=== PATIENT | male | born 1940 | race Caucasian/White ===

== ENCOUNTER 2016-11-14 05:34 | Emergency (ER) | payer OTHER ==
[~2016-11-14] VITALS: Ht 177.8 cm; Wt 112.0 kg
[~2016-11-14 05:34] MED LIST: ACET1TAB84 PO; ALPR-411 PO; HYDROCORTISONE CR TOP; TAMS0.4C38 PO; TERA1CAP63 PO; VITAMIN D PO
[2016-11-14 05:40] VITALS: BP 159/88; TEMP 36.8; Ht 177.8 cm; Wt 112.0 kg
[2016-11-14] MEDS ORDERED: OXYMETAZOLINE HCL 0.05% NA SPR 15 ML BTL ONE (06:00)
[2016-11-14 06:03] VITALS: PULSE 85; O2SAT 92
--- NOTE | 2016-11-14 06:19 | EMERGENCY ROOM VISIT NOTE ---
History Report prepared by Callie: Adalberto Nichols Under the Supervision of: Dr. Luis Alfredo Ann D.O. First contact with patient: 05:48 Chief Complaint: RESPIRATORY PROBLEMS Stated Complaint: HAVING TROUBLE/PROBLEMS BREATHING History of Present Illness The patient is a 76 year old male who presents to the Emergency Room with complaints of recurrent trouble breathing for the past month. The patient has noticed that his nose becomes stuffy every night, which makes it difficult for him to breath. He is able to breath when his nose clears up and is able to breath through his mouth. The patient's breathing trouble is not exertional. The patient denies chest pain or shortness of breath. The patient denies experiencing cough or cold symptoms. The patient has not seen his PCP for these symptoms. He follows up at [facility]. He is a former smoker. Source of History: patient Onset: one month Position: other (respiratory) Quality: other (trouble breathing) Timing: other (recurrent) Associated Symptoms: No SOB, No chest pain, No cough Review of Systems See HPI for pertinent positives & negatives. A total of 10 systems reviewed and were otherwise negative. Past Medical & Surgical Medical Problems: (1) Hypertension (2) Tinnitus Family History Kidney disease or stones Social History Smoking Status: Former Smoker Marital Status: Occupation Status: retired Current/Historical Medications Scheduled Acetaminophen (Tylenol Arthritis Ext Rel), 1,300 MG PO PRN Tamsulosin Hcl (Flomax), 0.4 MG PO HS Terazosin Hcl (Hytrin), 10 MG PO QPM [Hydrocortisone Cr], 1 DOSE TOP PRN [Vitamin D], 1 TAB PO QAM Scheduled PRN Alprazolam (Xanax), 0.5 MG PO BID PRN for Anxiety Allergies Coded Allergies: Codeine (Verified Adverse Reaction, Mild, NAUSEA, 01/26/16) Physical Exam Vital Signs Date Time Temp Pulse Resp B/P Pulse Ox O2 Delivery O2 Flow Rate FiO2 11/14/16 06:03 85 20 92 11/14/16 05:50 92 Room Air 11/14/16 05:40 36.8 86 16 159/88 92 Room Air Physical Exam CONSTITUTIONAL/VITAL SIGNS: Reviewed / noted above. GENERAL: Non-toxic in appearance. INTEGUMENTARY: Warm, dry, and [place]. HEAD: Normocephalic. EYES: without scleral icterus or trauma. ENT/OROPHARYNX: clear and moist. LYMPHADENOPATHY/NECK: Is supple without lymphadenopathy or meningismus. RESPIRATORY: Lungs clear and equal. CARDIOVASCULAR: Regular rate and rhythm. GI/ABDOMEN: Soft and nontender. No organomegaly or pulsatile mass. No rebound or guarding. Normal bowel sounds. EXTREMITIES: Warm and well perfused. Mild lower extremity edema bilaterally. BACK: No CVA tenderness. NEUROLOGICAL: Intact without focal deficits. PSYCHIATRIC: normal affect. MUSCULOSKELETAL: Normally developed with good muscle tone. Medical Decision & Procedures Medications Administered Medications (Trade) Dose Ordered Sig/Gely Route Start Time Stop Time Status Last Admin Dose Admin Oxymetazoline HCl (Afrin 0.05% Nasal [place]) 1 sprays NOW ONCE NA 11/14/16 06:00 11/14/16 06:01 DC 11/14/16 06:01 75 SPRAYS ED Course 0549: Previous medical records were reviewed. The patient was evaluated in room A9b. A complete history and physical examination was performed. 0600: Afrin 0.05% 1 [place] NA. 0600: Discussed the treatment plan with the patient. He verbalized understanding and agreement. The patient is ready for discharge. Medical Decision The differential that was considered includes acute myocardial infarction, acute coronary syndrome, myocarditis, pericarditis, pericardial effusions / tamponad, esophageal perforation, pulmonary embolism, pneumonia, pneumothorax , cardiomyopathy, congestive heart, anemia , COPD/asthma exacerbation. This is a 76-year-old male who presents to the ED with a chief complaint of nasal congestion. The patient states that he has been having the symptoms for over a month. He states that at nighttime particularly in his bedroom, he developed nasal congestion where he cannot breathe through his nose. His symptoms improved during the day. He denies having any exertional symptoms. He does not have orthopnea. He primarily complains of the nasal congestion. He is not sure why it happens. He thinks it could be related to a dry house. The patient was offered cardiopulmonary evaluation here but declined this. Instead he desired Afrin for his congestion. The patient was evaluated. His exam was normal. He has some mild pedal edema. He does not have any clinical findings to suggest pulmonary edema or significant congestive heart failure. A denies exertional dyspnea. The patient was given Afrin to use when necessary at night for his nasal congestion. He does have follow-up with his PCP next week. He was told to return for any worsening or new concerns. Impression Primary Impression: Nasal congestion Scribe Attestation The scribe's documentation has been prepared under my direction and personally reviewed by me in its entirety. I confirm that the note above accurately reflects all work, treatment, procedures, and medical decision making performed by me. Departure Information Dispostion Home / Self-Care Referrals Billy Garcia M.D. (PCP) Forms HOME CARE DOCUMENTATION FORM, IMPORTANT VISIT INFORMATION Patient Instructions [facility] Additional Instructions Use Afrin spray once or twice a night as needed for nasal congestion. Follow-up with your doctor for recheck next week as scheduled. Return for any worsening or new concerns.
== END 2016-11-14 06:04 | disposition home or self-care (01) ==
LOC: C.EDB 05:36 → C.EDA 06:04
DX: R09.81 Nasal congestion (principal); I10 Essential (primary) hypertension; Z87.891 Personal history of nicotine dependence; Z79.899 Other long term (current) drug therapy; Z88.5 Allergy status to narcotic agent; Z84.1 Family history of disorders of kidney and ureter

== ENCOUNTER → 2016-11-15 | Outpatient (CLI) | payer OTHER ==
[~2016-11-15] MED LIST changes: +ASPI-232 PO; +FINA5TAB PO; +FLUT0.15 NAE
[2016-11-15 12:53] LABS: ALT/SGPT 20 U/L (12-78); BLOOD UREA NITROGEN 15 mg/dl (7-18); BUN/CREATININE RATIO 14.9 (10-20); CALCIUM 8.8 mg/dl (8.5-10.1); CARBON DIOXIDE 25 mmol/L (21-32); CHLORIDE 109 mmol/L (98-107); GLUCOSE 84 mg/dl (70-99); POTASSIUM 4.1 mmol/L (3.5-5.1); SODIUM 143 mmol/L (136-145)
[2016-11-15 13:04] LABS: ALB/GLOB RATIO 0.8 (0.9-2); ALKALINE PHOSPHATASE 58 U/L (45-117); AST/SGOT 18 U/L (15-37); PROSTATE SPECIFIC ANTIGEN 0.648 ng/ml (0.000-4.000); THYROID STIMULATING HORMONE 0.453 uIu/ml (0.300-4.500)
== END | disposition home or self-care (01) ==
LOC: C.LABPVFM 07:54
PROVIDERS: ATTEND Family Medicine
DX: N40.1 Benign prostatic hyperplasia with lower urinary tract symptoms (principal); E55.9 Vitamin D deficiency, unspecified; I10 Essential (primary) hypertension; F41.9 Anxiety disorder, unspecified

== ENCOUNTER → 2017-01-24 | Outpatient (CLI) | payer OTHER ==
[~2017-01-24] MED LIST changes: +XARELTO PO
[2017-01-24 12:48] LABS: BLOOD UREA NITROGEN 12 mg/dl (7-18); CREATININE 0.91 mg/dl (0.60-1.40)
== END | disposition home or self-care (01) ==
LOC: C.LABPVFM 07:58
PROVIDERS: ATTEND Physician Assistant
DX: H91.8X2 Other specified hearing loss, left ear (principal)

== ENCOUNTER → 2017-01-30 | Outpatient (CLI) | payer OTHER ==
[~2017-01-30] MED LIST changes: +GADAVIST IV PRN
--- NOTE | 2017-01-30 11:36 | DIAGNOSTIC IMAGING REPORT ---
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 COMPARISON STUDY: MRI of the brain January 11, [address] December 04, 2015. TECHNIQUE: Utilizing a 0.7 Sherrell magnet, multiplanar, multiecho imaging of the brain was performed pre and postcontrast administration with thin cut imaging through the internal auditory canals. Injection of 11 cc of Gadavist IV was uneventful. FINDINGS: This exam is moderately compromised by artifact. There are no areas restricted diffusion to suggest acute infarct. No acute intracranial hemorrhage, midline shift or mass effect is present. Ventricular system is normal for age. Basilar cisterns are patent. There are no extra-axial collections. Flow-voids for the major intracranial vessels are present. There are no intracranial masses or areas of pathologic enhancement. No abnormalities are identified within the internal auditory canals. Scattered white matter T2 hypertense foci suggest small vessel disease. A few old lacunar infarcts are noted. The appearance of the brain is unchanged since MRI of January 11, 2014. IMPRESSION: 1. No acute intracranial findings. 2. No abnormalities within the internal auditory canals. 3. Study moderately compromised by artifact. 4. 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 Electronically signed by: Francisco Peñaloza M.D. 01/30/2017 11:34 AM Dictated Date/Time: 01/30/2017 11:29 AM
== END | disposition home or self-care (01) ==
LOC: C.OPENMRI 09:39
PROVIDERS: ATTEND Physician Assistant
DX: H91.8X2 Other specified hearing loss, left ear (principal)

== ENCOUNTER → 2017-05-18 | Outpatient (CLI) | payer OTHER ==
[~2017-05-18] MED LIST changes: -GADAVIST IV PRN; -XARELTO PO
[2017-05-18 13:19] LABS: ALT/SGPT 25 U/L (12-78); BLOOD UREA NITROGEN 13 mg/dl (7-18); BUN/CREATININE RATIO 14.9 (10-20); CALCIUM 8.3 mg/dl (8.5-10.1); CARBON DIOXIDE 26 mmol/L (21-32); CHLORIDE 111 mmol/L (98-107); CHOLESTEROL 137 mg/dl (0-200); CREATININE 0.89 mg/dl (0.60-1.40); GLUCOSE 85 mg/dl (70-99); POTASSIUM 4.2 mmol/L (3.5-5.1); SODIUM 143 mmol/L (136-145); TRIGLYCERIDES 67 mg/dl (0-150); VERY LOW DENSITY LIPOPROT CALC 13 mg/dl
[2017-05-18 13:22] LABS: ALB/GLOB RATIO 0.7 (0.9-2); ALKALINE PHOSPHATASE 56 U/L (45-117); AST/SGOT 22 U/L (15-37); CHOLESTEROL/HDL RATIO 3.3; HDL CHOLESTEROL 41 mg/dl; LDL CHOLESTEROL CALCULATED 83 mg/dl
[2017-05-21 17:14] LABS: ALBUMIN 3.4 G/DL (3.8-4.8); GAMMA GLOBULIN 1.5 G/DL (0.8-1.7); IMMUNOFIXATION IGA SERUM 653 MG/DL (81-463); IMMUNOFIXATION IGG SERUM 1586 MG/DL (694-1618); IMMUNOFIXATION IGM SERUM 49 MG/DL (48-271); TOTAL PROTEIN 6.8 G/DL (6.2-8.3)
== END | disposition home or self-care (01) ==
LOC: C.LABPVFM 07:57
PROVIDERS: ATTEND Family Medicine
DX: R77.1 Abnormality of globulin (principal); I10 Essential (primary) hypertension

== ENCOUNTER 2017-06-24 08:34 | Emergency (ER) | payer OTHER ==
[~2017-06-24] VITALS: Ht 177.8 cm; Wt 109.8 kg
[~2017-06-24 08:34] MED LIST changes: -ASPI-232 PO; -FINA5TAB PO; -FLUT0.15 NAE
[2017-06-24 08:39] VITALS: TEMP 36.9; Ht 177.8 cm; Wt 109.8 kg
[2017-06-24] MEDS ORDERED: FINA5TAB PO (08:57)
[2017-06-24] MEDS ORDERED: ASPI-232 PO (08:57)
[2017-06-24] MEDS ORDERED: FLUT0.15 NAE (08:57)
[2017-06-24] MEDS ORDERED: SODIUM CHLORIDE 0.9% 1000ML 1,000 ML IV STA (09:38)
[2017-06-24 10:02] LABS: URINE APPEARANCE CLEAR (CLEAR); URINE COLOR DK YELLOW; URINE NITRITE NEG (NEG); URINE SPECIFIC GRAVITY 1.032 (1.000-1.030); UROBILINOGEN NEG (NEG); ZZUR CULT IF INDIC CLEAN CATCH NO
[2017-06-24 10:13] LABS: MANUAL MICROSCOPIC REQUIRED? NO; REVIEW REQ? NO; URINE BILIRUBIN NEG (NEG)
--- NOTE | 2017-06-24 10:27 | DIAGNOSTIC IMAGING REPORT ---
CHEST ONE VIEW PORTABLE HISTORY: 76 years-old Male CHEST PAIN acute atypical chest pain COMPARISON: Chest radiographs 01/12/2016 TECHNIQUE: Portable upright AP view of the chest FINDINGS: Cardiac silhouette is mildly enlarged, unchanged. There is atherosclerosis of the aorta. No pneumothorax or pleural effusion. Patchy subsegmental bibasilar opacities are redemonstrated. No new lobar airspace consolidation or overt pulmonary edema. Degenerative changes involve the shoulders and spine. IMPRESSION: 1. Mild cardiomegaly without overt pulmonary edema. 2. Patchy subsegmental bibasilar opacities are redemonstrated suggesting atelectasis and/or scarring. No lobar airspace consolidation to suggest pneumonia. The above report was generated using voice recognition software. It may contain grammatical, syntax or spelling errors. Electronically signed by: Jose J Booker M.D. 06/24/2017 10:26 AM Dictated Date/Time: 06/24/2017 10:24 AM
[2017-06-24 10:32] LABS: BASO % 0.2 %; BASO ABS # 0.01 K/uL (0-0.2); COMPLETE YES; EOS % 5.7 %; HEMATOCRIT 45.3 % (42-52); IG% 0.2 %; LYMPH % 26.8 %; LYMPH ABS # 1.32 K/uL (1.2-3.4); MEAN CORPUSCULAR HGB CONC 32.7 g/dl (32-36); MEAN PLATELET VOLUME 9.3 fL (7.4-10.4); MONO % 10.1 %; PLATELET COUNT 188 K/uL (130-400); RED BLOOD COUNT 4.77 M/uL (4.7-6.1); WHITE BLOOD COUNT 4.93 K/uL (4.8-10.8)
[2017-06-24 10:49] LABS: BUN/CREATININE RATIO 13.2 (10-20); CALCIUM 8.8 mg/dl (8.5-10.1); CREATININE 0.97 mg/dl (0.60-1.40); POTASSIUM 4.3 mmol/L (3.5-5.1)
--- NOTE | 2017-06-24 12:25 | DIAGNOSTIC IMAGING REPORT ---
RENAL ULTRASOUND HISTORY: Right-sided flank pain. r/o hydronephrosis COMPARISON: None. FINDINGS: Right kidney: 12.3 cm. No hydronephrosis. Normal corticomedullary differentiation and cortical thickness. Left kidney: 11.8 cm. No hydronephrosis. Normal corticomedullary differentiation and cortical thickness. Bladder: No bladder wall thickening. The bilateral ureteral jets were identified. IMPRESSION: No hydronephrosis. Electronically signed by: Eliel Solitario M.D. 06/24/2017 12:23 PM Dictated Date/Time: 06/24/2017 11:23 AM
--- NOTE | 2017-06-24 13:07 | EMERGENCY ROOM VISIT NOTE ---
History Report prepared by Callie: Erin Dumont Under the Supervision of: Dr. Jaciel Calderón M.D. First contact with patient: 09:36 Chief Complaint: BACK PAIN Stated Complaint: RIGHT SIDED BACK PAIN UNDER RIB CAGE History of Present Illness The patient is a 76 year old male who presents to the Emergency Room with complaints of persistent right flank pain starting 2 days ago. He has been having the pain as soon as he gets up in the morning. This morning the pain was a 7/10 in severity. He has been experiencing relief with Aleve. He took some today. He currently rates his discomfort as a 3/10 in severity. He presents to the ED today because he has a history of kidney stones and wanted to make sure that it was not a kidney stone. He denies any abdominal pain, hematuria, dysuria , fever, chills, cough, congestion, nausea, vomiting, chest pain, SOB, diarrhea , or constipation. He was able to pass his last kidney stone on his own. It has been a while since his last kidney stone. He is currently of Flomax for his prostate. He denies any history of ND or ulcers. He lives alone. Source of History: patient Onset: 2 days ago Position: other (right flank) Symptom Intensity: 3/10 Quality: other (pain) Timing: other (persistent) Modifying Factors (Relieving): other (aleve) Associated Symptoms: No fevers, No chills, No cough, No chest pain, No SOB, No nausea, No vomiting, No abdominal pain, No diarrhea, No urinary symptoms Note: Pt denies congestion, constipation. Review of Systems See HPI for pertinent positives and negatives. A total of ten systems were reviewed and were otherwise negative. Past Medical & Surgical Medical Problems: (1) Hypertension (2) Tinnitus Family History Kidney disease or stones Social History Smoking Status: Former Smoker Marital Status: Housing Status: lives alone Occupation Status: retired Current/Historical Medications Scheduled Aspirin (Aspir-81), 81 MG PO DAILY Finasteride (Proscar), 5 MG PO DAILY Tamsulosin Hcl (Flomax), 0.4 MG PO HS Terazosin Hcl (Hytrin), 10 MG PO QPM Scheduled PRN Alprazolam (Xanax), 0.5 MG PO BID PRN for Anxiety Fluticasone Propionate (Nasal) (Flonase Allergy Relief), 2 SPRAYS [place]UB[place] DAILY PRN for CONGESTION Allergies Coded Allergies: Codeine (Verified Adverse Reaction, Mild, NAUSEA, 06/24/17) Physical Exam Vital Signs Date Time Temp Pulse Resp B/P (MAP) Pulse Ox O2 Delivery O2 Flow Rate FiO2 06/24/17 13:11 72 152/83 93 06/24/17 11:35 75 20 144/78 94 Room Air 06/24/17 10:11 80 126/79 92 Room Air 06/24/17 08:39 36.9 86 20 163/81 95 Room Air Physical Exam GENERAL: Awake, alert, well-appearing, in no distress HENT: Normocephalic, atraumatic. Oropharynx unremarkable. EYES: Normal conjunctiva. Sclera non-icteric. NECK: Supple. No nuchal rigidity. FROM. No JVD. RESPIRATORY: Clear to auscultation. CARDIAC: Regular rate, normal rhythm. Extremities warm and well perfused. Pulses equal. ABDOMEN: Soft, non-distended. No tenderness to palpation. No rebound or guarding. No masses. RECTAL: Deferred. MUSCULOSKELETAL: Chest examination reveals no tenderness. The back is symmetrical on inspection without obvious abnormality. There is no CVA tenderness to palpation. No joint edema. LOWER EXTREMITIES: Calves are equal size bilaterally and non-tender. No edema. No discoloration. NEURO: Normal sensorium. No sensory or motor deficits noted. SKIN: No rash or jaundice noted. Medical Decision & Procedures ER Provider Diagnostic Interpretation: Radiology results as stated below per my review and radiologist interpretation: CHEST ONE VIEW PORTABLE HISTORY: 76 years-old Male CHEST PAIN acute atypical chest pain COMPARISON: Chest radiographs 01/12/2016 TECHNIQUE: Portable upright AP view of the chest FINDINGS: Cardiac silhouette is mildly enlarged, unchanged. There is atherosclerosis of the aorta. No pneumothorax or pleural effusion. Patchy subsegmental bibasilar opacities are redemonstrated. No new lobar airspace consolidation or overt pulmonary edema. Degenerative changes involve the shoulders and spine. IMPRESSION: 1. Mild cardiomegaly without overt pulmonary edema. 2. Patchy subsegmental bibasilar opacities are redemonstrated suggesting atelectasis and/or scarring. No lobar airspace consolidation to suggest pneumonia. The above report was generated using voice recognition software. It may contain grammatical, syntax or spelling errors. Electronically signed by: Jose J Booker M.D. 06/24/2017 10:26 AM Dictated Date/Time: 06/24/2017 10:24 AM RENAL ULTRASOUND HISTORY: Right-sided flank pain. r/o hydronephrosis COMPARISON: None. FINDINGS: Right kidney: 12.3 cm. No hydronephrosis. Normal corticomedullary differentiation and cortical thickness. Left kidney: 11.8 cm. No hydronephrosis. Normal corticomedullary differentiation and cortical thickness. Bladder: No bladder wall thickening. The bilateral ureteral jets were identified. IMPRESSION: No hydronephrosis. Electronically signed by: Eliel Solitario M.D. 06/24/2017 12:23 PM Dictated Date/Time: 06/24/2017 11:23 AM Laboratory Results 06/24/17 10:10 Red Blood Count 4.77, Mean Corpuscular Volume 95.0, Mean Corpuscular Hemoglobin 31.0, Mean Corpuscular Hemoglobin Concent 32.7, Mean Platelet Volume 9.3, Neutrophils (%) (Auto) 57.0, Lymphocytes (%) (Auto) 26.8, Monocytes (%) (Auto) 10.1, Eosinophils (%) (Auto) 5.7, Basophils (%) (Auto) 0.2, Neutrophils # (Auto ) 2.81, Lymphocytes # (Auto) 1.32, Monocytes # (Auto) 0.50, Eosinophils # (Auto ) 0.28, Basophils # (Auto) 0.01 06/24/17 10:10 Test 06/24/17 08:45 06/24/17 10:10 Urine Color DK YELLOW Urine Appearance CLEAR (CLEAR) Urine pH 5.0 (4.5-7.5) Urine Specific [place] 1.032 (1.000-1.030) Urine Protein NEG (NEG) Urine Glucose (UA) NEG (NEG) Urine Ketones TRACE (NEG) Urine Occult Blood NEG (NEG) Urine Nitrite NEG (NEG) Urine Bilirubin NEG (NEG) Urine Urobilinogen NEG (NEG) Urine Leukocyte Esterase NEG (NEG) White Blood Count 4.93 K/uL (4.8-10.8) Red Blood Count 4.77 M/uL (4.7-6.1) Hemoglobin 14.8 g/dL (14.0-18.0) Hematocrit 45.3 % (42-52) Mean Corpuscular Volume 95.0 fL (80-100) Mean Corpuscular Hemoglobin 31.0 pg (25-34) Mean Corpuscular Hemoglobin Concent 32.7 g/dl (32-36) Platelet Count 188 K/uL (130-400) Mean Platelet Volume 9.3 fL (7.4-10.4) Neutrophils (%) (Auto) 57.0 % Lymphocytes (%) (Auto) 26.8 % Monocytes (%) (Auto) 10.1 % Eosinophils (%) (Auto) 5.7 % Basophils (%) (Auto) 0.2 % Neutrophils # (Auto) 2.81 K/uL (1.4-6.5) Lymphocytes # (Auto) 1.32 K/uL (1.2-3.4) Monocytes # (Auto) 0.50 K/uL (0.11-0.59) Eosinophils # (Auto) 0.28 K/uL (0-0.5) Basophils # (Auto) 0.01 K/uL (0-0.2) RDW Standard Deviation 47.2 fL (36.4-46.3) RDW Coefficient of Variation 13.6 % (11.5-14.5) Immature Granulocyte % (Auto) 0.2 % Immature Granulocyte # (Auto) 0.01 K/uL (0.00-0.02) Anion Gap 7.0 mmol/L (3-11) Est Creatinine Clear Calc Drug Dose 82.9 ml/min Estimated GFR () 88.8 Estimated GFR (Non- 76.6 BUN/Creatinine Ratio 13.2 (10-20) Calcium Level 8.8 mg/dl (8.5-10.1) Laboratory results reviewed by me Medications Administered Medications (Trade) Dose Ordered Sig/Gely Route Start Time Stop Time Status Last Admin Dose Admin Sodium Chloride 1,000 ml @ 999 mls/hr Q1H1M STAT IV 06/24/17 09:38 06/24/17 10:38 DC 06/24/17 10:10 999 MLS/HR ED Course 0937: The patient was evaluated in room B12B. A complete history and physical exam was performed. 0938: NSS 1000 ml @ 999 mls/hr IV. 1254: I reevaluated the patient. He is feeling better. I discussed results and discharge instructions: he verbalized understanding and agreement. The patient is ready for discharge. Medical Decision I reviewed the patient's past medical history, medications, and the nursing notes as described above. Differential diagnosis: kidney stone, pyelonephritis, UTI, musculoskeletal strain, pneumonia. Patient is a 76-year-old gentleman with a past medical history of a renal stone is to emergency department with intermittent right flank pain per history of present illness. The patient is well-appearing, in no acute distress, afebrile with stable vital signs. Abdomen is nontender nondistended. Labs unremarkable including WBC within normal limits. UA negative for UTI or blood. Formal renal ultrasound negative for hydronephrosis. The patient is largely asymptomatic at this time no signs of obstructive renal stone and normal labs further imaging indicated at this time. Moreover, the patient is already appropriate medications as he is on Flomax as a part of his normal medications and has been taking naproxen with resolution of his pain. Findings and plan for follow-up d/w patient. Patient agreeable and d/c'd per discharge instructions. Medication Reconcilliation Current Medication List: was personally reviewed by me Blood Pressure Screening Patient's blood pressure: Elevated blood pressure Blood pressure disposition: Elevated BP felt to be situational Impression Primary Impression: Flank pain Scribe Attestation The scribe's documentation has been prepared under my direction and personally reviewed by me in its entirety. I confirm that the note above accurately reflects all work, treatment, procedures, and medical decision making performed by me. Departure Information Dispostion Home / Self-Care Referrals Billy Garcia M.D. (PCP) Patient Instructions ED Flank Pain Uncertain Cause, My [facility] Additional Instructions Please follow up with your primary care physician in the next 1-3 days for re- evaluation. The exact cause of your pain is unclear at this time however it could be due to a kidney stone (that is not causing obstruction) or also muscular strain. Otherwise, your exam, chest xray, ultrasound, and lab results did not show signs of an emergent condition at this time. Continue your current medications. Return to the emergency department for worsening symptoms as described in the accompanying instructions.
[2017-06-24 13:11] VITALS: BP 152/83; PULSE 72; O2SAT 93
== END 2017-06-24 13:12 | disposition home or self-care (01) ==
LOC: C.EDB 08:36
DX: R10.30 Lower abdominal pain, unspecified (principal); Z87.442 Personal history of urinary calculi; I10 Essential (primary) hypertension; H93.19 Tinnitus, unspecified ear; Z87.891 Personal history of nicotine dependence; Z79.899 Other long term (current) drug therapy; Z79.82 Long term (current) use of aspirin

== ENCOUNTER 2017-07-30 20:00 | Inpatient (IN) | payer OTHER ==
[~2017-07-30] VITALS: Ht 177.8 cm; Wt 109.8 kg
[~2017-07-30 20:00] MED LIST changes: -ACET1TAB84 PO; +ASPI-232 PO; +FINA5TAB PO; +FLUT0.15 NAE; -HYDROCORTISONE CR TOP; -VITAMIN D PO
[2017-07-30] MEDS ORDERED: DILTIAZEM BOLUS / DRIP IV STA ×2 (20:08→21:34)
[2017-07-30] MEDS ORDERED: SODIUM CHLORIDE 0.9% 1000ML 500 ML IV STA (20:08)
[2017-07-30] MEDS ORDERED: DILTIAZEM HCL 5 MG/ML 5 ML VIAL IV STA (20:18)
--- NOTE | 2017-07-30 20:25 | EMERGENCY ROOM VISIT NOTE ---
History Report prepared by Callie: Joao Kaur Under the Supervision of: Dr. Gavin Diaz M.D. First contact with patient: 20:05 Chief Complaint: TACHYCARDIA Stated Complaint: HIGH HR Nursing Triage Summary: pt reports started to feel heart racing at 1900 today , denies cp or increased sob , denies hx of fast HR History of Present Illness The patient is a 76 year old male who presents to the Emergency Room with complaints of constant tachycardia for the past hour. The patient states that he was sitting watching TV when his heart started to race, and he has never had anything like this before. The patient denies any chest pain, shortness of breath, light headedness, dizziness, and previous heart attacks. He notes that he has been feeling fine for the past couple of days, and he has chronic leg swelling. Source of History: patient Onset: an hour ago Position: other (global) Quality: other (tachycardia) Timing: constant Associated Symptoms: No chest pain, No SOB Review of Systems See HPI for pertinent positives & negatives. A total of 10 systems reviewed and were otherwise negative. Past Medical & Surgical Medical Problems: (1) Hypertension (2) Tinnitus Family History Kidney disease or stones Social History Smoking Status: Never Smoker Marital Status: Housing Status: lives alone Occupation Status: retired Current/Historical Medications Scheduled Aspirin (Aspir-81), 81 MG PO DAILY Finasteride (Proscar), 5 MG PO DAILY Terazosin Hcl (Hytrin), 10 MG PO QPM Scheduled PRN Alprazolam (Xanax), 0.5 MG PO BID PRN for Anxiety Fluticasone Propionate (Nasal) (Flonase Allergy Relief), 2 SPRAYS HUBERT DAILY PRN for CONGESTION Allergies Coded Allergies: Codeine (Verified Adverse Reaction, Mild, NAUSEA, 06/24/17) Physical Exam Vital Signs Date Time Temp Pulse Resp B/P (MAP) Pulse Ox O2 Delivery O2 Flow Rate FiO2 07/30/17 21:33 142 18 155/92 96 Room Air 07/30/17 21:11 123 18 144/83 95 Nasal Cannula 2.0 07/30/17 20:59 119 18 132/70 94 Nasal Cannula 2.0 07/30/17 20:46 124 132/70 07/30/17 20:32 143 18 158/95 94 Nasal Cannula 2.0 07/30/17 20:19 145 07/30/17 20:17 92 Room Air 07/30/17 20:04 94 2.0 07/30/17 20:02 36.8 149 20 161/101 95 Room Air Physical Exam GENERAL: Patient is in no acute distress. HEENT: No acute trauma, normocephalic atraumatic, mucous membranes moist, no nasal congestion, no scleral icterus. NECK: No stridor, no adenopathy, no meningismus, trachea is midline. LUNGS: Clear to auscultation bilaterally, no wheeze, no rhonchi, breath sounds equal. HEART: Tachycardic with a regular rhythm. No murmur. ABDOMEN: Soft, nontender, bowel sounds positive, no hernias, no peritonitis. EXTREMITIES: Mild bilateral pedal edema. No cyanosis, full range of motion of all the joints without pain or difficulty, no signs for acute trauma. NEUROLOGIC: Oriented x 3, no acute motor or sensory deficits, no focal weakness. SKIN: No rash, no jaundice, no diaphoresis. Medical Decision & Procedures ER Provider Diagnostic Interpretation: Radiology results as stated below per my review and radiologist interpretation: CHEST ONE VIEW PORTABLE HISTORY: 76 years-old Male CHEST PAIN acute atypical chest pain COMPARISON: Chest radiograph 06/24/2017 TECHNIQUE: Portable upright AP view of the chest FINDINGS: Cardiac silhouette is mildly enlarged, unchanged. Atherosclerosis of the aorta. No pneumothorax. Subsegmental bibasilar opacities are noted. The bones are grossly intact. Degenerative changes are seen about the spine and shoulders. IMPRESSION: 1. Subsegmental bibasilar opacities suggest atelectasis. 2. Cardiomegaly without overt pulmonary edema. The above report was generated using voice recognition software. It may contain grammatical, syntax or spelling errors. Electronically signed by: Jose J Booker M.D. 07/30/2017 8:58 PM Dictated Date/Time: 07/30/2017 8:56 PM Laboratory Results 07/30/17 20:15 07/30/17 20:15 Test 07/30/17 20:15 07/30/17 20:18 Red Blood Count 4.68 M/uL (4.7-6.1) Mean Corpuscular Volume 94.7 fL (80-100) Mean Corpuscular Hemoglobin 31.4 pg (25-34) Mean Corpuscular Hemoglobin Concent 33.2 g/dl (32-36) RDW Standard Deviation 46.9 fL (36.4-46.3) RDW Coefficient of Variation 13.7 % (11.5-14.5) Mean Platelet Volume 9.5 fL (7.4-10.4) Prothrombin Time 11.4 SECONDS (9.0-12.0) Prothromb Time International Ratio 1.1 (0.9-1.1) Activated Partial Thromboplast Time 26.1 SECONDS (21.0-31.0) Partial Thromboplastin Ratio 1.0 Anion Gap 7.0 mmol/L (3-11) Est Creatinine Clear Calc Drug Dose 71.7 ml/min Estimated GFR () 73.8 Estimated GFR (Non- 63.7 BUN/Creatinine Ratio 11.8 (10-20) Calcium Level 8.7 mg/dl (8.5-10.1) Magnesium Level 2.0 mg/dl (1.8-2.4) Total Bilirubin 0.4 mg/dl (0.2-1) Aspartate Amino Transf (AST/SGOT) 18 U/L (15-37) Alanine Aminotransferase (ALT/SGPT) 20 U/L (12-78) Alkaline Phosphatase 58 U/L (45-117) Total Protein 7.2 gm/dl (6.4-8.2) Albumin 3.2 gm/dl (3.4-5.0) Globulin 4.0 gm/dl (2.5-4.0) Albumin/Globulin Ratio 0.8 (0.9-2) Thyroid Stimulating Hormone (TSH) 0.614 uIu/ml (0.300-4.500) Bedside Troponin I 0.060 ng/ml (0-0.045) Laboratory results reviewed by me. Medications Administered Medications (Trade) Dose Ordered Sig/Gely Route Start Time Stop Time Status Last Admin Dose Admin Sodium Chloride 500 ml @ 999 mls/hr Q31M STAT IV 07/30/17 20:08 07/30/17 20:38 DC 07/30/17 20:34 999 MLS/HR Diltiazem HCl (Cardizem Inj) 10 mg NOW STAT IV 07/30/17 20:18 07/30/17 20:19 DC 10/31/17 20:30 10 MG Diltiazem HCl 125 mg/Dextrose 125 ml @ 0 mls/hr Q0M PRN IV 07/30/17 20:30 08/29/17 20:29 07/30/17 20:32 8 MLS/HR Diltiazem HCl (Cardizem Tab) 30 mg STK-MED ONCE .ROUTE 07/30/17 21:30 07/30/17 21:31 DC 07/30/17 21:33 30 MG ECG Indication: tachycardia Rate (beats per minute): 146 Rhythm: atrial flutter (with 2:1 conduction) Findings: nonspecific-ST abn (diffuse), RBBB Comparison ECG Date: 01/12/16 Change: A-flutter is now present and right bundle branch block is now complete. ED Course 2004: The patient was evaluated in room B3. A complete history and physical exam was performed. 2008: Sodium Chloride 500 ml @ 999 mls/hr IV 2018: Diltiazem HCl 10mg IV 2029: Diltiazem HCl 125mg/ Dextrose 8 mls/hr IV 2056: I reevaluated the patient, and he was still having symptoms. 2129: Discussed the patient's case with Dr. Rahman. The patient will be evaluated for further management. Medical Decision Differential Diagnoses include: A-fib or A-flutter, SVT, electrolyte abnormality , anemia, cardiac strain or ischemia, CHF There is no leukocytosis or concerning anemia. No significant electrolyte abnormality or kidney failure. There is no hepatitis or coagulopathy. EKG shows what appears to be in rapid atrial flutter with a right bundle branch block. Cardiac enzyme testing times one does show a mild troponin elevation, likely from the fast heart rate. Of note, the patient denies any chest pain at the present time. Chest film does not show pneumonia or CHF. The patient was aggressively managed. The patient received an IV saline bolus. He was given a bolus of IV diltiazem and then placed on a diltiazem drip. His heart rate is decreasing but he remains in atrial flutter/fib. Given the persistent tachycardia, given the troponin elevation, admission/ observation was felt warranted. I spoke to the patient and case investigator. The on-call hospitalist was consulted. Medication Reconcilliation Current Medication List: was personally reviewed by me Blood Pressure Screening Patient's blood pressure: Elevated blood pressure Monitored by the hospitalist Consults Time Called: 2103 Consulting Physician: Dr. Rahman Returned Call: 2129 Discussed the patient's case with Dr. Rahman. The patient will be evaluated for further management. Impression Primary Impression: Atrial flutter with rapid ventricular response Additional Impression: Elevated troponin Critical Care I have personally spent greater than 37 minutes of critical care time in the direct management of this patient. This includes bedside care, interpretation of diagnostic studies, and testing, discussion with consultants, patient, and family members, and other required patient management activities. This 37 minutes is in excess of all separately billable procedures. Scribe Attestation The scribe's documentation has been prepared under my direction and personally reviewed by me in its entirety. I confirm that the note above accurately reflects all work, treatment, procedures, and medical decision making performed by me. Departure Information Dispostion Being Evaluated By Hospitalist Referrals Billy Garcia M.D. (PCP) Patient Instructions [facility] Problem Qualifiers
[2017-07-30 20:29] LABS: HEMATOCRIT 44.3 % (42-52); MEAN CELL VOLUME 94.7 fL (80-100); MEAN CORPUSCULAR HEMOGLOBIN 31.4 pg (25-34); MEAN CORPUSCULAR HGB CONC 33.2 g/dl (32-36); MEAN PLATELET VOLUME 9.5 fL (7.4-10.4); PLATELET COUNT 179 K/uL (130-400); RED BLOOD COUNT 4.68 M/uL (4.7-6.1); WHITE BLOOD COUNT 6.66 K/uL (4.8-10.8)
[2017-07-30] MEDS: DILTIAZEM HCL INJ 125 MG in DEXTROSE 5% 100ML IV PRN ×2 (20:32→23:00)
[2017-07-30 20:35] LABS: INR 1.1 (0.9-1.1); PROTHROMBIN TIME (PATIENT) 11.4 SECONDS (9.0-12.0)
[2017-07-30 20:45] LABS: BUN/CREATININE RATIO 11.8 (10-20); CALCIUM 8.7 mg/dl (8.5-10.1); CREATININE 1.13 mg/dl (0.60-1.40); POTASSIUM 3.7 mmol/L (3.5-5.1)
[2017-07-30 20:56] LABS: ALB/GLOB RATIO 0.8 (0.9-2); THYROID STIMULATING HORMONE 0.614 uIu/ml (0.300-4.500)
--- NOTE | 2017-07-30 20:59 | DIAGNOSTIC IMAGING REPORT ---
CHEST ONE VIEW PORTABLE HISTORY: 76 years-old Male CHEST PAIN acute atypical chest pain COMPARISON: Chest radiograph 06/24/2017 TECHNIQUE: Portable upright AP view of the chest FINDINGS: Cardiac silhouette is mildly enlarged, unchanged. Atherosclerosis of the aorta. No pneumothorax. Subsegmental bibasilar opacities are noted. The bones are grossly intact. Degenerative changes are seen about the spine and shoulders. IMPRESSION: 1. Subsegmental bibasilar opacities suggest atelectasis. 2. Cardiomegaly without overt pulmonary edema. The above report was generated using voice recognition software. It may contain grammatical, syntax or spelling errors. Electronically signed by: Jose J Booker M.D. 07/30/2017 8:58 PM Dictated Date/Time: 07/30/2017 8:56 PM
[2017-07-30] MEDS ORDERED: NSS + 20MEQ KCL 1000ML 1,000 ML IV SCH (21:26)
[2017-07-30] MEDS ORDERED: FLUTICASONE PROPIONATE NA SPR 16 GM BTL NAE PRN (21:30)
[2017-07-30] MEDS ORDERED: DILTIAZEM HCL 30 MG TAB ONE (21:30)
[2017-07-30] MEDS ORDERED: ONDANSETRON INJ 2 MG/ML 2 ML VIAL IV PRN (21:30)
[2017-07-30] MEDS ORDERED: ZOLPIDEM TARTRATE 5 MG TAB PO PRN (21:30)
[2017-07-30] MEDS ORDERED: ALPRAZOLAM 0.5 MG TAB PO PRN (21:30)
[2017-07-30] MEDS ORDERED: ACETAMINOPHEN 325 MG TAB PO PRN (21:30)
[2017-07-30] MEDS ORDERED: DILTIAZEM HCL 30 MG TAB PO STA (21:44)
[2017-07-30 21:48] VITALS: Ht 177.8 cm; Wt 109.8 kg
--- NOTE | 2017-07-30 22:36 | History and Physical ---
History & Physical Date & Time of Service: Jul 30, 2017 at 22:36 Chief Complaint: High Hr Primary Care Physician: Billy Garcia M.D. History of Present Illness Source: patient, family The patient is a 76-year-old male reports a while watching TV he developed sudden onset of palpitations and rapid heart rate that have persisted over the past hour prior to arrival. He's had no previous occurrences of a rapid heart rate, and has not had any shortness of breath or chest discomfort associated. He has not had any change in his routine habits, and admits to walking 2 miles daily. He has not had any recent travels or sick exposures. He does have chronic lower extremity edema, and admits to excessive salt intake. He reports urinating every 2 hours overnight while attempting to sleep. Past Medical/Surgical History Medical Problems: (1) Hypertension Status: Chronic (2) Tinnitus Status: Chronic Family History Kidney disease or stones Social History Smoking Status: Former Smoker Smokeless Tobacco Use: No Alcohol Use: none Drug Use: none Marital Status: Occupational Status: retired Immunizations History of Influenza Vaccine: Unknown History of Tetanus Vaccine?: Unknown History of Pneumococcal: Unknown History of Hepatitis B Vaccine: Unknown Multi-Drug Resistant Organisms History of MDRO: No Allergies Coded Allergies: Codeine (Verified Adverse Reaction, Mild, NAUSEA, 06/24/17) Home Medications Scheduled Aspirin (Aspir-81), 81 MG PO DAILY Finasteride (Proscar), 5 MG PO DAILY Terazosin Hcl (Hytrin), 10 MG PO QPM Scheduled PRN Alprazolam (Xanax), 0.5 MG PO BID PRN for Anxiety Fluticasone Propionate (Nasal) (Flonase Allergy Relief), 2 SPRAYS HUBERT DAILY PRN for CONGESTION Review of Systems The patient denies chest pain, shortness of breath, cough, vision change, hearing change, sore throat, fevers, chills, sweats, weight change, fatigue, nausea, vomiting, diarrhea or constipation, abdominal pain, pelvic pain, blood in urine or stool, dysuria, urinary frequency or urgency, lightheadedness , dizziness, headache, memory loss, loss of consciousness, rash, abnormal bruising or bleeding, imbalance, focal or generalized weakness, numbness or tingling in arms or legs, generalized arthralgias or myalgias, back or neck pain, or night sweats. The review of systems is otherwise negative other than for that already noted above, and at least 10 systems have been reviewed. Physical Exam Vital Signs Date Time Temp Pulse Resp B/P (MAP) Pulse Ox O2 Delivery O2 Flow Rate FiO2 07/30/17 22:29 145 18 152/104 95 07/30/17 21:57 144 18 136/105 95 Nasal Cannula 2.0 07/30/17 21:48 Nasal Cannula 2.0 07/30/17 21:33 142 18 155/92 96 Room Air 07/30/17 21:11 123 18 144/83 95 Nasal Cannula 2.0 07/30/17 20:59 119 18 132/70 94 Nasal Cannula 2.0 07/30/17 20:46 124 132/70 07/30/17 20:32 143 18 158/95 94 Nasal Cannula 2.0 07/30/17 20:19 145 07/30/17 20:17 92 Room Air 07/30/17 20:04 94 2.0 07/30/17 20:02 36.8 149 20 161/101 95 Room Air The patient is awake, well-developed and adequately nourished, alert and oriented 3, normocephalic and atraumatic, lying in bed and in no acute distress. HEENT--PERRL, EOMI, mucous membranes and oropharynx normal. Neck--supple, no JVD or bruits, thyroid normal, trachea midline, no adenopathy. Heart--normal S1 and S2, no extra beats, no murmurs, rubs or gallops. Lungs--tachycardic and regular, no respiratory distress, no accessory muscle use. Abdomen--normal bowel sounds and soft, nontender and nondistended, no hernias or masses, no organomegaly. Extremities--no cyanosis, clubbing. There is bilaterally pretibial 2+ pitting Edema. There are good distal pulses b/l. Dermatologic--normal skin turgor, normal color, warm and dry, no abnormal lymph nodes, no rash. Neurologic--cranial nerves II through XII grossly intact. Rheumatologic--normal range of motion. Psychiatric--normal affect. Diagnostics Laboratory Results Results Past 24 Hours Test 07/30/17 20:15 07/30/17 20:18 Range/Units White Blood Count 6.66 4.8-10.8 K/uL Red Blood Count 4.68 4.7-6.1 M/uL Hemoglobin 14.7 14.0-18.0 g/dL Hematocrit 44.3 42-52 % Mean Corpuscular Volume 94.7 80-100 fL Mean Corpuscular Hemoglobin 31.4 25-34 pg Mean Corpuscular Hemoglobin Concent 33.2 32-36 g/dl RDW Standard Deviation 46.9 36.4-46.3 fL RDW Coefficient of Variation 13.7 11.5-14.5 % Platelet Count 179 130-400 K/uL Mean Platelet Volume 9.5 7.4-10.4 fL Prothrombin Time 11.4 9.0-12.0 SECONDS Prothromb Time International Ratio 1.1 0.9-1.1 Activated Partial Thromboplast Time 26.1 21.0-31.0 SECONDS Partial Thromboplastin Ratio 1.0 Sodium Level 144 136-145 mmol/L Potassium Level 3.7 3.5-5.1 mmol/L Chloride Level 108 98-107 mmol/L Carbon Dioxide Level 29 21-32 mmol/L Anion Gap 7.0 3-11 mmol/L Blood Urea Nitrogen 13 7-18 mg/dl Creatinine 1.13 0.60-1.40 mg/dl Est Creatinine Clear Calc Drug Dose 71.7 ml/min Estimated GFR () 73.8 Estimated GFR (Non- 63.7 BUN/Creatinine Ratio 11.8 10-20 Random Glucose 128 70-99 mg/dl Calcium Level 8.7 8.5-10.1 mg/dl Magnesium Level 2.0 1.8-2.4 mg/dl Total Bilirubin 0.4 0.2-1 mg/dl Aspartate Amino Transf (AST/SGOT) 18 15-37 U/L Alanine Aminotransferase (ALT/SGPT) 20 12-78 U/L Alkaline Phosphatase 58 45-117 U/L Total Protein 7.2 6.4-8.2 gm/dl Albumin 3.2 3.4-5.0 gm/dl Globulin 4.0 2.5-4.0 gm/dl Albumin/Globulin Ratio 0.8 0.9-2 Thyroid Stimulating Hormone (TSH) 0.614 0.300-4.500 uIu/ml Bedside Troponin I 0.060 0-0.045 ng/ml Diagnostic Radiology Patient Name: JENNIE FULLER Unit Number: [id number] Dictated: 07/30/172055 Transcribed: 07/30/172055 JRB Printed Date/Time: [~ rep prt dt]/[~ rep prt tm] [~ rep ct labl] - [~ rep ct ivnm] [facility] [place] [address] Dictated: 07/30/172055 Transcribed: 07/30/172055 JRB Printed Date/Time: [~ rep prt dt]/[~ rep prt tm] [~ rep ct labl] - [~ rep ct ivnm] CHEST ONE VIEW PORTABLE HISTORY: 76 years-old Male CHEST PAIN acute atypical chest pain COMPARISON: Chest radiograph 06/24/2017 TECHNIQUE: Portable upright AP view of the chest FINDINGS: Cardiac silhouette is mildly enlarged, unchanged. Atherosclerosis of the aorta. No pneumothorax. Subsegmental bibasilar opacities are noted. The bones are grossly intact. Degenerative changes are seen about the spine and shoulders. IMPRESSION: 1. Subsegmental bibasilar opacities suggest atelectasis. 2. Cardiomegaly without overt pulmonary edema. The above report was generated using voice recognition software. It may contain grammatical, syntax or spelling errors. Electronically signed by: Jose J Booker M.D. 07/30/2017 8:58 PM Dictated Date/Time: 07/30/2017 8:56 PM The status of this report is Signed. Draft = Not yet reviewed or approved by Radiologist. Signed = Reviewed and approved by Radiologist. <AttendingPhy></AttendingPhy> <FamilyPhy>Billy Garcia M.D.</FamilyPhy > <PrimaryPhy>Billy Garcia M.D.</PrimaryPhy> <UnitNumber>[id number]</ UnitNumber> <VisitNumber>[id number]</VisitNumber> <PatientName>JENNIE FULLER</ PatientName> <DateOfBirth>1940</DateOfBirth> <Location>[facility]</Location> < ServiceDate>07/30/17</ServiceDate> <MNE>ESINDI</MNE> <OrderingPhy>Gavin Diaz M.D.</OrderingPhy> <OrderingPhyMNE>f rep ord dr shi</OrderingPhyMNE> < DictatingPhyMNE>f rep dict dr shi</DictatingPhyMNE> <CCListMNE>f rep ct jamshide</ CCListMNE> <AdmittingPhyMNE>f pt admit dr shi</AdmittingPhyMNE> <AttendingPhyMNE >f pt attend dr shi</AttendingPhyMNE> <ConsultingPhyMNE>f pt consult dr shi</ConsultingPhyMNE> <FamilyPhyMNE>f pt fam dr shi</FamilyPhyMNE> <OtherPhyMNE>f pt other dr shi</OtherPhyMNE> < PrimaryPhyMNE>f pt prim care dr shi</PrimaryPhyMNE> <ReferringPhyMNE>f pt referring dr shi</ReferringPhyMNE> EKG EKG shows atrial flutter with 2 to one block, right bundle branch block, there are no acute ST-T changes. Impression Assessment and Plan Atrial flutter with RVR with 2:1 block/right bundle branch block/elevated troponin of 0.06-- The patient will be admitted to telemetry for serial cardiac enzymes, cardiac rhythm monitoring and a 2-D echocardiogram with Dopplers. Continue Cardizem drip begun in the emergency department and increase rate from 10-15 mg per hour with standard titration/withdrawal parameters. Give Cardizem 60 mg by mouth now, and 30 mg by mouth every 6 hours. If heart rate improves with the above oral Cardizem, will taper the Cardizem drip. Discussed with patient the possibility of needing to use an anti-arrhythmic medication such as amiodarone if heart rate continues elevated in spite of appropriate heart rate lowering medications. Give potassium chloride 40 mEq by mouth now for a potassium at 3.7. Start heparin drip standard weight-based protocol without bolus. Consult cardiology. Continue aspirin 81 mg by mouth daily. Stop Terazosin. The patient admittedly takes in too much sodium, and will work on decreasing that intake. BPH-- Continue finasteride 5 mg by mouth daily. Stop terazosin 10 mg by mouth every evening. Start tamsulosin 0.8 mg by mouth at bedtime. Anxiety-- Continue alprazolam 0.5 mg by mouth twice a day when necessary. Level of Care Telemetry Advanced Directives Existing Advance Directive: No Existing Living Will: No Existing Power of Plastic Sheeting Cutter: No Resuscitation Status FULL RESUSCITATION VTE Prophylaxis VTE Risk Assessment Done? Y/N: Yes Risk Level: High Given or contraindicated: Other Anticoagulation (heparin IV per standard weight -based protocol.) Social Service Consult None Apply
[2017-07-30 23:00] VITALS: BP 123/78; PULSE 145; TEMP 37.2; O2SAT 92
[2017-07-30] MEDS ORDERED: POTASSIUM CHLORIDE 20 MEQ TABCR PO ONE (23:15)
[2017-07-30 23:50] VITALS: BP 112/66; PULSE 141; TEMP 36.8; O2SAT 94
[2017-07-31] VITALS: O2SAT 95
[2017-07-31] MEDS: HEPARIN 25,000 UNIT/500ML D5W 500 ML IV PRN ×2 (00:21→07:57)
[2017-07-31] MEDS: DILTIAZEM HCL 30 MG TAB PO SCH ×2 (00:22→06:23)
[2017-07-31] MEDS: DILTIAZEM HCL INJ 125 MG in DEXTROSE 5% 100ML IV PRN (03:52)
[2017-07-31 04:13] VITALS: BP 114/73; PULSE 67; TEMP 36.5; O2SAT 95
[2017-07-31 06:43] LABS: BASO % 0.5 %; BASO ABS # 0.03 K/uL (0-0.2); COMPLETE YES; EOS % 4.8 %; HEMATOCRIT 40.8 % (42-52); IG% 0.2 %; LYMPH % 28.1 %; LYMPH ABS # 1.64 K/uL (1.2-3.4); MEAN CELL VOLUME 95.3 fL (80-100); MEAN CORPUSCULAR HEMOGLOBIN 30.4 pg (25-34); MEAN CORPUSCULAR HGB CONC 31.9 g/dl (32-36); MEAN PLATELET VOLUME 9.3 fL (7.4-10.4); MONO % 14.7 %; NEUT % 51.7 %; PLATELET COUNT 164 K/uL (130-400); RED BLOOD COUNT 4.28 M/uL (4.7-6.1); WHITE BLOOD COUNT 5.84 K/uL (4.8-10.8)
[2017-07-31 07:04] LABS: INR 1.1 (0.9-1.1); PARTIAL THROMBOPLASTIN RATIO 2.8; PROTHROMBIN TIME (PATIENT) 11.8 SECONDS (9.0-12.0)
[2017-07-31 07:13] LABS: BLOOD UREA NITROGEN 10 mg/dl (7-18); BUN/CREATININE RATIO 12.3 (10-20); CARBON DIOXIDE 28 mmol/L (21-32); CHLORIDE 109 mmol/L (98-107); CREATININE 0.84 mg/dl (0.60-1.40); GLUCOSE 85 mg/dl (70-99); POTASSIUM 4.2 mmol/L (3.5-5.1); SODIUM 141 mmol/L (136-145)
[2017-07-31 08:00] VITALS: BP 117/69; PULSE 71; TEMP 36.5; O2SAT 91
[2017-07-31] MEDS ORDERED: INFLUENZA ADMINISTRATION CHARGE ONE (08:00)
[2017-07-31] MEDS ORDERED: INFLUENZA VACCINE HIGH DOSE 65+ 0.5 ML SYR IM. ONE (08:00)
[2017-07-31] MEDS ORDERED: FINASTERIDE 5 MG TAB PO SCH (09:00)
[2017-07-31] MEDS ORDERED: ASPIRIN 81 MG ECTAB PO SCH (09:00)
--- NOTE | 2017-07-31 09:38 | Cardiology Consultation ---
Cardiology Consultation Date of Consultation: Jul 31, 2017. Requesting Physician: Osmar Reason for Consultation: AFL Pt evaluation today including: conversation w/ patient, physical exam, chart review, lab review, review of studies, review of inpatient medication list, conversation w/ attending History of Present Illness The patient is a 76-year-old gentleman without a known cardiac history who noticed the acute onset of palpitations last evening while watching TV. The patient felt unwell but appeared to have very few additional symptoms. He used his home blood pressure cuff and noted a pulse of 150. Based on that result and feeling poorly he decided to proceed to [facility] for an additional evaluation. He denies associated symptoms such as dizziness, lightheadedness, breathing difficulty or chest discomfort. His symptoms persisted at [facility] but this morning he is feeling well. He currently has no symptoms of palpitations. His energy level has returned to normal. He cannot recall a similar episode in the past. He denies frequent or irregular palpitations. He does report a very remote episode of presyncope that he attributes to dehydration and getting out of bed too quickly. In general he is an active individual who was accustomed routine activity. He does report walking 2 miles nearly every day. This walk includes hills. He denies any exertional symptoms during this activity such as chest discomfort or breathing difficulty. He his not aware of any snoring as he lives alone. He does not appear to have a notable sleep disturbance but he does awaken frequently due to anxiety and racing thoughts. Past Medical/Surgical History Allergic rhinitis Anxiety Tendinitis Hyperlipidemia Hypertension Solitary pulmonary nodule Benign prostatic hypertrophy Past surgical history Ankle surgery Hernia repair Knee surgery Family History Kidney disease or stones Anxiety Social History Smoking Status: Former Smoker History of Alcohol Use: Yes (occasionally) Currently lives alone Review of Systems No significant lower extremity edema. No increasing abdominal girth. All Other Systems: Reviewed and Negative Allergies Coded Allergies: Codeine (Verified Adverse Reaction, Mild, NAUSEA, 06/24/17) Medications Current Inpatient Medications Medications (Trade) Dose Ordered Sig/Gely Route Start Time Stop Time Status Last Admin Dose Admin Ondansetron HCl (Zofran Inj) 4 mg Q6H PRN IV 07/30/17 21:30 08/29/17 21:29 Acetaminophen (Tylenol Tab) 650 mg Q4H PRN PO 07/30/17 21:30 08/29/17 21:29 Zolpidem Tartrate (Ambien Tab) 5 mg HSZ PRN PO 07/30/17 21:30 08/29/17 21:29 07/30/17 23:19 5 MG Alprazolam (Xanax Tab) 0.5 mg BID PRN PO 07/30/17 21:30 08/29/17 21:29 07/31/17 01:55 0.5 MG Aspirin (Ecotrin Tab) 81 mg DAILY PO 07/31/17 09:00 08/30/17 08:59 07/31/17 07:55 81 MG Finasteride (Proscar Tab) 5 mg DAILY PO 07/31/17 09:00 08/30/17 08:59 07/31/17 07:55 5 MG Fluticasone Propionate (Flonase Nasal Kennard) 2 sprays DAILY PRN HUBERT 07/30/17 21:30 08/29/17 21:29 Tamsulosin HCl (Flomax Cap) 0.8 mg HS PO 07/31/17 21:00 08/30/17 20:59 Diltiazem HCl (Cardizem Tab) 30 mg Q6H PO 07/31/17 00:00 08/30/17 00:00 07/31/17 06:23 30 MG Heparin Sodium/ Dextrose 500 ml @ 30 mls/hr [id number] PRN IV 07/31/17 00:15 08/30/17 00:14 07/31/17 07:57 30 MLS/HR Physical Exam Vital Signs Past 12 Hours Date Time Temp Pulse Resp B/P (MAP) Pulse Ox O2 Delivery O2 Flow Rate FiO2 07/31/17 08:00 36.5 71 20 117/69 (85) 91 Room Air 07/31/17 08:00 Room Air 07/31/17 04:13 36.5 67 18 114/73 (87) 95 Nasal Cannula 3.0 07/31/17 04:03 Nasal Cannula 2.0 07/31/17 00:00 95 Nasal Cannula 2.0 07/30/17 23:50 36.8 141 20 112/66 (81) 94 Nasal Cannula 2.0 07/30/17 23:00 37.2 145 20 123/78 (93) 92 Room Air 07/30/17 22:29 145 18 152/104 95 07/30/17 21:57 144 18 136/105 95 Nasal Cannula 2.0 07/30/17 21:48 Nasal Cannula 2.0 07/30/17 21:33 142 18 155/92 96 Room Air The patient is alert and oriented. Mood and affect appeared normal. He answered all questions appropriately. HEENT: Pupils are equal and reactive to light and accommodation. Extraocular movements are intact. The sclerae are anicteric. Neuro: Cranial nerves intact Neck: Patient's neck is supple. He has palpable carotid pulses bilaterally without bruits on auscultation. There is no evidence of jugular venous distention. The thyroid is not enlarged. Lungs: Clear to auscultation bilaterally. He has good air movement without use of accessory muscles. No rales wheezes or rhonchi. Cardiac: Heart demonstrates a regular rate and rhythm. Normal S1 and S2. No murmurs on examination. Pulses: The patient has palpable radial pulses bilaterally that are equal in intensity Extremities: There was no evidence of hypoperfusion. There is no cyanosis or clubbing. There is no edema. Skin: I did not appreciate any rashes on examination today. Data Laboratory Results: Last 24 Hours Test 07/30/17 20:15 07/30/17 20:18 07/31/17 06:25 White Blood Count 6.66 K/uL 5.84 K/uL Red Blood Count 4.68 M/uL 4.28 M/uL Hemoglobin 14.7 g/dL 13.0 g/dL Hematocrit 44.3 % 40.8 % Mean Corpuscular Volume 94.7 fL 95.3 fL Mean Corpuscular Hemoglobin 31.4 pg 30.4 pg Mean Corpuscular Hemoglobin Concent 33.2 g/dl 31.9 g/dl RDW Standard Deviation 46.9 fL 48.0 fL RDW Coefficient of Variation 13.7 % 13.9 % Platelet Count 179 K/uL 164 K/uL Mean Platelet Volume 9.5 fL 9.3 fL Prothrombin Time 11.4 SECONDS 11.8 SECONDS Prothromb Time International Ratio 1.1 1.1 Activated Partial Thromboplast Time 26.1 SECONDS 72.8 SECONDS Partial Thromboplastin Ratio 1.0 2.8 Sodium Level 144 mmol/L 141 mmol/L Potassium Level 3.7 mmol/L 4.2 mmol/L Chloride Level 108 mmol/L 109 mmol/L Carbon Dioxide Level 29 mmol/L 28 mmol/L Anion Gap 7.0 mmol/L 4.0 mmol/L Blood Urea Nitrogen 13 mg/dl 10 mg/dl Creatinine 1.13 mg/dl 0.84 mg/dl Est Creatinine Clear Calc Drug Dose 71.7 ml/min 95.7 ml/min Estimated GFR () 73.8 100.0 Estimated GFR (Non- 63.7 86.3 BUN/Creatinine Ratio 11.8 12.3 Random Glucose 128 mg/dl 85 mg/dl Calcium Level 8.7 mg/dl 8.0 mg/dl Magnesium Level 2.0 mg/dl 2.0 mg/dl Total Bilirubin 0.4 mg/dl Aspartate Amino Transf (AST/SGOT) 18 U/L Alanine Aminotransferase (ALT/SGPT) 20 U/L Alkaline Phosphatase 58 U/L Total Protein 7.2 gm/dl Albumin 3.2 gm/dl Globulin 4.0 gm/dl Albumin/Globulin Ratio 0.8 Thyroid Stimulating Hormone (TSH) 0.614 uIu/ml Bedside Troponin I 0.060 ng/ml Neutrophils (%) (Auto) 51.7 % Lymphocytes (%) (Auto) 28.1 % Monocytes (%) (Auto) 14.7 % Eosinophils (%) (Auto) 4.8 % Basophils (%) (Auto) 0.5 % Neutrophils # (Auto) 3.02 K/uL Lymphocytes # (Auto) 1.64 K/uL Monocytes # (Auto) 0.86 K/uL Eosinophils # (Auto) 0.28 K/uL Basophils # (Auto) 0.03 K/uL Immature Granulocyte % (Auto) 0.2 % Immature Granulocyte # (Auto) 0.01 K/uL Total Creatine Kinase 114 U/L Creatine Kinase MB 2.3 ng/ml Creatine Kinase MB Ratio 2.0 Troponin I < 0.015 ng/ml Imaging: Single-view chest x-ray which did not reveal any acute cardiopulmonary problems EKG: Atrial flutter with right bundle branch block Telemetry reviewed: Conversion to normal sinus rhythm at around 2 a.m. Assessment & Plan 1. Atrial flutter: EKGs suggests atypical atrial flutter. He is currently back in sinus rhythm. He has few symptoms associated with the arrhythmia and rapid heartbeat. His cardiac biomarkers are unremarkable and the very minor elevation seen likely related to demand ischemia if anything. The etiology of his atrial flutter is unclear, echocardiogram is pending which will give us some information regarding the presence of any structural heart disease or valvular heart disease. No murmurs on exam. We discussed several options for treatment including no current treatment, medical therapy or catheter based treatment. I recommended ablation due to its high efficacy and the fact that a successful procedure would obviate the need for any ongoing anticoagulation. I think medical therapy is less attractive as this would likely produce some symptoms and the addition of rate control agents would possibly increase the chance of significant conversion pauses. I would not advocate antiarrhythmic therapy for single episode of atrial flutter. The patient's Timothy Vasc score is 2 based on his age and history of hypertension. Soon he will be a chads Vasc score 3. This presents a difficult question regarding anticoagulation. According to guidelines he should undergo systemic anticoagulation even with this 1 isolated event. I mentioned this to the patient and suggested an ablation in order to obviate the need for ongoing anticoagulation. He wishes to consider his options at this time and I agreed to schedule him a follow-up appointment to address this issue further.
--- NOTE | 2017-07-31 10:57 | Clinical Documentation Query ---
CLINICAL DOCUMENTATION QUERY 76 year old male who presents to the Emergency Room with complaints of constant tachycardia, found to be in 2:1 atrial flutter with RVR. 1st troponin was elevated. In your clinical opinion is this patient being managed for: ( ) Type 2 UT in setting of Atrial flutter with RVR ( ) Demand Ischemia in setting of Atrial flutter with RVR ( x ) Not Agree ( ) Other explanation of clinical findings (Please Explain) ( ) Unable to determine (Please Define) ( ) Need to Discuss The medical record reflects the following clinical findings, treatment, and risk factors. Clinical Indicators: HR 149, ECG showed Atrial flutter (2:1) with nonspecific ST abnormality and RBBB, Troponin 0.060. Treatment: IV Cardizem gtt, IVF bolus, Heparin gtt, ASA, O2, Cardiology consult Risk Factors: Age, tachycardia, and HTN. Please clarify and document your clinical opinion in the progress notes and discharge summary. Terms such as "probable", "suspected", "likely", "questionable", "possible", or "still to be ruled out" are acceptable. IF IN AGREEMENT, YOU MUST DOCUMENT ABOVE DIAGNOSTIC STATEMENT IN DAILY PROGRESS NOTES AND DISCHARGE SUMMARY. This document is not part of the patient's record. Thank You, Doug Richards, RN [phone]
[2017-07-31 12:00] VITALS: BP 112/72; PULSE 70; TEMP 36.5; O2SAT 94
--- NOTE | 2017-07-31 14:32 | Discharge Instructions ---
Discharge Instructions Date of Service Jul 31, 2017. Admission Reason for Admission: Atrial Flutter With Rvr Discharge Discharge Diagnosis / Problem: Atrial flutter Discharge Goals Goal(s): Improve disease control Activity Recommendations Activity Limitations: resume your previous activity . Instructions / Follow-Up Instructions / Follow-Up Please follow with cardiology at your scheduled appointment to decide how you would like to proceed in treatment of your atrial flutter. Current Hospital Diet Patient's current hospital diet: AHA Diet (Heart Healthy) Discharge Diet Recommended Diet: AHA Diet (Heart Healthy) Procedures Procedures Performed: chest x ray Pending Studies Studies pending at discharge: no Laboratory Results Lipid Panel Test 05/18/17 08:10 Range/Units Triglycerides Level 67 0-150 mg/dl Cholesterol Level 137 0-200 mg/dl HDL Cholesterol 41 mg/dl Cholesterol/HDL Ratio 3.3 LDL Cholesterol, Calculated 83 mg/dl Medical Emergencies . Who to Call and When: Medical Emergencies: If at any time you feel your situation is an emergency, please call 911 immediately. . Non-Emergent Contact Non-Emergency issues call your: Primary Care Provider, Production Line Technician Call Non-Emergent contact if: you have any medication questions . Past History Medical & Surgical History: (1) Atrial flutter with rapid ventricular response . "Provider Documentation" section prepared by Barbi Chang. . VTE Core Measure Inpt VTE Proph given/why not?: Other Anticoagulation (heparin IV per standard weight-based protocol.)
[2017-07-31 14:40] VITALS: BP 112/72; PULSE 70; TEMP 36.5; O2SAT 94
--- NOTE | 2017-07-31 16:03 | Discharge Summary ---
Discharge Summary Date of Service Jul 31, 2017. (Barbi Chang CRNP) Discharge Summary Admission Date: Jul 30, 2017 at 21:31 Discharge Date: Jul 31, 2017 Discharge Disposition: Home Principal Diagnosis: A.fib Problems/Secondary Diagnoses: HTN BPH Immunizations: Have You Had Influenza Vaccine: Unknown History of Tetanus Vaccine?: Unknown History of Pneumococcal: Unknown History of Hepatitis B Vaccine: Unknown Procedures: CXR IMPRESSION: 1. Subsegmental bibasilar opacities suggest atelectasis. 2. Cardiomegaly without overt pulmonary edema. (Barbi Chang CRNP) Problems/Secondary Diagnoses: Right bundle branch block a. flutter with RVR - resolved (Casimiro Sheridan MD) Medication Reconciliation Continued Medications: Alprazolam (Xanax) 0.5 Mg Tab 0.5 MG PO BID PRN for Anxiety, TAB Aspirin (Aspir-81) 81 Mg Tab 81 MG PO DAILY for 90 Days, #90 TAB 3 Refills Finasteride (Proscar) 5 Mg Tab 5 MG PO DAILY, TAB Fluticasone Propionate (Nasal) (Flonase Allergy Relief) 50 Mcg/Act Spr 2 SPRAYS HUBERT DAILY PRN for CONGESTION Terazosin Hcl (Hytrin) 10 Mg Cap 10 MG PO QPM Discharge Exam ROS Constitutional: no chills, aches, sweats or fever Respiratory: no sob,cough, sputum, or wheezing Cardiac: no chest pain, palpitations, edema, orthopnea or lightheadedness GI: no abdominal pain, nausea, vomiting, diarrhea or constipation : no dysuria or hesitancy Extremities: no joint pain or weakness Skin: no rash PE General: no distress Eyes: normal inspection, PERLL Respiratory: chest non tender, clear to auscultation, normal breath sounds, no respiratory distress, no accessory muscle use Cardiac: regular rate and rhythm, no rub or gallop, no murmur, no edema, no jvd GI/: active bowel sounds, no abd pain or tenderness, soft, non distended Extremities: normal range of motion, normal strength, non tender Neuro/Psych: alert and oriented x 3, normal mood and affect Skin: normal color, dry (Barbi Chang CRNP) Hospital Course 76-year-old male reports a while watching TV he developed sudden onset of palpitations and rapid heart rate that have persisted over the past hour prior to arrival. He's had no previous occurrences of a rapid heart rate, and has not had any shortness of breath or chest discomfort associated. He has not had any change in his routine habits, and admits to walking 2 miles daily. He has not had any recent travels or sick exposures. He does have chronic lower extremity edema, and admits to excessive salt intake. He reports urinating every 2 hours overnight while attempting to sleep. Atrial flutter with RVR with 2:1 block/right bundle branch block/elevated troponin of 0.06-- - Cardizem drip overnight and then po cardizem - A.flutter broke at 0242 07/31 into NSR and maintained - Heparin drip - Patient discussed ablation vs rate control and anticoagulation with Dr. Coombs from cardiology. He was unsure how he wanted to procede as he had reservations about anticoagulation as well as ablation. He decided with Dr. Coombs that they would discuss options again at his follow up cardiology appointment in one week - Echo - Potassium 3.7 - given 40 mEq - Troponin peaked at 0.06 - continue ASA BPH-- Continue finasteride 5 mg by mouth daily. Stopped terazosin while inpatient - resume for home Anxiety-- Continue alprazolam 0.5 mg by mouth twice a day when necessary. Total Time Spent: Less than 30 minutes This includes examination of the patient, discharge planning, medication reconciliation, and communication with other providers. (Barbi Chang ., HOPE) Attending Discharge Note & Attestation: Pt seen/examined, chart reviewed, discharge care plan d/w HOPE Chang. I agree w/ the alonzo components of her discharge summary. 76yo male with no cardiac history who presented with a. flutter with RVR. Fortunately he spontaneously converted shortly after admission and maintained NSR for the remainder of his brief stay. TSH and electrolytes were normal. He was seen by Dr. Butch Coombs, cardiology, who discussed treatment options including medications vs ablation. Anticoagulation was also discussed. Pt was undecided about both issues and thus will follow-up with cardiology in about 1 week after discharge to continue those discussions. Discharge exam: gen - nad, obese neck - no JVD heart - RRR, s1, s2, no murmur lungs - CTA b/l abd - soft, NT ext - trace edema b/l, pulses 2+ b/l Casimiro Sheridan MD (Casimiro Sheridan MD) Discharge Instructions Please refer to the electronic Patient Visit Report (Discharge Instructions) for additional information. (Barbi Chang, HOPE) Follow-Up [facility] with Dr. Austin on SaturdayAugust 06 at 10:00 am. [facility] Cardiology Office with Mica Malave PA-C on SaturdayAugust 07 at 11:00 am. (Barbi Chang, HOPE) Additional Copies To Butch Coombs MD
[2017-07-31] MEDS ORDERED: TAMSULOSIN HCL 0.4 MG CAP PO SCH (21:00)
== END 2017-07-31 14:59 | disposition home or self-care (01) | DRG 310 ==
LOC: C.EDB 20:01 → C.2T 21:31 → ENRESERV 21:35
PROVIDERS: ADMIT Hospitalist; ATTEND Internal Medicine
DX: I48.92 Unspecified atrial flutter (principal); I10 Essential (primary) hypertension; N40.0 Benign prostatic hyperplasia without lower urinary tract symptoms; F41.9 Anxiety disorder, unspecified; E78.5 Hyperlipidemia, unspecified; Z87.891 Personal history of nicotine dependence; Z79.82 Long term (current) use of aspirin; Z84.1 Family history of disorders of kidney and ureter

== ENCOUNTER 2017-08-20 14:04 | Emergency (ER) | payer OTHER ==
[~2017-08-20] VITALS: Ht 177.8 cm; Wt 99.3 kg
[~2017-08-20 14:04] MED LIST changes: -TAMS0.4C38 PO
[2017-08-20 14:08] VITALS: TEMP 37; Ht 177.8 cm; Wt 99.3 kg
[2017-08-20 15:21] VITALS: BP 159/87; PULSE 145; O2SAT 93
[2017-08-20] MEDS ORDERED: ETOMIDATE 2 MG/ML 20 ML VIAL IV ONE (15:22)
[2017-08-20 15:28] VITALS: BP 146/97; PULSE 91; O2SAT 90
[2017-08-20] MEDS ORDERED: NURSING VERBAL MED ORDER ONE (15:30)
[2017-08-20 15:42] VITALS: BP 152/95; PULSE 91; O2SAT 91
--- NOTE | 2017-08-20 15:46 | [facility] Operative Report ---
Operative Report Date of Service Aug 20, 2017. 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 He was noted to be in atrial flutter presented to [facility] Emergency Room. He has been on appropriate anticoagulation based on his symptoms was felt to be a good candidate for immediate cardioversion. Procedure detail: Patient was informed the risks benefits and alternatives to the intended procedure. He understood such which proceed. A general anesthetic was administered by the emergency room physician. Once appropriately anesthetized the patient underwent attempted cardioversion with 30 joules delivered in a biphasic fashion. This failed to return to sinus rhythm. A 2nd attempt at 100 joules delivered in a biphasic fashion return him to normal sinus rhythm. Subsequent to the procedure the patient was noted be neurologically intact. EKG confirm the rhythm. There were no immediate complications. Impression: Successful cardioversion from atrial flutter to normal sinus rhythm. I attest to the content of the Intraoperative Record and any orders documented therein. Any exceptions are noted below.
--- NOTE | 2017-08-20 15:52 | EMERGENCY ROOM VISIT NOTE ---
ED Visit Note First contact with patient: 14:12 Resident Physician Supervision Note: I interviewed and examined the patient. Discussed with Dr. Rousseau and agree with findings and plan as documented in the note. Any exceptions or clarifications are listed here: [None] The patient is here with atrial flutter with a 2-1 block with a rate of around 140. I discussed care with Dr. Coombs who felt that emergent cardioversion was appropriate. Please see below. Documented By: Darci Marc Procedural Sedation was required. Patient last ate approximate 6 hours ago but due to the instability relating to his cardiac condition it was felt necessary to cardiovert him without waiting the entire 8 hours. Indication Rapid Atrial Flutter. Total time: 11 minutes. Written consent was obtained after the risks and benefits were explained to the patient, including, but not limited to aspiration, allergic reaction, breathing difficulties, cardiac complications, vomiting, pain, event recall, bleeding, and /or infection. Pre-sedation examination and paperwork completed. The patient was on 15 liters of oxygen via nasal canula during the procedure. Continous end tidal CO2 monitoring, pulse oximetry, and cardiac monitoring were utilized. Suction, airway equipment, medications, respiratory equipment, and appropriate personnel were prepared prior to the initiation of the procedure. A time out was taken. Sedation was achieved utilizing 12 mg of Etomidate. After I observed the patient had reached the appropriate level of sedation the main procedure was performed without complication. Sedation was discontinued and the monitoring continued. The patient recovered quickly from the effects of the medication without complication or adverse event. Total sedation time 11 minutes with my attendance at bedside. The patient tolerated procedure well and had no complications. Patient converted to a sinus rhythm. Dr. Coombs was also in attendance during the entire procedure. I have personally spent greater than 35 minutes of critical care time in the direct management of this patient. This includes bedside care, interpretation of diagnostic studies, and testing, discussion with consultants, patient, and family members, and other required patient management activities. This 35 minutes is in excess of all separately billable procedures.
--- NOTE | 2017-08-20 16:21 | EMERGENCY ROOM VISIT NOTE ---
History First contact with patient: 14:12 Chief Complaint: IRREGULAR HEARTBEAT Stated Complaint: HEART FLUTTER Nursing Triage Summary: triage note: pt reports "my heart started fluttering at 1100 today." pt seen at [facility] and sent to ed for further eval. History of Present Illness The patient is a 77 year old male who presents to the Emergency Room with complaints of irregular heart beat. This started at 11 am while he was reading his mail. This has happened to him about 3 weeks ago, where he converted to NSR without intervention and placed on xarelto. He reports he has had sensations of irregular heart rate between now and 3 weeks ago but these episodes don't last very long as it has today. He currently does not feel the sensation as badly as it was earlier today. He reports he has been taking the xarelto daily. He describes the sensation as heartburn and nausea and discomfort, but declines dyspnea, diaphoresis, lightheadedness, or chest pain He reports no chest pain, no significant PMH of cardiac events or syncopal episodes. Review of Systems Constitutional: No fever, No chills, No sweats, No weight loss, No weakness , No fatigue, No problem reported ENT: + hearing loss, No unusual epistaxis, No nasal symptoms, No sore throat , No tinnitus, No dental problems, No trouble swallowing, No problem reported Respiratory: No cough, No sputum, No wheezing, No shortness of breath, No dyspnea on exertion, No dyspnea at rest, No hemoptysis, No problem reported Cardiovascular: + edema, + palpitations, No chest pain, No orthopnea, No PND , No claudication, No problem reported Abdomen: + nausea, No pain, No vomiting, No diarrhea, No constipation, No GI bleeding, No problem reported Musculoskeletal: No joint pain, No muscle pain, No swelling, No calf pain, No problem reported Genitourinary - Male: + urinary frequency, + urinary urgency, No hematuria, No dysuria, No urinary hesitancy, No urinary retention, No urinary incontinence , No penile discharge, No lesions, No impotence, No problem reported Past Medical/Surgical History Medical Problems: (1) Hypertension (2) Tinnitus Family History Kidney disease or stones Reports Father also had Aflutter Social History Smoking Status: Never Smoker Drug Use: none Marital Status: Housing Status: lives alone Occupation Status: retired Current/Historical Medications Scheduled Finasteride (Proscar), 5 MG PO DAILY Terazosin Hcl (Hytrin), 10 MG PO QPM [Xarelto], 1 TAB PO QPM Scheduled PRN Alprazolam (Xanax), 0.5 MG PO BID PRN for Anxiety Fluticasone Propionate (Nasal) (Flonase Allergy Relief), 2 SPRAYS HUBERT DAILY PRN for CONGESTION Physical Exam Vital Signs Date Time Temp Pulse Resp B/P (MAP) Pulse Ox O2 Delivery O2 Flow Rate FiO2 08/20/17 17:50 88 20 159/96 96 Room Air 08/20/17 17:00 87 20 152/95 94 Room Air 08/20/17 16:45 96 20 146/96 94 Room Air 08/20/17 16:30 86 20 148/87 94 Room Air 08/20/17 16:15 84 20 153/95 96 Room Air 08/20/17 16:01 145/89 08/20/17 15:59 81 14 94 08/20/17 15:54 81 9 94 08/20/17 15:49 83 17 95 08/20/17 15:46 152/95 08/20/17 15:44 86 15 93 08/20/17 15:42 91 20 152/95 91 Room Air 08/20/17 15:42 145/90 08/20/17 15:39 91 17 91 08/20/17 15:38 93 08/20/17 15:34 99 23 90 08/20/17 15:31 146/97 08/20/17 15:29 145 22 92 08/20/17 15:28 91 17 146/97 90 Room Air 08/20/17 15:24 142 28 92 08/20/17 15:21 145 22 159/87 93 Room Air 08/20/17 15:19 145 25 93 08/20/17 15:16 159/87 08/20/17 15:14 145 23 93 08/20/17 15:09 143 38 93 08/20/17 15:04 143 43 08/20/17 15:04 146 24 147/98 92 Room Air 08/20/17 15:03 147/98 08/20/17 14:59 144 26 08/20/17 14:54 144 20 93 08/20/17 14:49 145 22 94 08/20/17 14:44 146 28 95 08/20/17 14:34 147 28 93 08/20/17 14:31 150/100 08/20/17 14:29 148 17 92 08/20/17 14:24 146 22 93 08/20/17 14:19 145 08/20/17 14:16 147/96 08/20/17 14:14 94 Room Air 08/20/17 14:08 37.0 156 20 136/86 92 Room Air Physical Exam General Appearance: WD/WN, no apparent distress Head: normocephalic, atraumatic Eyes: normal inspection, EOMI ENT: + pertinent finding ([place] (uses aids), tremulous lip and tongues) Neck: no adenopathy, thyroid normal, no JVD, no carotid bruits, trachea midline Respiratory/Chest: chest non-tender, lungs clear, normal breath sounds, no respiratory distress, no accessory muscle use Cardiovascular: no murmur, normal peripheral pulses, + tachycardia, + irregularly irregular, + abnormal rate (>150), + abnormal rhythm (Atrial flutter ), + pertinent finding (1+ Pitting edema bilaterally) Abdomen / GI: normal bowel sounds, non tender, soft, no pulsatile mass Extremities: normal inspection, no calf tenderness, + pedal edema 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, no motor/sensory deficits, alert , normal mood/affect, normal reflexes, oriented x 3 Medical Decision & Procedures Medications Administered Medications (Trade) Dose Ordered Sig/Gely Route Start Time Stop Time Status Last Admin Dose Admin Etomidate (Amidate Inj) 40 mg STK-MED ONCE IV 08/20/17 15:22 08/20/17 15:23 DC 08/20/17 15:22 11 MG Miscellaneous Information (Nursing Verbal Med Order) 1 ea TODAY@1530 ONCE N/A 08/20/17 15:30 08/20/17 15:54 DC 08/20/17 15:59 1 EA Procedure Indication for cardioversion: rapid atrial flutter Written consent was obtained after the risks and benefits were explained, including but not limited to pain, thermal burn, allergic reaction, aspiration, airway obstruction, laryngospasm, infection, hypotension, and cardiorespiratory arrest. At this time, the risks of the procedure are less than the risks of NOT performing the procedure. A time out was taken and the correct patient and procedure identified. The patient was on 15 L O2 via NC and end tidal CO2 monitoring prior to the procedure; continuous cardiac monitoring and pulse oximetry were also utilized. Suction, airway equipment, medications, respiratory equipment, ACLS cart, and appropriate personnel, including Dr. Coombs and Dr. Marc, were prepared prior to the initiation of the procedure. Sedation was achieved utilizing etomidate, 12 mg. The biphasic defibrillator was set to 30 joules of energy and synched. After confirmation of sedation and "all clear" safety check the synchronized shock was delivered. The biphasic defibrillator was set to 100 joules of energy and synched. After confirmation of sedation and "all clear" safety check the synchronized shock was delivered.This resulted in successful conversion of the dysrhythmia back into sinus rhythm. See nursing notes for dosages and times. The patient recovered quickly from the effects of the medication without complication or adverse event. Total sedation time [address] Marc and Dr. Coombs at bedside. The patient tolerated procedure well and had no complications. ECG Indication: palpitations Rate (beats per minute): 90 Rhythm: normal sinus (taken at 15:36, post cardioversion) Findings: RBBB, no acute ischemic change Comparison ECG Date: Change: ECG performed at 1336 on admission with indication of palpitations. Atrial flutter with ventricular rate of 148 and right bundle branch block. ED Course 1415: full h&p obtained 1430: Dr. Marc assessed patient, placed call to Dr. Coombs of cardiology 1445: Decision made to cardiovert in ED under conscious sedation 1500: patient moved to B01 in prep for conscious sedation 1530: Conscious sedation begun, administered by Dr. Marc, with Dr Coombs subsequently performing cardioversion first with 30 J, then second cardioversion given at 100J resulting in successful return to sinus rhythm. 1630: Reassessed patient. He feels much better after his procedure. Eager to go home. Discussed need to continue xarelto and to bead picker amiodarone from pharmacy after discharge and start this evening. Follow up with Cardiology in 2 weeks. Medical Decision Prior records/ancillary studies reviewed. Triage Nursing notes reviewed. Additional history obtained from patient and daughter. The patient's history was concerning for palpitations. Differential diagnosis: Etiologies such as premature contractions, electrolyte abnormality, cardiac dysrhythmia, thyroid dysfunction, pulmonary embolism, infection, gastrointestinal, as well as others were entertained. Physical examination: Benign as above. ER treatment provided: cardioversion, see below On reassessment the patient felt better. Diagnostic interpretation by me: Cardiac monitoring revealed Sustained atrial flutter with HR 148 at rest, with improvement of HR with bearing down The electrocardiogram was negative for pathologic change. See above. Consultation: A consultation was placed with Dr. Coombs, mounted police. The case was discussed and diagnostics were reviewed. The patient was evaluated in the ER for further treatment. This appears to be consistent with atrial flutter. The patient and daughter were informed about the findings as listed above. All questions were answered and they were pleased with the treatment. Return instructions were outlined and the patient was discharged in stable condition. Outpatient prescription management: Amiodarone per Dr. Coombs's Rx Referral: The patient was referred back to their primary care physician for follow-up in 2 to 3 days for a recheck of the current condition Cardiology appointment to be set up via Dr. Coombs and his staff in 2 weeks. Impression Primary Impression: Atrial flutter Departure Information Dispostion Home / Self-Care Condition GOOD Referrals Billy Garcia M.D. (PCP) Patient Instructions Atrial Flutter, Cardioversion Electrical Tx, My [facility] Additional Instructions ATRIAL FLUTTER/CARDIOVERSION INSTRUCTIONS: DO NOT drive, drink alcohol, operate machinery, or perform dangerous activities today. You were given medications in the ER that can affect your ability to safely function or operate a vehicle. Avoid alcohol, operating machinery or dangerous equipment, working on ladders or roofs, DRIVING, or situations where being under the influence may be dangerous. Rest and drink plenty of fluids as tolerated. Continue current medications. And take new prescriptions as directed/ Avoid strenuous activities and anything that worsens your discomfort. Resume normal activities once your symptoms resolve. Return to the ER immediately for worsening or persistent chest pain, abdominal pain, vomiting, fevers, chest pains, difficulty breathing, worsening of your condition, or as needed. Follow up with your primary physician in 2-3 days for a recheck of your current condition. Follow up with cardiology in 2 weeks. Resident Tracking Resident Involvement: Resident Care Provided Care Provided: Adult ED Problem Qualifiers Primary Impression: Atrial flutter Atrial flutter type: typical Qualified Codes: I48.3 - Typical atrial flutter
[2017-08-20] MEDS ORDERED: XARELTO PO (17:01)
[2017-08-20 17:50] VITALS: BP 159/96; PULSE 88; O2SAT 96
--- NOTE | 2017-08-20 18:06 | EMERGENCY ROOM VISIT NOTE ---
Pre-Mod Sedation Assessment General Date of Moderate Sedation: Aug 20, 2017. Vital Signs: Vital Signs Past 12 Hours Date Time Temp Pulse Resp B/P (MAP) Pulse Ox O2 Delivery O2 Flow Rate FiO2 08/20/17 16:01 145/89 08/20/17 15:59 81 14 94 08/20/17 15:54 81 9 94 08/20/17 15:49 83 17 95 08/20/17 15:46 152/95 08/20/17 15:44 86 15 93 08/20/17 15:42 91 20 152/95 91 Room Air 08/20/17 15:42 145/90 08/20/17 15:39 91 17 91 08/20/17 15:38 93 08/20/17 15:34 99 23 90 08/20/17 15:31 146/97 08/20/17 15:29 145 22 92 08/20/17 15:28 91 17 146/97 90 Room Air 08/20/17 15:24 142 28 92 08/20/17 15:21 145 22 159/87 93 Room Air 08/20/17 15:19 145 25 93 08/20/17 15:16 159/87 08/20/17 15:14 145 23 93 08/20/17 15:09 143 38 93 08/20/17 15:04 143 43 08/20/17 15:04 146 24 147/98 92 Room Air 08/20/17 15:03 147/98 08/20/17 14:59 144 26 08/20/17 14:54 144 20 93 08/20/17 14:49 145 22 94 08/20/17 14:44 146 28 95 08/20/17 14:34 147 28 93 08/20/17 14:31 150/100 08/20/17 14:29 148 17 92 08/20/17 14:24 146 22 93 08/20/17 14:19 145 08/20/17 14:16 147/96 08/20/17 14:14 94 Room Air 08/20/17 14:08 37.0 156 20 136/86 92 Room Air Review Cardiovascular: regular rate, rhythm, no murmur, normal peripheral pulses, + tachycardia, + irregularly irregular, + pertinent finding (1+ Pitting edema bilaterally) Abdomen: normal bowel sounds, non tender, soft, no pulsatile mass Lungs: chest non-tender, lungs clear, normal breath sounds, no respiratory distress, no accessory muscle use Pre-Sedation Airway Assessment Oral Cavity: WNL Short Thick Neck: No Hx of Sleep Apnea: Yes Smoking Status: Never Smoker Mallampati Classification: Class I Procedure Planning Yes Notes The planned sedation has been discussed with the patient and consent obtained. I have identified the patient, determined the appropriateness of sedation and have assessed the patient immediately prior to the procedure. All medicine(s) and interventions are by my order.
== END 2017-08-20 17:50 | disposition home or self-care (01) ==
LOC: C.EDB 14:06
DX: I48.92 Unspecified atrial flutter (principal); I45.10 Unspecified right bundle-branch block; I10 Essential (primary) hypertension; Z79.82 Long term (current) use of aspirin; Z79.899 Other long term (current) drug therapy

== ENCOUNTER → 2017-09-18 | Outpatient (CLI) | payer OTHER ==
[~2017-09-18] MED LIST changes: -ASPI-232 PO; +XARELTO PO
[2017-09-18 17:41] LABS: HEMATOCRIT 43.1 % (42-52); MEAN CELL VOLUME 95.6 fL (80-100); MEAN CORPUSCULAR HEMOGLOBIN 31.3 pg (25-34); MEAN CORPUSCULAR HGB CONC 32.7 g/dl (32-36); MEAN PLATELET VOLUME 9.5 fL (7.4-10.4); PLATELET COUNT 198 K/uL (130-400); RED BLOOD COUNT 4.51 M/uL (4.7-6.1); WHITE BLOOD COUNT 6.06 K/uL (4.8-10.8)
[2017-09-18 17:50] LABS: INR 1.1 (0.9-1.1); PARTIAL THROMBOPLASTIN RATIO 1.1; PROTHROMBIN TIME (PATIENT) 11.4 SECONDS (9.0-12.0)
[2017-09-18 18:08] LABS: BLOOD UREA NITROGEN 13 mg/dl (7-18); BUN/CREATININE RATIO 12.3 (10-20); CARBON DIOXIDE 29 mmol/L (21-32); CHLORIDE 106 mmol/L (98-107); CREATININE 1.07 mg/dl (0.60-1.40); GLUCOSE 86 mg/dl (70-99); POTASSIUM 4.3 mmol/L (3.5-5.1); SODIUM 138 mmol/L (136-145)
== END | disposition home or self-care (01) ==
LOC: C.LAB1850 16:20
PROVIDERS: ATTEND Internal Medicine Clinical Cardiac Electrophysiology
DX: Z01.818 Encounter for other preprocedural examination (principal)

== ENCOUNTER 2017-09-26 10:29 | Observation (INO) | payer OTHER ==
[~2017-09-26] VITALS: Ht 172.7 cm; Wt 108.1 kg
[2017-09-26 12:30] VITALS: BP 160/85; PULSE 72; TEMP 36.8; O2SAT 94; BMI 34.0
[2017-09-26] MEDS ORDERED: RIVA1TAB4 PO (13:10)
[2017-09-26] MEDS ORDERED: MIDAZOLAM HCL 5 MG/ML 1 ML VIAL ONE ×2 (13:39→14:50)
[2017-09-26] MEDS ORDERED: FENTANYL CITRATE INJ 50 MCG/1 ML 2 ML VIAL ONE ×2 (13:39→14:50)
--- NOTE | 2017-09-26 13:51 | Pre Sedation Assessment ---
Pre Sedation Assessment General Date of Sedation: Sep 26, 2017. Vital Signs Past 12 Hours Date Time Temp Pulse Resp B/P (MAP) Pulse Ox O2 Delivery O2 Flow Rate FiO2 09/26/17 12:30 36.8 72 16 160/85 (110) 94 Room Air Review Cardiovascular: regular rate, rhythm Lungs: lungs clear Pre-Sedation Airway Assessment Smoking Status: Never Smoker Hx of Sleep Apnea: No Short Thick Neck: No Thyro-mental Distance: > 3 Finger Breadths Oral Cavity: Chipped Teeth Mallampati Classification: Class II ASA Classification: Class II NPO Status Date of Last Intake of Fluids: Sep 26, 2017 Time of Last Intake of Fluids: 1000 Date of Last Intake of Solids: Sep 25, 2017 Time of Last Intake of Solids: 1700 Procedure Planning Contraindications for Sedation: None Current Medications Reviewed: Yes Notes The planned sedation has been discussed with the patient. Informed Consent was obtained. I have identified the patient, determined the appropriateness of sedation and have assessed the patient immediately prior to the procedure. All medicine(s) and interventions are by my order.
--- NOTE | 2017-09-26 13:51 | History & Physical Bridge Note ---
H&P Re-Evaluation Bridge Note: I have examined the patient, reviewed the History & Physical and in the interval since the performance of the History & Physical I have noted the following changes of clinical significance: No changes noted. I reviewed the indications, procedure, risks and alternatives of electrophysiologic study and ablation for atrial flutter and he understands and agrees to proceed. His daughter was present during the discussion. Consent obtained. I also discussed conscious sedation with him including risks and he understands and agrees. Consent obtained.
--- NOTE | 2017-09-26 17:03 | Cardiology Procedure Brief Nt ---
Preliminary Cardiology Note Procedure Date Sep 26, 2017. Pre-Procedure Diagnosis typical atrial flutter Post-Procedure Diagnosis same Procedure(s) Performed Electrophysiologic study Ablation Edge Grinder Machine Dr. Navas Principal Developer(s) none Estimated Blood Loss 20 cc Preliminary Findings Normal AV alonso conduction, baseline right bundle branch block No easily inducible arrhythmia at baseline Ablation of the tricuspid caval isthmus, the isthmus was quite broad and the success of the ablation is not certain. Recommendations Continue current medications Specimens None Anesthesia local with sedation Complication(s) None Disposition PCU
--- NOTE | 2017-09-26 17:03 | Post Sedation Assessment ---
Post Sedation Assessment General Date of Sedation Sep 26, 2017. Vital Signs: Vital Signs Past 12 Hours Date Time Temp Pulse Resp B/P (MAP) Pulse Ox O2 Delivery O2 Flow Rate FiO2 09/26/17 16:45 79 18 120/85 (97) 92 Room Air 09/26/17 16:40 79 18 137/85 (102) 92 Room Air 09/26/17 16:30 79 18 140/85 (103) 92 Room Air 09/26/17 12:30 36.8 72 16 160/85 (110) 94 Room Air Post Procedure Recovery Score Activity: (2) Moves 4 extremities * Respiration: (2) Deep breath/cough Circulation: (2) +/-20% PreAnes Value Consciousness: (2) Fully Awake Oxygen Saturation: (2) > 92% On Room Air Post Anesthesia Score: 10 Discharge Sedation Level of Care: Fast Track Phase II Post Sedation Plan On clinical assessment, the patient appears to have tolerated the sedation without complications. Patient is recovering as anticipated. Patient will continue to be monitored by nursing and may be discharged when sedation discharge criteria are met per below protocol. Upon Completions of procedure and additional 15 minutes continue every 5 minute vital signs and the P.A.R. score; then discharge to a Phase I or Fast Track to Phase II per the following guidelines: * Discharge Patient to appropriate Phase II area if PAR is 8 or greater or return to pre- procedure baseline. The post - procedure orders will be as directed. * If PAR score is less than 8 or not return to pre-procedure baseline then patient will follow Phase I monitoring till PAR is reached for Phase II. The Phase I may be done in procedure room or may call to secure a Phase I area. * If naloxone or flumazenil are used for reversal, hold in Phase I for an additional 60 -120 minutes before discharge to Phase II. Please call the Sedation Physician to re-evaluate and complete post-note for discharge to Phase II area. Do NOT discharge from procedure sedation or Phase 1 until post- sedation evaluation note is complete by procedure /sedation MD Sedation Discharge Instructions to be given to the patient at discharge to home.
[2017-09-26] MEDS ORDERED: ALPRAZOLAM 0.5 MG TAB PO PRN (17:15)
[2017-09-26] MEDS ORDERED: ACETAMINOPHEN 325 MG TAB PO PRN (17:15)
[2017-09-26] MEDS ORDERED: KETOROLAC TROMETHAMINE 10 MG TAB PO PRN (17:15)
[2017-09-26] MEDS ORDERED: FLUTICASONE PROPIONATE NA SPR 16 GM BTL NAE PRN (17:15)
[2017-09-26 17:20] VITALS: BP 140/87; PULSE 71; TEMP 36.9; O2SAT 95; Ht 172.7 cm; Wt 108.1 kg
[2017-09-26] MEDS ORDERED: IV FLUIDS COMPLETED PRN (17:30)
[2017-09-26 19:42] VITALS: BP 157/92; PULSE 76; TEMP 36.8; O2SAT 95
[2017-09-26 20:00] VITALS: O2SAT 95
[2017-09-26 23:52] VITALS: BP 158/84; PULSE 76; TEMP 36.9; O2SAT 92
[2017-09-27 04:45] VITALS: BP 124/49; PULSE 78; TEMP 36.6; O2SAT 94
[2017-09-27 07:24] VITALS: BP 141/75; PULSE 81; TEMP 36.8; O2SAT 92
[2017-09-27] MEDS ORDERED: FINASTERIDE 5 MG TAB PO SCH (09:00)
--- NOTE | 2017-09-27 10:33 | Discharge Instructions ---
Discharge Instructions Date of Service Sep 27, 2017. Admission Reason for Admission: Atrial Flutter *Nydegger Doing* Discharge Discharge Diagnosis / Problem: Atrial flutter status post ablation Discharge Goals Goal(s): Improve function, Therapeutic intervention Activity Recommendations Activity Limitations: as noted below Lifting Limitations: no more than 10 pounds Exercise/Sports Limitations: gradually increase as tolerated May Resume Sexual Activity: after one week Shower/Bathe: no limitations Driving or Machine Use: resume 1 day after discharge No lifting greater than 10 pounds for 1 week. . Instructions / Follow-Up Instructions / Follow-Up Continue all medications including Xarelto. No lifting as noted above. Follow- up in the Cardiology Clinic in 1 months time. Current Hospital Diet Patient's current hospital diet: AHA Diet (Heart Healthy) Discharge Diet Recommended Diet: AHA Diet (Heart Healthy) Procedures Procedures Performed: Catheter based ablation of right atrial flutter Pending Studies Studies pending at discharge: no Medical Emergencies . Who to Call and When: Medical Emergencies: If at any time you feel your situation is an emergency, please call 911 immediately. . Non-Emergent Contact Non-Emergency issues call your: Water Manager Call Non-Emergent contact if: your pain is concerning you, wound has increased drainage, you have any medication questions . . "Provider Documentation" section prepared by Melo Coombs. . VTE Core Measure Inpt VTE Proph given/why not?: Treatment not indicated
[2017-09-27 11:37] VITALS: BP 114/87; PULSE 82; TEMP 36.9; O2SAT 92
--- NOTE | 2017-10-10 15:07 | Discharge Summary ---
Discharge Summary Admission Date: Sep 26, 2017 at 17:06 Discharge Date: Sep 27, 2017 Discharge Disposition: Home Primary Diagnosis: Atrial flutter Secondary Diagnoses/Problems: Medical Problems: (1) Atrial flutter Status: Acute (2) Atrial flutter with rapid ventricular response Status: Acute (3) Elevated troponin Status: Acute (4) Flank pain Status: Acute (5) Nasal congestion Status: Acute (6) Vertigo Status: Acute Procedures: Electrophysiologic study and ablation 09/26/2017 Discharge Instructions Last Recorded Wt (Kilograms): 108.100 Allergies: Coded Allergies: Codeine (Verified Adverse Reaction, Mild, NAUSEA, 08/20/17) Special Care: Call your doctor if: * Temperature above 101 degrees * Pain not relieved by pain medicine ordered * There is increased drainage or redness from any incision * You have any unanswered questions or concerns. Avoid all tobacco products. If you need help to stop smoking, call [place]'s FREE QUITLINE at . This is a free call. Admission HPI This is a 77-year-old male with 3 current typical atrial flutter. He had a trial of amiodarone, however he did not want to take that indefinitely and he is therefore admitted for flutter ablation. Admission Physical Exam Head: normocephalic Lungs: Auscultation: breath sounds normal Cardiovascular: Heart Auscultation: RRR, no murmurs Musculoskeletal: normal Extremities: no edema Hospital Course He was brought to the electrophysiology laboratory on 09/26/2017, he was in sinus rhythm. Mapping of the tricuspid/inferior vena caval isthmus was performed , it was quite broad and catheter stability was difficult. An ablation line was created but it may not be complete. There were no complications. He was doing well the following day and was stable for discharge. Total time spent on discharge = This includes examination of the patient, discharge planning, medication reconciliation, and communication with other providers.
== END 2017-09-27 13:14 | disposition home or self-care (01) ==
LOC: C.EP 10:29 → ENRESERV 15:05 → C.2E 17:06 → ENRESERV 17:11 → CANRESERV 17:11
PROVIDERS: ADMIT Internal Medicine Cardiovascular Disease; ATTEND Internal Medicine Cardiovascular Disease
DX: I48.92 Unspecified atrial flutter (principal); R79.89 Other specified abnormal findings of blood chemistry; R10.9 Unspecified abdominal pain; R09.81 Nasal congestion; E78.5 Hyperlipidemia, unspecified; I10 Essential (primary) hypertension; E66.9 Obesity, unspecified; F41.9 Anxiety disorder, unspecified; J90 Pleural effusion, not elsewhere classified; Z87.442 Personal history of urinary calculi; Z98.890 Other specified postprocedural states; Z88.5 Allergy status to narcotic agent; Z79.01 Long term (current) use of anticoagulants; Z79.899 Other long term (current) drug therapy; Z82.0 Family history of epilepsy and other diseases of the nervous system; Z82.3 Family history of stroke; Z82.2 Family history of deafness and hearing loss; Z84.1 Family history of disorders of kidney and ureter; Z87.891 Personal history of nicotine dependence

== ENCOUNTER 2017-11-03 14:53 | Emergency (ER) | payer OTHER ==
[~2017-11-03] VITALS: Ht 177.8 cm; Wt 109.3 kg
[~2017-11-03 14:53] MED LIST changes: +RIVA1TAB4 PO; -XARELTO PO
[2017-11-03 14:55] VITALS: TEMP 36.6; Ht 177.8 cm; Wt 109.3 kg
[2017-11-03] MEDS ORDERED: SODIUM CHLORIDE 0.9% 1000ML 1,000 ML IV STA (16:08)
--- NOTE | 2017-11-03 16:16 | EMERGENCY ROOM VISIT NOTE ---
History Report prepared by Callie: Antonieta Alfaro Under the Supervision of: Dr. William Harmon M.D. First contact with patient: 15:59 Chief Complaint: NAUSEA Stated Complaint: NAUSEA Nursing Triage Summary: "I feel like I was drug through a [place] backwards" Denies Cough. Pt reports a month ago he had some heart procedures. Pt of Dr Coombs. Started yesterday and symptoms are getting worse. Dizzines, sick to the stomach , heartburn. History of Present Illness The patient is a 77 year old male who presents to the Emergency Room with complaints of persistent nausea since this afternoon. He states that he was not feeling well for a few days, though felt fine this morning. This afternoon he developed nausea and feels like the room in spinning. He denies any vomiting. He notes a heartburn sensation in his throat. He denies any chest pain or abdominal pain. He denies any fevers, though notes body aches. He reports a headache with lightheadedness. He denies any cough. He also reports dehydration , though he keeps up with his fluids. He states that he is urinating more frequently than normal. He has had the flu shot this season. He denies any sick contacts. He notes normal bowel movements. Source of History: patient Onset: this afternoon Position: other (global) Quality: other (nausea) Timing: other (persistent) Associated Symptoms: + headache, + urinary symptoms (more frequent urination ), No fevers, No cough, No chest pain, No vomiting, No abdominal pain Note: He notes lightheadedness, dehydration, and body aches. He notes a heartburn sensation in his throat. He denies any sick contacts. Review of Systems See HPI for pertinent positives & negatives. A total of 10 systems reviewed and were otherwise negative. Past Medical & Surgical Medical Problems: (1) Atrial flutter (2) Hypertension (3) Tinnitus Old medical records were reviewed. Nurse's notes were reviewed and I agree with. Family History Kidney disease or stones Social History Smoking Status: Former Smoker Drug Use: none Marital Status: Housing Status: lives alone Occupation Status: retired Current/Historical Medications Scheduled Calcium Carbonate (Tums), 2 TABS PO PRN Finasteride (Proscar), 5 MG PO DAILY Ondasetron Odt (Zofran Odt), 4 MG SL Q6H Terazosin Hcl (Hytrin), 10 MG PO QPM Scheduled PRN Alprazolam (Xanax), 0.5 MG PO BID PRN for Anxiety Fluticasone Propionate (Nasal) (Flonase Allergy Relief), 2 SPRAYS HUBERT DAILY PRN for CONGESTION Ranitidine (Zantac), 150 MG PO BID PRN for ACID REFLUX Allergies Coded Allergies: Codeine (Verified Adverse Reaction, Mild, NAUSEA, 08/20/17) Physical Exam Vital Signs Date Time Temp Pulse Resp B/P (MAP) Pulse Ox O2 Delivery O2 Flow Rate FiO2 11/03/17 17:38 74 20 152/90 95 Room Air 11/03/17 16:29 76 20 154/95 95 Room Air 11/03/17 14:55 36.6 90 17 151/85 93 Room Air Physical Exam General: Non-ill appearing older male in no acute distress. HEENT: Normal cephalic atraumatic. Pupils are equal round and reactive to light. Extraocular movements are intact. Oropharynx is pink with moist mucous membranes. No swelling of the mouth lips or tongue. Neck: Supple with a midline trachea. No meningeal signs or stiffness, no JVD or bruits. No Stridor. Chest: Clear to auscultation bilaterally. No wheezes or rhonchi. No increased work of breathing. Heart: regular rate and rhythm. Abdomen: Soft nontender, nondistended without rebound guarding or rigidity. Extremities: No cyanosis clubbing or edema. No calf tenderness or assymetry Spine/Back. Non tender to palpation. No CVA tenderness Skin: Good turgor without rashes. Neurologic exam: Cranial nerves two through 12 are intact. Motor and sensation are intact and symmetrical throughout. FNF intact, no tremor. Medical Decision & Procedures ER Provider Diagnostic Interpretation: Radiology results as stated below per my review and radiologist interpretation: CHEST ONE VIEW PORTABLE CLINICAL HISTORY: 77 years-old Male presenting with CHEST PAIN. TECHNIQUE: Portable upright AP view of the chest was obtained. COMPARISON: 07/30/2017. FINDINGS: Atherosclerosis of aortic arch. Cardiac silhouette enlarged. Pulmonary vascular prominence. Vague opacity at the bilateral lung bases greater on the right. Trace pleural effusions cannot be excluded. No pneumothorax. Degenerative changes of the bilateral shoulders and spine. Upper abdomen normal. IMPRESSION: 1. Cardiomegaly with volume overload. 2. Vague bibasilar opacities represent atelectasis. Developing pulmonary edema is difficult to exclude. Other diagnostic considerations include aspiration. Electronically signed by: Bret Downs M.D. 11/03/2017 4:44 PM Dictated Date/Time: 11/03/2017 4:43 PM Laboratory Results 11/03/17 16:23 Red Blood Count 4.51, Mean Corpuscular Volume 94.5, Mean Corpuscular Hemoglobin 31.3, Mean Corpuscular Hemoglobin Concent 33.1, Mean Platelet Volume 9.1, Neutrophils (%) (Auto) 47.9, Lymphocytes (%) (Auto) 29.6, Monocytes (%) (Auto) 15.5, Eosinophils (%) (Auto) 6.6, Basophils (%) (Auto) 0.2, Neutrophils # (Auto ) 2.62, Lymphocytes # (Auto) 1.62, Monocytes # (Auto) 0.85, Eosinophils # (Auto ) 0.36, Basophils # (Auto) 0.01 11/03/17 16:23 Test 11/03/17 16:23 11/03/17 16:26 11/03/17 16:35 White Blood Count 5.47 K/uL (4.8-10.8) Red Blood Count 4.51 M/uL (4.7-6.1) Hemoglobin 14.1 g/dL (14.0-18.0) Hematocrit 42.6 % (42-52) Mean Corpuscular Volume 94.5 fL (80-100) Mean Corpuscular Hemoglobin 31.3 pg (25-34) Mean Corpuscular Hemoglobin Concent 33.1 g/dl (32-36) Platelet Count 189 K/uL (130-400) Mean Platelet Volume 9.1 fL (7.4-10.4) Neutrophils (%) (Auto) 47.9 % Lymphocytes (%) (Auto) 29.6 % Monocytes (%) (Auto) 15.5 % Eosinophils (%) (Auto) 6.6 % Basophils (%) (Auto) 0.2 % Neutrophils # (Auto) 2.62 K/uL (1.4-6.5) Lymphocytes # (Auto) 1.62 K/uL (1.2-3.4) Monocytes # (Auto) 0.85 K/uL (0.11-0.59) Eosinophils # (Auto) 0.36 K/uL (0-0.5) Basophils # (Auto) 0.01 K/uL (0-0.2) RDW Standard Deviation 46.7 fL (36.4-46.3) RDW Coefficient of Variation 13.6 % (11.5-14.5) Immature Granulocyte % (Auto) 0.2 % Immature Granulocyte # (Auto) 0.01 K/uL (0.00-0.02) Prothrombin Time 10.8 SECONDS (9.0-12.0) Prothromb Time International Ratio 1.0 (0.9-1.1) Activated Partial Thromboplast Time 24.7 SECONDS (21.0-31.0) Partial Thromboplastin Ratio 1.0 Anion Gap 7.0 mmol/L (3-11) Est Creatinine Clear Calc Drug Dose 69.9 ml/min Estimated GFR () 73.3 Estimated GFR (Non- 63.2 BUN/Creatinine Ratio 11.3 (10-20) Calcium Level 8.9 mg/dl (8.5-10.1) Total Bilirubin 0.4 mg/dl (0.2-1) Direct Bilirubin 0.1 mg/dl (0-0.2) Aspartate Amino Transf (AST/SGOT) 12 U/L (15-37) Alanine Aminotransferase (ALT/SGPT) 17 U/L (12-78) Alkaline Phosphatase 58 U/L (45-117) Total Protein 7.3 gm/dl (6.4-8.2) Albumin 3.0 gm/dl (3.4-5.0) Lipase 181 U/L (73-393) Bedside Troponin I 0.040 ng/ml (0-0.045) Urine Color YELLOW Urine Appearance CLEAR (CLEAR) Urine pH 7.0 (4.5-7.5) Urine Specific [place] 1.008 (1.000-1.030) Urine Protein NEG (NEG) Urine Glucose (UA) NEG (NEG) Urine Ketones NEG (NEG) Urine Occult Blood NEG (NEG) Urine Nitrite NEG (NEG) Urine Bilirubin NEG (NEG) Urine Urobilinogen NEG (NEG) Urine Leukocyte Esterase NEG (NEG) Laboratory studies as stated above per my review. Medications Administered Medications (Trade) Dose Ordered Sig/Gely Route Start Time Stop Time Status Last Admin Dose Admin Sodium Chloride 1,000 ml @ 999 mls/hr Q1H1M STAT IV 11/03/17 16:08 11/03/17 17:08 DC 11/03/17 16:30 999 MLS/HR Ondansetron HCl (ZOFRAN ODT 4MG Home Pack) 1 homepack UD ONCE PO 11/03/17 17:30 11/03/17 17:31 DC 11/03/17 17:37 1 HOMEPACK ECG Indication: nausea Rate (beats per minute): 74 Rhythm: normal sinus Findings: RBBB, no acute ischemic change, no ectopy Change: no significant change (When compared 09/26/2017) Change: Patient's electrocardiogram was interpreted by me. ED Course 1600: Past medical records reviewed. The patient was evaluated in room B9, and a complete history and physical examination were performed. 1608: Ordered Sodium Chloride 1,000 ml @ 999 mls/hr IV 1702: I reassessed the patient at this time. He is feeling better and resting comfortably. I discussed the results and treatment plan with the patient. I answered all pertaining questions that he had. He expressed understanding and verbalized agreement. The patient will be discharged home. 1730: Ordered Zofran 1 homepack PO Medical Decision Differentials include, but are not limited to arrhythmia, dehydration, infection , and electrolyte or metabolic abnormality. This patient comes in as described above. He was placed in room B9. He comes in after feeling lightheaded and nauseated. He looks well on exam. He has a normal neurologic exam. He has no chest pain or shortness of breath. IV access was established and he was gently hydrated with IV normal saline. EKG, chest x-ray, and multiple blood testing was obtained. He was reassessed frequently. He seems a feeling a lot better. His EKG shows no acute ischemic changes or ectopy compared to old. He has normal sinus rhythm. Chest x-ray shows some cardiomegaly and potentially some mild CHF changes how clinic however clinically has no shortness of breath or crackles anything to suggest CHF. He did tolerate fluids well here. He has no acute electrolyte or metabolic abnormalities. He is feeling better and would like to go home. He wants something for nausea. He was given home pack as well as prescription for Zofran. At this point, there is nothing to suggest a cardiac event or infection. I recommend he follow-up with his regular doctor and return if: Worsening of symptoms, fever or chills, any new problems or concerns. Medication Reconcilliation Current Medication List: was personally reviewed by me Blood Pressure Screening Patient's blood pressure: Elevated blood pressure Blood pressure disposition: Referred to PCP Impression Primary Impression: Nausea Scribe Attestation The scribe's documentation has been prepared under my direction and personally reviewed by me in its entirety. I confirm that the note above accurately reflects all work, treatment, procedures, and medical decision making performed by me. Departure Information Dispostion Home / Self-Care Prescriptions Ondasetron Odt (ZOFRAN ODT) 4 Mg Tab 4 MG SL Q6H for Nausea, #15 TAB Prov: William Harmon M.D. 11/03/17 Referrals Billy Garcia M.D. (PCP) Forms HOME CARE DOCUMENTATION FORM, IMPORTANT VISIT INFORMATION Patient Instructions My [facility] Additional Instructions Rest Drink plenty of fluids For nausea May use Zofran 4 mg every 6 hours as needed Return if: Worsening of symptoms, chest pain, fever or chills, shortness of breath, any new problems or concerns Follow-up with your doctor in the next 2-3 days if needed.
[2017-11-03 16:34] LABS: BASO % 0.2 %; BASO ABS # 0.01 K/uL (0-0.2); EOS % 6.6 %; EOS ABS # 0.36 K/uL (0-0.5); HEMATOCRIT 42.6 % (42-52); HEMOGLOBIN 14.1 g/dL (14.0-18.0); IG# 0.01 K/uL (0.00-0.02); LYMPH % 29.6 %; LYMPH ABS # 1.62 K/uL (1.2-3.4); MEAN CELL VOLUME 94.5 fL (80-100); MEAN CORPUSCULAR HEMOGLOBIN 31.3 pg (25-34); MEAN CORPUSCULAR HGB CONC 33.1 g/dl (32-36); MEAN PLATELET VOLUME 9.1 fL (7.4-10.4); MONO % 15.5 %; MONO ABS # 0.85 K/uL (0.11-0.59); NEUT % 47.9 %; NEUT ABS # 2.62 K/uL (1.4-6.5); PLATELET COUNT 189 K/uL (130-400); RED CELL DISTRIBUTION WIDTH CV 13.6 % (11.5-14.5); RED CELL DISTRIBUTION WIDTH SD 46.7 fL (36.4-46.3); WHITE BLOOD COUNT 5.47 K/uL (4.8-10.8)
[2017-11-03 16:44] LABS: PTT PATIENT 24.7 SECONDS (21.0-31.0)
[2017-11-03] MEDS ORDERED: ZNTT/150 PO (16:44)
[2017-11-03] MEDS ORDERED: CALC500C3 PO (16:44)
--- NOTE | 2017-11-03 16:45 | DIAGNOSTIC IMAGING REPORT ---
CHEST ONE VIEW PORTABLE CLINICAL HISTORY: 77 years-old Male presenting with CHEST PAIN. TECHNIQUE: Portable upright AP view of the chest was obtained. COMPARISON: 07/30/2017. FINDINGS: Atherosclerosis of aortic arch. Cardiac silhouette enlarged. Pulmonary vascular prominence. Vague opacity at the bilateral lung bases greater on the right. Trace pleural effusions cannot be excluded. No pneumothorax. Degenerative changes of the bilateral shoulders and spine. Upper abdomen normal. IMPRESSION: 1. Cardiomegaly with volume overload. 2. Vague bibasilar opacities represent atelectasis. Developing pulmonary edema is difficult to exclude. Other diagnostic considerations include aspiration. Electronically signed by: Bret Downs M.D. 11/03/2017 4:44 PM Dictated Date/Time: 11/03/2017 4:43 PM
[2017-11-03 16:51] LABS: CALCIUM 8.9 mg/dl (8.5-10.1); CREATININE 1.13 mg/dl (0.60-1.40); POTASSIUM 3.8 mmol/L (3.5-5.1)
[2017-11-03 16:54] LABS: TOTAL PROTEIN 7.3 gm/dl (6.4-8.2)
[2017-11-03] MEDS ORDERED: ONDA4TAB10 SL (17:18)
[2017-11-03] MEDS ORDERED: ONDANSETRON HOME PACK 4MG OD TAB PO ONE (17:30)
[2017-11-03 17:38] VITALS: BP 152/90; PULSE 74; O2SAT 95
== END 2017-11-03 17:41 | disposition home or self-care (01) ==
LOC: C.EDB 14:54
DX: R11.0 Nausea (principal); I48.92 Unspecified atrial flutter; I10 Essential (primary) hypertension; Z84.1 Family history of disorders of kidney and ureter; Z87.891 Personal history of nicotine dependence; Z79.899 Other long term (current) drug therapy

== ENCOUNTER → 2018-01-03 | Outpatient (CLI) | payer OTHER ==
[~2018-01-03] VITALS: Ht 177.8 cm; Wt 111.4 kg
[~2018-01-03] MED LIST changes: +CALC500C3 PO; +ONDA4TAB10 SL; +RANI150T85 PO; -RIVA1TAB4 PO
[2018-01-03 13:04] VITALS: BP 149/84; PULSE 96; Ht 177.8 cm; Wt 111.4 kg
== END | disposition home or self-care (01) ==
LOC: C.NEUR 12:40
PROVIDERS: ATTEND Internal Medicine Pulmonary Disease
DX: R06.83 Snoring (principal); G47.9 Sleep disorder, unspecified; R53.83 Other fatigue; I48.92 Unspecified atrial flutter; J30.9 Allergic rhinitis, unspecified

== ENCOUNTER 2018-01-19 02:41 | Emergency (ER) | payer OTHER ==
[~2018-01-19] VITALS: Ht 177.8 cm; Wt 103.7 kg
[2018-01-19 02:46] VITALS: Ht 177.8 cm; Wt 103.7 kg
[2018-01-19] MEDS ORDERED: ONDA4TAB10 SL (03:12)
[2018-01-19] MEDS ORDERED: KETOROLAC TROMETHAMINE 30 MG/ML VIAL IV STA (03:19)
--- NOTE | 2018-01-19 03:19 | EMERGENCY ROOM VISIT NOTE ---
History Report prepared by Callie: Antonieta Alfaro Under the Supervision of: Dr. Dona Rowland D.O. First contact with patient: 03:00 Chief Complaint: FLANK PAIN Stated Complaint: BACK PAIN History of Present Illness The patient is a 77 year old male who presents to the Emergency Room with complaints of intermittent left flank pain for three days. He thinks he has a kidney stone. He denies other abdominal pain. He reports nausea. He reports his pain a 10/10 in severity. He notes that while he was resting in bed the pain was worse. He notes frequent urination. He denies any blood present in urine. He denies any fevers, chest pain, cold-like symptoms, or change in his bowel movements. He has a history of kidney stones. He denies any blood thinner use. Source of History: patient Onset: three days Position: other (left flank) Symptom Intensity: 10/10 Timing: intermittent Modifying Factors (Worsening): rest Associated Symptoms: + nausea, + urinary symptoms (frequent urination), No fevers, No chest pain, No abdominal pain Note: Denies any cold-like symptoms or bloody urine. Review of Systems See HPI for pertinent positives & negatives. A total of 10 systems reviewed and were otherwise negative. Past Medical & Surgical Medical Problems: (1) Atrial flutter (2) Hypertension (3) Tinnitus Family History Kidney disease or stones Social History Smoking Status: Never Smoker Drug Use: none Marital Status: Housing Status: lives alone Occupation Status: retired Current/Historical Medications Scheduled Calcium Carbonate (Tums), 2 TABS PO PRN Finasteride (Proscar), 5 MG PO DAILY Terazosin Hcl (Hytrin), 10 MG PO QPM Scheduled PRN Alprazolam (Xanax), 0.5 MG PO BID PRN for Anxiety Fluticasone Propionate (Nasal) (Flonase Allergy Relief), 2 SPRAYS HUBERT DAILY PRN for CONGESTION Hydrocodon/Acetaminophen 5MG/300MG (Vicodin (5MG/300MG)), 1 TAB PO Q8 PRN for Pain Ondasetron Odt (Zofran Odt), 4 MG SL Q6H PRN for Nausea or Vomiting Ranitidine (Zantac), 150 MG PO BID PRN for ACID REFLUX Allergies Coded Allergies: Codeine (Verified Adverse Reaction, Mild, NAUSEA, 01/19/18) Physical Exam Vital Signs Date Time Temp Pulse Resp B/P (MAP) Pulse Ox O2 Delivery O2 Flow Rate FiO2 01/19/18 06:20 36.9 79 18 161/92 92 01/19/18 06:00 79 18 161/92 92 Room Air 01/19/18 04:05 82 18 150/76 96 Room Air 01/19/18 02:46 36.9 78 18 149/85 93 Room Air Physical Exam GENERAL: alert, well appearing, well nourished, no distress, non-toxic EYE EXAM: normal conjunctiva, PERRL and EOM's grossly intact OROPHARYNX: no exudate, no erythema, lips, buccal mucosa, and tongue normal and mucous membranes are moist NECK: supple, no nuchal rigidity, no adenopathy, non-tender LUNGS: Clear to auscultation. Normal chest wall mechanics HEART: no murmurs, S1 normal and S2 normal ABDOMEN: abdomen soft, non-tender, normo-active bowel sounds, no masses, no rebound or guarding. BACK: Back is symmetrical on inspection and there is no deformity, no midline tenderness, reproducible left flank pain and low back pain with palpation. SKIN: no rashes and no bruising UPPER EXTREMITIES: upper extremities are grossly normal. LOWER EXTREMITIES: No pitting edema. NEURO EXAM: Normal sensorium, cranial nerves II-XII grossly intact, normal speech, no gross weakness of arms, no gross weakness of legs. Medical Decision & Procedures ER Provider Diagnostic Interpretation: Radiology results have been interpreted by the radiologist and reviewed by me. CT ABDOMEN & PELVIS Without Contrast: There is mild to moderate left hydroureteronephrosis with a 5 mm calcification noted at the left UVJ. Minimal presumed atelectasis at the lung bases. The unenhanced liver, gallbladder, pancreas, spleen, adrenal glands, and right kidney are unremarkable. Diverticulosis of the distal colon. No free fluid or bowel obstruction. Radiologist: Roland Moctezuma MD Study ready at 04:04 and initial results transmitted at 04:25 Laboratory Results 01/19/18 03:30 Red Blood Count 4.56, Mean Corpuscular Volume 94.3, Mean Corpuscular Hemoglobin 30.7, Mean Corpuscular Hemoglobin Concent 32.6, Mean Platelet Volume 9.3, Neutrophils (%) (Auto) 52.5, Lymphocytes (%) (Auto) 26.4, Monocytes (%) (Auto) 15.3, Eosinophils (%) (Auto) 5.2, Basophils (%) (Auto) 0.3, Neutrophils # (Auto ) 3.50, Lymphocytes # (Auto) 1.76, Monocytes # (Auto) 1.02, Eosinophils # (Auto ) 0.35, Basophils # (Auto) 0.02 01/19/18 03:30 Test 01/19/18 02:54 01/19/18 03:30 01/19/18 05:05 Urine Yeast (Auto) (NONE PRSENT) White Blood Count 6.67 K/uL (4.8-10.8) Red Blood Count 4.56 M/uL (4.7-6.1) Hemoglobin 14.0 g/dL (14.0-18.0) Hematocrit 43.0 % (42-52) Mean Corpuscular Volume 94.3 fL (80-100) Mean Corpuscular Hemoglobin 30.7 pg (25-34) Mean Corpuscular Hemoglobin Concent 32.6 g/dl (32-36) Platelet Count 162 K/uL (130-400) Mean Platelet Volume 9.3 fL (7.4-10.4) Neutrophils (%) (Auto) 52.5 % Lymphocytes (%) (Auto) 26.4 % Monocytes (%) (Auto) 15.3 % Eosinophils (%) (Auto) 5.2 % Basophils (%) (Auto) 0.3 % Neutrophils # (Auto) 3.50 K/uL (1.4-6.5) Lymphocytes # (Auto) 1.76 K/uL (1.2-3.4) Monocytes # (Auto) 1.02 K/uL (0.11-0.59) Eosinophils # (Auto) 0.35 K/uL (0-0.5) Basophils # (Auto) 0.02 K/uL (0-0.2) RDW Standard Deviation 47.5 fL (36.4-46.3) RDW Coefficient of Variation 13.8 % (11.5-14.5) Immature Granulocyte % (Auto) 0.3 % Immature Granulocyte # (Auto) 0.02 K/uL (0.00-0.02) Prothrombin Time 10.9 SECONDS (9.0-12.0) Prothromb Time International Ratio 1.0 (0.9-1.1) Anion Gap 2.0 mmol/L (3-11) Est Creatinine Clear Calc Drug Dose 64.2 ml/min Estimated GFR () 68.1 Estimated GFR (Non- 58.8 BUN/Creatinine Ratio 14.0 (10-20) Calcium Level 8.6 mg/dl (8.5-10.1) Total Bilirubin 0.6 mg/dl (0.2-1) Aspartate Amino Transf (AST/SGOT) 15 U/L (15-37) Alanine Aminotransferase (ALT/SGPT) 17 U/L (12-78) Alkaline Phosphatase 65 U/L (45-117) Total Protein 7.4 gm/dl (6.4-8.2) Albumin 3.2 gm/dl (3.4-5.0) Globulin 4.2 gm/dl (2.5-4.0) Albumin/Globulin Ratio 0.8 (0.9-2) Urine Color YELLOW Urine Appearance CLEAR (CLEAR) Urine pH 5.5 (4.5-7.5) Urine Specific [place] 1.017 (1.000-1.030) Urine Protein NEG (NEG) Urine Glucose (UA) NEG (NEG) Urine Ketones NEG (NEG) Urine Occult Blood 1+ (NEG) Urine Nitrite NEG (NEG) Urine Bilirubin NEG (NEG) Urine Urobilinogen NEG (NEG) Urine Leukocyte Esterase TRACE (NEG) Urine WBC (Auto) 1-5 /hpf (0-5) Urine RBC (Auto) 5-10 /hpf (0-4) Urine Hyaline Casts (Auto) 1-5 /lpf (0-5) Urine Epithelial Cells (Auto) 5-10 /lpf (0-5) Urine Bacteria (Auto) NEG (NEG) Laboratory results per my review. Medications Administered Medications (Trade) Dose Ordered Sig/Gely Route Start Time Stop Time Status Last Admin Dose Admin Ketorolac Tromethamine (Toradol Inj) 15 mg NOW STAT IV 01/19/18 03:19 01/19/18 03:20 DC 01/19/18 03:37 15 MG Tamsulosin HCl (Flomax Cap) 0.4 mg NOW ONCE PO 01/19/18 05:00 01/19/18 05:01 DC 01/19/18 05:02 0.4 MG ECG Per My Interpretation Indication: back/shoulder pain Rate (beats per minute): 80 Rhythm: normal sinus Findings: RBBB, no acute ischemic change, other (Normal intervals.) ED Course 0313: The patient was evaluated in room A2. A complete history and physical exam was performed. 031: Ordered Toradol 15 mg IV 0457: I reassessed the patient at this time. I updated the patient. His pain has improved. I discussed the results and treatment plan with the patient. I answered all pertaining questions that he had. He expressed understanding and verbalized agreement. The patient will be discharged home. 0500: Ordered Flomax 0.4 mg PO 0600: Ordered Neely 1 homepack PO Medical Decision Prior records/ancillary studies reviewed. Triage Nursing notes reviewed. Differential diagnosis: Etiologies such as renal colic, appendicitis, diverticulitis, mesenteric ischemia, aortic pathology, infections, inflammatory bowel disease, PUD, biliary pathology, UTI, as well as others were entertained. Patient well-appearing here despite complaints which were suggestive of renal colic. Patient hemodynamically stable labs reassuring. No evidence of acute renal dysfunction or significant leukocytosis. I do not suspect pyelonephritis or ascending UTI. Patient's first UA suboptimal with numerous epithelial cells , repeat UA improved and I do not suspect urinary tract infection concurrently. Patient discharged in stable condition, appears improved, had no recurrent significant pain here. Patient counseled on use of stronger pain medication, encouraged to continue taking his terazosin, and to follow-up with his current urologist, Dr. Abarca. Discussed adequate hydration, close monitoring of symptoms, symptoms to watch and return for, continued use of routine medications , he verbalized understanding and was agreeable with plan. Medication Reconcilliation Current Medication List: was personally reviewed by me Blood Pressure Screening Patient's blood pressure: Elevated blood pressure Blood pressure disposition: Elevated BP felt to be situational Impression Primary Impression: Renal colic Additional Impressions: Ureterolithiasis Left flank pain Scribe Attestation The scribe's documentation has been prepared under my direction and personally reviewed by me in its entirety. I confirm that the note above accurately reflects all work, treatment, procedures, and medical decision making performed by me. Departure Information Dispostion Home / Self-Care Prescriptions Hydrocodon/Acetaminophen 5MG/300MG (VICODIN (5MG/300MG)) 1 Tab Tab 1 TAB PO Q8 Y for Pain, #10 TAB Prov: Dona Rowland, DO 01/19/18 Referrals Papo Cleary III, CRNP (PCP) Forms HOME CARE DOCUMENTATION FORM, IMPORTANT VISIT INFORMATION Patient Instructions ED Stone Renal W Colic, My [facility] Additional Instructions Please drink plenty of water. Please continue your regular medicines as prescribed. Please use the strainer whenever you urinate to monitor for passing the stone. You may use Tylenol or ibuprofen as needed for pain. Do not take ibuprofen on an empty stomach. Please take these as directed on the bottle. Please be cautious when taking the stronger pain medication as it can make you dizzy or drowsy. Do not take it and drive or drink alcohol. Please call follow-up with your urologist, Dr. Abarca. If you develop worsening pain, develop fevers or chills, nausea or vomiting, are unable to urinate, noticed blood or passed blood clots when you urinate, or you have any other new concerns , please return to the emergency room. Problem Qualifiers
[2018-01-19 03:47] LABS: BASO % 0.3 %; BASO ABS # 0.02 K/uL (0-0.2); EOS % 5.2 %; EOS ABS # 0.35 K/uL (0-0.5); IG# 0.02 K/uL (0.00-0.02); LYMPH % 26.4 %; LYMPH ABS # 1.76 K/uL (1.2-3.4); MEAN CELL VOLUME 94.3 fL (80-100); MEAN CORPUSCULAR HEMOGLOBIN 30.7 pg (25-34); MEAN CORPUSCULAR HGB CONC 32.6 g/dl (32-36); MEAN PLATELET VOLUME 9.3 fL (7.4-10.4); MONO % 15.3 %; MONO ABS # 1.02 K/uL (0.11-0.59); NEUT % 52.5 %; PLATELET COUNT 162 K/uL (130-400); RED CELL DISTRIBUTION WIDTH CV 13.8 % (11.5-14.5); RED CELL DISTRIBUTION WIDTH SD 47.5 fL (36.4-46.3); WHITE BLOOD COUNT 6.67 K/uL (4.8-10.8)
[2018-01-19 04:05] LABS: ALBUMIN 3.2 gm/dl (3.4-5.0); CALCIUM 8.6 mg/dl (8.5-10.1); CREATININE 1.2 mg/dl (0.60-1.40); POTASSIUM 4.1 mmol/L (3.5-5.1)
[2018-01-19 04:08] LABS: TOTAL PROTEIN 7.4 gm/dl (6.4-8.2)
[2018-01-19] MEDS ORDERED: TAMSULOSIN HCL 0.4 MG CAP PO ONE (05:00)
[2018-01-19] MEDS ORDERED: HYDR-3419 PO (05:22)
[2018-01-19] MEDS ORDERED: NORCO 5/325MG HOME PACK PO ONE (06:00)
[2018-01-19 06:20] VITALS: BP 161/92; PULSE 79; TEMP 36.9; O2SAT 92
--- NOTE | 2018-01-19 07:11 | DIAGNOSTIC IMAGING REPORT ---
ABD/PELVIS WITHOUT FOR STONE CT DOSE: 1672.55 mGy.cm HISTORY: Pain left flank pain, hematuria TECHNIQUE: Multiaxial CT images of the abdomen and pelvis were performed without the use of intravenous and oral contrast according to the standard department stone protocol. A dose lowering technique was utilized adhering to the principles of ALARA. COMPARISON STUDY: None. FINDINGS: Lung bases are clear. Liver spleen and pancreas are unremarkable. There is mild fullness left renal collecting system and left ureter. There are several nonobstructing left renal calcifications. There is a 5 mm calculus distal left ureter at and are medially proximal left ureteral vesicle junction. Findings of postoperative changes right inguinal region. Chronic colonic diverticulosis. No evidence for acute diverticulitis. IMPRESSION: 1. 5 mm partially obstructing calculus distal left ureter.. 2. Several additional nonobstructing renal calcifications. 3. Chronic colonic diverticulosis The above report was generated using voice recognition software. It may contain grammatical, syntax or spelling errors. Electronically signed by: Keith Mcgrath M.D. 01/19/2018 7:09 AM Dictated Date/Time: 01/19/2018 7:03 AM
== END 2018-01-19 06:21 | disposition home or self-care (01) ==
LOC: C.EDB 02:42 → C.EDA 06:21
DX: N23 Unspecified renal colic (principal); N20.1 Calculus of ureter; Z84.1 Family history of disorders of kidney and ureter; Z79.899 Other long term (current) drug therapy; Z88.5 Allergy status to narcotic agent

== ENCOUNTER → 2018-01-21 | Outpatient (CLI) | payer OTHER ==
[~2018-01-21] MED LIST changes: +HYDR-3419 PO
--- NOTE | 2018-01-22 05:48 | PAP/PSG TECHNICIAN REPORT ---
[facility] Small Package And Bundle Sorter Clerk Polysomnogram Report Study name: None Report date: 01/22/2018 Study date: 01/21/2018 Referring Physician: Theodore Rhodes M.D. Name: JENNIE FULLER Interpreting Physician: Theodore Rhodes M.D. Date of : 1940 Small Package And Bundle Sorter Clerk: Eva Hwang RPSGT. Sex: Male Age: 77 Study Type: PSG Weight: 245 lbs 17 in Height: 77 years, Height 5' 10" Neck Circum: BMI: 35.15 Medications: ALPRAZOLAM 0.5 MG, FINASTERIDE 5 MG, FLUTICASONE PROPIONATE 50 MCG/ACT, TERAOSIN 10 MG Patient History 77 yr-old male here for a baseline study. He has a history of atrial flutter, snoring, and fragmented sleep. His Dupont scale is 4. The test was started on room air. ETCO2 testing was not utilized during this study. Room 3 Parameters Monitored NPSG: E1-M2, E2-M1, Fp1-M2, Fp2-M1, F3-M2, F4-M2, F4-M1, C3-M2, C4-M2, C4-M1, O1-M2, O2-M2, O2-M1, T3-M2, T4-M1, P3-M2, P4-M1, CHIN1, CHIN2, HR, EKG, Legs, PFLOW, SNOR, FLOW, CFLOW, Tidal Volume, THOR, ABDO, SpO2, PLTH, CPRESS, ETCO2 Wave, ETCO2, pH Sleep Architecture Sleep Stages Time at Lights Off 10:22:46 PM STAGES Time (min.) TST (%) Time at Lights On 5:10:46 AM Wake 170.5 -- Total Recording Time (TRT) 408.00 min. N1 170.0 72 Total Sleep Period (TSP) 388.0 min. N2 46.5 20 Total Sleep Time (TST) 237.5min. N3 0.0 0 Awake Time 170.5 min. REM 21.0 9 Wake after Sleep Onset 158.5 min. Sleep Efficiency (SE) 58 % Sleep Onset Latency (ANA) 12.0 min. Number of Stage 1 Shifts None Awakenings 83 Stage Changes 190 Number of REM periods 1 REM 21.0 9 REM Latency 323.0 min. NREM 216.5 91 Body Position Analysis Supine Right Left Side Prone Vertical Total Sleep Time (min.) 6.2 0.0 237.5 237.50 0.0 0.5 Total Sleep Time (%) 0% 0% 100% 100 0% N/A% Total Sleep Time REM (min.) 0.0 0.0 21.0 None 0.0 0.0 Total Sleep Time NREM (min.) 0.0 0.0 216.5 None 0.0 0.0 Intermittent Wake (min.) 6.2 0.0 163.7 None 0.0 0.5 Total Sleep Period (%) 2% None None None None None Arousals Myoclonus (PLM) * Events Count Index Events Count Index Spontaneous 22 6 Events Awake (PLMW) 218 76.7 Respiratory 191 49.0 Events Asleep w/ Arousal (PLMA) 7 1.8 PLM 7 2 Events Asleep w/o Arousal (PLMS) 193 48.8 Snoring 31 8 Total Asleep 200 50.5 Total 247 62 Total 418 61 Respiratory Analysis * CA OA MA CH H RERA Total Count 1 27 2 0 237 0 267 Index 0.3 6.8 0.5 0 59.9 0 67.5 Mean Duration 20.0 19.6 22.6 0.00 23.6 0.0 23.2 Longest Duration 20.0 32.3 27.4 0.00 27.4 0.0 57.8 Respiratory Event Summary Total Supine ~Supine Right Left Prone REM NREM Apneas Count 30 N/A 30 N/A 30 N/A 0 30 Index 7.6 N/A 8 N/A 7.6 N/A 0 8 Hypopneas (4% Desat) Count 237 N/A 237 N/A 237 N/A 27 210 Index 59.9 N/A 60 N/A 59.9 N/A 77.1 58.2 Apneas & All Hypopneas Count 267 N/A 267 N/A 267 N/A 27 240 Index 67.5 N/A 67 N/A 67 N/A 77.1 66.5 Respiratory Events (Investment Sales Assistant+All Hyp+RERA) Count 267 N/A 267 N/A 267 N/A 27 240 Index 67.5 N/A 67 N/A 67.5 N/A 77.1 66.5 Respiratory Related Arousal Count 191 N/A 194 N/A 194 N/A 20 174 Index 49.0 N/A 49 N/A 49 N/A 57 48 Snoring Analysis Supine Right Left Prone REM NREM Total Snore duration 24.9 min Snores count N/A N/A 829 N/A 26 803 829 Snore mean duration 1.8 Sec Snores index N/A N/A 209 N/A 74.3 222.5 209.4 TST with snoring (%) 10.5% Desaturation Event Summary: Minimum %SpO2 Event Count Mean/Min/Max Duration(sec.) Desaturation Index % Time In Bed > 90 187 28.9 / 9.5 / 59.5 202.4 14.6 86 - 90 290 25.7 / 6.0 / 58.0 117.7 39.0 81 - 85 55 23.7 / 6.0 / 58.0 37.0 23.6 76 - 80 32 24.4 / 4.8 / 50.0 37.4 13.5 71 - 75 14 18.5 / 4.8 / 45.8 29.0 7.6 66 - 70 0 N/A 0.0 0.9 61 - 65 0 N/A 0.0 0.6 56 - 60 0 N/A 0.0 0.1 51 - 55 0 N/A 0.0 0.0 < 50 0 N/A 0.0 0.0 Total REM NREM Awake <50% 0.0 min. 0.0 min. 0.0 min. 0.0 min. 51 - 60% 0.2 min. 0.2 min. 0.0 min. 0.0 min. 61 - 70% 5.8 min. 5.5 min. 0.2 min. 0.1 min. 71 - 80% 80.3 min. 6.8 min. 64.8 min. 8.7 min. 81 - 90% 237.0 min. 8.4 min. 120.1 min. 108.5 min. 91 - 100% 55.4 min. 0.0 min. 31.3 min. 24.1 min. Average 85 77 84 87 Minimum SpO2 59 59 67 70 Desaturation Event Index 58.7 74.3 77.0 37.0 # Desat. Events below 89% 396 26 271 99 Time(%) with Saturation below 89% 68.8 5.4 40.6 22.7 Time(min.) with Saturation below 89% 260.4 20.4 153.9 86.0 Time (mins) REM (mins) NREM (mins) % of TST SpO2 Below 90% 297 26 N271 80.1 SpO2 Below 88% 120 0 0 67 Heart Rate Analysis Min (bpm) Max (bpm) Average (bpm) Awake 55 127 70 NREM 53 93 66 REM 59 89 69 Overall 53 93 66 Supplemental O2 Values Minimum O2 level: None Value Start Time End Time Small Package And Bundle Sorter Clerk Comments Mr. Fuller slept only in the left side position. Cardiac arrhythmias were noted (please refer to the printout). PLMs were noted. No bruxism noted. Snoring was noted and scored as a 3 on a scale of 1 through 5. (0=no snoring, 5=snoring loud enough to be heard through a closed door or down the [address]). He awoke to use the restroom seven times during the night. It was past 2:30 am before he had two full hours of sleep. A split study could not be conducted. Mr. Fuller stated that he did not sleep as well as usual. The final report will be interpreted and signed by a sleep physician. The completed physician report will then be placed in the patient medical record. Therapy (cm H2O) 0 TIB (min.) 408.0 TST (min.) 237.5 Sleep Onset (min.) 12.0 REM Onset From Sleep (min.) 323.0 Sleep Efficiency % 58 Wakefulness (%) 42 Wakefulness (min.) 170.5 NREM 1 (%) 72 NREM 1 (min.) 170.0 NREM 2 (%) 20 NREM 2 (min.) 46.5 NREM 3 (%) 0 NREM 3 (min.) 0.0 REM (%) 9 REM (min.) 21.0 # Arousals 247 Arousal Index 62 # Snore 829 Snore Index 209.4 AHI 67.5 AHI Supine N/A AHI Non-Supine 67 NREM AHI 66.5 REM AHI 77.1 RDI 67.5 # Obstructive Apnea 27 # Central Apnea 1 # Mixed Apnea 2 # Hypopneas 237 RERAs 0 Total Respiratory Events 300 Time Below SpO2 89% (min.) 174.4 Mean NREM SpO2 (%) 84 Mean REM SpO2 (%) 77 Mean Sleep SpO2 (%) 83 Min NREM SpO2 (%) 67 Min REM SpO2 (%) 59 Position Supine (min.) 6.2 Position Non-supine (min.) 237.5 LM Index Sleep 50.5 LM Index NREM 47.9 LM Index REM 77.1 Mean Heart Rate (bpm) 66 Min Heart Rate (bpm) 53
--- NOTE | 2018-01-24 08:03 | POLYSOMNOGRAPH REPORT ---
CLINICAL DATA: A 77-year-old male with BMI of 35.2 with a history of snoring, fatigue, atrial flutter, and probable sleep apnea. He does have nocturnal awakening at least 3-4 times per night. SLEEP ARCHITECTURE: Total sleep period was 388 minutes. Total sleep time was 237.5 minutes divided between 216.5 minutes of non-REM sleep and 21 minutes of REM sleep. Sleep latency was 12 minutes. REM latency was delayed at 323 minutes. Sleep efficiency was 58%. Wake after sleep onset was 158.5 minutes. Sleep consisted of stage N1 72%, stage N2 20%, and REM 9%. AROUSAL DATA: 247 arousals were recorded for an index of 62 per hour. 191 were due to respiratory events. PLM DATA: 200 limb movements during sleep were noted for an index of 50.5 per hour with arousal index of 1.5 per hour. RESPIRATORY DATA: Severe sleep apnea was documented. The AHI was 67.5. There was 1 central, 27 obstructive, and 2 mixed apneic episodes. The longest apneic episode was 32 seconds. There were 237 hypopneic episodes. The longest hypopneic episode was 27.4 seconds. OXIMETRY DATA: Nocturnal hypoxemia was seen. Oxygen brianda was 59%. Mean saturation was 85%. Oxygen brianda occurred during REM. Time below 88% was 120 minutes. EKG: Heart ranged from 53-93 beats per minute. Premature atrial contractions irregular rhythm were noted throughout. ADMISSIONS GATE ATTENDANT'S COMMENTS: The patient slept only on his left side. Snoring was moderate, rated 3 on a scale of 1-5. It was after 2:30 a.m. before he had 2 hours to sleep,so a split night study could not be performed. IMPRESSION: Severe sleep apnea/hypopnea with an AHI of 67.5 with severe nocturnal hypoxemia. RECOMMENDATIONS: The patient would benefit from a repeat sleep study with CPAP and/or ASV. CATHERINE
== END | disposition home or self-care (01) ==
LOC: C.NEUR 21:00
PROVIDERS: ATTEND Internal Medicine Pulmonary Disease
DX: J30.9 Allergic rhinitis, unspecified (principal); I48.92 Unspecified atrial flutter; R06.83 Snoring; R53.83 Other fatigue; G47.9 Sleep disorder, unspecified

== ENCOUNTER → 2018-02-04 | Outpatient (CLI) | payer OTHER ==
[~2018-02-04] VITALS: Ht 177.8 cm; Wt 109.8 kg
[2018-02-04 15:30] VITALS: BP 157/87; PULSE 92; Ht 177.8 cm; Wt 109.8 kg
== END | disposition home or self-care (01) ==
LOC: C.NEUR 14:22
PROVIDERS: ATTEND Internal Medicine Pulmonary Disease
DX: G47.34 Idiopathic sleep related nonobstructive alveolar hypoventilation (principal); E66.9 Obesity, unspecified; I48.92 Unspecified atrial flutter; Z88.6 Allergy status to analgesic agent

== ENCOUNTER → 2018-02-05 | Outpatient (CLI) | payer OTHER ==
[2018-02-04 16:23] VITALS: BP 157/87; PULSE 92; Ht 177.8 cm; Wt 109.6 kg
[~2018-02-05] VITALS: Ht 177.8 cm; Wt 109.6 kg
--- NOTE | 2018-02-06 06:33 | PAP/PSG TECHNICIAN REPORT ---
[facility] Tile Fitter Polysomnogram Report Study name: None Report date: 02/06/2018 Study date: 02/05/2018 Referring Physician: Theodore Rhodes M.D. Name: JENNIE BACH Interpreting Physician: Theodore Rhodes M.D. Date of : 1940 Tile Fitter: Eva Hwang RPSGT. Sex: Male Age: 77 Study Type: PSG PAP Weight: 245 lbs 17 in Height: 77 years, Height 5' 10" Neck Circum: BMI: 35.15 Medications: ALPRAZOLAM 0.5 MG, FINASTERIDE 5 MG, FLUTICASONE PROPIONATE 50 MCG/ACT, TERAOSIN 10 MG Patient History 77 yr-old male here for a new CPAP treatment study. He was found to be positive for AMARI with an AHI of 67.5. His diagnostic study was on 01/21/18. He chose an AifFit F10 full face mask size medium from [employer]. The test was started on room air and 4 CMH2O. ETCO2 testing was not utilized during this study. Room 1 Parameters Monitored NPSG: E1-M2, E2-M1, Fp1-M2, Fp2-M1, F3-M2, F4-M2, F4-M1, C3-M2, C4-M2, C4-M1, O1-M2, O2-M2, O2-M1, T3-M2, T4-M1, P3-M2, P4-M1, CHIN1, CHIN2, HR, EKG, Legs, PFLOW, SNOR, FLOW, CFLOW, Tidal Volume, THOR, ABDO, SpO2, PLTH, CPRESS, ETCO2 Wave, ETCO2, pH Sleep Architecture Sleep Stages Time at Lights Off 10:05:38 PM STAGES Time (min.) TST (%) Time at Lights On 5:33:08 AM Wake 110.0 -- Total Recording Time (TRT) 447.50 min. N1 63.0 19 Total Sleep Period (TSP) 429.5 min. N2 140.0 41 Total Sleep Time (TST) 337.5min. N3 0.0 0 Awake Time 110.0 min. REM 134.5 40 Wake after Sleep Onset 92.0 min. Sleep Efficiency (SE) 75 % Sleep Onset Latency (ANA) 18.0 min. Number of Stage 1 Shifts None Awakenings 30 Stage Changes 92 Number of REM periods 5 REM 134.5 40 REM Latency 70.5 min. NREM 203.0 60 Body Position Analysis Supine Right Left Side Prone Vertical Total Sleep Time (min.) 49.9 0.0 331.0 331.00 0.0 0.0 Total Sleep Time (%) 2% 0% 98% 98 0% N/A% Total Sleep Time REM (min.) 0.0 0.0 134.5 None 0.0 0.0 Total Sleep Time NREM (min.) 6.5 0.0 196.5 None 0.0 0.0 Intermittent Wake (min.) 43.4 0.0 66.6 None 0.0 0.0 Total Sleep Period (%) 7% None None None None None Arousals Myoclonus (PLM) * Events Count Index Events Count Index Spontaneous 40 7 Events Awake (PLMW) 119 64.9 Respiratory 34 6.9 Events Asleep w/ Arousal (PLMA) 7 1.2 PLM 7 1 Events Asleep w/o Arousal (PLMS) 81 14.4 Snoring 8 1 Total Asleep 88 15.6 Total 89 16 Total 207 28 Respiratory Analysis * CA OA MA CH H RERA Total Count 6 15 6 0 56 4 83 Index 1.1 2.7 1.1 0 10.0 1 15.5 Mean Duration 15.1 29.9 24.2 0.00 23.9 18.9 24.1 Longest Duration 20.0 72.4 30.8 0.00 30.8 23.4 72.4 Respiratory Event Summary Total Supine ~Supine Right Left Prone REM NREM Apneas Count 27 6 21 N/A 21 N/A 3 24 Index 4.8 55 4 N/A 3.8 N/A 1 7 Hypopneas (4% Desat) Count 56 1 55 N/A 55 N/A 36 20 Index 10.0 9.2 10 N/A 10.0 N/A 16.1 5.9 Apneas & All Hypopneas Count 83 7 76 N/A 76 N/A 39 44 Index 14.8 65 14 N/A 14 N/A 17.4 13.0 Respiratory Events (Reefer Truck Driver+All Hyp+RERA) Count 83 7 80 N/A 80 N/A 39 44 Index 15.5 65 15 N/A 14.5 N/A 17.4 14.2 Respiratory Related Arousal Count 34 7 33 N/A 33 N/A 5 34 Index 6.9 55 6 N/A 6 N/A 2 10 Snoring Analysis Supine Right Left Prone REM NREM Total Snore duration 12.4 min Snores count 8 N/A 600 N/A 197 411 608 Snore mean duration 1.2 Sec Snores index 74 N/A 109 N/A 87.9 121.5 108.1 TST with snoring (%) 3.7% Desaturation Event Summary: Minimum %SpO2 Event Count Mean/Min/Max Duration(sec.) Desaturation Index % Time In Bed > 90 90 31.4 / 9.3 / 60.0 27.7 44.6 86 - 90 28 28.7 / 9.3 / 56.0 9.6 40.1 81 - 85 8 30.2 / 16.3 / 42.3 13.7 8.0 76 - 80 5 29.2 / 18.5 / 54.3 15.0 4.6 71 - 75 7 25.2 / 15.3 / 54.3 56.2 1.7 66 - 70 3 15.6 / 15.3 / 16.3 46.1 0.9 61 - 65 0 N/A 0.0 0.1 56 - 60 0 N/A 0.0 0.0 51 - 55 0 N/A 0.0 0.0 < 50 0 N/A 0.0 0.0 Total REM NREM Awake <50% 0.0 min. 0.0 min. 0.0 min. 0.0 min. 51 - 60% 0.0 min. 0.0 min. 0.0 min. 0.0 min. 61 - 70% 4.2 min. 4.2 min. 0.0 min. 0.0 min. 71 - 80% 27.5 min. 14.8 min. 12.7 min. 0.0 min. 81 - 90% 210.3 min. 79.3 min. 106.7 min. 24.3 min. 91 - 100% 194.9 min. 36.2 min. 83.6 min. 75.1 min. Average 89 87 89 92 Minimum SpO2 64 64 79 83 Desaturation Event Index 15.7 14.7 14.2 21.3 # Desat. Events below 89% 76 28 29 19 Time(%) with Saturation below 89% 25.2 14.2 9.7 1.3 Time(min.) with Saturation below 89% 109.9 61.9 42.4 5.6 Time (mins) REM (mins) NREM (mins) % of TST SpO2 Below 90% 76 32 N44 45.3 SpO2 Below 88% 27 0 0 25 Heart Rate Analysis Min (bpm) Max (bpm) Average (bpm) Awake 58 127 73 NREM 56 90 70 REM 62 95 77 Overall 56 95 73 Supplemental O2 Values Minimum O2 level: None Value Start Time End Time Tile Fitter Comments Mr. Bach slept in the left and supine positions. No cardiac arrhythmias were noted. PLMs were noted. No bruxism noted. CPAP was initiated at +4 CMH2O and up-titrated to a level of +12 CMH2O, Cflex 2. An AirFit F10 full face mask size medium from [employer] was used during titration. After he was on a pressure of 10 CMH2O for 168.6 minutes, his AHI was 0.4, and he spent 19.6 minutes under an O2 saturation of 89%. One LPM of O2 was added at that time. The O2 was then turned off when he reached a pressure of 12 CMH2O since he was no longer on an optimal pressure. He awoke to use the restroom three times during the night. Mr. Bach stated that he slept the same as usual. The final report will be interpreted and signed by a sleep physician. The completed physician report will then be placed in the patient medical record. Therapy Event: Therapy (cm H20) 4 6 8 10 11 12 Total Time at Pressure (min.) 47.5 46.1 30.9 283.6 31.1 8.4 TST at Pressure (min.) 17.5 45.6 29.0 208.5 28.6 8.4 # Periods 1 1 1 1 1 1 Sleep Onset (min.) 18.0 0.0 0.0 0.1 0.5 0.0 REM Onset (min.) N/A 41.0 0.0 1.6 16.0 0.0 Sleep Efficiency % 36 98 93 73 92 100 Wakefulness (%) 63.2 1.1 6.2 26.5 8.0 0.0 Wakefulness (min.) 30.0 0.5 1.9 75.1 2.5 0.0 NREM 1 (%) 34.7 14.2 0.0 9.7 40.2 0.0 NREM 1 (min.) 16.5 6.5 0.0 27.5 12.5 0.0 NREM 2 (%) 2.1 73.8 0.0 36.7 3.2 0.0 NREM 2 (min.) 1.0 34.0 0.0 104.0 1.0 0.0 NREM 3 (%) 0.0 0.0 0.0 0.0 0.0 0.0 NREM 3 (min.) 0.0 0.0 0.0 0.0 0.0 0.0 REM (%) 0.0 10.9 93.8 27.2 48.6 100.0 REM (min.) 0.0 5.0 29.0 77.0 15.1 8.4 # Arousals 25 11 5 35 10 3 Arousal Index 86.0 14.5 10.4 10.1 21.0 21.5 # Snore 20 203 135 194 54 2 Snore Index 68.8 267.1 279.8 55.8 113.2 14.3 AHI 75.6 19.7 39.4 3.7 25.2 14.3 AHI Supine 66.7 N/A N/A 60.0 N/A N/A AHI Non-Supine 78.8 19.7 39.4 3.2 25.2 14.3 NREM AHI 75.6 16.3 N/A 3.7 13.3 N/A REM AHI N/A 47.6 39.4 3.9 35.7 14.3 RDI 75.6 21.1 39.4 4.3 27.3 14.3 # Obstructive 8 7 0 0 0 0 # Central Ap 5 0 0 1 0 0 # Mixed 4 0 0 2 0 0 # Hypopneas 5 8 19 10 12 2 RERAS 0 1 0 2 1 0 Total Respiratory Events 22 16 19 15 13 2 Time Below SpO2 89.00% (min.) 4.6 37.5 28.0 22.2 6.8 5.1 Mean NREM SpO2 (%) 90 84 N/A 91 92 N/A Mean REM SpO2 (%) N/A 80 79 90 88 88 Mean Sleep SpO2 (%) 90 83 79 90 89 88 Min NREM SpO2 (%) 80 79 N/A 88 89 N/A Min REM SpO2 (%) N/A 67 64 86 79 81 Position Supine (min.) 4.5 0.0 0.0 2.0 0.0 0.0 Position Non-supine (min.) 13.0 45.6 29.0 206.5 28.6 8.4 LM Index Sleep 65.3 22.4 0.0 12.4 18.9 0.0 LM Index NREM 65.3 23.7 N/A 16.0 35.6 N/A LM Index REM N/A 11.9 0.0 6.2 4.0 0.0 Mean Heart Rate (bpm) 65 77 84 72 67 73 Min Heart Rate (bpm) 56 60 73 57 56 65 CPAP REPORT Therapy Detail Time / Page # Comment CPAP 4 cm H2O Full Face Mask Flex Pressure Relief Humidifier on 10:05:25 PM / pg. 136 CPAP 6 cm H2O Full Face Mask Flex Pressure Relief Humidifier on 10:53:05 PM / pg. 231 INCREASED FOR HYPOPNEAS AND APNEAS CPAP 8 cm H2O Full Face Mask Flex Pressure Relief Humidifier on 11:39:11 PM / pg. 324 INCREASED FOR MORE APNEAS AND HYPOPNEAS CPAP 10 cm H2O Full Face Mask Flex Pressure Relief Humidifier on 12:10:03 AM / pg. 385 INCREASED FOR HYPOPNEAS CPAP 10 cm H2O Full Face Mask Flex Pressure Relief Humidifier on Oxygen 1.0 lpm 3:04:00 AM / pg. 733 HE HAS BEEN ON A PRESSURE OF 10 CMH2O FOR 168.6 MIN, HIS AHI IS 0.4, AND HE WAS UNDER 89% FOR 19.6 MIN. ADDING 1 LPM OF O2 CPAP 11 cm H2O Full Face Mask Flex Pressure Relief Humidifier on Oxygen 1.0 lpm 4:53:38 AM / pg. 953 INCREASED FOR MORE HYPOPNEAS CPAP 12 cm H2O Full Face Mask Flex Pressure Relief Humidifier on Oxygen 1.0 lpm 5:24:45 AM / pg. 1015 INCREASED FOR HYPOPNEAS IN REM CPAP 12 cm H2O Full Face Mask Flex Pressure Relief Humidifier on 5:24:49 AM / pg. 1015 TURNED THE O2 OFF SINCE HE IS NO LONGER AT AN OPTIMAL PRESSURE
--- NOTE | 2018-02-07 12:45 | POLYSOMNOGRAPH REPORT ---
CLINICAL DATA: A 77-year-old male with BMI of 35.2 referred by myself and Papo Cleary, for CPAP titration study. He has severe sleep apnea with an AHI of 67.5 and nocturnal hypoxemia. He chose an AirFit F10 full face mask, size medium from [employer]. SLEEP ARCHITECTURE: Total sleep period was 429.5 minutes. Total sleep time was 337.5 minutes divided between 203 minutes of non-REM sleep and 134.5 minutes of REM sleep. Sleep latency was 18 minutes. REM latency was 70.5 minutes. Sleep efficiency was 75%. Wake after sleep onset was 92 minutes. Sleep consisted of stage N1 19%, stage N2 41%, and REM 40%. AROUSAL DATA: Eighty nine arousals were recorded for an index of 16 per hour. Forty were spontaneous. PLM DATA: Eighty eight limb movements during sleep were noted for an index of 15.6 per hour with arousal index of 1.2 per hour. RESPIRATORY DATA: The AHI was 14.8. There were 6 central, 15 obstructive, and 6 mixed apneic episodes. The longest apneic episode was 72.4 seconds. There were 56 hypopneic episodes. The longest hypopneic episodes was 30.8 seconds. OXIMETRY DATA: Nocturnal hypoxemia was seen. Oxygen brianda was 64% during REM. Mean saturation was 89%. Time below 88% was 27 minutes. EKG: Heart rates ranged from 56-95 beats per minute. No arrhythmias were noted. ARCHITECTURE MANAGER'S COMMENTS AND TREATMENT SUMMARY: The patient slept in the left and supine positions. CPAP was started at 4 cm of water pressure and was titrated up to 12 cm water pressure, C-Flex setting #2. After he had been on a pressure of 10 cm water for over 2-1/2 hours with a normal AHI, he continued to have oxygen desaturation. Oxygen 1 liter per minute was added. However, when his pressure on CPAP had to be increased, his oxygen was turned off and he maintained an adequate saturation. At his final pressure setting, he slept for 8.4 minutes with an AHI of 14. IMPRESSION: Severe sleep apnea/hypopnea improved with CPAP 12 cm water pressure, C-Flex setting #2 with an AirFit F10 full face mask, size medium. The patient still had a residual AHI of 14, although he was only on his final pressure setting for 8 minutes. RECOMMENDATIONS: The patient should be started on CPAP at the above noted pressure settings. He should be seen back in followup in 90 days to document efficiency and compliance. After his compliance and effectiveness data has been reviewed, overnight pulse oximetry may be of some benefit. CATHERINE
== END | disposition home or self-care (01) ==
LOC: C.NEUR 21:00
PROVIDERS: ATTEND Physician Assistant Medical
DX: G47.34 Idiopathic sleep related nonobstructive alveolar hypoventilation (principal); E66.9 Obesity, unspecified; I48.92 Unspecified atrial flutter

== ENCOUNTER 2019-09-23 23:56 | Inpatient (IN) ==
[2019-09-24] MEDS: METOPROLOL TARTRATE 1 MG/ML VIAL IV PRN ×2 (00:36→00:47)
[2019-09-24] MEDS ORDERED: dilTIAZem HCl 5 MG/ML 5 ML VIAL IV STA (01:09)
[2019-09-24 01:52] LABS: Basophils # (auto) 0.05 K/uL (0-0.2); Basophils % (auto) 0.7 %; Eosinophils # (auto) 0.25 K/uL (0-0.5); Eosinophils % (auto) 3.7 %; Hemoglobin 13.7 g/dL (14.0-18.0); Immature Granulocytes # (auto) 0.01 K/uL (0.00-0.02); Immature Granulocytes % (auto) 0.1 %; Lymphocytes # (auto) 2.44 K/uL (1.2-3.4); Lymphocytes % (auto) 35.7 %; Mean Corpuscular Hemoglobin 30.4 pg (25-34); Mean Corpuscular Hgb Conc 31.1 g/dL (32-36); Mean Corpuscular Volume 97.6 fL (80-100); Mean Platelet Volume 9.4 fL (7.4-10.4); Monocytes # (auto) 1.05 K/uL (0.11-0.59); Monocytes % (auto) 15.4 %; Neutrophils # (auto) 3.03 K/uL (1.4-6.5); Neutrophils % (auto) 44.4 %; Platelet Count 221 K/uL (130-400); RDW Coefficient of Variation 14.1 % (11.5-14.5); RDW Standard Deviation 49.9 fL (36.4-46.3); Red Blood Count 4.51 M/uL (4.7-6.1); White Blood Count 6.83 K/uL (4.8-10.8)
[2019-09-24 02:00] LABS: Alanine Aminotransferase 22 U/L (12-78); Albumin Level 2.9 gm/dl (3.4-5.0); Aspartate Aminotransferase 17 U/L (15-37); BUN Creatinine Ratio 15.2 (10-20); Blood Urea Nitrogen 22 mg/dl (7-18); Carbon Dioxide 31 mmol/L (21-32); Chloride 111 mmol/L (98-107); Est GFR (African American) 53.9; Est GFR (Non-African American) 46.5; Glucose 104 mg/dl (70-99); Potassium 4.3 mmol/L (3.5-5.1); Sodium 144 mmol/L (136-145)
[2019-09-24 02:11] LABS: Albumin Globulin Ratio 0.7 (0.9-2); Alkaline Phosphatase 62 U/L (45-117); Bilirubin,Total 0.3 mg/dl (0.2-1); Globulin 4.4 gm/dl (2.5-4.0); Thyroid Stimulating Hormone 0.562 uIu/ml (0.300-4.500); Total Protein 7.3 gm/dl (6.4-8.2); Troponin I < 0.015 ng/ml (0-0.045)
[2019-09-24] MEDS ORDERED: METOPROLOL SUCC 50MG EXT REL TAB PO STA (04:12)
--- NOTE | 2019-09-24 04:27 | History & Physical Report ---
Date of Service September 24, 2019 Assessment & Plan (1) Atrial flutter with rapid ventricular response: Atrial flutter with rapid ventricular response- Patient has had previous ablation procedure as noted, and per patient, this is his first recurrence. He did receive Lopressor 5 mg IV x2 and Cardizem 10 mg IV x2 in ED, without significant improvement. This process was likely begun by missing his dosing metoprolol succinate 50 mg yesterday morning, which will be given now. Most recent echocardiogram on 07/31/2019 as an outpatient, will not be repeated. Continue Xarelto 20 mg p.o. daily. We will hold terazosin 10 mg p.o. daily at this time. Consult his mercury purifier Dr. Coombs Present on Admission?: Yes (2) Severe sleep apnea: CPAP at bedtime as needed. Present on Admission?: Yes (3) Benign prostatic hyperplasia with urinary obstruction: Continue finasteride 5 mg p.o. daily. We will hold terazosin 10 mg p.o. every afternoon for now, as may be contributing to current RVR. Would consider change to Avodart and tamsulosin. Presently follows with urology Dr. Abarca. Present on Admission?: Yes (4) Depression with anxiety: Continue alprazolam 0.5 mg p.o. twice daily as needed Present on Admission?: Yes History of Present Illness Chief Complaint: The patient is brought to the emergency department, at the in sistence of his son, when found to be at home with a rapid heart rate in the 130s to 140s this evening after developing a generalized sense of unwellness. Primary Care Provider: Papo Cleary III, [facility] The patient is a 79-year-old male with a past medical history including A. fib/flutter with RVR, myofascial pain, sleep apnea, hyperlipidemia, GERD, depression with anxiety, BPH with LUTS and hypertension. He follows with Dr. Coombs from cardiology, and has undergone an ablation procedure in 2017. He had not had any recurrences of RVR until about a week or so ago, and then was noted again beginning 24 hours prior to admission, and when his son found out earlier this evening, he brought him to the ED for assessment. He has not had any recent travels or exposure to sick exposures. He has not had any change in physical activity pattern. His son does report that the patient missed his metoprolol succinate 50 mg dose earlier in the day. The son and patient also reported that the patient has a white bottle with a pill he is supposed to take if his heart rate goes fast, but he used one the other day, and it was empty today. Allergies Allergy/AdvReac Type Severity Reaction Status Date / Time codeine AdvReac Mild NAUSEA Verified 09/24/19 00:35 Home Medications Home Medications Medication Instructions Recorded Confirmed Type finasteride 5 mg PO DAILY 11/01/18 09/24/19 History terazosin 10 mg capsule 10 mg PO QPM 04/17/19 09/24/19 History metoprolol succinate 50 mg 50 mg PO DAILY #90 tab 05/01/19 09/24/19 Rx tablet,extended release 24 hr tramadol 50 mg tablet 50 mg PO BID PRN #14 tab 07/15/19 09/24/19 Rx gabapentin 300 mg capsule 300 mg PO .QHS #30 cap 09/02/19 09/24/19 Rx alprazolam 0.5 mg tablet 0.5 mg PO BID PRN #50 tab 09/07/19 09/24/19 Rx cholecalciferol (vitamin D3) 5,000 5,000 units PO DAILY #30 cap 09/07/19 09/24/19 Rx unit capsule rivaroxaban [Xarelto] 20 mg PO DAILY 09/24/19 09/24/19 History Past Med/Surg History Medical History Atrial fibrillation (Chronic) Atrial flutter (Chronic) Status post ablation of typical isthmus dependent atrial flutter July 2017 Depression with anxiety (Chronic) Hyperlipidemia (Chronic) Hypertension (Chronic) Hypocalcemia (Chronic) Multiple pulmonary nodules (Chronic) Nausea (Resolved) Nocturnal hypoxia (Chronic) Obesity (Chronic) Sleep apnea (Chronic) Tinnitus (Chronic) Vitamin D deficiency (Chronic) Surgical History History of ankle surgery (Resolved) History of hernia repair (Resolved) History of knee surgery (Resolved) Family History Mother Parkinson's disease Father Kidney stones FH: deafness or hearing loss Stroke Social History Preferred Language: Yoruba Communication Ability: Effective Visual Impairment: No Limitations Hearing Ability: Normal Current Living Situation: Alone current occupational status: retired Feels Safe at Home: Yes Smoking Status: Former smoker Tobacco Type: cigarettes ; Age Started Using Tobacco: 19 ; Age Quit Using Tobacco: 37 ; Cigarettes Per Day: 10/ day ; Hx Alcohol Use: No Hx Substance Use: No Physical Activity Frequency: Does not Exercise Seatbelt Use: always Do you think of yourself as: straight/heterosexual Review of Systems Review of Systems: The patient denies chest pain, shortness of breath, dyspnea on exertion, cough, sore throat, fevers, chills, sweats, weight change, fatigue, nausea, vomiting, diarrhea , constipation, abdominal pain, pelvic pain, blood in urine or stool, dysuria, urinary frequency or urgency, lightheadedness, dizziness, headache, memory loss, loss of consciousness, rash, abnormal bruising or bleeding, imbalance, focal or generalized weakness, numbness or tingling in arms or legs, generalized arthralgias or myalgias, back or neck pain, or night sweats. The review of systems is otherwise negative other than for that already noted above, and at least 10 systems have been reviewed. Physical Exam Physical Exam: The patient is awake, alert and oriented 3, well developed and well nourished, normocephalic and atraumatic, lying in bed and in no acute distress. HEENT--PERRL, EOMI, mucous membranes and oropharynx dry. Neck--supple. No JVD. No bruits. Thyroid normal, trachea midline, no adenopathy. Heart--tachycardic and irregular. No murmurs, rubs or gallops. Lungs--clear bilaterally, no respiratory distress, no accessory muscle use. Abdomen--normal bowel sounds and soft. Nontender. Nondistended. Extremities--no cyanosis or clubbing. There is bilaterally pretibial 2+ pitting edema. Dermatologic--normal skin turgor, normal color, no abnormal lymph nodes, no rash. Neurologic--cranial nerves II through XII grossly intact. Rheumatologic--normal range of motion. Psychiatric--normal affect. Results & Data Vital Signs (Past 12 Hours) Vital Signs Temp Pulse Pulse Resp BP BP Pulse Ox 09/24/19 04:04 123 H 24 154/82 H 94 09/24/19 02:45 135 H 24 128/93 94 09/24/19 02:05 120 H 18 93 09/24/19 01:39 122 H 26 H 97/82 L 94 09/24/19 01:19 118 H 24 127/97 94 09/24/19 00:54 128 H 26 H 123/95 09/24/19 00:41 130 H 24 122/93 93 09/24/19 00:37 130 H 26 H 146/68 H 94 09/24/19 00:17 135 H 24 145/92 H 94 09/24/19 00:11 94 09/23/19 23:59 97.5 F L 140 H 22 144/86 H 94 Laboratory Results Laboratory Results WBC 6.83 K/uL (4.8-10.8) 09/24/19 00:15 RBC 4.51 M/uL (4.7-6.1) L 09/24/19 00:15 Hgb 13.7 g/dL (14.0-18.0) L 09/24/19 00:15 Hct 44.0 % (42-52) 09/24/19 00:15 MCV 97.6 fL (80-100) 09/24/19 00:15 MCH 30.4 pg (25-34) 09/24/19 00:15 MCHC 31.1 g/dL (32-36) L 09/24/19 00:15 RDW Std Deviation 49.9 fL (36.4-46.3) H 09/24/19 00:15 RDW Coeff of Real 14.1 % (11.5-14.5) 09/24/19 00:15 Plt Count 221 K/uL (130-400) 09/24/19 00:15 MPV 9.4 fL (7.4-10.4) 09/24/19 00:15 Immature Gran % (Auto) 0.1 % 09/24/19 00:15 Neut % (Auto) 44.4 % 09/24/19 00:15 Lymph % (Auto) 35.7 % 09/24/19 00:15 Baker % (Auto) 15.4 % 09/24/19 00:15 Eos % (Auto) 3.7 % 09/24/19 00:15 Baso % (Auto) 0.7 % 09/24/19 00:15 Immature Gran # (Auto) 0.01 K/uL (0.00-0.02) 09/24/19 00:15 Neut # (Auto) 3.03 K/uL (1.4-6.5) 09/24/19 00:15 Lymph # (Auto) 2.44 K/uL (1.2-3.4) 09/24/19 00:15 Baker # (Auto) 1.05 K/uL (0.11-0.59) H 09/24/19 00:15 Eos # (Auto) 0.25 K/uL (0-0.5) 09/24/19 00:15 Baso # (Auto) 0.05 K/uL (0-0.2) 09/24/19 00:15 Sodium 144 mmol/L (136-145) 09/24/19 00:15 Potassium 4.3 mmol/L (3.5-5.1) 09/24/19 00:15 Chloride 111 mmol/L (98-107) H 09/24/19 00:15 Carbon Dioxide 31 mmol/L (21-32) 09/24/19 00:15 Anion Gap 2.0 (3-11) L 09/24/19 00:15 BUN 22 mg/dl (7-18) H 09/24/19 00:15 Creatinine 1.44 mg/dl (0.6-1.4) H 09/24/19 00:15 Est Cr Clr Drug Dosing 50.0 ml/min 09/24/19 00:15 Est GFR ( Amer) 53.9 09/24/19 00:15 Est GFR (Non-Af Amer) 46.5 09/24/19 00:15 BUN/Creatinine Ratio 15.2 (10-20) 09/24/19 00:15 Glucose 104 mg/dl (70-99) H 09/24/19 00:15 Calcium 9.0 mg/dl (8.5-10.1) 09/24/19 00:15 Magnesium 2.0 mg/dl (1.8-2.4) 09/24/19 00:15 Total Bilirubin 0.3 mg/dl (0.2-1) 09/24/19 00:15 AST 17 U/L (15-37) 09/24/19 00:15 ALT 22 U/L (12-78) 09/24/19 00:15 Alkaline Phosphatase 62 U/L (45-117) 09/24/19 00:15 Troponin I < 0.015 ng/ml (0-0.045) 09/24/19 00:15 Total Protein 7.3 gm/dl (6.4-8.2) 09/24/19 00:15 Albumin 2.9 gm/dl (3.4-5.0) L 09/24/19 00:15 Globulin 4.4 gm/dl (2.5-4.0) H 09/24/19 00:15 Albumin/Globulin Ratio 0.7 (0.9-2) L 09/24/19 00:15 TSH 0.562 uIu/ml (0.300-4.500) 09/24/19 00:15 Code Status & VTE Plan Code Status Full code VTE Prophylaxis Plan VTE Prophylaxis will be ordered: Yes PG Care Time/CCT Total # of Minutes Spent Total Time Spent with Patient: Total time spent is greater than 50% in coordination of care (as documented) at patient's floor/unit and/or counseling patient:
[2019-09-24] MEDS ORDERED: ALUMINUM/MAGNESIUM SUSP 30 ML UDC PO PRN (04:38)
[2019-09-24] MEDS ORDERED: ONDANSETRON INJ 2 MG/ML 2 ML VIAL IV PRN (04:38)
[2019-09-24] MEDS ORDERED: ACETAMINOPHEN 325 MG TAB PO PRN (04:38)
[2019-09-24] MEDS ORDERED: MAGNESIUM HYDROXIDE SUSP 30 ML UDC PO PRN (04:38)
[2019-09-24] MEDS ORDERED: TRAMADOL HCL 50 MG TABLET PO PRN (04:38)
[2019-09-24] MEDS: ALPRAZolam 0.5 MG TABLET PO PRN ×2 (05:01→20:17)
[2019-09-24 05:10] LABS: Basophils # (auto) 0.01 K/uL (0-0.2); Basophils % (auto) 0.2 %; Eosinophils # (auto) 0.14 K/uL (0-0.5); Eosinophils % (auto) 2.3 %; Hematocrit (blood only) 41.4 % (42-52); Hemoglobin 13.3 g/dL (14.0-18.0); Immature Granulocytes # (auto) 0.02 K/uL (0.00-0.02); Immature Granulocytes % (auto) 0.3 %; Lymphocytes # (auto) 1.31 K/uL (1.2-3.4); Lymphocytes % (auto) 21.5 %; Mean Corpuscular Hemoglobin 30.6 pg (25-34); Mean Corpuscular Hgb Conc 32.1 g/dL (32-36); Mean Corpuscular Volume 95.2 fL (80-100); Mean Platelet Volume 8.9 fL (7.4-10.4); Monocytes # (auto) 0.81 K/uL (0.11-0.59); Monocytes % (auto) 13.3 %; Neutrophils # (auto) 3.79 K/uL (1.4-6.5); Neutrophils % (auto) 62.4 %; Platelet Count 184 K/uL (130-400); RDW Standard Deviation 48.9 fL (36.4-46.3); Red Blood Count 4.35 M/uL (4.7-6.1); White Blood Count 6.08 K/uL (4.8-10.8)
--- NOTE | 2019-09-24 05:52 | Emergency Department Note ---
Entered by Ez Shea acting as a scribe for History of Present Illness General Chief complaint: Arrhythmia/Palpitations Stated complaint: ELIVATED HEART RATE Time Seen by Provider: 09/24/19 00:14 Source: patient and family History of Present Illness Provider complaint: elevated heart rate Onset (ago): hour(s) 2 Location: chest Radiation: non-radiation Pain Consistency: + intermittent Quality: + other (evelvated heart rate) Associated symptoms: + denies other symptoms and + nausea/vomiting (had nausea no vomting); no shortness of breath The patient is a 79 y/o male who presents to the emergency department for evaluation of intermittent tachycardia that began 2 hours ago. The patient states that when he was getting ready for bed his heart rate was high but his blood pressure was not elevated. He reports that a similar episode happened yesterday as well. The patient states that he has pills that he takes for these episodes as needed but he ran out last night. The family state that the patient did eat normally today though the patient states that he was nauseous. They note that he is taking metoprolol and a blood thinner which the patient states he missed a dose of last night. The patient denies shortness of breath, and any other symptoms. Home Medications Home Medications Medication Instructions Recorded Confirmed Type finasteride 5 mg PO DAILY 11/01/18 09/24/19 History terazosin 10 mg capsule 10 mg PO QPM 04/17/19 09/24/19 History metoprolol succinate 50 mg 50 mg PO DAILY #90 tab 05/01/19 09/24/19 Rx tablet,extended release 24 hr tramadol 50 mg tablet 50 mg PO BID PRN #14 tab 07/15/19 09/24/19 Rx gabapentin 300 mg capsule 300 mg PO .QHS #30 cap 09/02/19 09/24/19 Rx alprazolam 0.5 mg tablet 0.5 mg PO BID PRN #50 tab 09/07/19 09/24/19 Rx cholecalciferol (vitamin D3) 5,000 5,000 units PO DAILY #30 cap 09/07/19 09/24/19 Rx unit capsule rivaroxaban [Xarelto] 20 mg PO DAILY 09/24/19 09/24/19 History Allergies Allergy/AdvReac Type Severity Reaction Status Date / Time codeine AdvReac Mild NAUSEA Verified 09/24/19 00:35 Past Med/Surg History Medical History (Updated 09/24/19 @ 04:22 by Jluis Rahman MD) Atrial fibrillation (Chronic) Atrial fibrillation with RVR (Inactive) Atrial flutter (Chronic) Status post ablation of typical isthmus dependent atrial flutter July 2017 Atrial flutter with rapid ventricular response Depression with anxiety (Chronic) Hyperlipidemia (Chronic) Hypertension (Chronic) Hypocalcemia (Chronic) Multiple pulmonary nodules (Chronic) Nausea (Resolved) Nocturnal hypoxia (Chronic) Obesity (Chronic) Sleep apnea (Chronic) Tinnitus (Chronic) Vitamin D deficiency (Chronic) Surgical History History of ankle surgery (Resolved) History of hernia repair (Resolved) History of knee surgery (Resolved) Family History Mother Parkinson's disease Father Kidney stones FH: deafness or hearing loss Stroke Social History Preferred Language: Bhutanese Communication Ability: Effective Visual Impairment: No Limitations Hearing Ability: Normal Beliefs That Will Affect Care: None Current Living Situation: Alone current occupational status: retired Feels Safe at Home: Yes Smoking Status: Never smoker Tobacco Type: cigarettes ; Age Started Using Tobacco: 19 ; Age Quit Using Tobacco: 37 ; Cigarettes Per Day: 10/ day ; Hx Alcohol Use: No Hx Substance Use: No Physical Activity Frequency: Does not Exercise Seatbelt Use: always Do you think of yourself as: straight/heterosexual Review of Systems See HPI for pertinent positives & negatives. and A total of 10 systems reviewed and were otherwise negative Physical Exam Vital Signs Vital Signs - 24 hr 09/23/19 23:59 09/24/19 00:11 09/24/19 00:17 Temperature 36.4 C L Temperature Source Oral Pulse Rate 140 H 135 H Pulse Rate [Right Finger] Pulse Rate from SpO2 Sensor 134 H Pulse Rhythm [Right Finger] Pulse Strength [Right Finger] Respiratory Rate 22 24 Respiratory Effort / Characteristics Non-Labored Spontaneous Respiratory Depth Normal Respiratory Pattern Regular Blood Pressure 144/86 H 145/92 H Blood Pressure [Right Arm] Blood Pressure Mean 105 99 Blood Pressure Mean [Right Arm] Blood Pressure Position [Right Arm] Pulse Oximetry 94 94 94 Oxygen Delivery Method Room Air Room Air Sepsis Recent Fever Within 48 Hours No Sepsis New/Unexplained Change in Mental Status No Sepsis Action Taken by Nursing No Action Required 09/24/19 00:37 09/24/19 00:41 09/24/19 00:54 Temperature Temperature Source Pulse Rate Pulse Rate [Right Finger] 130 H 130 H 128 H Pulse Rate from SpO2 Sensor Pulse Rhythm [Right Finger] Irregular Pulse Strength [Right Finger] Respiratory Rate 26 H 24 26 H Respiratory Effort / Characteristics Respiratory Depth Normal Respiratory Pattern Blood Pressure Blood Pressure [Right Arm] 146/68 H 122/93 123/95 Blood Pressure Mean Blood Pressure Mean [Right Arm] 94 102 104 Blood Pressure Position [Right Arm] Sitting Sitting Sitting Pulse Oximetry 94 93 Oxygen Delivery Method Room Air Sepsis Recent Fever Within 48 Hours Sepsis New/Unexplained Change in Mental Status Sepsis Action Taken by Nursing 09/24/19 01:19 09/24/19 01:39 09/24/19 02:05 Temperature Temperature Source Pulse Rate Pulse Rate [Right Finger] 118 H 122 H 120 H Pulse Rate from SpO2 Sensor Pulse Rhythm [Right Finger] Irregular Irregular Regular Pulse Strength [Right Finger] Normal Respiratory Rate 24 26 H 18 Respiratory Effort / Characteristics Non-Labored Respiratory Depth Normal Normal Respiratory Pattern Regular Blood Pressure Blood Pressure [Right Arm] 127/97 97/82 L Blood Pressure Mean Blood Pressure Mean [Right Arm] 107 87 Blood Pressure Position [Right Arm] Sitting Sitting Pulse Oximetry 94 94 93 Oxygen Delivery Method Room Air Room Air Room Air Sepsis Recent Fever Within 48 Hours Sepsis New/Unexplained Change in Mental Status Sepsis Action Taken by Nursing 09/24/19 02:45 Temperature Temperature Source Pulse Rate Pulse Rate [Right Finger] 135 H Pulse Rate from SpO2 Sensor Pulse Rhythm [Right Finger] Irregular Pulse Strength [Right Finger] Respiratory Rate 24 Respiratory Effort / Characteristics Respiratory Depth Normal Respiratory Pattern Blood Pressure Blood Pressure [Right Arm] 128/93 Blood Pressure Mean Blood Pressure Mean [Right Arm] 104 Blood Pressure Position [Right Arm] Lying Pulse Oximetry 94 Oxygen Delivery Method Room Air Sepsis Recent Fever Within 48 Hours Sepsis New/Unexplained Change in Mental Status Sepsis Action Taken by Nursing HEENT: Head - normocephalic and atraumatic Pupils are equal, round, and reactive to light. Extraocular eye muscles are intact, and sclera are anicteric. Nose - moist nasal mucosa without discharge. Mouth - moist buccal mucosa. Oropharynx is nonerythematous and there is no tonsillar exudate or edema noted. Neck: Supple; no JVD, nuchal rigidity, cervical lymphadenopathy. Heart: tachycardic rate and rhythm. There is a normal S1 and S2 with no murmurs, clicks, or gallops appreciated. Lungs: Clear to auscultation bilaterally with no wheezes, rales, or rhonchi. Abdomen: Soft, completely nontender, nondistended, with good bowel sounds. There are no palpable pulsatile masses or hepatosplenomegaly. There is no guarding, rigidity, or rebound noted. Extremities: No evidence of cyanosis, or clubbing. There are easily palpable peripheral pulses. 1+ pitting edema. Skin: warm and dry with good turgor and no rashes. Course Course 0019: Past medical records reviewed. The patient was evaluated in room A12. A complete history and physical exam was performed. I ordered continuous cardiac monitoring. The patient appeared to be in a sinus tachycardia at a rate of 120. 0056: The patient received two doses of lopresser 5 mg IV and had a repeat rate of 120 with A fib. A portable chest x-ray was performed. A repeat twelve-lead EKG was performed. 0109: I ordered Cardizem 10 mg IV. 0222: I checked on the patient and updated him on his results. The patient is still tachycardic but blood pressure has improved. 0315: I spoke with Dr. Rahman- [facility] hospitalist. He is evaluating the patient for further management. Administered Medications Alprazolam (Xanax) 0.5 mg PO BID PRN PRN Reason: Anxiety Stop: 10/24/19 04:37 Last Admin: 09/24/19 05:01 Dose: 0.5 mg Documented by: [id number] Discontinued Medications Diltiazem HCl (Cardizem) 10 mg IV NOW STA Stop: 09/24/19 01:10 Last Admin: 09/24/19 01:13 Dose: 10 mg Documented by: [id number] Cosigned by: [id number] Metoprolol Succinate (Toprol Xl) 50 mg PO NOW STA Stop: 09/24/19 04:13 Last Admin: 09/24/19 05:01 Dose: 50 mg Documented by: [id number] Metoprolol Tartrate (Lopressor) 5 mg IV Q5M PRN PRN Reason: Tachycardia Stop: 10/24/19 00:26 Last Admin: 09/24/19 00:47 Dose: 5 mg Documented by: [id number] Admin: 09/24/19 00:36 Dose: 5 mg Documented by: [id number] Critical Care Time Critical Care Time: Yes Total Critical Care Time: 30 I have personally spent greater than 30 minutes of critical care time in the direct management of this patient. This includes bedside care, interpretation of diagnostic studies, and testing, discussion with consultants, patient, and family members, and other required patient management activities. This 30 minutes is in excess of all separately billable procedures. Medical Decision Making Differential Diagnosis Differential diagnosis: medication non-compliance, A-fib with RVR, sinus tachycardia, arrhythmia. Medical Records Attestation: I reviewed the patient's medical records. Home Medications Current Medication List: was personally reviewed by me Laboratory Data Attestation: I reviewed the patient's lab results. Result diagrams: 09/24/19 04:56 09/24/19 00:15 Lab Results 09/24/19 09/24/19 Range/Units 00:15 00:15 WBC 6.83 (4.8-10.8) K/uL RBC 4.51 L (4.7-6.1) M/uL Hgb 13.7 L (14.0-18.0) g/dL Hct 44.0 (42-52) % MCV 97.6 (80-100) fL MCH 30.4 (25-34) pg MCHC 31.1 L (32-36) g/dL RDW Std Deviation 49.9 H (36.4-46.3) fL RDW Coeff of Real 14.1 (11.5-14.5) % Plt Count 221 (130-400) K/uL MPV 9.4 (7.4-10.4) fL Immature Gran % (Auto) 0.1 % Neut % (Auto) 44.4 % Lymph % (Auto) 35.7 % Storey % (Auto) 15.4 % Eos % (Auto) 3.7 % Baso % (Auto) 0.7 % Immature Gran # (Auto) 0.01 (0.00-0.02) K/uL Neut # (Auto) 3.03 (1.4-6.5) K/uL Lymph # (Auto) 2.44 (1.2-3.4) K/uL Storey # (Auto) 1.05 H (0.11-0.59) K/uL Eos # (Auto) 0.25 (0-0.5) K/uL Baso # (Auto) 0.05 (0-0.2) K/uL Sodium 144 (136-145) mmol/L Potassium 4.3 (3.5-5.1) mmol/L Chloride 111 H (98-107) mmol/L Carbon Dioxide 31 (21-32) mmol/L Anion Gap 2.0 L (3-11) BUN 22 H (7-18) mg/dl Creatinine 1.44 H (0.6-1.4) mg/dl Est Cr Clr Drug Dosing 50.0 ml/min Est GFR ( Amer) 53.9 Est GFR (Non-Af Amer) 46.5 BUN/Creatinine Ratio 15.2 (10-20) Glucose 104 H (70-99) mg/dl Calcium 9.0 (8.5-10.1) mg/dl Magnesium 2.0 (1.8-2.4) mg/dl Total Bilirubin 0.3 (0.2-1) mg/dl AST 17 (15-37) U/L ALT 22 (12-78) U/L Alkaline Phosphatase 62 (45-117) U/L Troponin I < 0.015 (0-0.045) ng/ml Total Protein 7.3 (6.4-8.2) gm/dl Albumin 2.9 L (3.4-5.0) gm/dl Globulin 4.4 H (2.5-4.0) gm/dl Albumin/Globulin Ratio 0.7 L (0.9-2) TSH 0.562 (0.300-4.500) uIu/ml Imaging Data Attestation: I personally reviewed and interpreted this imaging study as follows: My Impression: Chest x-ray showed cardiomegaly, mild pulmonary congestion. ECG Data Attestation: I personally reviewed and interpreted this ECG as follows: Indication: + tachycardia Rate (beats per minute): 137 Rhythm: + sinus tachycardia ECG Intervals/blocks: + First degree AV block (inferior) and + Right Bundle branch block Comparison ECG Date: from (11/01/18) Change: no significant change Additional Comments: repeat EK A-fib rate 114 bpm RBBB No PVC, PAC Blood Pressure Blood Pressure Findings: Elevated blood pressure Blood Pressure Disposition: further management by hospitalist MDM Narrative The patient is a 79 y/o male who presents to the emergency department for evaluation of intermittent tachycardia that began 2 hours ago. The patient has a history of paroxysmal atrial fibrillation with rapid ventricular response. He routinely takes anticoagulation along with oral metoprolol. The patient missed a dose of his metoprolol last night. He describes having some sample medications provided by Dr. Coombs to use when he has episodes of tachycardia. He describes running out of those yesterday as well. The patient remained hemodynamically stable while here in the emergency department. However he required IV beta-brigitte and calcium channel brigitte to control his rate. He is already anticoagulated. Cardiac enzymes are negative. I discussed the case with the [facility] Hospitalist and they will evaluate for further management. Impression & Plan Atrial fibrillation with RVR Discharge Plan Visit Data *Final* Discharge Date/Time: 09/24/19 04:04 Chief Complaint: Arrhythmia/Palpitations Stated Complaint: ELIVATED HEART RATE ED Provider: Josephine Butler Discharge Problem: Atrial fibrillation with RVR Patient Disposition: Being Evaluated by Hospitalist Discharge Instructions Interventions: ED Discharge Assessment Last Done: 09/24/19 04:04 The scribe's documentation has been prepared under my direction and personally reviewed by me in its entirety. I confirm that the note above accurately reflects all work, treatment, procedures, and medical decision making performed by me.
--- NOTE | 2019-09-24 06:35 | XRay Report ---
XR chest 1V portable CLINICAL HISTORY: Shortness of breath, tachycardia. COMPARISON STUDY: November 01, 2018 FINDINGS: The cardiac and mediastinal contours remain stable. There is stable left basilar atelectasi s/scarring. There is no overt failure. There is no lobar consolidation. No significant pleural effusi ons are visualized.[ IMPRESSION: Stable left basilar atelectasis/scarring. No acute findings. ACT 112: Negative or not required by law. Electronically signed by: Reji Jensen M.D. 09/24/2019 6:34 AM
[2019-09-24] MEDS: RIVAROXABAN 20 MG TAB PO SCH (08:10)
[2019-09-24] MEDS: METOPROLOL SUCC 50MG EXT REL TAB PO SCH (08:10)
[2019-09-24] MEDS: FINASTERIDE 5 MG TAB PO SCH (08:10)
[2019-09-24] MEDS: CHOLECALCIFEROL 1,000 UNITS TAB PO SCH (08:11)
[2019-09-24] MEDS ORDERED: FLECAINIDE ACETATE 100 MG TABLET PO ONE (10:15)
--- NOTE | 2019-09-24 11:25 | Cardiology Consultation ---
Date of Consultation September 24, 2019 Assessment & Plan (1) Atrial flutter with rapid ventricular response: His presenting rhythm does appear to be atrial flutter. It is curious that he has not had any recurrent atrial flutter since his ablation in 2017. He is known to have atrial fibrillation at times. He has few symptoms but high heart rates. I think the most prudent course would be cardioversion. Unfortunately, he ate breakfast and we will not be able to perform an electrical cardioversion today. Will try flecainide (he does have some at home for PRN use but appears to have run out). Continue Xarelto. I am not sure he benefits from another isthmus ablation, but possibly a combined PVI and isthmus ablation. He can be discharged with outpatient f/u when he is back in sinus rhythm. History of Present Illness Reason for Consultation: Atrial flutter Requesting Physician: Osmar Attending Physician: Liza Ambriz, History of Present Illness The patient is a 79 year old gentleman with a history of atrial flutter and atrial fibrillation. He noticed a high heart rate while checking his pulse and BP lat evening. He did not seem to have any associated symptoms other than some anxiety. He was speaking with his son around that time and was urged to go to the ER. He does report occasional high heart rate readings. He is generally not aware of palpitations. No associated dyspnea or chest pain. No dizziness. He does report some exertional intolerance primarily manifest by dyspnea when walking some distances or hurrying. He has some chronic mild edema by report. Currently feeling well without any sense of palpitations. Allergies Allergy/AdvReac Type Severity Reaction Status Date / Time codeine AdvReac Mild NAUSEA Verified 09/24/19 00:35 Home Medications Home Medications Medication Instructions Recorded Confirmed Type finasteride 5 mg PO DAILY 11/01/18 09/24/19 History terazosin 10 mg capsule 10 mg PO QPM 04/17/19 09/24/19 History metoprolol succinate 50 mg 50 mg PO DAILY #90 tab 05/01/19 09/24/19 Rx tablet,extended release 24 hr tramadol 50 mg tablet 50 mg PO BID PRN #14 tab 07/15/19 09/24/19 Rx gabapentin 300 mg capsule 300 mg PO .QHS #30 cap 09/02/19 09/24/19 Rx alprazolam 0.5 mg tablet 0.5 mg PO BID PRN #50 tab 09/07/19 09/24/19 Rx cholecalciferol (vitamin D3) 5,000 5,000 units PO DAILY #30 cap 09/07/19 09/24/19 Rx unit capsule rivaroxaban [Xarelto] 20 mg PO DAILY 09/24/19 09/24/19 History Patient History Medical History Atrial fibrillation (Chronic) Atrial fibrillation with RVR (Inactive) Atrial flutter (Chronic) Status post ablation of typical isthmus dependent atrial flutter July 2017 Atrial flutter with rapid ventricular response Depression with anxiety (Chronic) Hyperlipidemia (Chronic) Hypertension (Chronic) Hypocalcemia (Chronic) Multiple pulmonary nodules (Chronic) Nausea (Resolved) Nocturnal hypoxia (Chronic) Obesity (Chronic) Sleep apnea (Chronic) Tinnitus (Chronic) Vitamin D deficiency (Chronic) Surgical History History of ankle surgery (Resolved) History of hernia repair (Resolved) History of knee surgery (Resolved) Family History Mother Parkinson's disease Father Kidney stones FH: deafness or hearing loss Stroke Social History Preferred Language: Turkish Communication Ability: Effective Visual Impairment: No Limitations Hearing Ability: Normal Beliefs That Will Affect Care: None marital status: Single Current Living Situation: Alone current occupational status: retired Feels Safe at Home: Yes Smoking Status: Never smoker Tobacco Type: cigarettes ; Age Started Using Tobacco: 19 ; Age Quit Using Tobacco: 37 ; Cigarettes Per Day: 10/ day ; Hx Alcohol Use: No Hx Substance Use: No Physical Activity Frequency: Does not Exercise Seatbelt Use: always Do you think of yourself as: straight/heterosexual Review of Systems Review of Systems: All systems reviewed & are unremarkable except as noted in HPI & below No recent constitutional sx. No fevers or chills. Physical Exam Physical Exam: The patient is alert and oriented. Mood and affect appeared normal. He answered all questions appropriately. HEENT: Pupils are equal and reactive to light and accommodation. Extraocular movements are intact. The sclerae are anicteric. Neuro: Cranial nerves intact Neck: Patient's neck is supple. He has palpable carotid pulses bilaterally without bruits on auscultation. There is no evidence of jugular venous distention. The thyroid is not enlarged. Lungs: Clear to auscultation bilaterally. He has good air movement without use of accessory muscles. No rales wheezes or rhonchi. Cardiac: Heart demonstrates an irregular rate and rhythm. Normal S1 and S2. No murmurs on examination. Pulses: The patient has palpable radial pulses bilaterally that are equal in intensity Extremities: There was no evidence of hypoperfusion. There is no cyanosis or clubbing. There is mild edema. Skin: I did not appreciate any rashes on examination today. Atrial fibrillation Results & Data Vital Signs (Past 12 Hours) Vital Signs Temp Pulse Pulse Resp BP BP Pulse Ox 09/24/19 07:31 36.6 C 104 H 18 112/74 95 09/24/19 04:43 36.5 C 124 H 24 131/92 95 09/24/19 04:04 123 H 24 154/82 H 94 09/24/19 02:45 135 H 24 128/93 94 09/24/19 02:05 120 H 18 93 09/24/19 01:39 122 H 26 H 97/82 L 94 09/24/19 01:19 118 H 24 127/97 94 09/24/19 00:54 128 H 26 H 123/95 09/24/19 00:41 130 H 24 122/93 93 09/24/19 00:37 130 H 26 H 146/68 H 94 09/24/19 00:17 135 H 24 145/92 H 94 09/24/19 00:11 94 09/23/19 23:59 36.4 C L 140 H 22 144/86 H 94 Laboratory Results Abnormal Lab Results 09/24/19 09/24/19 09/24/19 00:15 00:15 04:56 WBC 6.83 RBC 4.51 L Hgb 13.7 L Hct 44.0 MCV 97.6 MCH 30.4 MCHC 31.1 L RDW Std Deviation 49.9 H RDW Coeff of Real 14.1 Plt Count 221 MPV 9.4 Immature Gran % (Auto) 0.1 Neut % (Auto) 44.4 Lymph % (Auto) 35.7 [place] % (Auto) 15.4 Eos % (Auto) 3.7 Baso % (Auto) 0.7 Immature Gran # (Auto) 0.01 Neut # (Auto) 3.03 Lymph # (Auto) 2.44 [place] # (Auto) 1.05 H Eos # (Auto) 0.25 Baso # (Auto) 0.05 Sodium 144 Potassium 4.3 Chloride 111 H Carbon Dioxide 31 Anion Gap 2.0 L BUN 22 H Creatinine 1.44 H Est Cr Clr Drug Dosing 50.0 Est GFR ( Amer) 53.9 Est GFR (Non-Af Amer) 46.5 BUN/Creatinine Ratio 15.2 Glucose 104 H Calcium 9.0 Magnesium 2.0 Total Bilirubin 0.3 AST 17 ALT 22 Alkaline Phosphatase 62 Troponin I < 0.015 < 0.015 Total Protein 7.3 Albumin 2.9 L Globulin 4.4 H Albumin/Globulin Ratio 0.7 L TSH 0.562 09/24/19 04:56 WBC 6.08 RBC 4.35 L Hgb 13.3 L Hct 41.4 L MCV 95.2 MCH 30.6 MCHC 32.1 RDW Std Deviation 48.9 H RDW Coeff of Real 14.0 Plt Count 184 MPV 8.9 Immature Gran % (Auto) 0.3 Neut % (Auto) 62.4 Lymph % (Auto) 21.5 [place] % (Auto) 13.3 Eos % (Auto) 2.3 Baso % (Auto) 0.2 Immature Gran # (Auto) 0.02 Neut # (Auto) 3.79 Lymph # (Auto) 1.31 [place] # (Auto) 0.81 H Eos # (Auto) 0.14 Baso # (Auto) 0.01 Sodium Potassium Chloride Carbon Dioxide Anion Gap BUN Creatinine Est Cr Clr Drug Dosing Est GFR ( Amer) Est GFR (Non-Af Amer) BUN/Creatinine Ratio Glucose Calcium Magnesium Total Bilirubin AST ALT Alkaline Phosphatase Troponin I Total Protein Albumin Globulin Albumin/Globulin Ratio TSH PG Care Time/CCT Total # of Minutes Spent Total Time Spent with Patient: Total time spent is greater than 50% in coordination of care (as documented) at patient's floor/unit and/or counseling patient:
--- NOTE | 2019-09-24 14:38 | Hospitalist Progress Note ---
Date of Service September 24, 2019 Assessment & Plan (1) Atrial flutter with rapid ventricular response: Atrial flutter with rapid ventricular response- Patient has had previous ablation procedure as noted, and per patient, this is his first recurrence. He did receive Lopressor 5 mg IV x2 and Cardizem 10 mg IV x2 in ED, without significant improvement. This process was likely begun by missing his dosing metoprolol succinate 50 mg yesterday morning, which will be given now. Most recent echocardiogram on 07/31/2019 as an outpatient, will not be repeated. Continue Xarelto 20 mg p.o. daily. We will hold terazosin 10 mg p.o. daily at this time. Dr. Coombs planning for trial of flecainide today and likely cardioversion tomorrow Flecainide -> drop in BP to the low 100s and lightheaded feeling If BP drops further, t/c IVF bolus (2) Severe sleep apnea: CPAP at bedtime as needed. (3) Benign prostatic hyperplasia with urinary obstruction: Continue finasteride 5 mg p.o. daily. We will hold terazosin 10 mg p.o. every afternoon for now, as may be contributing to current RVR. Would consider change to Avodart and tamsulosin. Presently follows with urology Dr. Abarca. (4) Depression with anxiety: Continue alprazolam 0.5 mg p.o. twice daily as needed Subjective Pt states he feels fine at present. No chest pain, SOB. He ate breakfast without issue. Pt denies fever, abd pain, n/v/c/d, LE pain. Baseline LE swelling. Given flecainide this afternoon with subsequent drop in BP and lightheaded feeling. Did improve somewhat Review of Systems Review of Systems: Pertinent positives and negatives reviewed in HPI--all others negative Physical Exam Constitutional: WD/WN, vitals as above Eyes: normal visual reid by confrontation and + anicteric sclerae Neck: normal visual inspection and trachea midline Respiratory: normal respiratory effort, lungs clear to auscultation Cardiovascular: Rate/Rhythm: + tachycardic and + irregularly irregular Gastrointestinal (Abdomen): Inspection/Auscultation: abdomen not distended Percussion/Palpation: abdomen soft; abdomen nontender Musculoskeletal: Head/Neck/Chest: normocephalic and head atraumatic chronic LE edema, peripheral pulses intact Skin: no rashes, warm and dry Neurologic: awake; not confused Speech / Cognition: normal speech Psychiatric: A+Ox3, euthymic affect Results & Data Vital Signs (Past 12 Hours) Vital Signs Temp Pulse Pulse Resp BP BP BP 09/24/19 13:40 100/63 09/24/19 11:51 36.6 C 125 H 18 124/86 09/24/19 07:31 36.6 C 104 H 18 112/74 09/24/19 04:43 36.5 C 124 H 24 131/92 09/24/19 04:04 123 H 24 154/82 H 09/24/19 02:45 135 H 24 128/93 Pulse Ox 09/24/19 13:40 09/24/19 11:51 95 09/24/19 07:31 95 09/24/19 04:43 95 09/24/19 04:04 94 09/24/19 02:45 94 PG Care Time/CCT Total # of Minutes Spent Total Time Spent with Patient: Total time spent is greater than 50% in coordination of care (as documented) at patient's floor/unit and/or counseling patient:
[2019-09-24] MEDS ORDERED: GABAPENTIN 300 MG CAP PO SCH (21:00)
--- NOTE | 2019-09-25 07:27 | Anesthesiology Consultation ---
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 - Melo Coombs MD Height/Weight Height: 5 ft 10 in Weight: 111.4 kg Allergies Allergy/AdvReac Type Severity Reaction Status Date / Time codeine AdvReac Mild NAUSEA Verified 09/24/19 00:35 Medications Home Medications Medication Instructions Recorded Confirmed Last Taken finasteride 5 mg PO DAILY 11/01/18 09/24/19 10/31/18 terazosin 10 mg capsule 10 mg PO QPM 04/17/19 09/24/19 Unknown metoprolol succinate 50 mg 50 mg PO DAILY #90 tab 05/01/19 09/24/19 Unknown tablet,extended release 24 hr tramadol 50 mg tablet 50 mg PO BID PRN #14 tab 07/15/19 09/24/19 Unknown gabapentin 300 mg capsule 300 mg PO .QHS #30 cap 09/02/19 09/24/19 Unknown alprazolam 0.5 mg tablet 0.5 mg PO BID PRN #50 tab 09/07/19 09/24/19 Unknown cholecalciferol (vitamin D3) 5,000 5,000 units PO DAILY #30 cap 09/07/19 09/24/19 Unknown unit capsule rivaroxaban [Xarelto] 20 mg PO DAILY 09/24/19 09/24/19 Unknown Active Medications Generic Name Dose Route Start Last Admin Trade Name Freq PRN Reason Stop Dose Admin Alprazolam 0.5 mg 09/24/19 04:38 09/24/19 20:17 Xanax PO 10/24/19 04:37 0.5 mg BID PRN Administration Anxiety Finasteride 5 mg 09/24/19 09:00 09/24/19 08:10 Proscar PO 10/24/19 08:59 5 mg DAILY KATE Administration Gabapentin 300 mg 09/24/19 21:00 09/24/19 20:14 Neurontin PO 10/24/19 20:59 300 mg HS KATE Administration Metoprolol Succinate 50 mg 09/24/19 09:00 09/24/19 08:10 Toprol Xl PO 10/24/19 08:59 50 mg DAILY KATE Administration Rivaroxaban 20 mg 09/24/19 09:00 09/24/19 08:10 Xarelto PO 10/24/19 08:59 20 mg DAILY KATE Administration Vitamin D 5,000 units 09/24/19 09:00 09/24/19 08:11 Vitamin D3 PO 10/24/19 08:59 5,000 units DAILY KATE Administration Past Medical History Medical History Atrial fibrillation (Chronic) Atrial fibrillation with RVR (Inactive) Atrial flutter (Chronic) Status post ablation of typical isthmus dependent atrial flutter July 2017 Atrial flutter with rapid ventricular response Depression with anxiety (Chronic) Hyperlipidemia (Chronic) Hypertension (Chronic) Hypocalcemia (Chronic) Multiple pulmonary nodules (Chronic) Nausea (Resolved) Nocturnal hypoxia (Chronic) Obesity (Chronic) Sleep apnea (Chronic) Tinnitus (Chronic) Vitamin D deficiency (Chronic) Past Family History Family History Mother Parkinson's disease Father Kidney stones FH: deafness or hearing loss Stroke Past Surgical History Surgical History History of ankle surgery (Resolved) History of hernia repair (Resolved) History of knee surgery (Resolved) Social History Smoking Status: Never smoker tobacco type: cigarettes Smoking cigarettes per day: 10/ day Hx Alcohol Use: No Hx Substance Use: No Physical Exam Vital Signs Last Vital Signs Temp 36.4 C L 09/25/19 03:36 Pulse 109 H 09/25/19 03:36 Resp 18 09/25/19 03:36 BP 120/81 09/25/19 03:36 Pulse Ox 92 09/25/19 03:36 Testing Laboratory Results 09/24/19 04:56 09/24/19 00:15
--- NOTE | 2019-09-25 07:32 | Cardioversion ---
Date of Service September 25, 2019 PG Electrical Cardioversion Rp Electrical Cardioversion Report Procedure performed: Cardioversion Indication: The patient is a 79-year-old gentleman with a history of atrial flutter and atrial fibrillation who presented to the hospital with atrial flut ter and a rapid ventricular response. Staff carding doubler: Butch Coombs MD Procedure in detail: The patient was informed of the risks benefits and alternatives to the intended procedure. He understood such which proceed. He was taken to the cardiac catheterization suite holding area. A general anesthetic was administered by the Anesthesiology Service. Once appropriately anesthetized, the patient was cardioverted using 30 joules delivered in a biphasic fashion. This returned the patient to sinus rhythm. The patient tolerated procedure well, there were no immediate complications. Patient was neurologically intact subsequent to the procedure. Impression: Successful cardioversion from atrial flutter to normal sinus rhythm Coding Level of Care Code Cardioversion, elective Additional Codes Electrical Cardioversion Report ([id number])
[2019-09-25] MEDS ORDERED: LIDOCAINE HCL 2% 2 ML VIAL/AMP(20MG/ML) INFIL ONE (07:44)
[2019-09-25] MEDS ORDERED: PROPOFOL IV EMULSION 10 MG/ML 20 ML VIAL IV ONE (07:44)
[2019-09-25] MEDS: FINASTERIDE 5 MG TAB PO SCH (08:00)
[2019-09-25] MEDS: CHOLECALCIFEROL 1,000 UNITS TAB PO SCH (08:00)
[2019-09-25] MEDS: RIVAROXABAN 20 MG TAB PO SCH (08:00)
[2019-09-25] MEDS: METOPROLOL SUCC 50MG EXT REL TAB PO SCH (08:01)
[2019-09-25 08:35] LABS: Basophils # (auto) 0.01 K/uL (0-0.2); Basophils % (auto) 0.2 %; Eosinophils # (auto) 0.18 K/uL (0-0.5); Eosinophils % (auto) 3.6 %; Hematocrit (blood only) 39.1 % (42-52); Hemoglobin 12.6 g/dL (14.0-18.0); Immature Granulocytes # (auto) 0.01 K/uL (0.00-0.02); Immature Granulocytes % (auto) 0.2 %; Lymphocytes # (auto) 1.02 K/uL (1.2-3.4); Lymphocytes % (auto) 20.6 %; Mean Corpuscular Hemoglobin 30.7 pg (25-34); Mean Corpuscular Hgb Conc 32.2 g/dL (32-36); Mean Corpuscular Volume 95.1 fL (80-100); Monocytes # (auto) 0.54 K/uL (0.11-0.59); Monocytes % (auto) 10.9 %; Neutrophils # (auto) 3.19 K/uL (1.4-6.5); Neutrophils % (auto) 64.5 %; Platelet Count 177 K/uL (130-400); RDW Standard Deviation 48.4 fL (36.4-46.3); Red Blood Count 4.11 M/uL (4.7-6.1); White Blood Count 4.95 K/uL (4.8-10.8)
--- NOTE | 2019-09-25 10:09 | Discharge Summary ---
Date of Service September 25, 2019 Admission HPI Per Admitting Provider The patient is a 79-year-old male with a past medical history including A. fib/flutter with RVR, myofascial pain, sleep apnea, hyperlipidemia, GERD, depression with anxiety, BPH with LUTS and hypertension. He follows with Dr. Coombs from cardiology, and has undergone an ablation procedure in 2017. He had not had any recurrences of RVR until about a week or so ago, and then was noted again beginning 24 hours prior to admission, and when his son found out earlier this evening, he brought him to the ED for assessment. He has not had any recent travels or exposure to sick exposures. He has not had any change in physical activity pattern. His son does report that the patient missed his metoprolol succinate 50 mg dose earlier in the day. The son and patient also reported that the patient has a white bottle with a pill he is supposed to take if his heart rate goes fast, but he used one the other day, and it was empty today. Principal Diagnosis Pt is doing well s/p cardioversion this AM. He states his chest felt "a little heavy" after the procedure, but he is fine now. Ate without issue. No chest pain or SOB. Pt denies fever, abd pain, n/v/c/d, LE pain or swelling. Discharge Exam Constitutional WD/WN, vitals as above Eyes normal visual reid by confrontation and + anicteric sclerae Neck normal visual inspection and trachea midline Respiratory normal respiratory effort, lungs clear to auscultation Cardiovascular Rate/Rhythm: + tachycardic and + irregularly irregular Gastrointestinal (Abdomen) Inspection/Auscultation: abdomen not distended Percussion/Palpation: abdomen soft; abdomen nontender Musculoskeletal Head/Neck/Chest: normocephalic and head atraumatic chronic LE edema Skin no rashes, warm and dry Neurologic awake; not confused Speech / Cognition: normal speech Psychiatric A+Ox3, euthymic affect Discharge Data Allergies Allergy/AdvReac Type Severity Reaction Status Date / Time codeine AdvReac Mild NAUSEA Verified 09/24/19 00:35 Consultations 09/24/19 02:43 ED Decision to Admit Stat 09/24/19 04:38 Consult Cardiology Routine Consult Case Management - Discharge Planning Routine Procedures Performed Operation Date: 09/25/19 07:30 Actual Procedures p Cardioversion - Melo Coombs MD Operation Date: 09/25/19 07:30 <No data on this case meets the specified criteria> Operation Date: 09/25/19 07:30 <No data on this case meets the specified criteria> Hospital Course (1) Atrial flutter with rapid ventricular response: Atrial flutter with rapid ventricular response- Patient has had previous ablation procedure as noted, and per patient, this is his first recurrence. He did receive Lopressor 5 mg IV x2 and Cardizem 10 mg IV x2 in ED, without significant improvement. This process was likely begun by missing his dosing metoprolol succinate 50 mg yesterday morning, which was given on admission, however no significant improvement in rhythm/rate Most recent echocardiogram on 07/31/2019 as an outpatient, will not be repeated. Continue Xarelto 20 mg p.o. daily. We will hold terazosin 10 mg p.o. daily at this time. Trial of flecainide on 09/24 did not return pt to NSR, pt did have hypoTN and lightheadedness with this s/p cardioversion on 09/25 and now in NSR Dr. Coombs is planning for PRN flecainide if sx recur, however pt is quite hesitant to use this medication again (2) Severe sleep apnea: CPAP at bedtime as needed. (3) Benign prostatic hyperplasia with urinary obstruction: Resume home meds Presently follows with urology Dr. Abarca. (4) Depression with anxiety: Continue alprazolam 0.5 mg p.o. twice daily as needed Total Time Total Time Spent Total Time Spent (In Minutes): >30 Discharge Plan Discharge Items Patient Disposition: Home - Self-Care Reason For Visit: ATRIAL FLUTTER WITH RVR Discharge Diagnosis: Atrial flutter Condition on Discharge: Good Activity: Resume your previous activity Lifting: None Bathing: No limitations Sexual Activity: When tolerated Driving/Machine Use: Resume 1 day after discharge Non-emergency contact: [facility] [employer] Call non-emergency contact if: you have any medication questions and your symptoms worsen Follow-up/Referrals: Papo Cleary III, CRNP [Primary Care Provider] - Diet: Heart Healthy Addtl Attending Provider Instructions: none Pending Studies at Discharge: No Stand-Alone Forms: [employer], Smoking Cessation Medications and DC Order Prescriptions: New flecainide 100 mg tablet 300 mg PO ONCE PRN (Reason: tachyarrhythmias) Qty: 12 RF: 3 Continued metoprolol succinate 50 mg tablet extended release 24 hr 50 mg PO DAILY Qty: 90 RF: 3 tramadol 50 mg tablet 50 mg PO BID PRN (Reason: pain, severe) Qty: 14 RF: 1 gabapentin [Neurontin] 300 mg capsule 300 mg PO .QHS Qty: 30 RF: 0 alprazolam 0.5 mg tablet 0.5 mg PO BID PRN (Reason: Anxiety) Qty: 50 RF: 2 cholecalciferol (vitamin D3) 5,000 unit capsule 5,000 units PO DAILY Qty: 30 RF: 12 finasteride 5 mg Tablet 5 mg PO DAILY RF: 0 terazosin 10 mg capsule 10 mg PO QPM RF: 0 Xarelto 20 mg tablet 20 mg PO DAILY RF: 0 Discharge Orders: Discharge Order (Routine); Ordered 09/25/19 Ordered By: Melo Coombs Admission Data Admit Date/Time: 09/24/19 03:38 Attending Provider: Liza Ambriz Admit Provider: Jluis Rahman Primary Care Provider: Papo Cleary III Other Providers: Jluis Rahman ; Melo Coombs Other Interventions: Discharge Summary Assessment (RN) Last Done: 09/25/19 09:57 DC Date/Time DO NOT enter until pt leaves facility: 09/25/19 10:50
--- NOTE | 2019-09-25 10:21 | Cardiology Progress Note ---
Date of Service September 25, 2019 Assessment & Plan (1) Atrial flutter with rapid ventricular response: He underwent successful cardioversion this morning. Often he will have recurrent arrhythmia is unclear. X-ray done quite well over the past 2 years. He will continue on anticoagulation. Will continue to employ a p.r.n. pill in the pocket approach with flecainide. If he continues to have frequent arrhythmias he may need to be referred for additional ablation or take antiarrhythmic therapy on a daily basis. Subjective This when the patient did not report any specific complaints. He was anxious for discharge. No chest pain. No sense of palpitation. No dizziness. No breathing difficulty. Review of Systems Review of Systems: Per HPI Physical Exam Physical Exam: The patient is alert and oriented. Mood and affect appeared normal. He answered all questions appropriately. HEENT: Pupils are equal and reactive to light and accommodation. Extraocular movements are intact. The sclerae are anicteric. Neuro: Cranial nerves intact Lungs: Clear to auscultation bilaterally. He has good air movement without use of accessory muscles. No rales wheezes or rhonchi. Cardiac: Heart demonstrates an irregular rate and rhythm. Normal S1 and S2. No murmurs on examination. Pulses: The patient has palpable radial pulses bilaterally that are equal in intensity Extremities: There was no evidence of hypoperfusion. There is no cyanosis or clubbing. There is no edema. Skin: I did not appreciate any rashes on examination today. Results & Data Vital Signs (Past 12 Hours) Vital Signs Temp Pulse Pulse Resp BP BP Pulse Ox 09/25/19 09:57 36.6 C 65 18 116/60 112/74 95 09/25/19 08:09 36.6 C 65 18 116/60 09/25/19 07:45 69 16 106/74 95 09/25/19 07:40 69 16 99/71 L 95 09/25/19 03:36 36.4 C L 109 H 18 120/81 92 09/25/19 00:06 36.4 C L 107 H 18 111/65 93 09/24/19 23:00 105 H 09/24/19 22:22 79 16 96 PG Care Time/CCT Total # of Minutes Spent Total Time Spent with Patient: Total time spent is greater than 50% in coordination of care (as documented) at patient's floor/unit and/or counseling patient:
--- NOTE | 2019-09-25 10:23 | Discharge Summary ---
Date of Service September 25, 2019 Admission HPI Per Admitting Provider The patient is a 79-year-old male with a past medical history including A. fib/flutter with RVR, myofascial pain, sleep apnea, hyperlipidemia, GERD, depression with anxiety, BPH with LUTS and hypertension. He follows with Dr. Coombs from cardiology, and has undergone an ablation procedure in 2017. He had not had any recurrences of RVR until about a week or so ago, and then was noted again beginning 24 hours prior to admission, and when his son found out earlier this evening, he brought him to the ED for assessment. He has not had any recent travels or exposure to sick exposures. He has not had any change in physical activity pattern. His son does report that the patient missed his metoprolol succinate 50 mg dose earlier in the day. The son and patient also reported that the patient has a white bottle with a pill he is supposed to take if his heart rate goes fast, but he used one the other day, and it was empty today. Principal Diagnosis q Discharge Exam Constitutional WD/WN, vitals as above Eyes normal visual reid by confrontation and + anicteric sclerae Neck normal visual inspection and trachea midline Respiratory normal respiratory effort, lungs clear to auscultation Cardiovascular Rate/Rhythm: + tachycardic and + irregularly irregular Gastrointestinal (Abdomen) Inspection/Auscultation: abdomen not distended Percussion/Palpation: abdomen soft; abdomen nontender Musculoskeletal Head/Neck/Chest: normocephalic and head atraumatic chronic LE edema Skin no rashes, warm and dry Neurologic awake; not confused Speech / Cognition: normal speech Psychiatric A+Ox3, euthymic affect Discharge Data Allergies Allergy/AdvReac Type Severity Reaction Status Date / Time codeine AdvReac Mild NAUSEA Verified 09/24/19 00:35 Consultations 09/24/19 02:43 ED Decision to Admit Stat 09/24/19 04:38 Consult Cardiology Routine Consult Case Management - Discharge Planning Routine Procedures Performed Operation Date: 09/25/19 07:30 Actual Procedures p Cardioversion - Melo Coombs MD Operation Date: 09/25/19 07:30 <No data on this case meets the specified criteria> Operation Date: 09/25/19 07:30 <No data on this case meets the specified criteria> Hospital Course (1) Atrial flutter with rapid ventricular response: Patient was admitted with atrial flutter and rapid ventricular response. Unfortunately he he ate breakfast on the morning of admission which forced us to postpone his cardioversion to the following morning. We did attempt chemical cardioversion with oral flecainide. This was unsuccessful. Patient had no symptoms during his hospitalization. At the time of discharge she was feeling well without breathing difficulty, chest pain or sense of palpitation. Total Time Total Time Spent Total Time Spent (In Minutes): 10 Total Time Includes: Examination of the Patient and Medication Reconciliation Discharge Plan Discharge Items Patient Disposition: Home - Self-Care Reason For Visit: ATRIAL FLUTTER WITH RVR Discharge Diagnosis: Atrial flutter Condition on Discharge: Good Activity: Resume your previous activity Lifting: None Bathing: No limitations Sexual Activity: When tolerated Driving/Machine Use: Resume 1 day after discharge Non-emergency contact: Supervising Deputy Call non-emergency contact if: you have any medication questions and your symptoms worsen Follow-up/Referrals: Papo Cleary III, CRNP [Primary Care Provider] - Diet: Heart Healthy Addtl Attending Provider Instructions: none Pending Studies at Discharge: No Stand-Alone Forms: Cliq, Smoking Cessation Medications and DC Order Prescriptions: New flecainide 100 mg tablet 300 mg PO ONCE PRN (Reason: tachyarrhythmias) Qty: 12 RF: 3 Continued metoprolol succinate 50 mg tablet extended release 24 hr 50 mg PO DAILY Qty: 90 RF: 3 tramadol 50 mg tablet 50 mg PO BID PRN (Reason: pain, severe) Qty: 14 RF: 1 gabapentin [Neurontin] 300 mg capsule 300 mg PO .QHS Qty: 30 RF: 0 alprazolam 0.5 mg tablet 0.5 mg PO BID PRN (Reason: Anxiety) Qty: 50 RF: 2 cholecalciferol (vitamin D3) 5,000 unit capsule 5,000 units PO DAILY Qty: 30 RF: 12 finasteride 5 mg Tablet 5 mg PO DAILY RF: 0 terazosin 10 mg capsule 10 mg PO QPM RF: 0 Xarelto 20 mg tablet 20 mg PO DAILY RF: 0 Discharge Orders: Discharge Order (Routine); Ordered 09/25/19 Ordered By: Melo Coombs Admission Data Admit Date/Time: 09/24/19 03:38 Attending Provider: Liza Ambriz Admit Provider: Jluis Rahman Primary Care Provider: Papo Cleary III Other Providers: Jluis Rahman ; Melo Coombs Other Interventions: Discharge Summary Assessment (RN) Last Done: 09/25/19 09:57
--- NOTE | 2019-09-25 10:57 | Anesthesiology Progress Note ---
Date of Service September 25, 2019 Anesthesia Post Procedure Vital Signs Vital Signs: Temp Pulse Pulse Resp BP BP Pulse Ox 09/25/19 09:57 36.6 C 65 18 116/60 112/74 95 09/25/19 08:09 36.6 C 65 18 116/60 09/25/19 07:45 69 16 106/74 95 09/25/19 07:40 69 16 99/71 L 95 09/25/19 03:36 36.4 C L 109 H 18 120/81 92 09/25/19 00:06 36.4 C L 107 H 18 111/65 93 09/24/19 23:00 105 H 09/24/19 22:22 79 16 96 09/24/19 19:58 36.3 C L 106 H 18 143/94 H 94 09/24/19 15:39 37.0 C 81 18 117/78 94 09/24/19 13:40 100/63 09/24/19 11:51 36.6 C 125 H 18 124/86 95 Transfer of Care Handoff Completed per policy Notes Mental Status: alert / awake / arousable and participated in evaluation Patient Amnestic to Procedure: Yes Nausea / Vomiting: adequately controlled Pain: adequately controlled Airway Patency, RR, SpO2: stable & adequate BP & HR: stable & adequate Hydration State: stable & adequate Anesthetic Complications: no major complications apparent
== END 2019-09-25 10:50 | disposition home or self-care (01) | DRG 310 ==
LOC: ED 23:56 → SUATTDRO 09-24 03:38 → 2S 09-24 03:38

== ENCOUNTER 2022-05-12 22:54 | Inpatient (IN) ==
[2022-05-12] MEDS ORDERED: SODIUM CHLORIDE 0.9% 1000ML 1,000 ML IV SCH (23:15)
--- NOTE | 2022-05-12 23:25 | Emergency Department Note ---
History of Present Illness General Chief complaint: Fall Stated complaint: Fall, Weakness Time Seen by Provider: 05/12/22 22:57 Source: patient Mode of arrival: EMS Limitations: no limitations History of Present Illness Provider complaint: weakness, recurrent falls Onset (ago): day(s) 1 Maximum Pain Intensity: 4 This is a 81-year-old male brought in by EMS due to recurrent falls and concern for weakness. Patient states he is only had 2 falls today, however her son who found him this evening states he also fell at yesterday additionally. Patient does live alone. When son found him today, he estimates he had been on the ground for at least several hours. He was found in the garage this afternoon by his son. He states he has been weaker over the last several weeks and has been using his cane more often. He denies change in urine or stools. He states he is taking his medications as prescribed. Patient does take a blood thinner due to a history of atrial fibrillation. Patient states earlier today he fell landing next to his bed. He denies head injury or loss of consciousness. Pt seen during a time of high acuity and national emergency pandemic while wearing PPE. Home Medications Medication Instructions Recorded Confirmed Type rivaroxaban 20 mg tablet (Xarelto) 20 mg PO QDD 09/24/19 05/12/22 History diclofenac sodium 1 % topical gel 4 g topical QID PRN Joint Pain 09/11/21 05/12/22 Rx #100 grams finasteride 5 mg tablet 5 mg PO DAILY #90 tabs 10/05/21 05/12/22 Rx metoprolol succinate 50 mg 50 mg PO DAILY #90 tabs 11/22/21 05/12/22 Rx tablet,extended release 24 hr betamethasone dipropionate 0.05 % 1 applic topical DAILY PRN skin 01/16/22 05/12/22 Rx topical ointment irritation #15 grams metronidazole 0.75 % topical cream 1 applic topical BID PRN Rash #45 01/16/22 05/12/22 Rx grams clotrimazole 1 % topical cream 1 applic topical BID 4 weeks #28 01/22/22 05/12/22 Rx grams flecainide 100 mg tablet 300 mg PO PRN #30 tabs 01/26/22 05/12/22 Rx alprazolam 0.5 mg tablet 0.5 mg PO BID PRN Anxiety #60 tabs 05/03/22 05/12/22 Rx buspirone 5 mg tablet 5 mg PO DAILY #90 tabs 05/07/22 05/12/22 Rx sertraline 25 mg tablet 25 mg PO DAILY #30 tabs 05/11/22 05/12/22 Rx trazodone 100 mg tablet 100 mg PO HS 05/12/22 05/12/22 History Allergies Allergy/AdvReac Type Severity Reaction Status Date / Time codeine AdvReac Mild NAUSEA Verified 05/12/22 23:38 amoxicillin [From Augmentin] AdvReac "Made me Verified 05/12/22 23:38 feel terrible" clavulanic acid AdvReac "Made me Verified 05/12/22 23:38 [From Augmentin] feel terrible" Past Med/Surg History Medical History (Updated 05/13/22 @ 06:36 by Dona Rowland DO) Adenomatous polyp of colon Atrial fibrillation Atrial fibrillation with RVR Atrial flutter Status post ablation of typical isthmus dependent atrial flutter July 2017 Atrial flutter with rapid ventricular response Cervical spondylosis Depression with anxiety Edema History of cardioversion 09/25/19 Dr. Butch Coombs Hyperlipidemia Hypertension Hypocalcemia Multiple pulmonary nodules Nausea Nocturnal hypoxia Obesity Phimosis Sleep apnea Spondylosis without myelopathy or radiculopathy, cervical region Tinnitus Vitamin D deficiency Surgical History History of ankle surgery History of hernia repair (~1990) History of knee surgery (~2005) replacement Family History Mother , age 83 Parkinson's disease Father Kidney stones FH: deafness or hearing loss Stroke, Onset Age: 89 Denies family history of Ovarian cancer Prostate cancer Myocardial infarction Breast cancer Bleeding disorder Colorectal cancer Social History Smoking Status: Never smoker Age Started Using Tobacco: 19; Age Quit Using Tobacco: 37; Cigarettes Per Day: 10/ day; Second Hand Exposure: No; Hx Alcohol Use: No Hx Substance Use: No Preferred Language: Mongolian Communication Ability: Effective Visual Impairment: No Limitations Hearing Ability: Hard of Hearing Plant Security Guard Required: No Beliefs That Will Affect Care: None marital status: / Current Living Situation: Alone current occupational status: retired Feels Safe at Home: Yes Childhood Exposure to Second-Hand Smoke: Yes Dental Care, Regularly: Yes Physical Activity Frequency: Does not Exercise Seatbelt Use: always Sunscreen Use: No Do you think of yourself as: straight/heterosexual Assistive Devices: Glasses and Hearing Aid - Bilateral Review of Systems A total of 10 systems reviewed and were otherwise negative All systems reviewed & are unremarkable except as noted in HPI & below Physical Exam Vital Signs Vital Signs - 24 hr 05/12/22 23:02 05/12/22 23:14 05/13/22 00:45 Temperature 36.6 C Temperature Source Oral Pulse Rate 81 Pulse Rate [Left Apical] 75 84 Pulse Rhythm [Left Apical] Regular Regular Pulse Strength [Left Apical] Normal Normal Respiratory Rate 20 20 20 Respiratory Effort / Characteristics Non-Labored Spontaneous Non-Labored Spontaneous Non-Labored Spontaneous Respiratory Depth Normal Normal Normal Respiratory Pattern Regular Blood Pressure 145/80 H Blood Pressure [Left Arm] 145/80 H 132/64 Blood Pressure Mean 101 Blood Pressure Mean [Left Arm] 101 86 Blood Pressure Position Sitting Pulse Oximetry 94 98 95 Oxygen Delivery Method Room Air Room Air Room Air Oxygen Flow Rate Sepsis Recent Fever Within 48 Hours No Sepsis New/Unexplained Change in Mental Status N/A Sepsis Action Taken by Nursing No Action Required 05/13/22 02:00 05/13/22 02:09 Temperature Temperature Source Pulse Rate Pulse Rate [Left Apical] 75 Pulse Rhythm [Left Apical] Regular Pulse Strength [Left Apical] Normal Respiratory Rate 20 Respiratory Effort / Characteristics Non-Labored Spontaneous Respiratory Depth Normal Respiratory Pattern Blood Pressure Blood Pressure [Left Arm] 137/72 Blood Pressure Mean Blood Pressure Mean [Left Arm] 93 Blood Pressure Position Pulse Oximetry 88 L 99 Oxygen Delivery Method Room Air Nasal Cannula Oxygen Flow Rate 2 Sepsis Recent Fever Within 48 Hours Sepsis New/Unexplained Change in Mental Status Sepsis Action Taken by Nursing GENERAL: alert, well appearing, well nourished, no distress, non-toxic HEAD: nc, 2 contusions noted along the right cheek, no domingo signs, no raccoon eyes EYE EXAM: normal conjunctiva, PERRL and EOM's grossly intact, no hyphema, no periorbital edema or ecchymosis OROPHARYNX: no exudate, no erythema, lips, buccal mucosa, and tongue normal and mucous membranes are moist NECK: supple, no nuchal rigidity, no adenopathy, non-tender LUNGS: Clear to auscultation. Normal chest wall mechanics, no w/r/r HEART: no murmurs, S1 normal and S2 normal CHEST WALL: contusion noted left inferior/lateral chest wall, no crepitus, mild tenderness with palpation over the contusion ABDOMEN: abdomen soft, non-tender, normo-active bowel sounds, no masses, no rebound or guarding. BACK: Back is symmetrical on inspection and there is no deformity, no midline tenderness, no CVA tenderness. No contusions or evidence of trauma SKIN: no rashes and no bruising UPPER EXTREMITIES: upper extremities are grossly normal. FROM, nml pulses b/l. Abrasions noted bilateral elbows, mild edema noted around the left elbow. LOWER EXTREMITIES: No pitting edema. FROM, nml pulses b/l. Superficial abrasion noted over right knee, healed vertical scar over right knee NEURO EXAM: Normal sensorium, cranial nerves II-XII grossly intact, normal speech, no gross weakness of arms, no gross weakness of legs. Gross sensation intact. Course Course 0135: Patient and family at bedside updated on results. Patient's herniorrhaphy was many years ago. Patient denies any abdominal pain. No evidence of evolving trauma on abdominal exam. Family states patient was recently started on a new antidepressant medication, sertraline 25 mg. Administered Medications Lactated Ringer's (Lr) 1,000 mls @ 125 mls/hr IV .Q8H KATE Stop: 05/13/22 20:41 Last Admin: 05/13/22 05:17 Dose: 125 mls/hr Documented By: JENNIE Discontinued Medications Sodium Chloride (Nss 1000ml) 1,000 mls @ 125 mls/hr IV .Q8H KATE Stop: 06/11/22 23:14 Last Infusion: 05/13/22 05:16 Dose: 0 mls/hr Documented By: Admin: 05/12/22 23:24 Dose: 125 mls/hr Documented By: NANDINI Ioversol (Optiray 300 100ml) 95 ml IV ONCE ONE Stop: 05/13/22 00:36 Last Admin: 05/13/22 00:29 Dose: 95 ml Documented By: KOFI Medical Decision Making Differential Diagnosis Differential diagnoses include major intracranial, cervical, spinal, thoracic, abdominal, pelvic and neurologic injury. Fracture, contusion, sprain, strain, laceration, abrasions included as well. Medical Records Attestation: I reviewed the patient's medical records. Home Medications Current Medication List: was personally reviewed by me Laboratory Data Attestation: I reviewed the patient's lab results. Result diagrams: 05/12/22 23:11 05/12/22 23:11 Lab Results 05/12/22 05/12/22 05/12/22 Range/Units 23:11 23:11 23:11 WBC 12.54 H (4.8-10.8) K/ul RBC 4.54 L (4.63-6.08) M/uL Hgb 13.4 L (14.0-18.0) g/dl Hct 41.8 (40.1-51.0) % MCV 92.1 (80.0-100.0) fL MCH 29.5 (25.0-34.0) pg MCHC 32.1 (32.0-36.0) g/dL RDW Std Deviation 46.1 (36.4-46.3) fL RDW Coeff of Real 13.6 (11.5-14.5) % Plt Count 232 (130-400) K/uL MPV 9.0 L (9.4-12.4) fL Immature Gran % (Auto) 0.5 % Neut % (Auto) 73.1 % Lymph % (Auto) 13.6 % [place] % (Auto) 12.4 % Eos % (Auto) 0.2 % Baso % (Auto) 0.2 % Neut # (Auto) 9.17 H (1.4-6.5) K/uL Lymph # (Auto) 1.71 (1.2-3.4) K/uL [place] # (Auto) 1.55 H (0.24-0.82) K/uL Eos # (Auto) 0.02 (0-0.50) K/uL Baso # (Auto) 0.03 (0-0.2) K/uL Immature Gran # (Auto) 0.06 H (0.00-0.02) K/uL PT 12.4 H (9.0-12.0) Seconds INR 1.2 H (0.9-1.1) Sodium 137 (136-145) mmol/L Potassium 4.2 (3.5-5.1) mmol/L Chloride 104 (98-107) mmol/L Carbon Dioxide 26 (21-32) mmol/L Anion Gap 7 (3-11) BUN 26 H (6-23) mg/dl Creatinine 1.40 (0.6-1.4) mg/dl Est Cr Clr Drug Dosing 52.1 ml/min Est GFR ( Amer) 55.0 ml/min Est GFR (Non-Af Amer) 47.5 ml/min BUN/Creatinine Ratio 18.6 (10-20) Glucose 97 (70-99(Fasting)) mg/dl Calcium 9.0 (8.5-10.1) mg/dl Magnesium 2.1 (1.7-2.4) mg/dl Total Bilirubin 1.3 H (0.2-1.0) mg/dl AST 83 H (13-39) U/L ALT 30 (7-52) U/L Alkaline Phosphatase 56 (34-104) U/L Total Creatine Kinase 3468 H (30-223) U/L Troponin I High Sens 47.4 H (0-20) pg/ml Total Protein 7.4 (6.0-8.3) gm/dl Albumin 3.3 L (3.4-5.0) gm/dl Globulin 4.1 H (2.5-4.0) gm/dl Albumin/Globulin Ratio 0.8 L (0.9-2) Lipase 24 (11-82) U/L TSH (0.300-4.500) uIu/ml SARS-CoV-2, RNA, NAAT (NEGATIVE) 05/12/22 05/13/22 Range/Units 23:11 01:11 WBC (4.8-10.8) K/ul RBC (4.63-6.08) M/uL Hgb (14.0-18.0) g/dl Hct (40.1-51.0) % MCV (80.0-100.0) fL MCH (25.0-34.0) pg MCHC (32.0-36.0) g/dL RDW Std Deviation (36.4-46.3) fL RDW Coeff of Real (11.5-14.5) % Plt Count (130-400) K/uL MPV (9.4-12.4) fL Immature Gran % (Auto) % Neut % (Auto) % Lymph % (Auto) % [place] % (Auto) % Eos % (Auto) % Baso % (Auto) % Neut # (Auto) (1.4-6.5) K/uL Lymph # (Auto) (1.2-3.4) K/uL [place] # (Auto) (0.24-0.82) K/uL Eos # (Auto) (0-0.50) K/uL Baso # (Auto) (0-0.2) K/uL Immature Gran # (Auto) (0.00-0.02) K/uL PT (9.0-12.0) Seconds INR (0.9-1.1) Sodium (136-145) mmol/L Potassium (3.5-5.1) mmol/L Chloride (98-107) mmol/L Carbon Dioxide (21-32) mmol/L Anion Gap (3-11) BUN (6-23) mg/dl Creatinine (0.6-1.4) mg/dl Est Cr Clr Drug Dosing ml/min Est GFR ( Amer) ml/min Est GFR (Non-Af Amer) ml/min BUN/Creatinine Ratio (10-20) Glucose (70-99(Fasting)) mg/dl Calcium (8.5-10.1) mg/dl Magnesium (1.7-2.4) mg/dl Total Bilirubin (0.2-1.0) mg/dl AST (13-39) U/L ALT (7-52) U/L Alkaline Phosphatase (34-104) U/L Total Creatine Kinase (30-223) U/L Troponin I High Sens (0-20) pg/ml Total Protein (6.0-8.3) gm/dl Albumin (3.4-5.0) gm/dl Globulin (2.5-4.0) gm/dl Albumin/Globulin Ratio (0.9-2) Lipase (11-82) U/L TSH 0.691 (0.300-4.500) uIu/ml SARS-CoV-2, RNA, NAAT NEGATIVE (NEGATIVE) Imaging Data Radiologist's Impression: Pelvis X-Ray 05/12/22 23:07 XR pelvis 1-2V routine CLINICAL HISTORY: Status post fall with bilateral hip pain. COMPARISON STUDY: No previous studies for comparison. TECHNIQUE: [2 AP views of the pelvis. FINDINGS: The bones are osteopenic. There is no evidence for an acute fracture. There is mild to moderate narrowing of the hip joint spaces bilaterally. The bones are in anatomic alignment. The SI joints are intact bilaterally. The remaining visualized bones of the pelvis are intact. No focal soft tissue abnormalities identified. IMPRESSION: 1. No acute abnormality. 2. Osteopenia and osteoarthritis. ACT 112: Negative or not required by law. Electronically signed by: Randall Tran M.D. 05/12/2022 11:[address] head: No intracranial hemorrhage, abnormal intra or extra-axial collections or parenc hymal lesions are seen. There are involutional changes with prominence of the sulci, basal cisterns and ventricles. Scattered white matter hypoattenuation's are present, likely from small vessel disease. The arevalo-white differentiation is preserved. No evidence of mass-effect, midline shift, or edema. The osseous structures are unremarkable. The visualized portions of the paranasal sinuses are clear. Impression: 1. No acute intracranial process. 2. Involutional changes with small vessel disease. CT facial: No facial fractures. The paranasal sinuses and mastoid air cells are clear. The facial soft tissues are unremarkable. CT C-spine: Findings: No fracture or subluxations are noted. The vertebral body heights and alignment are preserved. No prevertebral soft tissue swelling. Note is made of multilevel cervical spondylosis with varying degrees of central canal and foraminal stenosis. Bony spurring results in moderate stenoses at C4-5 through C7-T1. If clinical suspicion exists for cervical myelopathy, further evaluation with MRI is recommended. Impression: 1. No cervical fractures. 2. Cervical spondylosis with varying degrees of central canal and foraminal stenosis. CT chest with contrast: No pneumothorax. Lungs are clear with the exception of dependent atelectasis. No pleural effusions. Small pericardial effusion incidentally noted. CV structures are unremarkable. Osseous structures are intact. CT abdomen and pelvis with contrast: Surgical clips noted in the right inguinal region status post herniorrhaphy. Small amount of fatty stranding noted in the lower abdomen/upper pelvis with a peripherally enhancing fluid collection which may reflect an intra-abdominal abscess. A small droplet of gas is present. This fluid and gas does not appear to be present within a loop of bowel and measures up to 2.8 x 1.7 cm. This may reflect postoperative fluid if the right-sided inguinal herniorrhaphy is recent. Correlation with history recommended. There does not appear to be evidence for penetrating trauma. Adjacent bowel loops appear grossly normal without obvious wall thickening to suggest bowel intramural hematoma. Radiologist: Silverio Saldana MD CT left elbow: What may reflect an old fracture noted at the lateral condyle of the distal humerus. Also noted is calcific tendinitis of the extensor tendon mechanism. Mild osteoarthritis noted at the elbow joint including at the radiocapitellar joint. No acute fracture or dislocation evident. Radiologist: Silverio Saldana MD MDM Narrative An order was placed for continuous cardiac monitoring. The monitor shows a rate of _86_ with _normal sinus__ rhythm. This is a 81-year-old male brought in by EMS due to concern for increased weakness and recurrent falls. Patient with multiple contusions in various sites consistent with recent falls. Due to patient's concurrent use of anticoagulation, patient sent for CT scans as well as additional extremity imaging. Labs are drawn and sent. Patient's labs revealed rhabdomyolysis and mildly elevated troponin. Patient did appear clinically dehydrated and was started on IV fluids during initial evaluation. Patient was hemodynamically stable and afebrile throughout. Patient denied any concerns for pain. Unclear etiology of small fluid collection noted on abdominal CT imaging. Patient's prior right-sided herniorrhaphy was many years ago, no recent change in stools or abdominal pain. Radiology stated this was not secondary to trauma. No other evidence of acute traumatic injury on imaging as reviewed by outside radiology and x-rays reviewed by myself. Mild leukocytosis noted, although I feel this is more likely stress to margination from trauma and not due to evolving infect ion. Mild elevation of troponin likely secondary to rhabdomyolysis. I do not suspect cardiac contusion, pulmonary contusion, pericardial effusion or tamponade. Due to concerns for weakness and recurrent falls, as well as rhabdomyolysis, case discussed with hospitalist for additional evaluation and management. Impression & Plan Generalized weakness, Fall, CHI (closed head injury), Rhabdomyolysis, Dehydration, Contusion of multiple sites, Elevated troponin Discharge Plan Visit Data Chief Complaint: Fall Stated Complaint: Fall, Weakness ED Provider: Dona Rowland Discharge Problem: Generalized weakness, Fall, CHI (closed head injury), Rhabdomyolysis, Dehydration, Contusion of multiple sites, Elevated troponin Patient Disposition: Admitted As Inpatient Discharge Instructions Interventions: ED Discharge Assessment Last Done: 05/13/22 04:02
[2022-05-12 23:30] LABS: Basophils # (auto) 0.03 K/uL (0-0.2); Basophils % (auto) 0.2 %; Eosinophils # (auto) 0.02 K/uL (0-0.50); Eosinophils % (auto) 0.2 %; Hematocrit (blood only) 41.8 % (40.1-51.0); Hemoglobin 13.4 g/dl (14.0-18.0); Immature Granulocytes # (auto) 0.06 K/uL (0.00-0.02); Immature Granulocytes % (auto) 0.5 %; Lymphocytes # (auto) 1.71 K/uL (1.2-3.4); Lymphocytes % (auto) 13.6 %; Mean Corpuscular Hemoglobin 29.5 pg (25.0-34.0); Mean Corpuscular Hgb Conc 32.1 g/dL (32.0-36.0); Mean Corpuscular Volume 92.1 fL (80.0-100.0); Monocytes # (auto) 1.55 K/uL (0.24-0.82); Monocytes % (auto) 12.4 %; Neutrophils # (auto) 9.17 K/uL (1.4-6.5); Neutrophils % (auto) 73.1 %; Platelet Count 232 K/uL (130-400); RDW Coefficient of Variation 13.6 % (11.5-14.5); RDW Standard Deviation 46.1 fL (36.4-46.3); Red Blood Count 4.54 M/uL (4.63-6.08); White Blood Count 12.54 K/ul (4.8-10.8)
[2022-05-12 23:44] LABS: INR 1.2 (0.9-1.1); Prothrombin Time 12.4 Seconds (9.0-12.0)
--- NOTE | 2022-05-12 23:50 | XRay Report ---
XR pelvis 1-2V routine CLINICAL HISTORY: Status post fall with bilateral hip pain. COMPARISON STUDY: No previous studies for comparison. TECHNIQUE: [2 AP views of the pelvis. FINDINGS: The bones are osteopenic. There is no evidence for an acute fracture. There is mild to moderate narro wing of the hip joint spaces bilaterally. The bones are in anatomic alignment. The SI joints are inta ct bilaterally. The remaining visualized bones of the pelvis are intact. No focal soft tissue abnorma lities identified. IMPRESSION: 1. No acute abnormality. 2. Osteopenia and osteoarthritis. ACT 112: Negative or not required by law. Electronically signed by: Randall Tran M.D. 05/12/2022 11:48 PM
[2022-05-12 23:54] LABS: BUN Creatinine Ratio 18.6 (10-20); Creatinine Clr Calc Pharmacy 52.1 ml/min; Est GFR (Non-African American) 47.5 ml/min; Potassium 4.2 mmol/L (3.5-5.1)
[2022-05-12 23:55] LABS: Albumin Globulin Ratio 0.8 (0.9-2); Albumin Level 3.3 gm/dl (3.4-5.0); Bilirubin,Total 1.3 mg/dl (0.2-1.0); Globulin 4.1 gm/dl (2.5-4.0); Magnesium 2.1 mg/dl (1.7-2.4); Total Protein 7.4 gm/dl (6.0-8.3)
[2022-05-12 23:56] LABS: Troponin I High Sensitivity 47.4 pg/ml (0-20)
[2022-05-13] MEDS ORDERED: OPTIRAY 300 100mL IV ONE (00:35)
--- NOTE | 2022-05-13 02:38 | History & Physical Report ---
Date of Service May 13, 2022 Assessment & Plan (1) Fall: Plan: Patient with frequent falls over the last several days. Patient thinks that he is tripping over things in the home. He denies chest pain, palpitation, SOB, numbness/tingling/weakness preceding or following the falls. Trauma scans performed in the ER are negative for acute fracture or internal damage. Ddx - awaiting UA to assess for possible infection contributing to ambulatory dysfunction ?Alprazolam could be contributing to risk of falls -PT/OT evaluation -Fall precautions -Check orthostatic VS x 1 -Elevated CK with preserved renal function -IVF - LR at 125mL/hr x 2 liters -Repeat CK in AM -Hold Trazodone -Continue Alprazolam with caution. Consider taper to off (2) Atrial fibrillation: Plan: Rate controlled -Continue Metoprolol -Continue Xarelto (3) Severe sleep apnea: Plan: Chronic -CPAP qHS (4) Depression with anxiety: Plan: Chronic. Patient recently discontinued Welbutrin -Continue Buspirone 5mg po daily -Continue Sertraline 25mg po daily (5) Hypertension: Plan: Blood pressure controlled -Continue Metoprolol 50mg po daily -Monitor F/E/N - LR at 125mL/hr x 2L, electrolytes WNL, AHA diet as tolerated with aspiration precautions Ppx - Continue Xarelto Code - Full Dispo - Admit to medical History of Present Illness Chief Complaint: frequent falls Primary Care Provider: Papo Cleary, III, [facility] Zackery Bach is a pleasant 81yo male presenting with his son and daughter with frequent falls - 3 falls in the last two days. Two nights ago patient got up to use the bathroom during the night and fell to the floor. He does not recall if he tripped. He was found on the floor by family in the AM. Yesterday patient fell in the garage and was unable to get up. His grandson found him down on the garage floor. Patient reports that he trips over things. He denies chest pain, palpitations, dizziness, syncope, LOC or head trauma. No additional complaints of fever, chills, abdominal pain, nausea or vomiting. Family states that patient has not been eating well for the last several days and does not drink much water. He lives alone in a two story home. Has family check on him frequently. Up until recently he was fairly independent, able to ambulate with occasional use of a cane. Son reports that patient has some difficulty rising from a chair on occasion. Allergies Allergy/AdvReac Type Severity Reaction Status Date / Time codeine AdvReac Mild NAUSEA Verified 05/12/22 23:38 amoxicillin [From Augmentin] AdvReac "Made me Verified 05/12/22 23:38 feel terrible" clavulanic acid AdvReac "Made me Verified 05/12/22 23:38 [From Augmentin] feel terrible" Home Medications Medication Instructions Recorded Confirmed Type rivaroxaban 20 mg tablet (Xarelto) 20 mg PO QDD 09/24/19 05/12/22 History diclofenac sodium 1 % topical gel 4 g topical QID PRN Joint Pain 09/11/21 05/12/22 Rx #100 grams finasteride 5 mg tablet 5 mg PO DAILY #90 tabs 10/05/21 05/12/22 Rx metoprolol succinate 50 mg 50 mg PO DAILY #90 tabs 11/22/21 05/12/22 Rx tablet,extended release 24 hr betamethasone dipropionate 0.05 % 1 applic topical DAILY PRN skin 01/16/22 05/12/22 Rx topical ointment irritation #15 grams metronidazole 0.75 % topical cream 1 applic topical BID PRN Rash #45 01/16/22 05/12/22 Rx grams clotrimazole 1 % topical cream 1 applic topical BID 4 weeks #28 01/22/22 05/12/22 Rx grams flecainide 100 mg tablet 300 mg PO PRN #30 tabs 01/26/22 05/12/22 Rx alprazolam 0.5 mg tablet 0.5 mg PO BID PRN Anxiety #60 tabs 05/03/22 05/12/22 Rx buspirone 5 mg tablet 5 mg PO DAILY #90 tabs 05/07/22 05/12/22 Rx sertraline 25 mg tablet 25 mg PO DAILY #30 tabs 05/11/22 05/12/22 Rx trazodone 100 mg tablet 100 mg PO HS 05/12/22 05/12/22 History Past Med/Surg History Medical History (Updated 05/13/22 @ 02:27 by Jessica Farias DO) Adenomatous polyp of colon Atrial fibrillation Atrial fibrillation with RVR Atrial flutter Status post ablation of typical isthmus dependent atrial flutter July 2017 Atrial flutter with rapid ventricular response Cervical spondylosis Depression with anxiety Edema History of cardioversion 09/25/19 Dr. Butch Coombs Hyperlipidemia Hypertension Hypocalcemia Multiple pulmonary nodules Nausea Nocturnal hypoxia Obesity Phimosis Sleep apnea Spondylosis without myelopathy or radiculopathy, cervical region Tinnitus Vitamin D deficiency Surgical History History of ankle surgery History of hernia repair (~1990) History of knee surgery (~2005) replacement Family History Mother , age 83 Parkinson's disease Father Kidney stones FH: deafness or hearing loss Stroke, Onset Age: 89 Denies family history of Ovarian cancer Prostate cancer Myocardial infarction Breast cancer Bleeding disorder Colorectal cancer Social History Smoking Status: Never smoker Age Started Using Tobacco: 19; Age Quit Using Tobacco: 37; Cigarettes Per Day: 10/ day; Second Hand Exposure: No; Hx Alcohol Use: No Hx Substance Use: No Preferred Language: Mohawk Communication Ability: Effective Visual Impairment: No Limitations Hearing Ability: Hard of Hearing Beliefs That Will Affect Care: None marital status: / Current Living Situation: Alone current occupational status: retired Feels Safe at Home: Yes Childhood Exposure to Second-Hand Smoke: Yes Dental Care, Regularly: Yes Physical Activity Frequency: Does not Exercise Seatbelt Use: always Sunscreen Use: No Do you think of yourself as: straight/heterosexual Assistive Devices: None Review of Systems Review of Systems: All systems reviewed & are unremarkable except as noted in HPI & below Physical Exam Physical Exam: General: patient resting comfortably, NAD, non-toxic in appearance, hard of hearing Skin: warm, dry, scattered bruising and contusions on forearms, ,hand and bilateral knees, redness of right foot with bruising HEENT: NC/AT, PERRL, EOMI, anicteric sclera, conjunctiva without injection, external ear normal to inspection and nontender, nares patent, moist mucus membranes, dentition intact, no oropharyngeal lesions, neck supple, trachea midline, no LAD, no thyromegaly, no JVD Heart: +S1/S2, regular, no m/r/g Lungs: equal air entry bilaterally, no rales/rhonchi/wheezes Abd: +BS, soft, NT/ND, no masses/organomegaly/ascites Ext: warm, 2+ pulses in UE/LE bilaterally, no clubbing/cyanosis or edema Neuro: nonfocal, patient AA&O x 4, speech intact, no facial droop, moving all extremities on command with equal strength 5/5, hard of hearing Results & Data Results & Data ([facility]) Vital Signs (Past 12 Hours) Vital Signs Temp Pulse Pulse Resp BP BP Pulse Ox 05/13/22 02:09 99 05/13/22 02:00 75 20 137/72 88 L 05/13/22 00:45 84 20 132/64 95 05/12/22 23:14 75 20 145/80 H 98 05/12/22 23:02 36.6 C 81 20 145/80 H 94 O2 Del Method O2 Flow Rate 05/13/22 02:09 Nasal Cannula 2 05/13/22 02:00 Room Air 05/13/22 00:45 Room Air 05/12/22 23:14 Room Air 05/12/22 23:02 Room Air Laboratory Results Laboratory Results WBC 12.54 K/ul (4.8-10.8) H 05/12/22 23:11 RBC 4.54 M/uL (4.63-6.08) L 05/12/22 23:11 Hgb 13.4 g/dl (14.0-18.0) L 05/12/22 23:11 Hct 41.8 % (40.1-51.0) 05/12/22 23:11 MCV 92.1 fL (80.0-100.0) 05/12/22 23:11 MCH 29.5 pg (25.0-34.0) 05/12/22 23:11 MCHC 32.1 g/dL (32.0-36.0) 05/12/22 23:11 RDW Std Deviation 46.1 fL (36.4-46.3) 05/12/22 23:11 RDW Coeff of Real 13.6 % (11.5-14.5) 05/12/22 23:11 Plt Count 232 K/uL (130-400) 05/12/22 23:11 MPV 9.0 fL (9.4-12.4) L 05/12/22 23:11 Immature Gran % (Auto) 0.5 % 05/12/22 23:11 Neut % (Auto) 73.1 % 05/12/22 23:11 Lymph % (Auto) 13.6 % 05/12/22 23:11 [place] % (Auto) 12.4 % 05/12/22 23:11 Eos % (Auto) 0.2 % 05/12/22 23:11 Baso % (Auto) 0.2 % 05/12/22 23:11 Neut # (Auto) 9.17 K/uL (1.4-6.5) H 05/12/22 23:11 Lymph # (Auto) 1.71 K/uL (1.2-3.4) 05/12/22 23:11 [place] # (Auto) 1.55 K/uL (0.24-0.82) H 05/12/22 23:11 Eos # (Auto) 0.02 K/uL (0-0.50) 05/12/22 23:11 Baso # (Auto) 0.03 K/uL (0-0.2) 05/12/22 23:11 Immature Gran # (Auto) 0.06 K/uL (0.00-0.02) H 05/12/22 23:11 PT 12.4 Seconds (9.0-12.0) H 05/12/22 23:11 INR 1.2 (0.9-1.1) H 05/12/22 23:11 Sodium 137 mmol/L (136-145) 05/12/22 23:11 Potassium 4.2 mmol/L (3.5-5.1) 05/12/22 23:11 Chloride 104 mmol/L (98-107) 05/12/22 23:11 Carbon Dioxide 26 mmol/L (21-32) 05/12/22 23:11 Anion Gap 7 (3-11) 05/12/22 23:11 BUN 26 mg/dl (6-23) H 05/12/22 23:11 Creatinine 1.40 mg/dl (0.6-1.4) 05/12/22 23:11 Est Cr Clr Drug Dosing 52.1 ml/min 05/12/22 23:11 Est GFR ( Amer) 55.0 ml/min 05/12/22 23:11 Est GFR (Non-Af Amer) 47.5 ml/min 05/12/22 23:11 BUN/Creatinine Ratio 18.6 (10-20) 05/12/22 23:11 Glucose 97 mg/dl (70-99(Fasting)) 05/12/22 23:11 Calcium 9.0 mg/dl (8.5-10.1) 05/12/22 23:11 Magnesium 2.1 mg/dl (1.7-2.4) 05/12/22 23:11 Total Bilirubin 1.3 mg/dl (0.2-1.0) H 05/12/22 23:11 AST 83 U/L (13-39) H 05/12/22 23:11 ALT 30 U/L (7-52) 05/12/22 23:11 Alkaline Phosphatase 56 U/L (34-104) 05/12/22 23:11 Total Creatine Kinase 3468 U/L (30-223) H 05/12/22 23:11 Troponin I High Sens 47.4 pg/ml (0-20) H 05/12/22 23:11 Total Protein 7.4 gm/dl (6.0-8.3) 05/12/22 23:11 Albumin 3.3 gm/dl (3.4-5.0) L 05/12/22 23:11 Globulin 4.1 gm/dl (2.5-4.0) H 05/12/22 23:11 Albumin/Globulin Ratio 0.8 (0.9-2) L 05/12/22 23:11 Lipase 24 U/L (11-82) 05/12/22 23:11 TSH 0.691 uIu/ml (0.300-4.500) 05/12/22 23:11 SARS-CoV-2, RNA, NAAT NEGATIVE (NEGATIVE) 05/13/22 01:11 Impressions Pelvis X-Ray 05/12/22 23:07 XR pelvis 1-2V routine CLINICAL HISTORY: Status post fall with bilateral hip pain. COMPARISON STUDY: No previous studies for comparison. TECHNIQUE: [2 AP views of the pelvis. FINDINGS: The bones are osteopenic. There is no evidence for an acute fracture. There is mild to moderate narrowing of the hip joint spaces bilaterally. The bones are in anatomic alignment. The SI joints are intact bilaterally. The remaining visualized bones of the pelvis are intact. No focal soft tissue abnormalities identified. IMPRESSION: 1. No acute abnormality. 2. Osteopenia and osteoarthritis. ACT 112: Negative or not required by law. Electronically signed by: Randall Tran M.D. 05/12/2022 11:48 PM Code Status & VTE Plan VTE Prophylaxis Plan VTE Prophylaxis will be ordered: Yes PG Care Time/CCT Total # of Minutes Spent Total Time Spent with Patient: Total time spent is greater than 50% in coordination of care (as documented) at patient's floor/unit and/or counseling patient: Coding Level of Care Code 87240 Initial Inpt Care Lvl 2 Diagnoses Fall W19.XXXA Atrial fibrillation I48.91 Atrial fibrillation type: unspecified Severe sleep apnea G47.30 Depression with anxiety F41.8 Hypertension I10 Hypertension type: essential hypertension (1) Atrial fibrillation Atrial fibrillation type: unspecified Qualified Code(s): I48.91 - Unspecified atrial fibrillation (2) Hypertension Hypertension type: essential hypertension Qualified Code(s): I10 - Essential (primary) hypertension
[2022-05-13] MEDS ORDERED: DICLOFENAC SOD 1% GEL 100 GM TUBE EXT PRN (04:42)
[2022-05-13] MEDS ORDERED: ONDANSETRON INJ 2 MG/ML 2 ML VIAL IV PRN (04:42)
[2022-05-13] MEDS: LACTATED RINGER'S 1,000 ML IV SCH ×2 (05:17→12:06)
[2022-05-13 06:56] LABS: Basophils # (auto) 0.02 K/uL (0-0.2); Basophils % (auto) 0.2 %; Eosinophils # (auto) 0.13 K/uL (0-0.50); Eosinophils % (auto) 1.4 %; Hematocrit (blood only) 36.5 % (40.1-51.0); Hemoglobin 11.7 g/dl (14.0-18.0); Immature Granulocytes # (auto) 0.04 K/uL (0.00-0.02); Immature Granulocytes % (auto) 0.4 %; Lymphocytes # (auto) 1.48 K/uL (1.2-3.4); Lymphocytes % (auto) 15.4 %; Mean Corpuscular Hemoglobin 29.5 pg (25.0-34.0); Mean Corpuscular Hgb Conc 32.1 g/dL (32.0-36.0); Mean Corpuscular Volume 91.9 fL (80.0-100.0); Mean Platelet Volume 8.7 fL (9.4-12.4); Monocytes # (auto) 1.03 K/uL (0.24-0.82); Monocytes % (auto) 10.7 %; Neutrophils # (auto) 6.92 K/uL (1.4-6.5); Neutrophils % (auto) 71.9 %; Platelet Count 197 K/uL (130-400); RDW Coefficient of Variation 13.4 % (11.5-14.5); RDW Standard Deviation 45.3 fL (36.4-46.3); Red Blood Count 3.97 M/uL (4.63-6.08); White Blood Count 9.62 K/ul (4.8-10.8)
--- NOTE | 2022-05-13 07:08 | XRay Report ---
RIGHT ELBOW 3 VIEWS CLINICAL HISTORY: Fall. Right elbow injury. FINDINGS: 3 views of the right elbow are obtained. No prior studies are available for comparison at t he time of dictation. The skeletal structures are osteopenic. No fracture is seen. Moderate to advanc ed arthritic change is noted at the elbow joint. Enthesophytes arise from the radial head and the hum eral epicondyles. No joint effusion is seen. Mild dorsal soft tissue swelling is noted. IMPRESSION: No acute bony abnormality is identified. Electronically signed by: Gavin Guillen M.D. 05/13/2022 7:06 AM
--- NOTE | 2022-05-13 07:09 | XRay Report ---
LEFT ELBOW 3 VIEWS CLINICAL HISTORY: Falls. Left elbow injury. FINDINGS: 3 views of the left elbow are obtained. No prior studies are available for comparison at th e time of dictation. The skeletal structures are osteopenic. No fracture is seen. Osteoarthritic quinonez ge is noted at the elbow joint. Enthesophytes arise from the radial head in the lateral humeral epico ndyle. There is spurring along the medial and lateral aspect of the joint space. There is no joint ef fusion. Mild dorsal soft tissue edema is noted. An IV catheter is present in the antecubital fossa. IMPRESSION: No fracture is identified. Electronically signed by: Gavin Guillen M.D. 05/13/2022 7:08 AM
--- NOTE | 2022-05-13 07:28 | CT Scan Report ---
CT SCAN OF THE LEFT ELBOW WITHOUT IV CONTRAST CLINICAL HISTORY: Fall. Left elbow injury. COMPARISON STUDY: Radiographs of the left elbow dated 05/12/2022. TECHNIQUE: CT scan of the left elbow is performed from the distal humeral shaft to the proximal radi us and ulna. Images are reviewed in the axial, sagittal, and coronal planes. IV contrast was not admi nistered for this examination. 3-D reformats are created and assessed. A dose lowering technique was utilized adhering to the principles of ALARA. CT DOSE: 976.72 mGy.cm FINDINGS: The skeletal structures are osteopenic. No acute fracture is seen. Degenerative change is s een at the elbow joint there large enthesophytes arise from the lateral humeral epicondyle and radial head. Cystic degenerative change is noted in the capitellum. There is no joint effusion. No lytic or blastic lesion is seen. Dorsal soft tissue edema is noted. The regional musculature is normal as vis ualized. An IV catheter is noted in the antecubital fossa. IMPRESSION: No fracture is identified. ACT 112: Negative or not required by law. Electronically signed by: Gavin Guillen M.D. 05/13/2022 7:26 AM
--- NOTE | 2022-05-13 07:30 | CT Scan Report ---
CT SCAN OF THE BRAIN WITHOUT IV CONTRAST CLINICAL HISTORY: Fall. Trauma. COMPARISON STUDY: CT of the brain dated 11/01/2018. TECHNIQUE: Unenhanced axial CT scan of the brain is performed from the vertex to the skull base. A do se lowering technique was utilized adhering to the principles of ALARA. FINDINGS: Brain parenchyma: There is age-related involutional change noting mild subcortical and periventricula r microangiopathic disease. There is no hemorrhage, mass effect, or evidence of acute territorial isc hemia by CT criteria. Garcia-white matter differentiation is preserved. No extra-axial fluid collection is seen. Ventricles, sulci, cisterns: Prominent secondary to involutional change. Intracranial vasculature: There is atherosclerotic calcification of the cavernous carotid and vertebr al arteries. Calvarium: The skeletal structures are osteopenic. No depressed calvarial fracture is identified. Sinuses and mastoids: The visualized paranasal sinuses are clear. The mastoid air cells are well pneu matized. Orbits: The bony orbits are grossly intact. IMPRESSION: There is no hemorrhage, mass effect, or evidence of acute territorial ischemia by CT kelsea dunn. ACT 112: Negative or not required by law. Electronically signed by: Gavin Guillen M.D. 05/13/2022 7:29 AM
[2022-05-13 07:33] LABS: Albumin Level 2.8 gm/dl (3.4-5.0); BUN Creatinine Ratio 21.4 (10-20); Bilirubin Direct 0.1 mg/dl (0-0.2); Bilirubin,Total 0.8 mg/dl (0.2-1.0); Calcium 8.2 mg/dl (8.5-10.1); Est GFR (African American) 84.6 ml/min; Potassium 3.8 mmol/L (3.5-5.1)
--- NOTE | 2022-05-13 07:45 | CT Scan Report ---
CT SCAN OF THE CERVICAL SPINE CLINICAL HISTORY: Fall. Trauma COMPARISON STUDY: Cervical spine radiographs dated 07/22/2019. TECHNIQUE: CT scan of the cervical spine is performed from the skull base to the upper thoracic spine . Images are reviewed in the axial, sagittal, and coronal planes. IV contrast was not administered fo r this examination. A dose lowering technique was utilized adhering to the principles of ALARA. CT DOSE: 4030.49 mGy.cm FINDINGS: Skeletal structures: The skeletal structures are osteopenic. There is no evidence of fracture or subl uxation involving the cervical spine. Vertebral body height is maintained. There is minimal anterolis thesis at C3-C4. Alignment is otherwise preserved. There is straightening of the cervical lordosis. A nterior osteophytes are seen throughout. The odontoid process and lateral masses are intact. The atla ntoaxial articulation is preserved noting advanced productive degenerative change. The spinous proces ses appear intact. There is moderate multilevel cervical spondylosis. Uncovertebral and facet arthrop athy contribute sterile foraminal narrowing at several levels. Intervertebral discs: There is advanced disc space narrowing seen at all levels between C4-C5 and C7- T1. There is associated endplate sclerosis. Central canal: Posterior disc osteophyte complexes are seen at all levels between C3-C4 and C7-T1. Th is likely contributes to multilevel acquired compromise of the central canal. Soft tissues: The prevertebral and paraspinous soft tissues are within normal limits. Atherosclerotic calcification is noted in the carotid bulbs. The thyroid gland is enlarged and heterogeneous, extend ing into the superior mediastinum on the right. Calvarium: The visualized calvarium at the skull base appears intact. Brain parenchyma: Partially visualized brain parenchyma at the skull base is within normal limits. Sinuses and mastoids: The visualized paranasal sinuses are clear. The mastoid air cells are well pneu matized. Lung apices: Clear as visualized. IMPRESSION: 1. There is no evidence of fracture or subluxation involving the cervical spine. 2. Osteopenia and spondylotic change as above. ACT 112: Negative or not required by law. Electronically signed by: Gavin Guillen M.D. 05/13/2022 7:43 AM
--- NOTE | 2022-05-13 08:24 | CT Scan Report ---
CT abd pelvis IV con only CLINICAL HISTORY: Status post fall with pain. Patient on blood thinners. COMPARISON STUDY: 01/19/2018 CT DOSE: TECHNIQUE: Standard CT of the Abdomen and Pelvis was performed with IV contrast. A dose lowering del hnique was utilized adhering to the principles of ALARA. Contrast Volume: Optiray 320, 95 ml. The patient did not receive oral contrast. FINDINGS: Lung base: There is bibasilar atelectasis, left greater than right. Abdominal cavity: There is no evidence for abdominal mass, adenopathy or ascites. Postsurgical change s are seen in the right inguinal fossa related to previous hernia repair. Liver: There is homogeneous attenuation of the liver parenchyma. There is no evidence for enhancing m ass lesion. Spleen: There is homogeneous attenuation of the splenic parenchyma. There is no enhancing mass lesion . Pancreas: There is homogeneous attenuation of the pancreatic parenchyma. There is no evidence for mas s lesion or peripancreatic fluid collection. Gall Bladder: The gallbladder is contracted with no gross evidence for cholelithiasis. Adrenal glands: The adrenal glands are normal in size and attenuation. There is no evidence for enhan cing mass lesion. Kidneys: There is homogeneous attenuation of the renal parenchyma bilaterally. There is no evidence f or renal calculus or hydronephrosis. There is no evidence for enhancing mass. Bowel: There is acute sigmoid diverticulitis with perisigmoidal inflammatory changes present. There i s sigmoidal fluid collections also seen measuring approximately 2.9 x 1.8 cm characteristic of a smal l diverticular abscess. There is no evidence for free air. The remaining bowel loops are normally placed within the abdomen and pelvis without evidence for dil atation or obstruction. There is no evidence for mass lesion. Bladder: The bladder is within normal limits with no evidence for focal mass, calculus or diverticulu m. : There is no evidence for pelvic mass or adenopathy. There is no evidence for pelvic ascites. Vasculature: There is no evidence for aneurysmal dilatation of the abdominal aorta. Osseous structures: There is no acute osseous pathology. IMPRESSION: 1. Acute sigmoid diverticulitis with localized perforation and a small walled off abscess. No free ai r is seen. ACT 112: Negative or not required by law. Electronically signed by: Randall Tran M.D. 05/13/2022 8:22 AM
[2022-05-13] MEDS: FINASTERIDE 5 MG TAB PO SCH (08:25)
[2022-05-13] MEDS: METOPROLOL SUCC 50MG EXT REL TAB PO SCH (08:25)
[2022-05-13] MEDS: SERTRALINE HCL 50 MG TABLET PO SCH (08:25)
[2022-05-13] MEDS: busPIRone 5 MG TAB PO SCH (08:25)
[2022-05-13] MEDS: CLOTRIMAZOLE 1% CR 15 GM TUBE TOP SCH ×2 (08:25→19:50)
--- NOTE | 2022-05-13 08:34 | CT Scan Report ---
CT facial bones wo con CLINICAL HISTORY: Status post fall with injury and pain. Patient on blood thinners. COMPARISON STUDY: No previous studies for comparison. CT DOSE: TECHNIQUE: Standard CT of the Facial Bones and Orbits was performed without IV contrast. A dose lowe ring technique was utilized adhering to the principles of ALARA. FINDINGS: Bones: There are no displaced fractures identified. The orbital rims are intact bilaterally. The zygo matic arches are intact bilaterally. Nasal bones are intact. The nasal septum is in the midline. The mandible and maxilla are intact. Paranasal sinuses: The adjacent paranasal sinuses are clear. Soft tissues: There is no focal soft tissue swelling. IMPRESSION: 1. No acute abnormality. ACT 112: Negative or not required by law. Electronically signed by: Randall Tran M.D. 05/13/2022 8:33 AM
--- NOTE | 2022-05-13 08:34 | CT Scan Report ---
CT chest diagnostic w con CLINICAL HISTORY: Status post fall with pain. Patient on blood thinners. COMPARISON STUDY: 06/12/2020 CT DOSE: TECHNIQUE: Standard CT of the Chest was performed with IV contrast. A dose lowering technique was u tilized adhering to the principles of ALARA. Contrast Volume: Optiray 320, 95 ml FINDINGS: Airway: The airway is clear. No endobronchial lesion is identified. Lungs: There is bibasilar atelectasis, left greater than right. The lungs are clear of acute alveolar opacities, air bronchograms or pulmonary nodules. Pleura: There is no evidence for pleural effusion. There is no evidence for pneumothorax. Mediastinum: There is no evidence for pathologic adenopathy. The heart size is within normal limits. The thoracic aorta is within normal limits. Mild pericardial effusion/thickening is again seen and un changed. Osseous structures: There is no acute osseous pathology. IMPRESSION: 1. No acute chest disease. There is no significant interval change. ACT 112: Negative or not required by law. Electronically signed by: Randall Tran M.D. 05/13/2022 8:32 AM
--- NOTE | 2022-05-13 11:55 | Hospitalist Progress Note ---
Date of Service May 13, 2022 Assessment & Plan (1) Fall: Plan: Patient with frequent falls over the last several days. No fracture seen on chest x-ray. Trazodone has been discontinued indefinitely as this may be the culprit. OT and PT assessments pending. IV fluids have been tapered down (2) Atrial fibrillation: Plan: Rate controlled -Continue Metoprolol -Continue Xarelto (3) Severe sleep apnea: Plan: Chronic -CPAP qHS (4) Depression with anxiety: Plan: Chronic. Patient recently discontinued Welbutrin. Trazodone has now been discontinued permanently -Continue Buspirone 5mg po daily -Continue Sertraline 25mg po daily (5) Hypertension: Plan: Blood pressure controlled -Continue Metoprolol 50mg po daily -Monitor Ppx - Continue Xarelto Code - Full (6) Elevated creatine kinase: Plan: From falling at home. Mild elevation. Now trending down. Serial labs. IV fluids have been tapered down Plan Eventual discharge to home if OT and PT assessments agree Admission and Anticipated Discharge Date Admission Date: May 13, 2022 Subjective Alert and oriented. No complaints. CK is trending down. IV fluids have been tapered down. OT and PT assessments requested. Trazodone has been discontinued indefinitely. Continue Xarelto therapy. Review of Systems Review of Systems: Constitutional-no fever or chills ENT-no blurred vision, no double vision, no epistaxis, no sore throat Respiratory-no cough, no wheezing, no shortness of breath Cardiac-no palpitations, no chest pain, no syncope GI-no nausea, vomiting, diarrhea, melena, hematochezia -no urinary retention, no urinary incontinence, no dysuria, no hematuria Musculoskeletal-no joint pain, no muscle tenderness Skin-no bruising, no rashes, no pruritus Neuro-no isolated weakness, no paresthesia, no weakness Psych-no depression, no anxiety Physical Exam Physical Exam: General-alert and oriented x3, no fevers, no chills HEENT-head atraumatic and normocephalic, TMs intact bilaterally, pupils equal and reactive to light, extraocular muscles intact Neck-no lymphadenopathy or thyromegaly, trachea midline Chest-clear to auscultation percussion. No rales wheezing or rhonchi Cardiac-regular rate and rhythm, normal S1 and S2 Abdomen-normal bowel sounds, nontender, no hepatosplenomegaly Extremities-no cyanosis, clubbing, or edema Neuro-cranial nerves II through XII intact, motor and sensory function within normal limits, strength symmetrical , no focal deficits Psych-normal affect, normal mood Results & Data Results & Data ([facility]) Vital Signs (Past 12 Hours) Vital Signs Temp Pulse Pulse Resp BP Pulse Ox O2 Del Method 05/13/22 08:04 36.6 C 76 16 109/64 97 Room Air 05/13/22 04:15 Nasal Cannula, CPAP 05/13/22 04:15 36.4 C L 83 16 133/72 100 Nasal Cannula 05/13/22 04:02 Nasal Cannula 05/13/22 04:01 74 19 131/75 96 Nasal Cannula 05/13/22 02:09 99 Nasal Cannula 05/13/22 02:00 75 20 137/72 88 L Room Air 05/13/22 00:45 84 20 132/64 95 Room Air O2 Flow Rate 05/13/22 08:04 05/13/22 04:15 2 05/13/22 04:15 2 05/13/22 04:02 2 05/13/22 04:01 2 05/13/22 02:09 2 05/13/22 02:00 05/13/22 00:45 Laboratory Results 05/13/22 06:43 05/13/22 06:43 PG Care Time/CCT Total # of Minutes Spent Total Time Spent with Patient: Total time spent is greater than 50% in coordination of care (as documented) at patient's floor/unit and/or counseling patient: Coding Level of Care Code 99857 Subseq Hosp Care Lvl 3 Diagnoses Fall W19.XXXA Atrial fibrillation I48.91 Atrial fibrillation type: unspecified Severe sleep apnea G47.30 Depression with anxiety F41.8 Hypertension I10 Hypertension type: essential hypertension Elevated creatine kinase R74.8 (1) Atrial fibrillation Atrial fibrillation type: unspecified Qualified Code(s): I48.91 - Unspecified atrial fibrillation (2) Hypertension Hypertension type: essential hypertension Qualified Code(s): I10 - Essential (primary) hypertension
[2022-05-13] MEDS: ALPRAZolam 0.5 MG TABLET PO PRN ×2 (12:10→21:06)
--- NOTE | 2022-05-13 13:39 | Electrocardiogram Report ---
Test Reason : Blood Pressure : / mmHG Vent. Rate : 079 BPM Atrial Rate : 079 BPM P-R Int : 154 ms QRS Dur : 136 ms QT Int : 422 ms P-R-T Axes : 032 -18 -30 degrees QTc Int : 483 ms Normal sinus rhythm Right bundle branch block Abnormal ECG When compared with ECG of 09-AUG-2020 13:41, Inverted T waves have replaced nonspecific T wave abnormality in Inferior leads Confirmed by Camilo Mejia ([id number]) on 05/13/2022 1:38:53 PM Referred By: REFERRED SELF Confirmed By:Camilo Mejia
[2022-05-13] MEDS: ACETAMINOPHEN 325 MG TAB PO PRN ×2 (14:17→19:54)
[2022-05-13] MEDS: RIVAROXABAN 20 MG TAB PO SCH (16:38)
[2022-05-14 06:12] LABS: Basophils # (auto) 0.03 K/uL (0-0.2); Basophils % (auto) 0.4 %; Eosinophils # (auto) 0.26 K/uL (0-0.50); Eosinophils % (auto) 3.5 %; Hematocrit (blood only) 37.5 % (40.1-51.0); Immature Granulocytes # (auto) 0.03 K/uL (0.00-0.02); Immature Granulocytes % (auto) 0.4 %; Lymphocytes # (auto) 1.25 K/uL (1.2-3.4); Mean Corpuscular Hemoglobin 29.7 pg (25.0-34.0); Mean Corpuscular Volume 92.8 fL (80.0-100.0); Mean Platelet Volume 8.7 fL (9.4-12.4); Monocytes # (auto) 0.85 K/uL (0.24-0.82); Monocytes % (auto) 11.5 %; Neutrophils # (auto) 4.94 K/uL (1.4-6.5); Neutrophils % (auto) 67.2 %; Platelet Count 188 K/uL (130-400); RDW Coefficient of Variation 13.6 % (11.5-14.5); RDW Standard Deviation 46.1 fL (36.4-46.3); Red Blood Count 4.04 M/uL (4.63-6.08); White Blood Count 7.36 K/ul (4.8-10.8)
[2022-05-14 07:00] LABS: Albumin Level 2.7 gm/dl (3.4-5.0); BUN Creatinine Ratio 19.8 (10-20); Bilirubin Direct 0.1 mg/dl (0-0.2); Bilirubin,Total 0.8 mg/dl (0.2-1.0); Calcium 8.2 mg/dl (8.5-10.1); Creatinine Clr Calc Pharmacy 79.7 ml/min; Est GFR (African American) 92.6 ml/min; Est GFR (Non-African American) 79.9 ml/min; Potassium 4.2 mmol/L (3.5-5.1); Total Protein 5.9 gm/dl (6.0-8.3)
--- NOTE | 2022-05-14 08:08 | Hospitalist Progress Note ---
Date of Service May 14, 2022 Assessment & Plan (1) Rhabdomyolysis: Plan: Admitted with repeated falls at home over past several days CK 3468 on admit, got 2L LR thus far --> CK 1086. Also with ANTHONY with Cr 1.4, improved Will order additional LR @ 100cc/hr for 1500cc Reported improvement in thigh cramping over past several days Encourage PO intake -- patient reports issues with dehydration at baseline Check orthostatics VS (2) Acute kidney injury: Plan: Cr elevated to 1.4 on admit with baseline ~1 IVF provided, Cr improved to 0.91 (3) Acute diverticulitis: Plan: Noted acute sigmoid diverticulitis with related walled off small abscess Start IV Zosyn Okay to continue diet for now as he is tolerating has no abdominal pains Leukocytosis improved on its own before antibiotics are even started Appreciate general surgery consultation Plan to switch to oral antibiotics on discharge and repeat CT scan in 2 to 3 weeks Would need a colonoscopy in 6 weeks as an outpatient (4) Fall: Plan: Patient with frequent falls over the last several days. No fracture seen on chest x-ray. Trazodone has been discontinued indefinitely as this may be the culprit but note also on alprazolam 0.5mg BID prn at home as well UA/cx pending TSH wnl Also will check B12 --> LOW normal, IM replacement ordered while inpatient, continue PO at discharge Check Lyme given pericardial effusion on CT chest on admit, check ECHO Check orthostatic VSs, not obtained 05/13 PT/OT consulted (5) Atrial fibrillation: Plan: Rate controlled, paroxysmal. Follows with Dr Coombs. Flecainide prn per last notes for "episodes lasting 15 minutes". Denied palpitations prior to "fall" which he indicated was him missing the edge of the bed sitting down -Continue Metoprolol, -Continue Xarelto (6) Severe sleep apnea: Plan: Chronic -CPAP qHS (7) Depression with anxiety: Plan: Chronic. Patient recently discontinued Welbutrin. Trazodone has now been discontinued permanently -Continue Buspirone 5mg po daily -Continue Sertraline 25mg po daily -On alprazolam as needed-recommend weaning off of this due to history of falls (8) Hypertension: Plan: Blood pressure controlled -Continue Metoprolol 50mg po daily -Monitor Ppx - Continue Xarelto Code - Full (9) Generalized weakness: Plan: reported improving (10) Dehydration: Plan Eventual discharge to home if OT and PT assessments agree Admission and Anticipated Discharge Date Admission Date: May 13, 2022 Supervising Physician Co-Signing Physician Notes PA Supervision Note: I did not personally see or examine the patient today, but I verified all alonzo points of KATIE Gibson's assessment and plan with the following exceptions/additions: None Subjective Eval this morning, sitting up in chair, no acute distress. VERY hard of hearing. Reported he fell at home ONCE and missed sitting down on the edge of his bed when he went down to the ground and couldn't get up. Discussed dehydration, he states he has issues with this chronically at baseline as if he drinks more he has to pee more. Denied increased frequency/burning. Stating some tightness/cramping to his thighs but improved from days prior. Discussed rehab - he was agreeable. Wondering when he would be going but then got angry thinking he would be going there for years. Assured only for short term rehab to improve strength and hopefully home after. Will alert CM to see about bed/facilities available. No fever/chills, chest pain, shortness of breath. Review of Systems Review of Systems: All systems reviewed & are unremarkable except as noted in HPI & below Physical Exam Physical Exam: General- WN/WD male sitting up in chair, NAD alert to person/place/time HEENT: head normocephalic, atraumatic, mm slightly dry, trachea midline Resp: CTAB, diminished in the bases, no w/c, on room air CV: RRR (quiet heart sounds), no m/g, no edema or calf tenderness GI: +BS, soft, nontender : no martin MSK/Neuro: moves all extremities, thighs slightly tender to palpation bilaterally anteriorly (reported improved from days prior), NVI, no focal d eficit, weakness 4/5 bilateral LE Psych: AOx3 Skin: warm, dry Results & Data Results & Data ([facility]) Vital Signs (Past 12 Hours) Vital Signs Temp Pulse Pulse Resp BP Pulse Ox O2 Del Method 05/14/22 06:59 36.5 C 65 16 157/73 H 96 05/14/22 02:17 85 24 96 05/13/22 22:19 29 H 05/13/22 23:55 36.4 C L 85 18 146/74 H 96 CPAP 05/13/22 21:00 70 22 95 O2 Flow Rate 05/14/22 06:59 05/14/22 02:17 2 05/13/22 22:19 05/13/22 23:55 05/13/22 21:00 2 Laboratory Results 05/14/22 05/14/22 05/14/22 Range/Units 08:09 06:00 06:00 WBC 7.36 (4.8-10.8) K/ul RBC 4.04 L (4.63-6.08) M/uL Hgb 12.0 L (14.0-18.0) g/dl Hct 37.5 L (40.1-51.0) % MCV 92.8 (80.0-100.0) fL MCH 29.7 (25.0-34.0) pg MCHC 32.0 (32.0-36.0) g/dL RDW Std Deviation 46.1 (36.4-46.3) fL RDW Coeff of Real 13.6 (11.5-14.5) % Plt Count 188 (130-400) K/uL MPV 8.7 L (9.4-12.4) fL Immature Gran % (Auto) 0.4 % Neut % (Auto) 67.2 % Lymph % (Auto) 17.0 % [place] % (Auto) 11.5 % Eos % (Auto) 3.5 % Baso % (Auto) 0.4 % Neut # (Auto) 4.94 (1.4-6.5) K/uL Lymph # (Auto) 1.25 (1.2-3.4) K/uL [place] # (Auto) 0.85 H (0.24-0.82) K/uL Eos # (Auto) 0.26 (0-0.50) K/uL Baso # (Auto) 0.03 (0-0.2) K/uL Immature Gran # (Auto) 0.03 H (0.00-0.02) K/uL Sodium 138 (136-145) mmol/L Potassium 4.2 (3.5-5.1) mmol/L Chloride 107 (98-107) mmol/L Carbon Dioxide 26 (21-32) mmol/L Anion Gap 5 (3-11) BUN 18 (6-23) mg/dl Creatinine 0.91 (0.6-1.4) mg/dl Est Cr Clr Drug Dosing 79.7 ml/min Est GFR ( Amer) 92.6 ml/min Est GFR (Non-Af Amer) 79.9 ml/min BUN/Creatinine Ratio 19.8 (10-20) Glucose 77 (70-99(Fasting)) mg/dl Calcium 8.2 L (8.5-10.1) mg/dl Total Bilirubin 0.8 (0.2-1.0) mg/dl Direct Bilirubin 0.1 (0-0.2) mg/dl AST 48 H (13-39) U/L ALT 24 (7-52) U/L Alkaline Phosphatase 43 (34-104) U/L Total Creatine Kinase 1086 H (30-223) U/L Total Protein 5.9 L (6.0-8.3) gm/dl Albumin 2.7 L (3.4-5.0) gm/dl Vitamin B12 293 (180-914) pg/ml PG Care Time/CCT Total # of Minutes Spent Total Time Spent with Patient: Total time spent is greater than 50% in coordination of care (as documented) at patient's floor/unit and/or counseling patient: Coding Level of Care Code 19286 Subseq Hosp Care Lvl 3 Diagnoses Rhabdomyolysis M62.82 Acute kidney injury N17.9 Acute diverticulitis K57.92 Fall W19.XXXA Atrial fibrillation I48.91 Atrial fibrillation type: unspecified Severe sleep apnea G47.30 Depression with anxiety F41.8 Hypertension I10 Hypertension type: essential hypertension Generalized weakness R53.1 Dehydration E86.0 (1) Atrial fibrillation Atrial fibrillation type: unspecified Qualified Code(s): I48.91 - Unspecified atrial fibrillation (2) Hypertension Hypertension type: essential hypertension Qualified Code(s): I10 - Essential (primary) hypertension
[2022-05-14] MEDS: CLOTRIMAZOLE 1% CR 15 GM TUBE TOP SCH ×2 (08:18→20:20)
[2022-05-14] MEDS: busPIRone 5 MG TAB PO SCH (08:18)
[2022-05-14] MEDS: FINASTERIDE 5 MG TAB PO SCH (08:18)
[2022-05-14] MEDS: METOPROLOL SUCC 50MG EXT REL TAB PO SCH (08:18)
[2022-05-14] MEDS: SERTRALINE HCL 50 MG TABLET PO SCH (08:18)
[2022-05-14] MEDS: LACTATED RINGER'S 1,000 ML IV SCH ×2 (08:22→17:11)
[2022-05-14] MEDS: CYANOCOBALAMIN 1000 MCG/ML VIAL IM SCH (11:50)
[2022-05-14 12:07] LABS: Appearance Urine Clear (Clear); Bilirubin Urine Negative (Negative); Blood Urine Negative (Negative); Color Urine Orange; Glucose Urine UA Negative (Negative); Ketones Urine Negative (Negative); Leukocyte Esterase Urine Negative (Negative); Nitrite Urine Negative (Negative); Protein Urine Negative (Negative); Specific Gravity Urine 1.008 (1.000-1.030); Urobilinogen Urine Negative (Negative)
[2022-05-14] MEDS: ALPRAZolam 0.5 MG TABLET PO PRN ×2 (12:48→20:29)
[2022-05-14] MEDS ORDERED: PERFLUTREN LIPID MICROSPHERE (DEFINITY) IV ONE (13:14)
--- NOTE | 2022-05-14 14:31 | XCELERA ---
[id number]
[2022-05-14] MEDS ORDERED: PIPERACILLIN/TAZOBACTAM 3.375 GM in DEXTROSE 5% 100 ML IV STA (14:35)
--- NOTE | 2022-05-14 15:15 | Surgery Consultation ---
Date of Consultation May 14, 2022 Assessment & Plan (1) Acute diverticulitis: This is a 81y M with a PMH of afib on xarelto, hard of hearing, depression, BPH, HTN, AMARI who presented to the [facility] on 05/12 because of falls at home, found down by his family. Surgery was consulted today as the CT scan of his abdomen revealed acute sigmoid diverticulitis with localized perforation and a small walled off abscess. Abscess measuring 2.9 cmx1.8 cm. On admission WBC 12, now 7.3. He has been started on IV zosyn today. He is afebrile. Denies any abdominal complaints since admission, no n/v. Tolerating a diet. Passing flatus. On exam abdomen is soft and non tender. As patient has been on a diet without issues I believe it is okay to continue for now (agree with low fiber). Continue on course of IV abx while in house, will need to transition to PO at dispo to complete course. Should he deteriorate would back down to NPO and could consider repeat CT scan to evaluate for worsening diverticulitis or enlarging abscess. He appears stable, therefore no indication for surgical intervention at this time. We will continue to follow. Supervising Physician Co-Signing Physician Notes Dr. Yu with above note-patient does not have any abdominal complaints- findings of diverticulitis with possible abscess Almost an incidental finding. His abdomen is soft with normal active bowel sounds and no tenderness His white blood cell count is normal. I think it would be prudent to continue him on antibiotics Which can be switched to p.o. for 2 weeks-likely Augmentin. I would not hold up his discharge for IV antibiotics Can follow-up with a CT scan in 2 to 3 weeks to assess for changes unless clinical picture changes sooner History of Present Illness Attending Physician: Rubia Dodge MD History of Present Illness This is a 81y M with a PMH of afib on xarelto, hard of hearing, depression, BPH, HTN, AMARI who presented to the [facility] on 05/12 because of falls at home, found down by his family. The patient was worked up in the ER and there were no traumatic injuries found. CT scan of his abdomen revealed acute sigmoid diverticulitis with localized perforation and a small walled off abscess. No free air is seen. Surgery was consulted today due to these findings. Patient reports no prior history of diverticulitis. Denies fevers/chills, nausea/vomiting, or abdominal pain. Says he has been eating well without issues. Says he is passing flatus. Last BM was on Saturday and says it is normal for him to go a couple days without having a BM. Allergies Allergy/AdvReac Type Severity Reaction Status Date / Time codeine AdvReac Mild NAUSEA Verified 05/12/22 23:38 amoxicillin [From Augmentin] AdvReac "Made me Verified 05/12/22 23:38 feel terrible" clavulanic acid AdvReac "Made me Verified 05/12/22 23:38 [From Augmentin] feel terrible" Home Medications Medication Instructions Recorded Confirmed Type rivaroxaban 20 mg tablet (Xarelto) 20 mg PO QDD 09/24/19 05/12/22 History diclofenac sodium 1 % topical gel 4 g topical QID PRN Joint Pain 09/11/21 05/12/22 Rx #100 grams finasteride 5 mg tablet 5 mg PO DAILY #90 tabs 10/05/21 05/12/22 Rx metoprolol succinate 50 mg 50 mg PO DAILY #90 tabs 11/22/21 05/12/22 Rx tablet,extended release 24 hr betamethasone dipropionate 0.05 % 1 applic topical DAILY PRN skin 01/16/22 Rx topical ointment irritation #15 grams metronidazole 0.75 % topical cream 1 applic topical BID PRN Rash #45 01/16/22 05/12/22 Rx grams clotrimazole 1 % topical cream 1 applic topical BID 4 weeks #28 01/22/22 05/12/22 Rx grams flecainide 100 mg tablet 300 mg PO PRN #30 tabs 01/26/22 05/12/22 Rx alprazolam 0.5 mg tablet 0.5 mg PO BID PRN Anxiety #60 tabs 05/03/22 05/12/22 Rx buspirone 5 mg tablet 5 mg PO DAILY #90 tabs 05/07/22 05/12/22 Rx sertraline 25 mg tablet 25 mg PO DAILY #30 tabs 05/11/22 05/12/22 Rx trazodone 100 mg tablet 100 mg PO HS 05/12/22 05/12/22 History cyanocobalamin (vitamin B-12) 1,000 mcg PO DAILY #30 caps 05/14/22 Rx 1,000 mcg capsule Patient History Medical History (Updated 05/14/22 @ 15:37 by Balbina Dong PA-C) Adenomatous polyp of colon Atrial fibrillation Atrial fibrillation with RVR Atrial flutter Status post ablation of typical isthmus dependent atrial flutter July 2017 Atrial flutter with rapid ventricular response Cervical spondylosis Depression with anxiety Edema History of cardioversion 09/25/19 Dr. Butch Coombs Hyperlipidemia Hypertension Hypocalcemia Multiple pulmonary nodules Nausea Nocturnal hypoxia Obesity Phimosis Sleep apnea Spondylosis without myelopathy or radiculopathy, cervical region Tinnitus Vitamin D deficiency Surgical History History of ankle surgery History of hernia repair (~1990) History of knee surgery (~2005) replacement Family History Mother , age 83 Parkinson's disease Father Kidney stones FH: deafness or hearing loss Stroke, Onset Age: 89 Denies family history of Ovarian cancer Prostate cancer Myocardial infarction Breast cancer Bleeding disorder Colorectal cancer Social History Smoking Status: Never smoker Age Started Using Tobacco: 19; Age Quit Using Tobacco: 37; Cigarettes Per Day: 10/ day; Second Hand Exposure: No; Hx Alcohol Use: No Hx Substance Use: No Preferred Language: Citizen Of [place] Communication Ability: Effective Visual Impairment: No Limitations Hearing Ability: Hard of Hearing [employer]visor [employer] Required: No Beliefs That Will Affect Care: None marital status: / Current Living Situation: Alone current occupational status: retired Feels Safe at Home: Yes Childhood Exposure to Second-Hand Smoke: Yes Dental Care, Regularly: Yes Physical Activity Frequency: Does not Exercise Seatbelt Use: always Sunscreen Use: No Do you think of yourself as: straight/heterosexual Assistive Devices: Cane Review of Systems Constitutional: + weakness; no fever and no chills Gastrointestinal: no abdominal pain, no nausea, no vomiting and no change in bowel habits Physical Exam Physical Exam: awake/alert, no acute distress Respiratory: normal respiratory effort Gastrointestinal (Abdomen): Inspection/Auscultation: abdomen not distended Percussion/Palpation: abdomen soft; abdomen nontender Results & Data ([facility]) Vital Signs (Past 12 Hours) Vital Signs Temp Pulse Resp BP Pulse Ox O2 Del Method 05/14/22 08:05 Room Air 05/14/22 06:59 36.5 C 65 16 157/[address] abd pelvis IV con only CLINICAL HISTORY: Status post fall with pain. Patient on blood thinners. COMPARISON STUDY: 01/19/2018 CT DOSE: TECHNIQUE: Standard CT of the Abdomen and Pelvis was performed with IV contrast. A dose lowering technique was utilized adhering to the principles of ALARA. Contrast Volume: Optiray 320, 95 ml. The patient did not receive oral contrast. FINDINGS: Lung base: There is bibasilar atelectasis, left greater than right. Abdominal cavity: There is no evidence for abdominal mass, adenopathy or ascites. Postsurgical changes are seen in the right inguinal fossa related to previous hernia repair. Liver: There is homogeneous attenuation of the liver parenchyma. There is no evidence for enhancing mass lesion. Spleen: There is homogeneous attenuation of the splenic parenchyma. There is no enhancing mass lesion. Pancreas: There is homogeneous attenuation of the pancreatic parenchyma. There is no evidence for mass lesion or peripancreatic fluid collection. Gall Bladder: The gallbladder is contracted with no gross evidence for cholelithiasis. Adrenal glands: The adrenal glands are normal in size and attenuation. There is no evidence for enhancing mass lesion. Kidneys: There is homogeneous attenuation of the renal parenchyma bilaterally. There is no evidence for renal calculus or hydronephrosis. There is no evidence for enhancing mass. Bowel: There is acute sigmoid diverticulitis with perisigmoidal inflammatory changes present. There is sigmoidal fluid collections also seen measuring approximately 2.9 x 1.8 cm characteristic of a small diverticular abscess. There is no evidence for free air. The remaining bowel loops are normally placed within the abdomen and pelvis without evidence for dilatation or obstruction. There is no evidence for mass lesion. Bladder: The bladder is within normal limits with no evidence for focal mass, calculus or diverticulum. : There is no evidence for pelvic mass or adenopathy. There is no evidence for pelvic ascites. Vasculature: There is no evidence for aneurysmal dilatation of the abdominal aorta. Osseous structures: There is no acute osseous pathology. IMPRESSION: 1. Acute sigmoid diverticulitis with localized perforation and a small walled off abscess. No free air is seen. ACT 112: Negative or not required by law. Electronically signed by: Randall Tran M.D. 05/13/2022 8:22 AM Dictated:05/13/22813 Transcribed: 05/13/22813 PG Care Time/CCT Total # of Minutes Spent Total Time Spent with Patient: Total time spent is greater than 50% in coordination of care (as documented) at patient's floor/unit and/or counseling patient: Coding Level of Care Code 79780 Initial Inpt Care Lvl 1 Diagnoses Acute diverticulitis K57.92
[2022-05-14] MEDS: RIVAROXABAN 20 MG TAB PO SCH (15:52)
[2022-05-14 17:30] LABS: Lyme Ab IgG w/WB Rflx Negative (Negative); Lyme Ab IgM w/WB Rflx Negative (Negative)
[2022-05-14] MEDS: PIPERACILLIN/TAZOBACTAM 3.375 GM in DEXTROSE 5% 100 ML IV SCH (20:14)
[2022-05-15] MEDS: LACTATED RINGER'S 1,000 ML IV SCH (03:55)
[2022-05-15] MEDS: PIPERACILLIN/TAZOBACTAM 3.375 GM in DEXTROSE 5% 100 ML IV SCH (04:23)
--- NOTE | 2022-05-15 07:00 | Surgery Progress Note ---
Date of Service May 15, 2022 Assessment & Plan (1) Acute diverticulitis: Plan: Continue IV antibiotics as long as he is in the hospital Transition to p.o. Would not hold discharge and would continue his antibiotics for 2 weeks Likely repeat his CAT scan in 2 to 3 weeks Can follow-up in office as needed Admission and Anticipated Discharge Date Admission Date: May 13, 2022 Subjective Patient is stable No abdominal complaints Review of Systems Review of Systems: All systems reviewed & are unremarkable except as noted in HPI & below Physical Exam Physical Exam: awake/alert, no acute distress Respiratory: normal respiratory effort Gastrointestinal (Abdomen): Inspection/Auscultation: abdomen not distended Percussion/Palpation: abdomen soft; abdomen nontender Results & Data ([facility]) Vital Signs (Past 12 Hours) Vital Signs Temp Pulse Resp BP Pulse Ox O2 Del Method O2 Flow Rate 05/14/22 19:50 Room Air, CPAP 05/14/22 23:00 23 93 2 05/14/22 21:42 36.6 C 66 20 179/87 H 94 Room Air PG Care Time/CCT Total # of Minutes Spent Total Time Spent with Patient: Total time spent is greater than 50% in coordination of care (as documented) at patient's floor/unit and/or counseling patient: Coding Level of Care Code 16028 Inpt Consult Level 3 Diagnoses Acute diverticulitis K57.92
[2022-05-15] MEDS: METOPROLOL SUCC 50MG EXT REL TAB PO SCH (07:30)
[2022-05-15] MEDS: SERTRALINE HCL 50 MG TABLET PO SCH (07:30)
[2022-05-15] MEDS: busPIRone 5 MG TAB PO SCH (07:30)
[2022-05-15] MEDS: FINASTERIDE 5 MG TAB PO SCH (07:31)
[2022-05-15] MEDS: CLOTRIMAZOLE 1% CR 15 GM TUBE TOP SCH (07:31)
[2022-05-15] MEDS: CYANOCOBALAMIN 1000 MCG/ML VIAL IM SCH (07:32)
[2022-05-15 07:41] LABS: Basophils # (auto) 0.04 K/uL (0-0.2); Basophils % (auto) 0.6 %; Eosinophils # (auto) 0.24 K/uL (0-0.50); Eosinophils % (auto) 3.4 %; Hematocrit (blood only) 37.1 % (40.1-51.0); Hemoglobin 12.1 g/dl (14.0-18.0); Immature Granulocytes # (auto) 0.02 K/uL (0.00-0.02); Immature Granulocytes % (auto) 0.3 %; Lymphocytes # (auto) 1.25 K/uL (1.2-3.4); Lymphocytes % (auto) 17.5 %; Mean Corpuscular Hemoglobin 29.4 pg (25.0-34.0); Mean Corpuscular Hgb Conc 32.6 g/dL (32.0-36.0); Monocytes # (auto) 0.98 K/uL (0.24-0.82); Monocytes % (auto) 13.7 %; Neutrophils # (auto) 4.61 K/uL (1.4-6.5); Neutrophils % (auto) 64.5 %; Platelet Count 230 K/uL (130-400); RDW Coefficient of Variation 13.5 % (11.5-14.5); RDW Standard Deviation 44.7 fL (36.4-46.3); Red Blood Count 4.12 M/uL (4.63-6.08); White Blood Count 7.14 K/ul (4.8-10.8)
--- NOTE | 2022-05-15 07:48 | Discharge Summary ---
Date of Service May 15, 2022 Admission HPI Per Admitting Provider Zackery Bach is a pleasant 81yo male presenting with his son and daughter with frequent falls - 3 falls in the last two days. Two nights ago patient got up to use the bathroom during the night and fell to the floor. He does not recall if he tripped. He was found on the floor by family in the AM. Yesterday patient fell in the garage and was unable to get up. His grandson found him down on the garage floor. Patient reports that he trips over things. He denies chest pain, palpitations, dizziness, syncope, LOC or head trauma. No additional complaints of fever, chills, abdominal pain, nausea or vomiting. Family states that patient has not been eating well for the last several days and does not drink much water. He lives alone in a two story home. Has family check on him frequently. Up until recently he was fairly independent, able to ambulate with occasional use of a cane. Son reports that patient has some difficulty rising from a chair on occasion. Admission Exam Per Admitting Provider General: patient resting comfortably, NAD, non-toxic in appearance, hard of hearing Skin: warm, dry, scattered bruising and contusions on forearms, ,hand and bilateral knees, redness of right foot with bruising HEENT: NC/AT, PERRL, EOMI, anicteric sclera, conjunctiva without injection, external ear normal to inspection and nontender, nares patent, moist mucus membranes, dentition intact, no oropharyngeal lesions, neck supple, trachea midline, no LAD, no thyromegaly, no JVD Heart: +S1/S2, regular, no m/r/g Lungs: equal air entry bilaterally, no rales/rhonchi/wheezes Abd: +BS, soft, NT/ND, no masses/organomegaly/ascites Ext: warm, 2+ pulses in UE/LE bilaterally, no clubbing/cyanosis or edema Neuro: nonfocal, patient AA&O x 4, speech intact, no facial droop, moving all extremities on command with equal strength 5/5, hard of hearing Principal Diagnosis Weakness, Diverticulitis, Rhabdomyolysis, Fall Discharge Exam General- WN/WD male sitting up in chair, NAD alert to person/place/time HEENT: head normocephalic, atraumatic, mmm, trachea midline VERY HARD OF HEARING, hearing aide in place Resp: CTAB, diminished in the bases, no w/c, on room air CV: RRR , no m/g, no edema or calf tenderness GI: +BS, soft, nontender : no martin MSK/Neuro: moves all extremities, thighs slightly tender to palpation bilaterally anteriorly (reported improved from days prior), NVI, no focal deficit, weakness 4/5 bilateral LE Psych: AOx3 Skin: warm, dry Discharge Data Allergies Allergy/AdvReac Type Severity Reaction Status Date / Time codeine AdvReac Mild NAUSEA Verified 05/12/22 23:38 amoxicillin [From Augmentin] AdvReac "Made me Verified 05/12/22 23:38 feel terrible" clavulanic acid AdvReac "Made me Verified 05/12/22 23:38 [From Augmentin] feel terrible" Consultations 05/13/22 01:51 ED Decision to Admit Stat 05/14/22 14:34 Consult General Surgery Routine Ordered Studies Abdomen/Pelvis CT 05/12/22 23:07 CT abd pelvis IV con only CLINICAL HISTORY: Status post fall with pain. Patient on blood thinners. COMPARISON STUDY: 01/19/2018 CT DOSE: TECHNIQUE: Standard CT of the Abdomen and Pelvis was performed with IV contrast. A dose lowering technique was utilized adhering to the principles of ALARA. Contrast Volume: Optiray 320, 95 ml. The patient did not receive oral contrast. FINDINGS: Lung base: There is bibasilar atelectasis, left greater than right. Abdominal cavity: There is no evidence for abdominal mass, adenopathy or ascites. Postsurgical changes are seen in the right inguinal fossa related to previous hernia repair. Liver: There is homogeneous attenuation of the liver parenchyma. There is no evidence for enhancing mass lesion. Spleen: There is homogeneous attenuation of the splenic parenchyma. There is no enhancing mass lesion. Pancreas: There is homogeneous attenuation of the pancreatic parenchyma. There is no evidence for mass lesion or peripancreatic fluid collection. Gall Bladder: The gallbladder is contracted with no gross evidence for cholelithiasis. Adrenal glands: The adrenal glands are normal in size and attenuation. There is no evidence for enhancing mass lesion. Kidneys: There is homogeneous attenuation of the renal parenchyma bilaterally. There is no evidence for renal calculus or hydronephrosis. There is no evidence for enhancing mass. Bowel: There is acute sigmoid diverticulitis with perisigmoidal inflammatory changes present. There is sigmoidal fluid collections also seen measuring approximately 2.9 x 1.8 cm characteristic of a small diverticular abscess. There is no evidence for free air. The remaining bowel loops are normally placed within the abdomen and pelvis without evidence for dilatation or obstruction. There is no evidence for mass lesion. Bladder: The bladder is within normal limits with no evidence for focal mass, calculus or diverticulum. : There is no evidence for pelvic mass or adenopathy. There is no evidence for pelvic ascites. Vasculature: There is no evidence for aneurysmal dilatation of the abdominal aorta. Osseous structures: There is no acute osseous pathology. IMPRESSION: 1. Acute sigmoid diverticulitis with localized perforation and a small walled off abscess. No free air is seen. ACT 112: Negative or not required by law. Electronically signed by: Randall Tran M.D. 05/13/2022 8:[address] 05/12/22 23:07 CT SCAN OF THE CERVICAL SPINE CLINICAL HISTORY: Fall. Trauma COMPARISON STUDY: Cervical spine radiographs dated 07/22/2019. TECHNIQUE: CT scan of the cervical spine is performed from the skull base to the upper thoracic spine. Images are reviewed in the axial, sagittal, and coronal planes. IV contrast was not administered for this examination. A dose lowering technique was utilized adhering to the principles of ALARA. CT DOSE: 4030.49 mGy.cm FINDINGS: Skeletal structures: The skeletal structures are osteopenic. There is no evidence of fracture or subluxation involving the cervical spine. Vertebral body height is maintained. There is minimal anterolisthesis at C3-C4. Alignment is otherwise preserved. There is straightening of the cervical lordosis. Anterior osteophytes are seen throughout. The odontoid process and lateral masses are intact. The atlantoaxial articulation is preserved noting advanced productive degenerative change. The spinous processes appear intact. There is moderate multilevel cervical spondylosis. Uncovertebral and facet arthropathy contribute sterile foraminal narrowing at several levels. Intervertebral discs: There is advanced disc space narrowing seen at all levels between C4-C5 and C7-T1. There is associated endplate sclerosis. Central canal: Posterior disc osteophyte complexes are seen at all levels between C3-C4 and C7-T1. This likely contributes to multilevel acquired compromise of the central canal. Soft tissues: The prevertebral and paraspinous soft tissues are within normal limits. Atherosclerotic calcification is noted in the carotid bulbs. The thyroid gland is enlarged and heterogeneous, extending into the superior mediastinum on the right. Calvarium: The visualized calvarium at the skull base appears intact. Brain parenchyma: Partially visualized brain parenchyma at the skull base is within normal limits. Sinuses and mastoids: The visualized paranasal sinuses are clear. The mastoid air cells are well pneumatized. Lung apices: Clear as visualized. IMPRESSION: 1. There is no evidence of fracture or subluxation involving the cervical spine. 2. Osteopenia and spondylotic change as above. ACT 112: Negative or not required by law. Electronically signed by: Gavin Guillen M.D. 05/13/2022 7:[address] 05/12/22 23:07 CT chest diagnostic w con CLINICAL HISTORY: Status post fall with pain. Patient on blood thinners. COMPARISON STUDY: 06/12/2020 CT DOSE: TECHNIQUE: Standard CT of the Chest was performed with IV contrast. A dose lowering technique was utilized adhering to the principles of ALARA. Contrast Volume: Optiray 320, 95 ml FINDINGS: Airway: The airway is clear. No endobronchial lesion is identified. Lungs: There is bibasilar atelectasis, left greater than right. The lungs are clear of acute alveolar opacities, air bronchograms or pulmonary nodules. Pleura: There is no evidence for pleural effusion. There is no evidence for pneumothorax. Mediastinum: There is no evidence for pathologic adenopathy. The heart size is within normal limits. The thoracic aorta is within normal limits. Mild pericardial effusion/thickening is again seen and unchanged. Osseous structures: There is no acute osseous pathology. IMPRESSION: 1. No acute chest disease. There is no significant interval change. ACT 112: Negative or not required by law. Electronically signed by: Randall Tran M.D. 05/13/2022 8:[address] 05/12/22 23:07 CT facial bones wo con CLINICAL HISTORY: Status post fall with injury and pain. Patient on blood thinners. COMPARISON STUDY: No previous studies for comparison. CT DOSE: TECHNIQUE: Standard CT of the Facial Bones and Orbits was performed without IV contrast. A dose lowering technique was utilized adhering to the principles of ALARA. FINDINGS: Bones: There are no displaced fractures identified. The orbital rims are intact bilaterally. The zygomatic arches are intact bilaterally. Nasal bones are intact. The nasal septum is in the midline. The mandible and maxilla are intact. Paranasal sinuses: The adjacent paranasal sinuses are clear. Soft tissues: There is no focal soft tissue swelling. IMPRESSION: 1. No acute abnormality. ACT 112: Negative or not required by law. Electronically signed by: Randall Tran M.D. 05/13/2022 8:[address] 05/12/22 23:07 CT SCAN OF THE BRAIN WITHOUT IV CONTRAST CLINICAL HISTORY: Fall. Trauma. COMPARISON STUDY: CT of the brain dated 11/01/2018. TECHNIQUE: Unenhanced axial CT scan of the brain is performed from the vertex to the skull base. A dose lowering technique was utilized adhering to the principles of ALARA. FINDINGS: Brain parenchyma: There is age-related involutional change noting mild subcortical and periventricular microangiopathic disease. There is no hemor rhage, mass effect, or evidence of acute territorial ischemia by CT criteria. Garcia-white matter differentiation is preserved. No extra-axial fluid collection is seen. Ventricles, sulci, cisterns: Prominent secondary to involutional change. Intracranial vasculature: There is atherosclerotic calcification of the cavernous carotid and vertebral arteries. Calvarium: The skeletal structures are osteopenic. No depressed calvarial fracture is identified. Sinuses and mastoids: The visualized paranasal sinuses are clear. The mastoid air cells are well pneumatized. Orbits: The bony orbits are grossly intact. IMPRESSION: There is no hemorrhage, mass effect, or evidence of acute territorial ischemia by CT criteria. ACT 112: Negative or not required by law. Electronically signed by: Gavin Guillen M.D. 05/13/2022 7:29 AM Pelvis X-Ray 05/12/22 23:07 XR pelvis 1-2V routine CLINICAL HISTORY: Status post fall with bilateral hip pain. COMPARISON STUDY: No previous studies for comparison. TECHNIQUE: [2 AP views of the pelvis. FINDINGS: The bones are osteopenic. There is no evidence for an acute fracture. There is mild to moderate narrowing of the hip joint spaces bilaterally. The bones are in anatomic alignment. The SI joints are intact bilaterally. The remaining visualized bones of the pelvis are intact. No focal soft tissue abnormalities identified. IMPRESSION: 1. No acute abnormality. 2. Osteopenia and osteoarthritis. ACT 112: Negative or not required by law. Electronically signed by: Randall Tran M.D. 05/12/2022 11:48 PM Elbow X-Ray 05/12/22 23:50 LEFT ELBOW 3 VIEWS CLINICAL HISTORY: Falls. Left elbow injury. FINDINGS: 3 views of the left elbow are obtained. No prior studies are available for comparison at the time of dictation. The skeletal structures are osteopenic. No fracture is seen. Osteoarthritic change is noted at the elbow joint. Enthesophytes arise from the radial head in the lateral humeral epicondyle. There is spurring along the medial and lateral aspect of the joint space. There is no joint effusion. Mild dorsal soft tissue edema is noted. An IV catheter is present in the antecubital fossa. IMPRESSION: No fracture is identified. Electronically signed by: Gavin Guillen M.D. 05/13/2022 7:08 AM Elbow X-Ray 05/12/22 23:50 RIGHT ELBOW 3 VIEWS CLINICAL HISTORY: Fall. Right elbow injury. FINDINGS: 3 views of the right elbow are obtained. No prior studies are available for comparison at the time of dictation. The skeletal structures are osteopenic. No fracture is seen. Moderate to advanced arthritic change is noted at the elbow joint. Enthesophytes arise from the radial head and the humeral epicondyles. No joint effusion is seen. Mild dorsal soft tissue swelling is noted. IMPRESSION: No acute bony abnormality is identified. Electronically signed by: Gavin Guillen M.D. 05/13/2022 7:[address] 05/13/22 00:41 CT SCAN OF THE LEFT ELBOW WITHOUT IV CONTRAST CLINICAL HISTORY: Fall. Left elbow injury. COMPARISON STUDY: Radiographs of the left elbow dated 05/12/2022. TECHNIQUE: CT scan of the left elbow is performed from the distal humeral shaft to the proximal radius and ulna. Images are reviewed in the axial, sagittal, and coronal planes. IV contrast was not administered for this examination. 3-D reformats are created and assessed. A dose lowering technique was utilized adhering to the principles of ALARA. CT DOSE: 976.72 mGy.cm FINDINGS: The skeletal structures are osteopenic. No acute fracture is seen. Degenerative change is seen at the elbow joint there large enthesophytes arise from the lateral humeral epicondyle and radial head. Cystic degenerative change is noted in the capitellum. There is no joint effusion. No lytic or blastic lesion is seen. Dorsal soft tissue edema is noted. The regional musculature is normal as visualized. An IV catheter is noted in the antecubital fossa. IMPRESSION: No fracture is identified. ACT 112: Negative or not required by law. Electronically signed by: Gavin Guillen M.D. 05/13/2022 7:26 AM ECHOCARDIOGRAM LV systolic function is normal. No regional wma. Mild concentric LVH. EF 60- 65%. No significant valvular pathology. Compared to 2019, no change. Hospital Course (1) Acute diverticulitis: On admit for weakness/falls at home. Tx for rhabdomylosis as below Initially not noted on H&P, however patient without abdominal pain but did have elevated WBC on admission with elevated LFTs CTAP report: There is acute sigmoid diverticulitis with perisigmoid inflammatory changes present. There is sigmoidal fluid collections also seen measuring approximately 2.9 x 1.8 cm characteristic of a small diverticular abscess. There is no evidence for free air. Zosyn IV started Tolerated diet, but backed to low fiber General surgery consulted Agreed given improvement clinically and tolerating diet to continue low fiber diet and antibiotics for 2 weeks and repeat imaging in 2-3 weeks (also recommended to patient and family c-scope after healed w/ GI in follow up) Sent rx for Augmentin to complete course. Would need a colonoscopy in 6 weeks as an outpatient -- can be arranged by PCP in f/u Educated if worsening abdominal pain/fever would need to repeat CT scan sooner PT/OT consulted --> recommended rehab. [facility] planned and daughter to transport this afternoon (2) Rhabdomyolysis: Admitted with repeated falls at home over past several days. ALSO WITH reported dehydration, CTAP on admission with acute diverticulitis w/ possible abscess. NO ABDOMINAL PAIN REPORTED, WBC normalized (see tx below) CK 3468 on admit, got 2L LR thus far --> CK 1086 --> 1091 and given 1L prior to discharge with reports improvement in anterior thigh cramping from days prior Also with ANTHONY on admit with Cr 1.4, improved with IVF. Bar Back urine reported UA without evidence for infection Orthostatics negative (checked due to falls) Not on statin (3) Acute kidney injury: Cr elevated to 1.4 on admit with baseline ~1 IVF provided, Cr improved to 0.91 (4) Fall: Patient with frequent falls over the last several days. No fracture seen on chest x-ray. Trazodone has been discontinued indefinitely as this may be the culprit but note also on alprazolam 0.5mg BID prn at home as well UA/cx pending TSH wnl Checked B12 --> LOW normal, IM replacement ordered while inpatient, continue PO at discharge Check Lyme given pericardial effusion on CT chest on admit, check ECHO Lyme negative, ECHO without effusion and does not note any significant valvular pathology Check orthostatic VSs, not obtained 05/13 --NEGATIVE PT/OT consulted-- [facility] (5) Atrial fibrillation: Rate controlled, paroxysmal. Follows with Dr Coombs. Flecainide prn per last notes for "episodes lasting 15 minutes". Denied palpitations prior to "fall" w hich he indicated was him missing the edge of the bed sitting down -Continued Metoprolol, Xarelto (6) Severe sleep apnea: Chronic -CPAP qHS (7) Depression with anxiety: Chronic. Patient recently discontinued Welbutrin--? withdrawal effects initially possible? Trazodone has now been discontinued permanently -Continued Buspirone 5mg po daily, Sertraline 25mg po daily On alprazolam as needed-recommend weaning off of this due to history of falls as outpatient but continued given chronic and discontineud trazodone (8) Hypertension: Continued metoprolol (9) Generalized weakness: (10) Dehydration: Plan discharged to [facility] rehab, updated daughter of plan by phone this morning and she will transport this afternoon Total Time Total Time Spent Total Time Spent (In Minutes): 60 Discharge Plan Discharge Items Patient Disposition: Transfer Inpatient Rehab Fac Reason For Visit: FALLS Discharge Diagnosis: Rhabdomyolysis, Diverticulitis Goals: You have been hospitalized for an acute medical problem. During your stay at [facility], we have made an effort to correct the problem that brought you to the hospital while keeping you as comfortable as possible. Medications were used to bring your condition under control and your discharge instructions will include directions for any medications you should take after leaving the hospital. Please make sure you see your Primary Care Provider as part of your follow up plan. Activity: As commented below Non-emergency contact: Primary Care Provider and Surgeon Call non-emergency contact if: you have any medication questions, your symptoms worsen, your pain is not controlled and you have a fever Follow-up/Referrals: Zackery Queen MD, FACS [Physician] - (For history of diverticulitis) Papo Cleary III, CRNP [Primary Care Provider] - Diet: Heart Healthy and Low Fiber Addtl Attending Provider Instructions: You have been hopspitalized for weakness. You had your B12 level checked which was low normal and replacement has been ordered and you should continue this daily. We also checked an ultrasound of your heart which did not show any valvular heart disease as a cause. You had elevations in a lab called creatinine kinase which was likely elevated from a fall and has improved with IV fluids and hydration. After reviewing imaging on admission, it showed an area of acute diverticulitis with possible abscess that may have occurred as a perforation a couple weeks ago but is contained and evaluation by general surgery recommended you continue antibiotics with Augmentin twice daily for 2 weeks (13 more days) and have repeat imaging at 2-3 weeks with follow up with Dr Queen to ensure resolution. You should continue a low fiber diet in the meantime for two weeks and then advance as tolerated. You may benefit from a colonoscopy once healed up and your PCP can make that referral. Therapy has evaluated you and recommended rehab for strengthening. Please follow up with general surgery in 2 weeks. Follow up with your PCP in the next 7-10 days after discharge. Please return to the ER with any fever/chills, chest pain, shortness of breath, abdominal pain, nausea or vomiting. Take care! Pending Studies at Discharge: No Stand-Alone Forms: My [facility] Skilled Items Patient informed of condition?: Yes DNR: No Discharge Level of Care: Acute rehab Communicable Disease: No Discharge Prognosis: Stable Lines: None Urinary Catheter: No Medications and DC Order Prescriptions: New cyanocobalamin (vitamin B-12) 1,000 mcg capsule 1,000 mcg PO DAILY Qty: 30 0RF amoxicillin-pot clavulanate 875-125 mg tablet 1 tab PO BID 13 Days Qty: 26 0RF Continued metoprolol succinate 50 mg tablet extended release 24 hr 50 mg PO DAILY Qty: 90 3RF clotrimazole 1 % cream 1 applic topical BID 28 Days Qty: 28 0RF flecainide 100 mg tablet 300 mg PO PRN Qty: 30 1RF Rx Instructions: 3 tablets once at the onset of atrial fibrillation buspirone 5 mg tablet 5 mg PO DAILY Qty: 90 3RF sertraline 25 mg tablet 25 mg PO DAILY Qty: 30 2RF diclofenac sodium 1 % gel 4 g topical QID PRN (Reason: Joint Pain) Qty: 100 1RF Rx Instructions: apply to single knee, ankle, foot; for foot includes sole/toes/top of foot metronidazole 0.75 % cream 1 applic topical BID PRN (Reason: Rash) Qty: 45 2RF betamethasone dipropionate 0.05 % ointment 1 applic topical DAILY PRN (Reason: skin irritation) Qty: 15 0RF Rx Instructions: Apply to lesion behind the right ear alprazolam 0.5 mg tablet 0.5 mg PO BID PRN (Reason: Anxiety) Qty: 60 2RF finasteride 5 mg tablet 5 mg PO DAILY Qty: 90 3RF Discontinued trazodone 100 mg tablet 100 mg PO HS No Action Xarelto 20 mg tablet 20 mg PO QDD Qty: 90 3RF Discharge Orders: Discharge Order (Routine); Ordered 05/15/22 Ordered By: Tatianna Gibson Admission Data Admit Date/Time: 05/13/22 02:19 Attending Provider: Casimiro Sheridan Admit Provider: Jessica Farias Primary Care Provider: Papo Cleary III Other Providers: Jessica Farias ; [facility] ; Roland Yoo Other Interventions: Discharge Summary Assessment (RN) Last Done: 05/15/22 12:30 Supervising Physician Co-Signing Physician Notes Attending Attestation & Discharge Note: Pt seen/examined, chart reviewed, care plan d/w KATIE Gibson. I agree w/ the alonzo components of her d/c documentation. 81yo male admitted after suffering a fall which led to mild rhabdomyolysis. In the midst of his w/u to ensure no internal injury from the fall a CT a/p was obtained showing sigmoid diverticulitis with abscess. He was treated conservatively with IV antibiotics, bowel rest, IVF, etc and gradually improved. Diet was resumed and advanced w/o difficulty. Gen surg provided management recommendations while he was here. Seen by PT/OT - rehab advised, transferring to [facility] for such. He will complete a course of augmentin post-discharge and will need f/u with GI for colonoscopy in 6-8 weeks. Discharge exam: gen - NAD mouth - MMM heart - RRR, s1 s2 lungs - CTA b/l abd - soft NT ND BS+ ext - no edema Casimiro Sheridan MD Coding Level of Care Code D/C DAY MANAGEMENT >30 MINS Diagnoses Acute diverticulitis K57.92 Rhabdomyolysis M62.82 Acute kidney injury N17.9 Fall W19.XXXA Atrial fibrillation I48.91 Atrial fibrillation type: unspecified Severe sleep apnea G47.30 Depression with anxiety F41.8 Hypertension I10 Hypertension type: essential hypertension Generalized weakness R53.1 Dehydration E86.0
[2022-05-15 08:26] LABS: Albumin Globulin Ratio 0.8 (0.9-2); Albumin Level 2.8 gm/dl (3.4-5.0); BUN Creatinine Ratio 15.6 (10-20); Bilirubin,Total 0.9 mg/dl (0.2-1.0); Calcium 8.4 mg/dl (8.5-10.1); Creatinine Clr Calc Pharmacy 80.6 ml/min; Est GFR (African American) 93.8 ml/min; Est GFR (Non-African American) 80.9 ml/min; Globulin 3.3 gm/dl (2.5-4.0); Magnesium 1.7 mg/dl (1.7-2.4); Potassium 4.1 mmol/L (3.5-5.1); Total Protein 6.1 gm/dl (6.0-8.3)
== END 2022-05-15 13:46 | DRG 558 ==
LOC: ED 22:54 → 3E 05-13 02:19 → SUATTDRO 05-13 02:19 → 3E 05-13 04:02

== ENCOUNTER 2022-05-31 07:56 | Inpatient (IN) ==
[2022-05-31 09:13] LABS: Basophils # (auto) 0.01 K/uL (0-0.2); Basophils % (auto) 0.1 %; Eosinophils # (auto) 0.03 K/uL (0-0.50); Eosinophils % (auto) 0.3 %; Hematocrit (blood only) 40.9 % (40.1-51.0); Hemoglobin 12.9 g/dl (14.0-18.0); Immature Granulocytes # (auto) 0.05 K/uL (0.00-0.02); Immature Granulocytes % (auto) 0.6 %; Lymphocytes # (auto) 1.78 K/uL (1.2-3.4); Lymphocytes % (auto) 20.7 %; Mean Corpuscular Hemoglobin 29.4 pg (25.0-34.0); Mean Corpuscular Hgb Conc 31.5 g/dL (32.0-36.0); Mean Corpuscular Volume 93.2 fL (80.0-100.0); Mean Platelet Volume 9.2 fL (9.4-12.4); Monocytes # (auto) 0.93 K/uL (0.24-0.82); Monocytes % (auto) 10.8 %; Neutrophils # (auto) 5.78 K/uL (1.4-6.5); Neutrophils % (auto) 67.5 %; Platelet Count 184 K/uL (130-400); RDW Coefficient of Variation 14.5 % (11.5-14.5); RDW Standard Deviation 49.7 fL (36.4-46.3); Red Blood Count 4.39 M/uL (4.63-6.08); White Blood Count 8.58 K/ul (4.8-10.8)
[2022-05-31 09:27] LABS: Albumin Globulin Ratio 0.8 (0.9-2); Albumin Level 3.1 gm/dl (3.4-5.0); BUN Creatinine Ratio 14.8 (10-20); Bilirubin,Total 0.7 mg/dl (0.2-1.0); Calcium 8.6 mg/dl (8.5-10.1); Creatinine Clr Calc Pharmacy 77.8 ml/min; Est GFR (African American) 94.7 ml/min; Est GFR (Non-African American) 81.7 ml/min; Globulin 3.9 gm/dl (2.5-4.0); Potassium 4.1 mmol/L (3.5-5.1)
--- NOTE | 2022-05-31 09:59 | Emergency Department Note ---
History of Present Illness General Chief complaint: Abdominal Pain Stated complaint: SEVERE PAIN ON RIGHT SIDE, COVID POS Time Seen by Provider: 05/31/22 08:12 Source: patient Mode of arrival: ambulatory Limitations: no limitations History of Present Illness Maximum Pain Intensity: 7 This patient is a 81-year-old male who presents to the emergency department accompanied by family for evaluation of right lower quadrant abdominal pain. Patient has had right lower quadrant pain since last night. He has had slightly decreased bowel movements. No nausea or vomiting. Nothing makes the pain better or worse. Rates his discomfort a 7/10. No fevers. Patient is COVID-19 positive, was tested 2 days ago by PCP as he had a slight sore throat and cough. Patient denies any significant symptoms of COVID-19. Denies shortness of breath. Home Medications Medication Instructions Recorded Confirmed Type diclofenac sodium 1 % topical gel 4 g topical QID PRN Joint Pain 09/11/21 05/31/22 Rx #100 grams finasteride 5 mg tablet 5 mg PO DAILY #90 tabs 10/05/21 05/31/22 Rx metoprolol succinate 50 mg 50 mg PO DAILY #90 tabs 11/22/21 05/31/22 Rx tablet,extended release 24 hr betamethasone dipropionate 0.05 % 1 applic topical DAILY PRN skin 01/16/22 05/31/22 Rx topical ointment irritation #15 grams metronidazole 0.75 % topical cream 1 applic topical BID PRN Rash #45 01/16/22 05/31/22 Rx grams clotrimazole 1 % topical cream 1 applic topical BID 4 weeks #28 01/22/22 05/31/22 Rx grams flecainide 100 mg tablet 300 mg PO PRN #30 tabs 01/26/22 05/31/22 Rx alprazolam 0.5 mg tablet 0.5 mg PO BID PRN Anxiety #60 tabs 05/03/22 05/31/22 Rx buspirone 5 mg tablet 5 mg PO DAILY #90 tabs 05/07/22 05/31/22 Rx sertraline 25 mg tablet 25 mg PO DAILY #30 tabs 05/11/22 05/31/22 Rx cyanocobalamin (vitamin B-12) 1,000 mcg PO DAILY #30 caps 05/14/22 05/31/22 Rx 1,000 mcg capsule hydroxyzine HCl 25 mg tablet 25 mg PO QID PRN Anxiety 05/23/22 05/31/22 History ondansetron HCl 4 mg tablet 4 mg PO Q6H PRN Nausea 05/23/22 05/31/22 History trazodone 100 mg tablet 100 mg PO HS PRN Sleep 05/23/22 05/31/22 History rivaroxaban 20 mg tablet (Xarelto) 20 mg PO QPM 05/31/22 05/31/22 History Allergies Allergy/AdvReac Type Severity Reaction Status Date / Time codeine AdvReac Mild NAUSEA Verified 05/31/22 11:21 amoxicillin [From Augmentin] AdvReac "Made me Verified 05/31/22 11:21 feel terrible" clavulanic acid AdvReac "Made me Verified 05/31/22 11:21 [From Augmentin] feel terrible" Past Med/Surg History Medical History Adenomatous polyp of colon Atrial fibrillation Atrial fibrillation with RVR Atrial flutter Status post ablation of typical isthmus dependent atrial 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 Butch Coombs Hyperlipidemia Hypertension Hypocalcemia Multiple pulmonary nodules Nausea Nocturnal hypoxia Obesity Phimosis Sleep apnea Sore throat Spondylosis without myelopathy or radiculopathy, cervical region Tinnitus Vitamin D deficiency Surgical History History of ankle surgery History of hernia repair (~1990) History of knee surgery (~2005) replacement Family History Mother , age 83 Parkinson's disease Father Kidney stones FH: deafness or hearing loss Stroke, Onset Age: 89 Denies family history of Ovarian cancer Prostate cancer Myocardial infarction Breast cancer Bleeding disorder Colorectal cancer Social History Smoking Status: Never smoker Age Started Using Tobacco: 19; Age Quit Using Tobacco: 37; Cigarettes Per Day: 10/ day; Second Hand Exposure: No; Hx Alcohol Use: No Hx Substance Use: No Preferred Language: Lebanese Communication Ability: Effective Visual Impairment: No Limitations Hearing Ability: Hard of Hearing Chief Quality Officer Required: No Beliefs That Will Affect Care: None marital status: / Current Living Situation: Alone current occupational status: retired Other Information That Helps Us Care for You: No Feels Safe at Home: Yes Safety Concerns: Feels Safe At This Time Childhood Exposure to Second-Hand Smoke: Yes Dental Care, Regularly: Yes Physical Activity Frequency: Does not Exercise Seatbelt Use: always Sunscreen Use: No Do you think of yourself as: straight/heterosexual Assistive Devices: Cane and Walker Review of Systems A total of 10 systems reviewed and were otherwise negative Physical Exam Vital Signs Vital Signs - 24 hr 05/31/22 08:08 05/31/22 08:48 05/31/22 09:03 Temperature 36.8 C Temperature Source Temporal Artery Scan Pulse Rate 74 Pulse Rate [Apical] 76 Pulse Rhythm [Apical] Respiratory Rate 20 20 Respiratory Effort / Characteristics Non-Labored Respiratory Depth Normal Respiratory Pattern Blood Pressure 134/73 Blood Pressure [Right Arm] 127/80 Blood Pressure Mean 93 Blood Pressure Mean [Right Arm] 95 Pulse Oximetry 96 98 92 Oxygen Delivery Method Room Air Room Air Sepsis Recent Fever Within 48 Hours No Sepsis New/Unexplained Change in Mental Status N/A Sepsis Action Taken by Nursing No Action Required 05/31/22 10:29 05/31/22 12:00 Temperature Temperature Source Pulse Rate Pulse Rate [Apical] 77 77 Pulse Rhythm [Apical] Regular Regular Respiratory Rate 18 18 Respiratory Effort / Characteristics Non-Labored Non-Labored Respiratory Depth Normal Normal Respiratory Pattern Regular Blood Pressure Blood Pressure [Right Arm] 140/67 122/78 Blood Pressure Mean Blood Pressure Mean [Right Arm] 91 92 Pulse Oximetry 95 93 Oxygen Delivery Method Room Air Room Air Sepsis Recent Fever Within 48 Hours Sepsis New/Unexplained Change in Mental Status Sepsis Action Taken by Nursing VITALS: Vitals are noted on the nurse's note and reviewed by myself. GENERAL: This is a 81-year-old male, in no acute distress, extremely hard of hearing SKIN: The skin was without rashes. EARS: External auditory canals clear, tympanic membranes pearly arevalo without erythema or effusion bilaterally. EYES: Pupils equal round and reactive to light and accommodation. NOSE: Patent, turbinates without inflammation or discharge. MOUTH: Mucous membranes moist. Tonsils are not enlarged. Pharynx without erythema or exudate. NECK: Supple without nuchal rigidity. No lymphadenopathy. HEART: Regular rate and rhythm without murmurs gallops or rubs. LUNGS: Clear to auscultation bilaterally without wheezes, rales or rhonchi. ABDOMEN: Positive bowel sounds x 4. Soft, moderate tenderness in the right lower quadrant. No guarding or rebound tenderness. NEURO: Patient was alert and oriented to person place and time. Course Administered Medications Discontinued Medications Dextromethorphan Polymer Complex (Dextromethorphan Polymr Complx 30 Mg/5 Ml Udp) 30 mg PO ONE STA Stop: 05/31/22 13:38 Last Admin: 05/31/22 14:27 Dose: 30 mg Documented By: SILVANA Piperacillin Sod/Tazobactam (Sod 3.375 gm/ Dextrose) 100 ml in 115 mls @ 230 mls/hr IV NOW STA Stop: 05/31/22 12:34 Last Infusion: 05/31/22 13:17 Dose: 0 mls/hr Documented By: Admin: 05/31/22 12:42 Dose: 230 mls/hr Documented By: SABI Ioversol (Optiray 300 100ml) 93 ml IV ONCE ONE Stop: 05/31/22 10:02 Last Admin: 05/31/22 10:01 Dose: 93 ml Documented By: MATT Medical Decision Making Differential Diagnosis Appendicitis, testicular torsion, infections, diverticulitis, UTI, obstruction, mesenteric ischemia, aortic pathology, inflammatory bowel disease, renal colic, PUD, pancreatitis, biliary pathology, hernia, volvulus, constipation, as well as other pathologies. Home Medications Current Medication List: was personally reviewed by me Laboratory Data Attestation: I reviewed the patient's lab results. Result diagrams: 05/31/22 08:32 05/31/22 08:32 Lab Results 05/31/22 05/31/22 05/31/22 Range/Units 08:32 08:32 10:00 WBC 8.58 (4.8-10.8) K/ul RBC 4.39 L (4.63-6.08) M/uL Hgb 12.9 L (14.0-18.0) g/dl Hct 40.9 (40.1-51.0) % MCV 93.2 (80.0-100.0) fL MCH 29.4 (25.0-34.0) pg MCHC 31.5 L (32.0-36.0) g/dL RDW Std Deviation 49.7 H (36.4-46.3) fL RDW Coeff of Real 14.5 (11.5-14.5) % Plt Count 184 (130-400) K/uL MPV 9.2 L (9.4-12.4) fL Immature Gran % (Auto) 0.6 % Neut % (Auto) 67.5 % Lymph % (Auto) 20.7 % [place] % (Auto) 10.8 % Eos % (Auto) 0.3 % Baso % (Auto) 0.1 % Neut # (Auto) 5.78 (1.4-6.5) K/uL Lymph # (Auto) 1.78 (1.2-3.4) K/uL [place] # (Auto) 0.93 H (0.24-0.82) K/uL Eos # (Auto) 0.03 (0-0.50) K/uL Baso # (Auto) 0.01 (0-0.2) K/uL Immature Gran # (Auto) 0.05 H (0.00-0.02) K/uL Sodium 135 L (136-145) mmol/L Potassium 4.1 (3.5-5.1) mmol/L Chloride 102 (98-107) mmol/L Carbon Dioxide 28 (21-32) mmol/L Anion Gap 5 (3-11) BUN 13 (6-23) mg/dl Creatinine 0.88 (0.6-1.4) mg/dl Est Cr Clr Drug Dosing 77.8 ml/min Est GFR ( Amer) 94.7 ml/min Est GFR (Non-Af Amer) 81.7 ml/min BUN/Creatinine Ratio 14.8 (10-20) Glucose 86 (70-99(Fasting)) mg/dl Lactate (0.4-2.0) mmol/L Calcium 8.6 (8.5-10.1) mg/dl Total Bilirubin 0.7 (0.2-1.0) mg/dl AST 20 (13-39) U/L ALT 15 (7-52) U/L Alkaline Phosphatase 61 (34-104) U/L Total Protein 7.0 (6.0-8.3) gm/dl Albumin 3.1 L (3.4-5.0) gm/dl Globulin 3.9 (2.5-4.0) gm/dl Albumin/Globulin Ratio 0.8 L (0.9-2) Lipase 40 (11-82) U/L Urine Color Dark Yellow Urine Appearance Clear (Clear) Urine pH 5.5 (4.5-7.5) Ur Specific [place] 1.024 (1.000-1.030) Urine Protein 1+ H (Negative) Urine Glucose (UA) Negative (Negative) Urine Ketones Trace H (Negative) Urine Blood Negative (Negative) Urine Nitrite Negative (Negative) Urine Bilirubin Negative (Negative) Urine Urobilinogen Negative (Negative) Ur Leukocyte Esterase Trace H (Negative) Urine WBC (Auto) 1-5 (0-5) /hpf Urine RBC (Auto) 0-4 (0-4) /hpf U Hyaline Cast (Auto) 1-5 (0-5) /lpf U Epithel Cells (Auto) >30 H (0-5) /lpf Urine Bacteria (Auto) Negative (Negative) 05/31/22 Range/Units 12:12 WBC (4.8-10.8) K/ul RBC (4.63-6.08) M/uL Hgb (14.0-18.0) g/dl Hct (40.1-51.0) % MCV (80.0-100.0) fL MCH (25.0-34.0) pg MCHC (32.0-36.0) g/dL RDW Std Deviation (36.4-46.3) fL RDW Coeff of Real (11.5-14.5) % Plt Count (130-400) K/uL MPV (9.4-12.4) fL Immature Gran % (Auto) % Neut % (Auto) % Lymph % (Auto) % [place] % (Auto) % Eos % (Auto) % Baso % (Auto) % Neut # (Auto) (1.4-6.5) K/uL Lymph # (Auto) (1.2-3.4) K/uL [place] # (Auto) (0.24-0.82) K/uL Eos # (Auto) (0-0.50) K/uL Baso # (Auto) (0-0.2) K/uL Immature Gran # (Auto) (0.00-0.02) K/uL Sodium (136-145) mmol/L Potassium (3.5-5.1) mmol/L Chloride (98-107) mmol/L Carbon Dioxide (21-32) mmol/L Anion Gap (3-11) BUN (6-23) mg/dl Creatinine (0.6-1.4) mg/dl Est Cr Clr Drug Dosing ml/min Est GFR ( Amer) ml/min Est GFR (Non-Af Amer) ml/min BUN/Creatinine Ratio (10-20) Glucose (70-99(Fasting)) mg/dl Lactate 0.9 (0.4-2.0) mmol/L Calcium (8.5-10.1) mg/dl Total Bilirubin (0.2-1.0) mg/dl AST (13-39) U/L ALT (7-52) U/L Alkaline Phosphatase (34-104) U/L Total Protein (6.0-8.3) gm/dl Albumin (3.4-5.0) gm/dl Globulin (2.5-4.0) gm/dl Albumin/Globulin Ratio (0.9-2) Lipase (11-82) U/L Urine Color Urine Appearance (Clear) Urine pH (4.5-7.5) Ur Specific [place] (1.000-1.030) Urine Protein (Negative) Urine Glucose (UA) (Negative) Urine Ketones (Negative) Urine Blood (Negative) Urine Nitrite (Negative) Urine Bilirubin (Negative) Urine Urobilinogen (Negative) Ur Leukocyte Esterase (Negative) Urine WBC (Auto) (0-5) /hpf Urine RBC (Auto) (0-4) /hpf U Hyaline Cast (Auto) (0-5) /lpf U Epithel Cells (Auto) (0-5) /lpf Urine Bacteria (Auto) (Negative) Imaging Data Attestation: I personally reviewed and interpreted this imaging study as follows: Radiologist's Impression: Abdomen/Pelvis CT 05/31/22 08:37 CT abd pelvis IV con only CLINICAL HISTORY: rlq pain TECHNIQUE: Helical axial images of the abdomen and pelvis were obtained and displayed. Automated dose lowering techniques and/or adjustment according to patient size were utilized for this exam. This exam was performed with intravenous contrast. CT DOSE: 1020.17 mGycm COMPARISON: Comparison is made to CT abdomen pelvis 05/13/2022 FINDINGS: Exam is limited by patient motion. Lower chest: Bronchial wall thickening and atelectasis is noted in the left lower lung. Liver: Unremarkable. No focal lesions are seen. Gallbladder and biliary tree: No calcified gallstones. Normal caliber wall. No intra- or extrahepatic biliary ductal dilation. Pancreas: Unremarkable, no focal lesions. Spleen: Unremarkable. Adrenals: Unremarkable. Kidneys and ureters: Unremarkable. Bladder: Limited evaluation due to underdistention. Reproductive organs: Unremarkable. Bowel: Wall thickening and fat stranding is seen around the sigmoid colon. There is suggestion of a coloenteric fistula in the anterior pelvis as well as an enteroenteric fistula. The appendix is normal. Lymph nodes Retroperitoneal: Unremarkable. Pelvic: Unremarkable. Mesenteric: Unremarkable. Peritoneum: Fat stranding is in the lower pelvis. Numerous foci of pneumoperitoneum are seen. Vessels: Atherosclerotic calcifications are seen. Abdominal wall: A fat-containing umbilical hernia is seen. Postsurgical changes are seen in the right inguinal region. Bones: Degenerative changes in the visualized spine. Compression deformity of L1 and additional lumbar vertebrae are chronic. 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 No definite abscess is seen. ACT 112: Negative or not required by law. Electronically signed by: Silverio Myers M.D. 05/31/2022 10:32 AM MDM Narrative Continuous media monitor: Order was placed for continuous media monitor. Patient was placed on the media monitor. Patient was noted to be in normal sinus rhythm at an initial rate of 75 bpm. The patient is a 81-year-old male who presents today complaining of right lower quadrant abdominal pain. Labs revealed no leukocytosis, anemia or concerning electrolyte abnormalities. CT was performed and showed evidence of acute diverticulitis with perforation and fistula formation. Surgery was consulted and will evaluate the patient. Patient admitted to the [facility]. He was given Zosyn after discussion with the ED pharmacist. Impression & Plan Diverticulitis of large intestine with complication, Colonic fistula Discharge Plan Visit Data Chief Complaint: Abdominal Pain Stated Complaint: SEVERE PAIN ON RIGHT SIDE, COVID POS ED Provider: Wayne Gonzalez ED Midlevel Provider: Genesis Santoro Discharge Problem: Diverticulitis of large intestine with complication, Colonic fistula Discharge Instructions Interventions: ED Discharge Assessment Last Done: 05/31/22 16:33
[2022-05-31] MEDS ORDERED: OPTIRAY 300 100mL IV ONE (10:01)
[2022-05-31 10:20] LABS: Appearance Urine Clear (Clear); Bacteria Urine Automated Negative (Negative); Bilirubin Urine Negative (Negative); Blood Urine Negative (Negative); Color Urine Dark Yellow; Epithelial Cell Urine Auto >30 /lpf (0-5); Glucose Urine UA Negative (Negative); Ketones Urine Trace (Negative); Leukocyte Esterase Urine Trace (Negative); Nitrite Urine Negative (Negative); Protein Urine 1+ (Negative); RBC Urine Automated 0-4 /hpf (0-4); Specific Gravity Urine 1.024 (1.000-1.030); Urobilinogen Urine Negative (Negative); pH Urine 5.5 (4.5-7.5)
--- NOTE | 2022-05-31 10:34 | CT Scan Report ---
CT abd pelvis IV con only CLINICAL HISTORY: rlq pain TECHNIQUE: Helical axial images of the abdomen and pelvis were obtained and displayed. Automated dose lowering techniques and/or adjustment according to patient size were utilized for this exam. This e xam was performed with intravenous contrast. CT DOSE: 1020.17 mGycm COMPARISON: Comparison is made to CT abdomen pelvis 05/13/2022 FINDINGS: Exam is limited by patient motion. Lower chest: Bronchial wall thickening and atelectasis is noted in the left lower lung. Liver: Unremarkable. No focal lesions are seen. Gallbladder and biliary tree: No calcified gallstones. Normal caliber wall. No intra- or extrahepatic biliary ductal dilation. Pancreas: Unremarkable, no focal lesions. Spleen: Unremarkable. Adrenals: Unremarkable. Kidneys and ureters: Unremarkable. Bladder: Limited evaluation due to underdistention. Reproductive organs: Unremarkable. Bowel: Wall thickening and fat stranding is seen around the sigmoid colon. There is suggestion of a c oloenteric fistula in the anterior pelvis as well as an enteroenteric fistula. The appendix is normal . Lymph nodes Retroperitoneal: Unremarkable. Pelvic: Unremarkable. Mesenteric: Unremarkable. Peritoneum: Fat stranding is in the lower pelvis. Numerous foci of pneumoperitoneum are seen. Vessels: Atherosclerotic calcifications are seen. Abdominal wall: A fat-containing umbilical hernia is seen. Postsurgical changes are seen in the right inguinal region. Bones: Degenerative changes in the visualized spine. Compression deformity of L1 and additional lumba r vertebrae are chronic. 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 No d efinite abscess is seen. ACT 112: Negative or not required by law. Electronically signed by: Silverio Myres M.D. 05/31/2022 10:32 AM
--- NOTE | 2022-05-31 11:34 | History & Physical Report ---
Date of Service May 31, 2022 Assessment & Plan (1) Acute diverticulitis: Plan: - Admitted 05/13-05/15 for a fall, CT A/P done as part of trauma scans in ED showed diverticulitis w/ possible abscess. Treated medically with abx, IV Zosyn while inpatient and Augmentin on /dc to [facility]. - New onset RLQ pain last evening w/o fever, chills, n/v/d, or BRBPR. 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 No definite abscess is seen. - Without leukocytosis, lactate wnl, hemodynamically stable in ED. - Blood cultures pending. - NPO for now with IVF LRs 125cc/hr. - IV Zosyn. - As pain picture improves, can advance diet as tolerated to clear liquids or low fiber. - General surgery consult, appreciate recommendations. - Replete electrolytes as needed. (2) COVID-19: Plan: - Day #2 of symptoms--cough, sore throat but VS wnl, without fever, hypoxia, or evidence of pneumonia on CXR. On Xarelto chronically for a fibb--will postpone this or starting VTE ppx with Lovenox for now pending surgical consult. - For now, supportive care with Mucinex 1200 mg BID and IV Tylenol for pain/fevers. - Isolation precautions. - Patient is UTD on COVID vaccinations. (3) Atrial fibrillation: Plan: - BOOT TURNER was on metoprolol 50 mg daily, Xarelto 20 mg HS, flecainide 300 mg PRN for palpitations--all will be held while NPO. - Can resume when cleared for PO intake by surgery. - Can order IV Lopressor to be given while NPO for rate control. (4) Severe sleep apnea: Plan: - CPAP at night. (5) BPH w urinary obs/LUTS: Plan: - Finasteride on hold while NPO. - Bladder scans for uo < 120cc/4 hours - No evidence of distention on CT, UA does not appear infected. (6) Hypertension: Plan: - Continue metoprolol when no longer NPO. (7) Hyperlipidemia: Plan: - Continue Tricor when no longer NPO. (8) Depression with anxiety: Plan: - Trazodone d/c'd last admission due to falls. - Attempting to wean down alprazolam--takes 0.5 mg BID as needed--daughter does not believe he is taking it daily. - Continue Zoloft and BuSpar when no longer NPO. - Hydroxyzine prescribed, daughter has not yet picked up the prescription. Plan - Admit to med/tele w/ COVID isolation precautions - SCDs for VTE ppx, Xarelto on hold while pending surgery for diverticulitis w/ perforation, fistula - Full Code. History of Present Illness Chief Complaint: RLQ pain since last evening Primary Care Provider: Papo Cleary, III, [facility] Zackery Bach is 81-year-old male with a past medical history of A. fib, hypertension, hyperlipidemia, AMARI, depression and anxiety, recent diverticulitis with perforation hospitalized 2 weeks ago here who presents today with worsening right lower quadrant abdominal pain since last evening. He was actually admitted from for falls at home and was found to have diverticulitis with abscess on trauma scans of the abdomen. He was treated with IV Zosyn, general surgery did see patient and recommended medical management with IV antibiotics, fluids, and gradual transition to low fiber diet. He was discharged to [facility] and completed oral course of Augmentin for diverticulitis. He had been feeling well since discharge from [facility] on the , however last evening developed right-sided abdominal pain. He has been without any fever/chills, nausea, vomiting, diarrhea, melena, or hematochezia. Thinks he may have had less bowel movements than usual, but no overall concerns for constipation. 2 days ago, he did develop a productive cough and a sore throat and was tested for COVID-19, found to be positive. He is up-to-date on his vaccinations. His abdominal pain is exacerbated by his frequent coughs, however has been doing okay at home with supportive care. Upon presentation, his vital signs are all within normal limits, he is hemodynamically stable, afebrile and SPO2 >95% on room air. Labs significant for stable anemia, Hgb 12.9, normocytic. Electrolytes within normal limits, renal function at baseline, without transaminitis, lipase 40. UA without evidence of infection. 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 Allergies Allergy/AdvReac Type Severity Reaction Status Date / Time codeine AdvReac Mild NAUSEA Verified 05/31/22 11:21 amoxicillin [From Augmentin] AdvReac "Made me Verified 05/31/22 11:21 feel terrible" clavulanic acid AdvReac "Made me Verified 05/31/22 11:21 [From Augmentin] feel terrible" Home Medications Medication Instructions Recorded Confirmed Type diclofenac sodium 1 % topical gel 4 g topical QID PRN Joint Pain 09/11/21 05/31/22 Rx #100 grams finasteride 5 mg tablet 5 mg PO DAILY #90 tabs 10/05/21 05/31/22 Rx metoprolol succinate 50 mg 50 mg PO DAILY #90 tabs 11/22/21 05/31/22 Rx tablet,extended release 24 hr betamethasone dipropionate 0.05 % 1 applic topical DAILY PRN skin 01/16/22 05/31/22 Rx topical ointment irritation #15 grams metronidazole 0.75 % topical cream 1 applic topical BID PRN Rash #45 01/16/22 05/31/22 Rx grams clotrimazole 1 % topical cream 1 applic topical BID 4 weeks #28 01/22/22 05/31/22 Rx grams flecainide 100 mg tablet 300 mg PO PRN #30 tabs 01/26/22 05/31/22 Rx alprazolam 0.5 mg tablet 0.5 mg PO BID PRN Anxiety #60 tabs 05/03/22 05/31/22 Rx buspirone 5 mg tablet 5 mg PO DAILY #90 tabs 05/07/22 05/31/22 Rx sertraline 25 mg tablet 25 mg PO DAILY #30 tabs 05/11/22 05/31/22 Rx cyanocobalamin (vitamin B-12) 1,000 mcg PO DAILY #30 caps 05/14/22 05/31/22 Rx 1,000 mcg capsule hydroxyzine HCl 25 mg tablet 25 mg PO QID PRN Anxiety 05/23/22 05/31/22 History ondansetron HCl 4 mg tablet 4 mg PO Q6H PRN Nausea 05/23/22 05/31/22 History trazodone 100 mg tablet 100 mg PO HS PRN Sleep 05/23/22 05/31/22 History rivaroxaban 20 mg tablet (Xarelto) 20 mg PO QPM 05/31/22 05/31/22 History Past Med/Surg History Medical History Adenomatous polyp of colon Atrial fibrillation Atrial fibrillation with RVR Atrial flutter Status post ablation of typical isthmus dependent atrial 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 Butch Coombs Hyperlipidemia Hypertension Hypocalcemia Multiple pulmonary nodules Nausea Nocturnal hypoxia Obesity Phimosis Sleep apnea Sore throat Spondylosis without myelopathy or radiculopathy, cervical region Tinnitus Vitamin D deficiency Surgical History History of ankle surgery History of hernia repair (~1990) History of knee surgery (~2005) replacement Family History Mother , age 83 Parkinson's disease Father Kidney stones FH: deafness or hearing loss Stroke, Onset Age: 89 Denies family history of Ovarian cancer Prostate cancer Myocardial infarction Breast cancer Bleeding disorder Colorectal cancer Social History Smoking Status: Never smoker Age Started Using Tobacco: 19; Age Quit Using Tobacco: 37; Cigarettes Per Day: 10/ day; Second Hand Exposure: No; Hx Alcohol Use: No Hx Substance Use: No Preferred Language: Yi Communication Ability: Effective Visual Impairment: No Limitations Hearing Ability: Hard of Hearing Record Press Supervisor Required: No Beliefs That Will Affect Care: None marital status: / Current Living Situation: Alone current occupational status: retired How many Children do You have: 2 Feels Safe at Home: Yes Childhood Exposure to Second-Hand Smoke: Yes Dental Care, Regularly: Yes Physical Activity Frequency: Does not Exercise Seatbelt Use: always Sunscreen Use: No Do you think of yourself as: straight/heterosexual Assistive Devices: Cane, CPAP, Oxygen - at Night and Walker Review of Systems Review of Systems: Constitutional: No fever/chills, weakness, fatigue, myalgias, anorexia, night sweats Eyes: No diplopia, no worsening or blurred vision ENT: normal hearing, no trouble swallowing Respiratory: productive cough and sore throat x 2 days Cardiovascular: No chest pain, tightness or palpitations Abdomen: right sided abdominal pain, no n/v/d, hematochezia : Denies dysuria, hematuria, increased urgency/frequency, urinary retention Musculoskeletal: No joint pain, calf pain, swelling Neurologic: No weakness, numbness/tingling, or balance problems Psychiatric: No anxiety or depression Skin: No rash or itch Physical Exam Physical Exam: General: awake, alert, no apparent distress Head: Normocephalic, atraumatic ENT: PERRL, EOMI, no pharyngeal exudate, mucous membranes moist Chest: Clear to auscultation, on room air, no adventitious breath sounds Cardiac: Regular rate and rhythm, no murmur, no JVD, normal peripheral pulses, good capillary refill Abdominal: right/central abdominal pain without rebound or guarding; NABS x 4 quadrant, abdomen round and soft Extremities: Normal inspection, no peripheral edema or erythema, calfs nontender to palpation Psych: Normal mood and affect Neuro: AAO x 3, strength intact bilaterally and rated 5/5, no motor deficits, speech is clear, no peripheral sensory deficits Skin: no rash or erythema Results & Data Results & Data ([facility]) Vital Signs (Past 12 Hours) Vital Signs Temp Pulse Pulse Resp BP BP Pulse Ox 05/31/22 10:29 77 18 140/67 95 05/31/22 09:03 76 20 127/80 92 05/31/22 08:48 98 05/31/22 08:08 36.8 C 74 20 134/73 96 O2 Del Method 05/31/22 10:29 Room Air 05/31/22 09:03 05/31/22 08:48 Room Air 05/31/22 08:08 Room Air Laboratory Results Abnormal lab results 05/31/22 05/31/22 05/31/22 Range/Units 08:32 08:32 10:00 RBC 4.39 L (4.63-6.08) M/uL Hgb 12.9 L (14.0-18.0) g/dl MCHC 31.5 L (32.0-36.0) g/dL RDW Std Deviation 49.7 H (36.4-46.3) fL MPV 9.2 L (9.4-12.4) fL [place] # (Auto) 0.93 H (0.24-0.82) K/uL Immature Gran # (Auto) 0.05 H (0.00-0.02) K/uL Sodium 135 L (136-145) mmol/L Albumin 3.1 L (3.4-5.0) gm/dl Albumin/Globulin Ratio 0.8 L (0.9-2) Urine Protein 1+ H (Negative) Urine Ketones Trace H (Negative) Ur Leukocyte Esterase Trace H (Negative) U Epithel Cells (Auto) >30 H (0-5) /lpf Diagnostic Findings Abdomen/Pelvis CT 05/31/22 08:37 CT abd pelvis IV con only CLINICAL HISTORY: rlq pain TECHNIQUE: Helical axial images of the abdomen and pelvis were obtained and displayed. Automated dose lowering techniques and/or adjustment according to patient size were utilized for this exam. This exam was performed with intravenous contrast. CT DOSE: 1020.17 mGycm COMPARISON: Comparison is made to CT abdomen pelvis 05/13/2022 FINDINGS: Exam is limited by patient motion. Lower chest: Bronchial wall thickening and atelectasis is noted in the left lower lung. Liver: Unremarkable. No focal lesions are seen. Gallbladder and biliary tree: No calcified gallstones. Normal caliber wall. No intra- or extrahepatic biliary ductal dilation. Pancreas: Unremarkable, no focal lesions. Spleen: Unremarkable. Adrenals: Unremarkable. Kidneys and ureters: Unremarkable. Bladder: Limited evaluation due to underdistention. Reproductive organs: Unremarkable. Bowel: Wall thickening and fat stranding is seen around the sigmoid colon. There is suggestion of a coloenteric fistula in the anterior pelvis as well as an enteroenteric fistula. The appendix is normal. Lymph nodes Retroperitoneal: Unremarkable. Pelvic: Unremarkable. Mesenteric: Unremarkable. Peritoneum: Fat stranding is in the lower pelvis. Numerous foci of pneumoperitoneum are seen. Vessels: Atherosclerotic calcifications are seen. Abdominal wall: A fat-containing umbilical hernia is seen. Postsurgical changes are seen in the right inguinal region. Bones: Degenerative changes in the visualized spine. Compression deformity of L1 and additional lumbar vertebrae are chronic. 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 No definite abscess is seen. ACT 112: Negative or not required by law. Electronically signed by: Silverio Myers M.D. 05/31/2022 10:32 AM ECG Additional Comments: Sinus rhythm with Premature atrial complexes Right bundle branch block T wave abnormality, consider lateral ischemia Abnormal ECG When compared with ECG of 12-MAY-2022 23:14, Premature atrial complexes are now Present. Code Status & VTE Plan Code Status Full Code. Supervising Physician Co-Signing Physician Notes I personally saw and examined the patient. I verified all alonzo points and agree with Becca Alfaro PA-C with the following exceptions and/or additions: 81 year old male presents with worsening right lower quadrant abdominal pain. 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 Positive for COVID-19 and have slight cough making his pain worse. No nausea, vomiting, fevers, chills. O/E HS1+2, no murmurs, Chest CTAB, Abdo RLQ pain on palpation without rebound tenderness, mild guarding present. A/P Acute diverticulitis - NPO, IV Zosyn, appreciate surgery consult - no plans for surgery at the current time. PG Care Time/CCT Total # of Minutes Spent Total Time Spent with Patient: Total time spent is greater than 50% in coordination of care (as documented) at patient's floor/unit and/or counseling patient: Coding Level of Care Code 87534 Initial Inpt Care Lvl 3 Diagnoses Acute diverticulitis K57.92 COVID-19 U07.1 Atrial fibrillation I48.91 Atrial fibrillation type: unspecified Severe sleep apnea G47.30 BPH w urinary obs/LUTS N40.1; N13.8 Hypertension I10 Hypertension type: essential hypertension Hyperlipidemia E78.00 Hyperlipidemia type: pure hypercholesterolemia Depression with anxiety F41.8 (1) Atrial fibrillation Atrial fibrillation type: unspecified Qualified Code(s): I48.91 - Unspecified atrial fibrillation (2) Hyperlipidemia Hyperlipidemia type: pure hypercholesterolemia Qualified Code(s): E78.00 - Pure hypercholesterolemia, unspecified (3) Hypertension Hypertension type: essential hypertension Qualified Code(s): I10 - Essential (primary) hypertension
[2022-05-31] MEDS ORDERED: PIPERACILLIN/TAZOBACTAM 3.375 GM in DEXTROSE 5% 100 ML/100 ML BAG IV STA (12:05)
[2022-05-31] MEDS ORDERED: DEXTROMETHORPHAN POLYMR COMPLX 30 MG/5 ML UDP PO STA (13:37)
--- NOTE | 2022-05-31 13:46 | Surgery Consultation ---
Date of Consultation May 31, 2022 Assessment & Plan (1) Acute diverticulitis: This is a 81y M with a PMH of afib on xarelto, hard of hearing, depression, BPH, HTN, AMARI who presents to the [facility] ED on 05/31/22 with complaints of abdominal pain starting yesterday. The patient was recently treated with a course of abx for incidentally found diverticulitis with abscess that patient was asymptomatic from. He was doing well up until yesterday when he developed RLQ pain that brought him in to bed seen. 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 No definite abscess is seen. WBC 8.5. Patient is afebrile with stable vital signs. Patient's abdomen is soft with tenderness to palpation particularly in the RLQ, but across the lower and mid abdomen. He is not in any acute distress. The hospitalists have agreed to admit the patient and we will trial a course of conservative management. Recommend IV abx, IVF, and bowel rest. Hopeful patient will improve with supportive care. Has concern for multiple fistula's on imaging. No plans for acute surgical intervention at this time. Patient is also Covid +. Xarelto is on hold. As above. Patient seen. Patient would be a relatively poor surgical candidate. We will keep n.p.o. and hold the Xarelto and IV antibiotics. We will follow along closely. No peritonitis currently. No emergent or urgent surgical indications currently. History of Present Illness History of Present Illness This is a 81y M with a PMH of afib on xarelto, hard of hearing, depression, BPH, HTN, AMARI who presents to the [facility] ED on 05/31/22 with complaints of abdominal pain starting yesterday. The patient lives alone and his daughter brought him in. Majority of HPI obtained from chart review and communication through writing on paper as patient is very hard of hearing and his hearing aid batteries just . Of note patient was recently here from 05/12-05/15 for trauma workup for history of falls. On his imaging he was incidentally found to have diverticulitis with abscess formation. Patient was managed with IV abx and transitioned to a course of oral abx to complete a 2 week course. Diet continued as he was asymptomatic and feeling well. He has since been to [facility] and was discharged. Starting yesterday the patient developed RLQ pain that continued into today and was severe. 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 No definite abscess is seen. Patient says currently at rest the pain is manageable, but is made worse with movements. He denies any fevers/chills, CP/SOB, nausea/vomiting. Last BM was yesterday. Recently diagnosed with Covid-19 and has a cough, the cough makes the abdominal pain worse. Allergies Allergy/AdvReac Type Severity Reaction Status Date / Time codeine AdvReac Mild NAUSEA Verified 05/31/22 11:21 amoxicillin [From Augmentin] AdvReac "Made me Verified 05/31/22 11:21 feel terrible" clavulanic acid AdvReac "Made me Verified 05/31/22 11:21 [From Augmentin] feel terrible" Home Medications Medication Instructions Recorded Confirmed Type diclofenac sodium 1 % topical gel 4 g topical QID PRN Joint Pain 09/11/21 05/31/22 Rx #100 grams finasteride 5 mg tablet 5 mg PO DAILY #90 tabs 10/05/21 05/31/22 Rx metoprolol succinate 50 mg 50 mg PO DAILY #90 tabs 11/22/21 05/31/22 Rx tablet,extended release 24 hr betamethasone dipropionate 0.05 % 1 applic topical DAILY PRN skin 01/16/22 05/31/22 Rx topical ointment irritation #15 grams metronidazole 0.75 % topical cream 1 applic topical BID PRN Rash #45 01/16/22 05/31/22 Rx grams clotrimazole 1 % topical cream 1 applic topical BID 4 weeks #28 01/22/22 05/31/22 Rx grams flecainide 100 mg tablet 300 mg PO PRN #30 tabs 01/26/22 05/31/22 Rx alprazolam 0.5 mg tablet 0.5 mg PO BID PRN Anxiety #60 tabs 05/03/22 05/31/22 Rx buspirone 5 mg tablet 5 mg PO DAILY #90 tabs 05/07/22 05/31/22 Rx sertraline 25 mg tablet 25 mg PO DAILY #30 tabs 05/11/22 05/31/22 Rx cyanocobalamin (vitamin B-12) 1,000 mcg PO DAILY #30 caps 05/14/22 05/31/22 Rx 1,000 mcg capsule hydroxyzine HCl 25 mg tablet 25 mg PO QID PRN Anxiety 05/23/22 05/31/22 History ondansetron HCl 4 mg tablet 4 mg PO Q6H PRN Nausea 05/23/22 05/31/22 History trazodone 100 mg tablet 100 mg PO HS PRN Sleep 05/23/22 05/31/22 History rivaroxaban 20 mg tablet (Xarelto) 20 mg PO QPM 05/31/22 05/31/22 History Patient History Medical History Adenomatous polyp of colon Atrial fibrillation Atrial fibrillation with RVR Atrial flutter Status post ablation of typical isthmus dependent atrial 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 Butch Coombs Hyperlipidemia Hypertension Hypocalcemia Multiple pulmonary nodules Nausea Nocturnal hypoxia Obesity Phimosis Sleep apnea Sore throat Spondylosis without myelopathy or radiculopathy, cervical region Tinnitus Vitamin D deficiency Surgical History History of ankle surgery History of hernia repair (~1990) History of knee surgery (~2005) replacement Family History Mother , age 83 Parkinson's disease Father Kidney stones FH: deafness or hearing loss Stroke, Onset Age: 89 Denies family history of Ovarian cancer Prostate cancer Myocardial infarction Breast cancer Bleeding disorder Colorectal cancer Social History Smoking Status: Never smoker Age Started Using Tobacco: 19; Age Quit Using Tobacco: 37; Cigarettes Per Day: 10/ day; Second Hand Exposure: No; Hx Alcohol Use: No Hx Substance Use: No Preferred Language: Hong Konger Communication Ability: Effective Visual Impairment: No Limitations Hearing Ability: Hard of Hearing Scrap Hooker Required: No Beliefs That Will Affect Care: None marital status: / Current Living Situation: Alone current occupational status: retired Feels Safe at Home: Yes Childhood Exposure to Second-Hand Smoke: Yes Dental Care, Regularly: Yes Physical Activity Frequency: Does not Exercise Seatbelt Use: always Sunscreen Use: No Do you think of yourself as: straight/heterosexual Assistive Devices: Cane Review of Systems Constitutional: no fever and no chills Respiratory: no dyspnea Cardiovascular: no chest pain Gastrointestinal: + abdominal pain; no nausea, no vomiting and no diarrhea/loose stools Physical Exam Physical Exam: awake/alert, pleasant, in no acute distress Respiratory: normal respiratory effort and + cough Gastrointestinal (Abdomen): Inspection/Auscultation: abdomen not distended Percussion/Palpation: + abdomen tender (in RLQ and lower abdomen ) and abdomen soft Results & Data ([facility]) Vital Signs (Past 12 Hours) Vital Signs Temp Pulse Pulse Resp BP BP Pulse Ox 05/31/22 12:00 77 18 122/78 93 05/31/22 10:29 77 18 140/67 95 05/31/22 09:03 76 20 127/80 92 05/31/22 08:48 98 05/31/22 08:08 36.8 C 74 20 134/73 96 O2 Del Method 05/31/22 12:00 Room Air 05/31/22 10:29 Room Air 05/31/22 09:03 05/31/22 08:48 Room Air 05/31/22 08:08 Room Air Diagnostic Findings CT abd pelvis IV con only CLINICAL HISTORY: rlq pain TECHNIQUE: Helical axial images of the abdomen and pelvis were obtained and displayed. Automated dose lowering techniques and/or adjustment according to patient size were utilized for this exam. This exam was performed with intravenous contrast. CT DOSE: 1020.17 mGycm COMPARISON: Comparison is made to CT abdomen pelvis 05/13/2022 FINDINGS: Exam is limited by patient motion. Lower chest: Bronchial wall thickening and atelectasis is noted in the left lower lung. Liver: Unremarkable. No focal lesions are seen. Gallbladder and biliary tree: No calcified gallstones. Normal caliber wall. No intra- or extrahepatic biliary ductal dilation. Pancreas: Unremarkable, no focal lesions. Spleen: Unremarkable. Adrenals: Unremarkable. Kidneys and ureters: Unremarkable. Bladder: Limited evaluation due to underdistention. Reproductive organs: Unremarkable. Bowel: Wall thickening and fat stranding is seen around the sigmoid colon. There is suggestion of a coloenteric fistula in the anterior pelvis as well as an enteroenteric fistula. The appendix is normal. Lymph nodes Retroperitoneal: Unremarkable. Pelvic: Unremarkable. Mesenteric: Unremarkable. Peritoneum: Fat stranding is in the lower pelvis. Numerous foci of pneumoperitoneum are seen. Vessels: Atherosclerotic calcifications are seen. Abdominal wall: A fat-containing umbilical hernia is seen. Postsurgical changes are seen in the right inguinal region. Bones: Degenerative changes in the visualized spine. Compression deformity of L1 and additional lumbar vertebrae are chronic. 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 No definite abscess is seen. ACT 112: Negative or not required by law. Electronically signed by: Silverio Myers M.D. 05/31/2022 10:32 AM PG Care Time/CCT Total # of Minutes Spent Total Time Spent with Patient: Total time spent is greater than 50% in coordination of care (as documented) at patient's floor/unit and/or counseling patient: Coding Level of Care Code 45016 Initial Inpt Care Lvl 3 Diagnoses Acute diverticulitis K57.92
[2022-05-31] MEDS ORDERED: guaiFENesin 600 MG TABCR PO PRN (16:53)
[2022-05-31] MEDS ORDERED: MoRPHine SULFATE 4 MG/ML 1 ML CARP\\VIAL IV PRN (16:53)
[2022-05-31] MEDS ORDERED: ONDANSETRON INJ 2 MG/ML 2 ML VIAL IV PRN (16:53)
[2022-05-31] MEDS ORDERED: ALBUTEROL 0.083% NEBU SOLN 3 ML VIAL INH PRN (16:53)
[2022-05-31] MEDS ORDERED: DICLOFENAC SOD 1% GEL 100 GM TUBE EXT PRN (16:53)
[2022-05-31] MEDS ORDERED: ACETAMINOPHEN 1,000 MG/100 ML VIAL IV PRN (16:53)
[2022-05-31] MEDS ORDERED: MoRPHine SULFATE 2 MG/ML CARP IV PRN (16:53)
[2022-05-31] MEDS ORDERED: POLYETHYLENE (MIRALAX) 17 GM PACK PO PRN (16:53)
--- NOTE | 2022-05-31 17:53 | Electrocardiogram Report ---
Test Reason : Blood Pressure : / mmHG Vent. Rate : 074 BPM Atrial Rate : 074 BPM P-R Int : 142 ms QRS Dur : 130 ms QT Int : 416 ms P-R-T Axes : 063 -12 -41 degrees QTc Int : 461 ms Sinus rhythm with Premature atrial complexes Right bundle branch block T wave abnormality, consider lateral ischemia Abnormal ECG When compared with ECG of 12-MAY-2022 23:14, Premature atrial complexes are now Present Confirmed by Butch Coombs ([id number]) on 05/31/2022 5:53:24 PM Referred By: REFERRED SELF Confirmed By:Christoph Coombs
[2022-05-31] MEDS: NSS + 20MEQ KCL 20 MEQ/1,000 ML BAG IV SCH (18:08)
[2022-05-31] MEDS: PIPERACILLIN/TAZOBACTAM 3.375 GM in DEXTROSE 5% 100 ML IV SCH (18:08)
[2022-05-31] MEDS: CLOTRIMAZOLE 1% CR 15 GM TUBE TOP SCH (20:08)
[2022-05-31] MEDS: guaiFENesin 600 MG TABCR PO SCH (22:26)
[2022-06-01] MEDS ORDERED: METOPROLOL TARTRATE 1 MG/ML VIAL IV SCH
[2022-06-01] MEDS ORDERED: traZODone HCL 100 MG TAB PO ONE (00:48)
[2022-06-01] MEDS: PIPERACILLIN/TAZOBACTAM 3.375 GM in DEXTROSE 5% 100 ML IV SCH ×3 (01:11→17:55)
[2022-06-01] MEDS: NSS + 20MEQ KCL 20 MEQ/1,000 ML BAG IV SCH ×3 (01:11→17:53)
[2022-06-01 06:09] LABS: Basophils # (auto) 0.02 K/uL (0-0.2); Basophils % (auto) 0.3 %; Eosinophils # (auto) 0.09 K/uL (0-0.50); Eosinophils % (auto) 1.4 %; Hematocrit (blood only) 33.5 % (40.1-51.0); Hemoglobin 10.8 g/dl (14.0-18.0); Immature Granulocytes # (auto) 0.05 K/uL (0.00-0.02); Immature Granulocytes % (auto) 0.8 %; Lymphocytes # (auto) 1.26 K/uL (1.2-3.4); Lymphocytes % (auto) 19.6 %; Mean Corpuscular Hgb Conc 32.2 g/dL (32.0-36.0); Mean Corpuscular Volume 93.1 fL (80.0-100.0); Mean Platelet Volume 9.7 fL (9.4-12.4); Monocytes # (auto) 0.72 K/uL (0.24-0.82); Monocytes % (auto) 11.2 %; Neutrophils # (auto) 4.28 K/uL (1.4-6.5); Neutrophils % (auto) 66.7 %; Platelet Count 142 K/uL (130-400); RDW Coefficient of Variation 14.4 % (11.5-14.5); RDW Standard Deviation 49.7 fL (36.4-46.3); White Blood Count 6.42 K/ul (4.8-10.8)
[2022-06-01 06:28] LABS: BUN Creatinine Ratio 12.3 (10-20); Calcium 7.6 mg/dl (8.5-10.1); Creatinine Clr Calc Pharmacy 84.1 ml/min; Est GFR (Non-African American) 84.5 ml/min; Potassium 4.1 mmol/L (3.5-5.1)
[2022-06-01] MEDS: CLOTRIMAZOLE 1% CR 15 GM TUBE TOP SCH ×2 (07:01→20:43)
--- NOTE | 2022-06-01 08:15 | Hospitalist Progress Note ---
Date of Service June 01, 2022 Assessment & Plan (1) Acute diverticulitis: Plan: - Admitted 05/13-05/15 for a fall, CT A/P done as part of trauma scans in ED showed diverticulitis w/ possible abscess. Treated medically with abx, IV Zosyn while inpatient and Augmentin on /dc to [facility]. - New onset RLQ pain 05/31 w/o fever, chills, n/v/d, or BRBPR. 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 No definite abscess is seen. - Blood cultures negative to date . - IV Zosyn. - clear liquid diet ok per surgery (2) COVID-19: Plan: - Day #2 of symptoms--cough, sore throat but VS wnl, without fever, hypoxia. On Xarelto chronically for a fibb--will postpone this or starting VTE ppx with Lovenox for now pending surgical consult. - For now, supportive care with Mucinex 1200 mg BID and IV Tylenol for pain/fevers. - Isolation precautions. - Patient is UTD on COVID vaccinations. 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 (5) BPH w urinary obs/LUTS: Plan: - Finasteride on hold while NPO. - Bladder scans for uo < 120cc/4 hours - No evidence of distention on CT, UA does not appear infected. (6) Hypertension: Plan: - (7) Hyperlipidemia: Plan: - Continue Tricor when no longer NPO. (8) Depression with anxiety: Plan: - Trazodone d/c'd last admission due to falls. - Attempting to wean down alprazolam--takes 0.5 mg BID as needed--daughter does not believe he is taking it daily. - Continue Zoloft and BuSpar when no longer NPO. Plan - SCDs for VTE ppx, Xarelto on hold while pending surgery for diverticulitis w/ perforation, fistula - Full Code. Admission and Anticipated Discharge Date Admission Date: May 31, 2022 Subjective Patient states he feels a little better than admission. Still a little bit of suprapubic discomfort with coughing or certain movements. Surgery is advancing to clears does not have pulmonary symptoms of covid Review of Systems Review of Systems: Mild distress and fatigue no headache, no visual changes no speech or swallowing issues no chest pain, pressure or palpitations no shortness of breath, cough or wheezes left sided abdominal pain, nausea or vomiting, diarrhea or constipation no dysuria, hematuria or frequency no focal joint pain or swelling no back pain, CVA tenderness or radicular pain no bruising, bleeding or rashes no focal signs of weakness or numbness or altered sensation no complaints of anxiety or depression.. Physical Exam Physical Exam: The patient appeared well nourished and normally developed. Vital signs as documented. Head exam is normocephalic atraumatic Neck is without JVD, thyromegaly, or carotid bruits. Lungs are clear to auscultation, no focal loss of breath sounds Cardiac exam, Rhythm is regular.. No murmurs, rubs or gallops. Abdominal exam reveals hyperactive bowel sounds, soft tender left side of abdomen no rebound no guarding Extremities are nonedematous and both pedal pulses are present Neurologic exam is alert and oriented, no focal loss of strength or sensation Skin is without bruises or rashes Psychologically is without concerns for anxiety or depression.. Results & Data Results & Data ([facility]) Vital Signs (Past 12 Hours) Vital Signs Temp Pulse Pulse Resp BP BP Pulse Ox 06/01/22 07:15 98.2 F 76 20 126/71 93 06/01/22 04:00 98.1 F 72 18 142/77 H 91 05/31/22 23:11 97.7 F 69 22 136/75 94 05/31/22 23:42 80 24 05/31/22 20:30 73 05/31/22 20:30 O2 Del Method O2 Flow Rate 06/01/22 07:15 Nasal Cannula 2 06/01/22 04:00 Nasal Cannula 2 05/31/22 23:11 CPAP 05/31/22 23:42 05/31/22 20:30 05/31/22 20:30 Room Air PG Care Time/CCT Total # of Minutes Spent Total Time Spent with Patient: Total time spent is greater than 50% in coordination of care (as documented) at patient's floor/unit and/or counseling patient: Coding Level of Care Code 17752 Subseq Hosp Care Lvl 2 Diagnoses Acute diverticulitis K57.92 COVID-19 U07.1 Atrial fibrillation I48.91 Atrial fibrillation type: unspecified Severe sleep apnea G47.30 BPH w urinary obs/LUTS N40.1; N13.8 Hypertension I10 Hypertension type: essential hypertension Hyperlipidemia E78.00 Hyperlipidemia type: pure hypercholesterolemia Depression with anxiety F41.8 (1) Atrial fibrillation Atrial fibrillation type: unspecified Qualified Code(s): I48.91 - Unspecified atrial fibrillation (2) Hyperlipidemia Hyperlipidemia type: pure hypercholesterolemia Qualified Code(s): E78.00 - Pure hypercholesterolemia, unspecified (3) Hypertension Hypertension type: essential hypertension Qualified Code(s): I10 - Essential (primary) hypertension
[2022-06-01] MEDS ORDERED: METOPROLOL TARTRATE 1 MG/ML VIAL IV PRN (08:16)
[2022-06-01] MEDS: guaiFENesin 600 MG TABCR PO SCH ×2 (09:35→20:42)
[2022-06-01] MEDS: FLECAINIDE ACETATE 100 MG TABLET PO SCH (09:49)
--- NOTE | 2022-06-01 10:34 | Surgery Progress Note ---
Date of Service June 01, 2022 Assessment & Plan (1) Diverticulitis of large intestine with complication: Plan: Clinically with relatively mild symptoms. He is afebrile and his white blood cell count is normal. We will initiate some clear liquids and see how it goes. No urgent or emergent surgical intervention indicated. Dr. Queen covering for the weekend. (2) Colonic fistula: (3) COVID-19: Admission and Anticipated Discharge Date Admission Date: May 31, 2022 Subjective Patient states he feels a little better than admission. Still a little bit of suprapubic discomfort with coughing or certain movements. He is thirsty and would like something to drink. Physical Exam Constitutional: WD/WN, vitals as above no acute distress and not ill appearing Eyes: PERRL, conjunctivae normal, anicteric sclerae EOM intact bilaterally ENMT: external ear and nose normal, oropharynx normal Ears: no hearing impairment Neck: trachea midline, no thyromegaly Respiratory: normal respiratory effort; no respiratory distress and does not use accessory muscles Cardiovascular: Rate/Rhythm: regular rate and regular rhythm Gastrointestinal (Abdomen): Soft. Very mild suprapubic tenderness. No guarding or rebound. Skin: no rashes, warm and dry Psychiatric: Orientation: alert, oriented x 3 and cooperative Results & Data ([facility]) Vital Signs (Past 12 Hours) Vital Signs Temp Pulse Pulse Resp BP BP Pulse Ox 06/01/22 10:23 73 06/01/22 10:17 06/01/22 07:15 36.8 C 76 20 126/71 93 06/01/22 04:00 36.7 C 72 18 142/77 H 91 05/31/22 23:11 36.5 C 69 22 136/75 94 05/31/22 23:42 80 24 O2 Del Method O2 Flow Rate 06/01/22 10:23 06/01/22 10:17 Nasal Cannula 2 06/01/22 07:15 Nasal Cannula 2 06/01/22 04:00 Nasal Cannula 2 05/31/22 23:11 CPAP 05/31/22 23:42 PG Care Time/CCT Total # of Minutes Spent Total Time Spent with Patient: Total time spent is greater than 50% in coordination of care (as documented) at patient's floor/unit and/or counseling patient: Coding Level of Care Code 07057 Subseq Hosp Care Lvl 3 Diagnoses Diverticulitis of large intestine with complication K57.32 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
[2022-06-01] MEDS: METOPROLOL TARTRATE 25 MG TAB PO SCH ×2 (10:55→20:42)
[2022-06-01] MEDS: DEXTROMETHORPHAN POLYMR COMPLX 30 MG/5 ML UDP PO PRN (14:09)
[2022-06-01] MEDS: ENOXAPARIN INJ 40 MG/0.4 ML SYR SQ SCH (20:44)
[2022-06-02] MEDS: NSS + 20MEQ KCL 20 MEQ/1,000 ML BAG IV SCH ×4 (00:13→22:17)
--- NOTE | 2022-06-02 01:05 | Communication Note ---
Date of Service: June 02, 2022 ordered home trazodone 100mg PO qhs prn for insomnia
[2022-06-02] MEDS: traZODone HCL 100 MG TAB PO PRN (02:10)
[2022-06-02] MEDS: PIPERACILLIN/TAZOBACTAM 3.375 GM in DEXTROSE 5% 100 ML IV SCH ×3 (02:12→18:09)
--- NOTE | 2022-06-02 07:47 | Surgery Progress Note ---
Date of Service June 02, 2022 Assessment & Plan (1) Diverticulitis of large intestine with complication: Plan: Patient starting to feel better VSS and afebrile Abdomen is soft, with mild discomfort elicited in the RLQ and mid/lower abdomen Would continue on clears for today and go slow with diet given CT scan findings Continue on IV abx No plans for acute surgical intervention Will follow Admission and Anticipated Discharge Date Admission Date: May 31, 2022 Subjective Patient is feeling better, still with some lower abdominal discomfort but improving. Tolerating clear liquids. No n/v. Said he thinks he had a BM yesterday. Physical Exam Physical Exam: awake, no distress Gastrointestinal (Abdomen): Inspection/Auscultation: abdomen not distended Percussion/Palpation: + abdomen tender (RLQ and mid/lower abdomen) and abdomen soft Results & Data ([facility]) Vital Signs (Past 12 Hours) Vital Signs Temp Pulse Pulse Resp BP Pulse Ox O2 Del Method 06/01/22 20:30 Room Air 06/02/22 00:58 60 06/01/22 23:27 72 23 97 06/01/22 23:13 36.9 C 75 18 135/77 95 Room Air FiO2 06/01/22 20:30 06/02/22 00:58 06/01/22 23:27 21 06/01/22 23:13 PG Care Time/CCT Total # of Minutes Spent Total Time Spent with Patient: Total time spent is greater than 50% in coordination of care (as documented) at patient's floor/unit and/or counseling patient: Coding Level of Care Code 58606 Subseq Hosp Care Lvl 1 Diagnoses Diverticulitis of large intestine with complication K57.32
[2022-06-02] MEDS: METOPROLOL TARTRATE 25 MG TAB PO SCH ×2 (10:06→20:59)
[2022-06-02] MEDS: guaiFENesin 600 MG TABCR PO SCH ×2 (10:06→20:59)
[2022-06-02] MEDS: FLECAINIDE ACETATE 100 MG TABLET PO SCH (10:07)
[2022-06-02] MEDS: CLOTRIMAZOLE 1% CR 15 GM TUBE TOP SCH ×2 (10:09→19:54)
[2022-06-02 10:13] LABS: Basophils # (auto) 0.01 K/uL (0-0.2); Basophils % (auto) 0.2 %; Eosinophils # (auto) 0.15 K/uL (0-0.50); Eosinophils % (auto) 2.8 %; Hematocrit (blood only) 35.9 % (40.1-51.0); Hemoglobin 11.3 g/dl (14.0-18.0); Immature Granulocytes # (auto) 0.02 K/uL (0.00-0.02); Immature Granulocytes % (auto) 0.4 %; Lymphocytes # (auto) 1.29 K/uL (1.2-3.4); Lymphocytes % (auto) 24.2 %; Mean Corpuscular Hemoglobin 29.4 pg (25.0-34.0); Mean Corpuscular Hgb Conc 31.5 g/dL (32.0-36.0); Mean Corpuscular Volume 93.5 fL (80.0-100.0); Mean Platelet Volume 8.9 fL (9.4-12.4); Monocytes # (auto) 0.56 K/uL (0.24-0.82); Monocytes % (auto) 10.5 %; Neutrophils # (auto) 3.31 K/uL (1.4-6.5); Neutrophils % (auto) 61.9 %; Platelet Count 142 K/uL (130-400); RDW Coefficient of Variation 14.6 % (11.5-14.5); Red Blood Count 3.84 M/uL (4.63-6.08); White Blood Count 5.34 K/ul (4.8-10.8)
[2022-06-02 10:45] LABS: Calcium 7.8 mg/dl (8.5-10.1); Creatinine Clr Calc Pharmacy 85.2 ml/min; Est GFR (African American) 98.5 ml/min; Potassium 4.2 mmol/L (3.5-5.1)
[2022-06-02] MEDS: DEXTROMETHORPHAN POLYMR COMPLX 30 MG/5 ML UDP PO PRN (20:58)
[2022-06-02] MEDS: ENOXAPARIN INJ 40 MG/0.4 ML SYR SQ SCH (20:59)
--- NOTE | 2022-06-02 22:59 | Hospitalist Progress Note ---
Date of Service June 02, 2022 Assessment & Plan (1) Acute diverticulitis: Plan: - Admitted 05/13-05/15 for a fall, CT A/P done as part of trauma scans in ED showed diverticulitis w/ possible abscess. Treated medically with abx, IV Zosyn while inpatient and Augmentin on /dc to [facility]. - New onset RLQ pain 05/31 w/o fever, chills, n/v/d, or BRBPR. 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 No definite abscess is seen. - Blood cultures negative to date . - IV Zosyn. - clear liquid diet ok per surgery (2) COVID-19: Plan: - Day #2 of symptoms on admission--cough, sore throat but VS wnl, without fever, hypoxia. On Xarelto chronically for a fibb--will postpone this or starting VTE ppx with Lovenox for now pending surgical consult. - For now, supportive care with Mucinex 1200 mg BID and IV Tylenol for pain/fevers. - Isolation precautions. - Patient is UTD on COVID vaccinations. 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 (5) BPH w urinary obs/LUTS: Plan: - Finasteride on hold while NPO. - Bladder scans for uo < 120cc/4 hours - No evidence of distention on CT, UA does not appear infected. (6) Hypertension: Plan: - Continue metoprolol (7) Hyperlipidemia: Plan: - Continue Tricor when no longer NPO. (8) Depression with anxiety: Plan: - Trazodone d/c'd last admission due to falls. - Attempting to wean down alprazolam--takes 0.5 mg BID as needed--daughter does not believe he is taking it daily. - Continue Zoloft and BuSpar Plan - SCDs for VTE ppx, Xarelto on hold while pending surgery for diverticulitis w/ perforation, fistula, continue lovenox for now, if stable tomorrow can go back on Xarelto - Full Code. Admission and Anticipated Discharge Date Admission Date: May 31, 2022 Subjective Tolerating clear liquids without increasing pain. He reports ongoing but mild RLQ pain only on coughing. No nausea, vomiting, diarrhea or constipation. Review of Systems Review of Systems: All systems reviewed & are unremarkable except as noted in Subjective Physical Exam Constitutional: WD/WN, vitals as above Respiratory: normal respiratory effort, lungs clear to auscultation Cardiovascular: RRR, no murmur, no edema Gastrointestinal (Abdomen): normal bowel sounds, soft, nontender, no hepatosplenomegaly Results & Data Results & Data ([facility]) Vital Signs (Past 12 Hours) Vital Signs Temp Pulse Pulse Resp BP BP Pulse Ox 06/02/22 20:15 06/02/22 19:19 36.7 C 60 18 122/74 94 06/02/22 14:22 56 L 06/02/22 15:18 36.5 C 60 117/73 96 O2 Del Method 06/02/22 20:15 Room Air 06/02/22 19:19 Room Air 06/02/22 14:22 06/02/22 15:18 Room Air PG Care Time/CCT Total # of Minutes Spent Total Time Spent with Patient: Total time spent is greater than 50% in coordination of care (as documented) at patient's floor/unit and/or counseling patient: Coding Level of Care Code 77817 Subseq Hosp Care Lvl 2 Diagnoses Acute diverticulitis K57.92 COVID-19 U07.1 Atrial fibrillation I48.91 Atrial fibrillation type: unspecified Severe sleep apnea G47.30 BPH w urinary obs/LUTS N40.1; N13.8 Hypertension I10 Hypertension type: essential hypertension Hyperlipidemia E78.00 Hyperlipidemia type: pure hypercholesterolemia Depression with anxiety F41.8 (1) Atrial fibrillation Atrial fibrillation type: unspecified Qualified Code(s): I48.91 - Unspecified atrial fibrillation (2) Hyperlipidemia Hyperlipidemia type: pure hypercholesterolemia Qualified Code(s): E78.00 - Pu re hypercholesterolemia, unspecified (3) Hypertension Hypertension type: essential hypertension Qualified Code(s): I10 - Essential (primary) hypertension
[2022-06-03] MEDS: PIPERACILLIN/TAZOBACTAM 3.375 GM in DEXTROSE 5% 100 ML IV SCH ×3 (03:10→17:41)
[2022-06-03] MEDS: NSS + 20MEQ KCL 20 MEQ/1,000 ML BAG IV SCH (06:05)
[2022-06-03 07:38] LABS: BUN Creatinine Ratio 7.6 (10-20); Calcium 7.8 mg/dl (8.5-10.1); Creatinine Clr Calc Pharmacy 86.1 ml/min; Est GFR (Non-African American) 85.4 ml/min; Potassium 4.3 mmol/L (3.5-5.1)
--- NOTE | 2022-06-03 07:48 | Surgery Progress Note ---
Date of Service June 03, 2022 Assessment & Plan (1) Diverticulitis of large intestine with complication: Plan: We will advance patient's diet to full liquids Continue IV antibiotics At some point may consider a contrast study but not necessary at the present time Continue medical management No plan for surgical intervention Admission and Anticipated Discharge Date Admission Date: May 31, 2022 Subjective Patient not complaining of abdominal pain and receiving no pain med Sitting in a chair Tolerating clear liquids We will advance to full liquids Review of Systems Constitutional: no fever and no chills Respiratory: no dyspnea Cardiovascular: no chest pain Gastrointestinal: + abdominal pain; no nausea, no vomiting and no diarrhea/loose stools Physical Exam Physical Exam: awake, no distress Gastrointestinal (Abdomen): Inspection/Auscultation: abdomen not distended Percussion/Palpation: + abdomen tender (RLQ and mid/lower abdomen) and abdomen soft Results & Data ([facility]) Vital Signs (Past 12 Hours) Vital Signs Temp Pulse Pulse Resp BP Pulse Ox O2 Del Method 06/03/22 06:05 73 06/03/22 06:47 36.8 C 66 18 125/70 96 06/03/22 03:25 36.8 C 60 18 128/76 95 Nasal Cannula 06/03/22 02:05 60 06/02/22 23:07 36.5 C 66 20 122/68 93 Room Air 06/02/22 20:15 Room Air PG Care Time/CCT Total # of Minutes Spent Total Time Spent with Patient: Total time spent is greater than 50% in coordination of care (as documented) at patient's floor/unit and/or counseling patient: Coding Level of Care Code 07407 Inpt Consult Level 3 Diagnoses Diverticulitis of large intestine with complication K57.32
[2022-06-03] MEDS: FLECAINIDE ACETATE 100 MG TABLET PO SCH (10:02)
[2022-06-03] MEDS: guaiFENesin 600 MG TABCR PO SCH ×2 (10:03→20:53)
[2022-06-03] MEDS: CLOTRIMAZOLE 1% CR 15 GM TUBE TOP SCH ×3 (10:03→21:05)
[2022-06-03] MEDS: METOPROLOL TARTRATE 25 MG TAB PO SCH ×2 (10:04→20:53)
--- NOTE | 2022-06-03 12:14 | Hospitalist Progress Note ---
Date of Service June 03, 2022 Assessment & Plan (1) Acute diverticulitis: Plan: - Admitted 05/13-05/15 for a fall, CT A/P done as part of trauma scans in ED showed diverticulitis w/ possible abscess. Treated medically with abx, IV Zosyn while inpatient and Augmentin on /dc to [facility]. - New onset RLQ pain 05/31 w/o fever, chills, n/v/d, or BRBPR. 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 No definite abscess is seen. - Blood cultures negative to date . - IV Zosyn. - full liquid diet ok per surgery (2) COVID-19: Plan: - Day #2 of symptoms on admission--cough, sore throat but VS wnl, without fever, hypoxia. On Xarelto chronically for a fibb. Can restart on this today. - For now, supportive care with Mucinex 1200 mg BID and IV Tylenol for pain/fevers. - Isolation precautions. - Patient is UTD on COVID vaccinations. 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 (5) BPH w urinary obs/LUTS: Plan: - Finasteride -restart - Bladder scans for uo < 120cc/4 hours - No evidence of distention on CT, UA does not appear infected. (6) Hypertension: Plan: - Continue metoprolol, will switch tartrate back to his usual succinate 50 mg p.o. daily (7) Hyperlipidemia: Plan: - Continue Tricor when no longer NPO. (8) Depression with anxiety: Plan: - Trazodone d/c'd last admission due to falls. - Attempting to wean down alprazolam--takes 0.5 mg BID as needed--daughter does not believe he is taking it daily. - Continue Zoloft and BuSpar Plan - SCDs for VTE ppx, Xarelto - Full Code. -Disposition -stable for downgrade to [facility] Admission and Anticipated Discharge Date Admission Date: May 31, 2022 Subjective Main current concern is pain while sitting on his backside. Tolerating full liquid diet without worsening pain. No nausea or vomiting. Review of Systems Review of Systems: All systems reviewed & are unremarkable except as noted in Subjective Physical Exam Constitutional: WD/WN, vitals as above Respiratory: normal respiratory effort Auscultation: + crackles (Bibasal) Cardiovascular: Rate/Rhythm: regular rate and regular rhythm Heart Sounds: no murmur Extremities: normal capillary refill and + pedal edema (1+ pitting edema equal bilaterally); no calf tenderness Gastrointestinal (Abdomen): normal bowel sounds, soft, nontender, no hepatosplenomegaly Results & Data Results & Data ([facility]) Vital Signs (Past 12 Hours) Vital Signs Temp Pulse Pulse Resp BP BP Pulse Ox 06/03/22 10:07 36.6 C 69 148/82 H 95 06/03/22 06:05 73 06/03/22 06:47 36.8 C 66 18 125/70 96 06/03/22 03:25 36.8 C 60 18 128/76 95 06/03/22 02:05 60 O2 Del Method 06/03/22 10:07 Room Air 06/03/22 06:05 06/03/22 06:47 06/03/22 03:25 Nasal Cannula 06/03/22 02:05 PG Care Time/CCT Total # of Minutes Spent Total Time Spent with Patient: Total time spent is greater than 50% in coordination of care (as documented) at patient's floor/unit and/or counseling patient: Coding Level of Care Code 56728 Subseq Hosp Care Lvl 2 Diagnoses Acute diverticulitis K57.92 COVID-19 U07.1 Atrial fibrillation I48.91 Atrial fibrillation type: unspecified Severe sleep apnea G47.30 BPH w urinary obs/LUTS N40.1; N13.8 Hypertension I10 Hypertension type: essential hypertension Hyperlipidemia E78.00 Hyperlipidemia type: pure hypercholesterolemia Depression with anxiety F41.8 (1) Atrial fibrillation Atrial fibrillation type: unspecified Qualified Code(s): I48.91 - Unspecified atrial fibrillation (2) Hyperlipidemia Hyperlipidemia type: pure hypercholesterolemia Qualified Code(s): E78.00 - Pure hypercholesterolemia, unspecified (3) Hypertension Hypertension type: essential hypertension Qualified Code(s): I10 - Essential (primary) hypertension
[2022-06-03] MEDS: SERTRALINE HCL 50 MG TABLET PO SCH (13:08)
[2022-06-03] MEDS: RIVAROXABAN 20 MG TAB PO SCH (18:14)
[2022-06-04] MEDS: PIPERACILLIN/TAZOBACTAM 3.375 GM in DEXTROSE 5% 100 ML IV SCH ×3 (01:43→17:21)
[2022-06-04 06:25] LABS: BUN Creatinine Ratio 5.3 (10-20); Calcium 7.8 mg/dl (8.5-10.1); Creatinine Clr Calc Pharmacy 89.4 ml/min; Est GFR (African American) 100.6 ml/min; Est GFR (Non-African American) 86.8 ml/min
--- NOTE | 2022-06-04 06:34 | Surgery Progress Note ---
Date of Service June 04, 2022 Assessment & Plan (1) Acute diverticulitis: Plan: We will continue current diet at full liquids and advance to low fiber diet tomorrow Continue IV antibiotics and supportive care Nonoperative management at this point Consider reimaging in the future unless there is concern more acutely Admission and Anticipated Discharge Date Admission Date: May 31, 2022 Subjective Patient not complaining of any significant abdominal pain Tolerating full liquids Not receiving significant pain medication for abdominal pain Vital signs are stable Review of Systems Review of Systems: All systems reviewed & are unremarkable except as noted in HPI & below Physical Exam Physical Exam: awake, no distress Gastrointestinal (Abdomen): Inspection/Auscultation: abdomen not distended Results & Data ([facility]) Vital Signs (Past 12 Hours) Vital Signs Temp Pulse Pulse Resp BP Pulse Ox O2 Del Method 06/03/22 23:00 58 L 06/04/22 01:42 37.1 C 58 L 16 162/82 H 93 Nasal Cannula 06/03/22 20:55 Room Air 06/03/22 22:55 36.6 C 60 18 150/81 H 96 Nasal Cannula 06/03/22 20:52 36.6 C 65 18 148/83 H 94 Room Air O2 Flow Rate 06/03/22 23:00 06/04/22 01:42 2 06/03/22 20:55 06/03/22 22:55 06/03/22 20:52 PG Care Time/CCT Total # of Minutes Spent Total Time Spent with Patient: Total time spent is greater than 50% in coordination of care (as documented) at patient's floor/unit and/or counseling patient: Coding Level of Care Code 74441 Inpt Consult Level 3 Diagnoses Acute diverticulitis K57.92
[2022-06-04] MEDS: FLECAINIDE ACETATE 100 MG TABLET PO SCH (07:53)
[2022-06-04] MEDS: guaiFENesin 600 MG TABCR PO SCH ×2 (07:53→20:56)
[2022-06-04] MEDS: CLOTRIMAZOLE 1% CR 15 GM TUBE TOP SCH ×2 (07:54→21:40)
[2022-06-04] MEDS: SERTRALINE HCL 50 MG TABLET PO SCH (09:29)
[2022-06-04] MEDS: FINASTERIDE 5 MG TAB PO SCH (09:30)
[2022-06-04] MEDS: METOPROLOL SUCC 50MG EXT REL TAB PO SCH (09:30)
[2022-06-04] MEDS: RIVAROXABAN 20 MG TAB PO SCH (17:22)
--- NOTE | 2022-06-04 21:58 | Hospitalist Progress Note ---
Date of Service June 04, 2022 Assessment & Plan (1) Acute diverticulitis: Plan: - Admitted 05/13-05/15 for a fall, CT A/P done as part of trauma scans in ED showed diverticulitis w/ possible abscess. Treated medically with abx, IV Zosyn while inpatient and Augmentin on /dc to [facility]. - New onset RLQ pain 05/31 w/o fever, chills, n/v/d, or BRBPR. 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 No definite abscess is seen. - Blood cultures negative to date . - IV Zosyn. - full liquid diet ok per surgery (2) COVID-19: Plan: - Day #2 of symptoms on admission--cough, sore throat but VS wnl, without fever, hypoxia. On Xarelto chronically for a fibb. Can restart on this today. - For now, supportive care with Mucinex 1200 mg BID and IV Tylenol for pain/fevers. - Isolation precautions. - Patient is UTD on COVID vaccinations. 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 (5) BPH w urinary obs/LUTS: Plan: - Finasteride -restart - Bladder scans for uo < 120cc/4 hours - No evidence of distention on CT, UA does not appear infected. (6) Hypertension: Plan: - Continue metoprolol, will switch tartrate back to his usual succinate 50 mg p.o. daily (7) Hyperlipidemia: Plan: - Continue Tricor when no longer NPO. (8) Depression with anxiety: Plan: - Trazodone d/c'd last admission due to falls. - Attempting to wean down alprazolam--takes 0.5 mg BID as needed--daughter does not believe he is taking it daily. - Continue Zoloft and BuSpar Plan - SCDs for VTE ppx, Xarelto - Full Code. -Disposition -stable for downgrade to [facility] Admission and Anticipated Discharge Date Admission Date: May 31, 2022 Subjective No abdominal pain, nausea or vomiting. Tolerating full liquid diet. No acute concerns. No events overnight. Review of Systems Review of Systems: All systems reviewed & are unremarkable except as noted in Subjective Physical Exam Constitutional: WD/WN, vitals as above Respiratory: normal respiratory effort Auscultation: + crackles (Bibasal) Cardiovascular: Rate/Rhythm: regular rate and regular rhythm Heart Sounds: no murmur Extremities: normal capillary refill and + pedal edema (1+ pitting edema equal bilaterally); no calf tenderness Gastrointestinal (Abdomen): normal bowel sounds, soft, nontender, no hepatosplenomegaly Results & Data Results & Data ([facility]) Vital Signs (Past 12 Hours) Vital Signs Temp Pulse Pulse Resp BP Pulse Ox O2 Del Method 06/04/22 19:39 36.8 C 60 18 147/78 H 93 Nasal Cannula 06/04/22 16:48 36.7 C 59 L 18 144/77 H 95 Room Air 06/04/22 14:31 62 PG Care Time/CCT Total # of Minutes Spent Total Time Spent with Patient: Total time spent is greater than 50% in coordination of care (as documented) at patient's floor/unit and/or counseling patient: Coding Level of Care Code 57700 Subseq Hosp Care Lvl 1 Diagnoses Acute diverticulitis K57.92 COVID-19 U07.1 Atrial fibrillation I48.91 Atrial fibrillation type: unspecified Severe sleep apnea G47.30 BPH w urinary obs/LUTS N40.1; N13.8 Hypertension I10 Hypertension type: essential hypertension Hyperlipidemia E78.00 Hyperlipidemia type: pure hypercholesterolemia Depression with anxiety F41.8 (1) Atrial fibrillation Atrial fibrillation type: unspecified Qualified Code(s): I48.91 - Unspecified atrial fibrillation (2) Hyperlipidemia Hyperlipidemia type: pure hypercholesterolemia Qualified Code(s): E78.00 - Pure hypercholesterolemia, unspecified (3) Hypertension Hypertension type: essential hypertension Qualified Code(s): I10 - Essential (primary) hypertension
[2022-06-05] MEDS: traZODone HCL 100 MG TAB PO PRN (01:11)
[2022-06-05] MEDS: PIPERACILLIN/TAZOBACTAM 3.375 GM in DEXTROSE 5% 100 ML IV SCH ×2 (02:05→09:36)
[2022-06-05] MEDS: CLOTRIMAZOLE 1% CR 15 GM TUBE TOP SCH (07:40)
[2022-06-05] MEDS: guaiFENesin 600 MG TABCR PO SCH (07:42)
[2022-06-05] MEDS: METOPROLOL SUCC 50MG EXT REL TAB PO SCH (07:43)
[2022-06-05] MEDS: FINASTERIDE 5 MG TAB PO SCH (07:43)
[2022-06-05] MEDS: FLECAINIDE ACETATE 100 MG TABLET PO SCH (07:43)
[2022-06-05] MEDS: SERTRALINE HCL 50 MG TABLET PO SCH (07:44)
[2022-06-05] MEDS ORDERED: SODIUM CHLORIDE 0.65% NA SOLN 45 ML (OCEAN) ONE (07:53)
[2022-06-05 07:54] LABS: BUN Creatinine Ratio 5.3 (10-20); Calcium 7.8 mg/dl (8.5-10.1); Creatinine Clr Calc Pharmacy 92.1 ml/min; Est GFR (African American) 101.1 ml/min; Est GFR (Non-African American) 87.2 ml/min; Potassium 3.8 mmol/L (3.5-5.1)
--- NOTE | 2022-06-05 08:53 | Surgery Progress Note ---
Date of Service June 05, 2022 Assessment & Plan (1) Acute diverticulitis: Plan: improving advance to low fiber ok for d/c home on po abx when tolerating diet as above. doing well. no pain no acute surgical indications. will s/o. call if any questions/concerns Admission and Anticipated Discharge Date Admission Date: May 31, 2022 Subjective no complaints, wants more to eat Physical Exam Gastrointestinal (Abdomen): Inspection/Auscultation: abdomen not distended Percussion/Palpation: abdomen soft; abdomen nontender Results & Data ([facility] [place]) Vital Signs (Past 12 Hours) Vital Signs Temp Pulse Pulse Resp BP BP Pulse Ox 06/05/22 07:48 36.6 C 66 16 153/71 H 95 06/04/22 23:00 73 06/05/22 03:23 36.8 C 76 18 148/80 H 96 06/05/22 00:35 168/79 H 06/04/22 23:04 37 C 66 18 145/80 H 97 O2 Del Method O2 Flow Rate 06/05/22 07:48 Room Air 06/04/22 23:00 06/05/22 03:23 Nasal Cannula 2 06/05/22 00:35 06/04/22 23:04 Nasal Cannula 2 PG Care Time/CCT Total # of Minutes Spent Total Time Spent with Patient: Total time spent is greater than 50% in coordination of care (as documented) at patient's floor/unit and/or counseling patient: Coding Level of Care Code 46515 Subseq Hosp Care Lvl 2 Diagnoses Acute diverticulitis K57.92
--- NOTE | 2022-06-05 15:18 | Discharge Summary ---
Date of Service June 05, 2022 Admission HPI Per Admitting Provider Zackery Bach is 81-year-old male with a past medical history of A. fib, hypertension, hyperlipidemia, AMARI, depression and anxiety, recent diverticulitis with perforation hospitalized 2 weeks ago here who presents today with worsening right lower quadrant abdominal pain since last evening. He was actually admitted from for falls at home and was found to have diverticulitis with abscess on trauma scans of the abdomen. He was treated with IV Zosyn, general surgery did see patient and recommended medical management with IV antibiotics, fluids, and gradual transition to low fiber diet. He was discharge d to [facility] and completed oral course of Augmentin for diverticulitis. He had been feeling well since discharge from [facility] on the , however last evening developed right-sided abdominal pain. He has been without any fever/chills, nausea, vomiting, diarrhea, melena, or hematochezia. Thinks he may have had less bowel movements than usual, but no overall concerns for constipation. 2 days ago, he did develop a productive cough and a sore throat and was tested for COVID-19, found to be positive. He is up-to-date on his vaccinations. His abdominal pain is exacerbated by his frequent coughs, however has been doing okay at home with supportive care. Upon presentation, his vital signs are all within normal limits, he is hemodynamically stable, afebrile and SPO2 >95% on room air. Labs significant for stable anemia, Hgb 12.9, normocytic. Electrolytes within normal limits, renal function at baseline, without transaminitis, lipase 40. UA without evidence of infection. 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 Principal Diagnosis Acute diverticulitis COVID-19 Discharge Exam Constitutional WD/WN, vitals as above Respiratory normal respiratory effort, lungs clear to auscultation normal respiratory effort Auscultation: + crackles (Bibasal) Cardiovascular RRR, no murmur, no edema Rate/Rhythm: regular rate and regular rhythm Heart Sounds: no murmur Extremities: normal capillary refill and + pedal edema (1+ pitting edema equal bilaterally); no calf tenderness Gastrointestinal (Abdomen) normal bowel sounds, soft, nontender, no hepatosplenomegaly Discharge Data Allergies Allergy/AdvReac Type Severity Reaction Status Date / Time codeine AdvReac Mild NAUSEA Verified 06/08/22 16:07 amoxicillin [From Augmentin] AdvReac "Made me Verified 06/08/22 16:07 feel terrible" clavulanic acid AdvReac "Made me Verified 06/08/22 16:07 [From Augmentin] feel terrible" Consultations 05/31/22 13:07 ED Decision to Admit Stat 05/31/22 16:53 Consult General Surgery Routine Ordered Studies 05/31/22 08:37 CT abd pelvis IV con only Stat IMPRESSION: Acute diverticulitis is seen with perforation and 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 No definite abscess is seen. Hospital Course (1) Acute diverticulitis: Zackery Bach is a 81 year old male admitted to [facility] from May 31 - 2021 due to right lower quadrant abdominal pain. He was diagnosed with COVID-19 (day 2 of symptoms on admission) and acute diverticulitis with concern for perforation and fistulas. In collaboration with surgery his acute diverticulitis was treated with bowel rest, intravenous fluids and intravenous Zosyn. He will continue on a total course of 14 days of antibiotics on discharge (9 further days of ciprofloxacin and metronidazole). His diet was slowly advanced as abdominal pain resolved. He was advised to follow up with his primary care provider in 1 week, surgery in approximately 2 w eeks and gastroenterology in approximately 4 weeks on discharge (recommend follow up colonoscopy). He should continue on a low fiber diet until advised otherwise. He was also diagnosed with COVID-19 with minimal symptoms and did not require any specific treatment for this during your hospitalization. He was advised to continue to self isolate for 10 days from May 29 (2 further days). (2) COVID-19: (3) Atrial fibrillation: (4) Severe sleep apnea: (5) BPH w urinary obs/LUTS: (6) Hypertension: (7) Hyperlipidemia: (8) Depression with anxiety: Total Time Total Time Spent Total Time Spent (In Minutes): 40 Discharge Plan Discharge Items Patient Disposition: Home - Self-Care Reason For Visit: DIVERTICULITIS Discharge Diagnosis: Acute diverticulitis Activity: Resume your previous activity Non-emergency contact: Surgeon Call non-emergency contact if: you have any medication questions and your symptoms worsen Follow-up/Referrals: Papo Cleary III, CRNP [Primary Care Provider] - 06/12/22 9:20 am (1 week hospital follow up) Roland Yoo DO [Surgeon] - 06/27/22 11:30 am (2 week hospital follow up) James Ortez MD [Physician] - 07/06/22 11:00 am (4 week follow up diverticultitis) Diet: Low Fiber Addtl Attending Provider Instructions: You were admitted to [facility] from May 31 - 2021 due to right lower quadrant abdominal pain. You were diagnosed with COVID-19 and acute diverticulitis with concern for perforation and fistulas. This was treated with bowel rest, intravenous fluids and antibiotics. You will be continued on a total course of 14 days of antibiotics on discharge (9 further days). Please follow up with your primary care provider in 1 week, surgery in approximately 2 weeks and gastroenterology in approximately 4 weeks on discharge. Please continue on a low fiber diet until advised otherwise by a physician. You were also diagnosed with COVID-19 however you did not require any specific treatment for this during your hospitalization. Please continue to self isolate for 10 days from May 29 (2 further days). Pending Studies at Discharge: No Stand-Alone Forms: My [facility], Smoking Cessation Medications and DC Order Prescriptions: New ciprofloxacin HCl 500 mg tablet 500 mg PO BID 9 Days Qty: 18 0RF metronidazole 500 mg tablet 500 mg PO TID 9 Days Qty: 27 0RF Continued metoprolol succinate 50 mg tablet extended release 24 hr 50 mg PO DAILY Qty: 90 3RF clotrimazole 1 % cream 1 applic topical BID 28 Days Qty: 28 0RF flecainide 100 mg tablet 300 mg PO PRN Qty: 30 1RF Rx Instructions: 3 tablets once at the onset of atrial fibrillation buspirone 5 mg tablet 5 mg PO DAILY Qty: 90 3RF trazodone 100 mg tablet 100 mg PO HS PRN (Reason: Sleep) ondansetron HCl 4 mg tablet 4 mg PO Q6H PRN (Reason: Nausea) hydroxyzine HCl 25 mg tablet 25 mg PO QID PRN (Reason: Anxiety) sertraline 25 mg tablet 25 mg PO DAILY Qty: 30 2RF diclofenac sodium 1 % gel 4 g topical QID PRN (Reason: Joint Pain) Qty: 100 1RF Rx Instructions: apply to single knee, ankle, foot; for foot includes sole/toes/top of foot metronidazole 0.75 % cream 1 applic topical BID PRN (Reason: Rash) Qty: 45 2RF betamethasone dipropionate 0.05 % ointment 1 applic topical DAILY PRN (Reason: skin irritation) Qty: 15 0RF Rx Instructions: Apply to lesion behind the right ear alprazolam 0.5 mg tablet 0.5 mg PO BID PRN (Reason: Anxiety) Qty: 60 2RF finasteride 5 mg tablet 5 mg PO DAILY Qty: 90 3RF Xarelto 20 mg tablet 20 mg PO QPM cyanocobalamin (vitamin B-12) 1,000 mcg capsule 1,000 mcg PO DAILY Qty: 30 0RF No Action Saccharomyces boulardii [Florastor] 250 mg capsule 250 mg PO BID Qty: 20 0RF Rx Instructions: swallow whole benzonatate 100 mg capsule 100 mg PO TID PRN (Reason: cough) Qty: 30 0RF Discharge Orders: Discharge Order (Routine); Ordered 06/05/22 Ordered By: Casimiro Denney/Other Patient Handouts: Low-Fiber Diet Admission Data Admit Date/Time: 05/31/22 12:15 Attending Provider: Casimiro Mitchell Admit Provider: Casimiro Mitchell Primary Care Provider: Papo Cleary III Other Providers: Casimiro Mitchell ; Pepe Headley Other Interventions: Discharge Summary Assessment (RN) Last Done: 06/05/22 15:34 Coding Level of Care Code D/C DAY MANAGEMENT >30 MINS Diagnoses Acute diverticulitis K57.92 COVID-19 U07.1 Atrial fibrillation I48.91 Atrial fibrillation type: unspecified Severe sleep apnea G47.30 BPH w urinary obs/LUTS N40.1; N13.8 Hypertension I10 Hypertension type: essential hypertension Hyperlipidemia E78.00 Hyperlipidemia type: pure hypercholesterolemia Depression with anxiety F41.8
== END 2022-06-05 16:34 | disposition home or self-care (01) | DRG 391 ==
LOC: ED 07:56 → 2S 12:15 → SUATTDRO 12:15 → 2S 16:33

== ENCOUNTER 2024-12-01 17:59 | Inpatient (IN) ==
[2024-12-01 18:42] LABS: Basophils # (auto) 0.03 K/uL (0.00-0.20); Basophils % (auto) 0.6 %; Eosinophils # (auto) 0.09 K/uL (0.00-0.50); Eosinophils % (auto) 1.8 %; Immature Granulocytes # (auto) 0.01 K/uL (0.01-0.20); Immature Granulocytes % (auto) 0.2 %; Lymphocytes # (auto) 1.39 K/uL (1.20-3.40); Lymphocytes % (auto) 27.8 %; Mean Corpuscular Hemoglobin 29.2 pg (25.0-34.0); Mean Corpuscular Hgb Conc 30.8 g/dL (32.0-36.0); Mean Corpuscular Volume 94.9 fL (80.0-100.0); Mean Platelet Volume 9.3 fL (9.4-12.4); Neutrophils # (auto) 2.88 K/uL (1.40-6.50); Neutrophils % (auto) 57.6 %; Platelet Count 197 K/uL (130-400); RDW Standard Deviation 49.1 fL (36.4-46.3); Red Blood Count 4.11 M/uL (4.70-6.10)
--- NOTE | 2024-12-01 18:56 | Emergency Department Note ---
ED Visit Note I was consulted by the Advanced Practice Provider, Genesis Gallardo PA-C. I personally made/approved the management plan and take responsibility for the patient management. I performed a substantive portion of the visit. This includes the aspects of: -History/Physical/Personally seeing the patient -MDM .
[2024-12-01 19:02] LABS: Alanine Aminotransferase 14 U/L (7-52); Albumin Globulin Ratio 0.8 (0.9-2); Albumin Level 3.4 gm/dl (3.4-5.0); Alkaline Phosphatase 116 U/L (34-104); Anion Gap 2 (3-11); Aspartate Aminotransferase 15 U/L (13-39); BUN Creatinine Ratio 21.3 (10-20); Bilirubin,Total 0.6 mg/dl (0.2-1.0); Blood Urea Nitrogen 20 mg/dl (6-23); Calcium 9.2 mg/dl (8.6-10.3); Carbon Dioxide 33 mmol/L (21-32); Chloride 106 mmol/L (98-107); Globulin 4.2 gm/dl (2.5-4.0); Glucose 94 mg/dl (70-99(Fasting)); Potassium 4.5 mmol/L (3.5-5.1); Sodium 141 mmol/L (136-145); Total Protein 7.6 gm/dl (6.0-8.3)
[2024-12-01] MEDS: OPTIRAY 320 100ml IV ONE (19:20)
--- NOTE | 2024-12-01 19:37 | Emergency Department Note ---
ED Provider Note History of Present Illness Chief Complaint: Trauma Stated Complaint: LOWER LEFT BACK PAIN Time Seen by Provider: 12/01/24 18:14 Source: patient Mode of arrival: ambulatory Limitations: no limitations This patient is an 84-year-old male who presents to the emergency department for evaluation of back pain. Patient has a history of dementia and is unsure what happened. His daughter states that he started complaining of back pain yesterday. She believes he may have fallen but is not sure. She states that he does fall frequently. He lives at home but does have caregivers throughout the day and family tries to help as much as possible. Despite this he has had multiple falls recently. Patient does take Xarelto. He is complaining of pain in the left back. Home Medications Medication Instructions Recorded Confirmed Type hydroxyzine HCl 25 mg tablet 25 mg PO UD PRN Anxiety 05/23/22 12/01/24 History finasteride 5 mg tablet 5 mg PO DAILY #90 tabs 07/30/23 12/01/24 Rx metoprolol succinate 50 mg 50 mg PO DAILY #90 tabs 10/11/23 12/01/24 Rx tablet,extended release 24 hr cetirizine 10 mg capsule (Zyrtec) 10 mg PO DAILY PRN allergy 02/13/24 12/01/24 Rx symptoms #30 caps saliva stimulant comb. no.3 1 applic mucous membrane Q2H PRN 02/13/24 12/01/24 Rx (Biotene Moisturizing Mouth dry mouth #44.3 mL mucosal spray) montelukast 10 mg tablet 10 mg PO QPM #90 tabs 07/06/24 12/01/24 Rx (Singulair) buspirone 5 mg tablet 5 mg PO DAILY #90 tabs 08/10/24 12/01/24 Rx trazodone 100 mg tablet 100 mg PO HS PRN Sleep #90 tabs 09/10/24 12/01/24 Rx flecainide 100 mg tablet 300 mg PO UD PRN A-fib 11/10/24 12/01/24 History triamcinolone acetonide 0.1 % 1 applic topical BID PRN Irritation 11/10/24 12/01/24 History topical cream rivaroxaban 20 mg tablet (Xarelto) 20 mg PO UD 11/13/24 12/01/24 History sertraline 50 mg tablet 50 mg PO UD depression/anxiety 11/13/24 12/01/24 History alprazolam 0.5 mg tablet 0.5 mg PO BID PRN Anxiety #60 tabs 11/17/24 12/01/24 Rx Allergies Allergy/AdvReac Type Severity Reaction Status Date / Time codeine AdvReac Mild NAUSEA Verified 11/23/24 16:05 amoxicillin [From Augmentin] AdvReac "Made me Verified 11/23/24 16:05 feel terrible" clavulanic acid AdvReac "Made me Verified 11/23/24 16:05 [From Augmentin] feel terrible" Past Med/Surg History Problem List (Updated 12/07/24 @ 12:50 by Rosa Poole MD) LLL pneumonia Subdural fluid collection Ribs, multiple fractures Atrial fibrillation (Chronic) Anticoagulant long-term use Hearing difficulty of both ears Colonic fistula (Acute) Asthma Xerostomia Seasonal allergies Lesion of urinary bladder BPH w urinary obs/LUTS Edema (Chronic) Vitamin D deficiency (Chronic) Solitary thyroid nodule (Chronic) Severe sleep apnea (Chronic) Obesity (Chronic) Nocturnal hypoxia (Chronic) Low TSH level (Chronic) Hypocalcemia (Chronic) Hyperlipidemia (Chronic) GERD without esophagitis (Chronic) Depression with anxiety (Chronic) Cerebrovascular disease (Chronic) Allergic rhinitis (Chronic) Tinnitus (Chronic) Hypertension (Chronic) Medical History Multiple pulmonary nodules History of atrial flutter Diverticulitis of large intestine with complication COVID-19 Sore throat Cough Acute diverticulitis Acute kidney injury CHI (closed head injury) History of cardioversion 09/25/19 Dr. Butch Coombs Atrial flutter with rapid ventricular response Atrial fibrillation with RVR Cervical spondylosis Sleep apnea Atrial flutter Status post ablation of typical isthmus dependent atrial flutter July 2017 Spondylosis without myelopathy or radiculopathy, cervical region Phimosis Adenomatous polyp of colon Nausea Surgical History History of hernia repair (~1990) History of knee surgery (~2005) replacement History of ankle surgery Family History Mother , age 83 Parkinson's disease Father Kidney stones FH: deafness or hearing loss Stroke, Onset Age: 89 Denies family history of Ovarian cancer Prostate cancer Myocardial infarction Breast cancer Bleeding disorder Colorectal cancer Social History Smoking Status: Former smoker Tobacco Type: Pipe Age Started Using Tobacco: 19; Age Quit Using Tobacco: 37; packs per day: 1; Cigarettes Per Day: 10/ day; Second Hand Exposure: No; Do You Dip or Chew Tobacco: No; Hx Alcohol Use: No Hx Substance Use: No Preferred Language: Martiniquais Communication Ability: Effective Visual Impairment: No Limitations Hearing Ability: Hard of Hearing Computer Lab Assistant Required: No Beliefs That Will Affect Care: None marital status: / Current Living Situation: Alone current occupational status: retired How many Children do You have: 2 Other Information That Helps Us Care for You: No Feels Safe at Home: Yes Safety Concerns: Feels Safe At This Time Childhood Exposure to Second-Hand Smoke: Yes Diet: regular Dental Care, Regularly: Yes Physical Activity Frequency: Does not Exercise Seatbelt Use: always Sunscreen Use: No Do you think of yourself as: straight/heterosexual Assistive Devices: Cane, CPAP, Oxygen - at Night and Walker Physical Exam Vital Signs Vital Signs - 24 hr 12/01/24 18:00 12/01/24 18:37 12/01/24 18:41 Temperature 36.4 C L Temperature Source Temporal Artery Scan Pulse Rate 125 H 122 H Pulse Rate [Apical] 124 H Pulse Rate from SpO2 Sensor Pulse Rhythm [Apical] Pulse Strength [Apical] Pulse Strength [Right Carotid] Respiratory Rate 19 24 Respiratory Effort / Characteristics Non-Labored Respiratory Depth Normal Respiratory Pattern Blood Pressure 151/100 H Blood Pressure [Left Arm] 148/105 H Blood Pressure Mean 117 Blood Pressure Mean [Left Arm] 119 Blood Pressure Position [Left Arm] Pulse Oximetry 92 93 Oxygen Delivery Method Room Air Room Air Oxygen Flow Rate Sepsis Recent Fever Within 48 Hours No Sepsis New/Unexplained Change in Mental Status N/A Sepsis Action Taken by Nursing No Action Required 12/01/24 19:00 12/01/24 20:00 12/01/24 20:00 Temperature 36.6 C Temperature Source Oral Pulse Rate 121 H 118 H Pulse Rate [Apical] 120 H Pulse Rate from SpO2 Sensor 121 H 120 H Pulse Rhythm [Apical] Pulse Strength [Apical] Pulse Strength [Right Carotid] Respiratory Rate 21 20 17 Respiratory Effort / Characteristics Non-Labored Spontaneous Respiratory Depth Normal Respiratory Pattern Regular Blood Pressure 134/101 H 153/108 H Blood Pressure [Left Arm] 153/108 H Blood Pressure Mean 105 121 Blood Pressure Mean [Left Arm] 123 Blood Pressure Position [Left Arm] Pulse Oximetry 92 90 92 Oxygen Delivery Method Room Air Oxygen Flow Rate Sepsis Recent Fever Within 48 Hours Sepsis New/Unexplained Change in Mental Status Sepsis Action Taken by Nursing 12/01/24 20:06 12/01/24 20:06 12/01/24 20:11 Temperature 36.9 C 36.7 C Temperature Source Oral Pulse Rate 118 H Pulse Rate [Apical] 120 H 120 H Pulse Rate from SpO2 Sensor Pulse Rhythm [Apical] Regular Regular Pulse Strength [Apical] Normal Normal Pulse Strength [Right Carotid] Normal Respiratory Rate 14 14 17 Respiratory Effort / Characteristics Non-Labored Spontaneous Non-Labored Respiratory Depth Normal Normal Respiratory Pattern Regular Regular Blood Pressure 153/108 H Blood Pressure [Left Arm] 153/108 H 153/108 H Blood Pressure Mean Blood Pressure Mean [Left Arm] 123 123 Blood Pressure Position [Left Arm] Lying Lying Pulse Oximetry 91 93 93 Oxygen Delivery Method Room Air Room Air Room Air Oxygen Flow Rate 0 Sepsis Recent Fever Within 48 Hours Sepsis New/Unexplained Change in Mental Status Sepsis Action Taken by Nursing 12/01/24 21:06 Temperature 36.8 C Temperature Source Oral Pulse Rate Pulse Rate [Apical] 120 H Pulse Rate from SpO2 Sensor Pulse Rhythm [Apical] Regular Pulse Strength [Apical] Normal Pulse Strength [Right Carotid] Respiratory Rate 18 Respiratory Effort / Characteristics Non-Labored Respiratory Depth Normal Respiratory Pattern Regular Blood Pressure Blood Pressure [Left Arm] 154/112 H Blood Pressure Mean Blood Pressure Mean [Left Arm] 126 Blood Pressure Position [Left Arm] Lying Pulse Oximetry 97 Oxygen Delivery Method Nasal Cannula Oxygen Flow Rate 2 Sepsis Recent Fever Within 48 Hours Sepsis New/Unexplained Change in Mental Status Sepsis Action Taken by Nursing VITALS: Vitals are noted on the nurse's note and reviewed by myself. GENERAL: This is an 84-year-old male, in no acute distress but uncomfortable appearing. SKIN: There is ecchymosis noted to the left posterior/lateral flank and to the left anterior upper chest. HEAD: Normocephalic atraumatic. EARS: External auditory canals clear, tympanic membranes pearly arevalo without erythema or effusion bilaterally. EYES: Pupils equal round and reactive to light and accommodation. Extraocular movements intact. MOUTH: Mucous membranes moist. NECK: Supple without nuchal rigidity. Cervical spine is nontender. HEART: Regular rate and rhythm without murmurs gallops or rubs. LUNGS: Clear to auscultation bilaterally without wheezes, rales or rhonchi. ABDOMEN: Positive bowel sounds x 4. Soft, nontender to palpation. MUSCULOSKELETAL: There is tenderness to palpation to the left posterior and lateral lower ribs/flank. NEURO: Patient was alert and answers questions appropriately but is very hard of hearing. Course Administered Medications Acetaminophen (Acetaminophen 500 Mg Tab) 1,000 mg PO Q8 KATE Stop: 12/31/24 22:14 Last Admin: 12/07/24 22:12 Dose: 1,000 mg Documented By: DATA INTEGRITY SPECIALIST Admin: 12/07/24 14:37 Dose: 1,000 mg Documented By: Admin: 12/07/24 05:06 Dose: 1,000 mg Documented By: Admin: 12/06/24 21:12 Dose: 1,000 mg Documented By: Admin: 12/06/24 14:25 Dose: Not Given Documented By: Admin: 12/06/24 05:53 Dose: 1,000 mg Documented By: Admin: 12/05/24 22:07 Dose: 1,000 mg Documented By: Admin: 12/05/24 18:39 Dose: Not Given Documented By: Admin: 12/05/24 05:20 Dose: 1,000 mg Documented By: Admin: 12/04/24 21:28 Dose: 1,000 mg Documented By: Admin: 12/04/24 13:10 Dose: 1,000 mg Documented By: Admin: 12/04/24 05:32 Dose: 1,000 mg Documented By: Admin: 12/03/24 19:53 Dose: 1,000 mg Documented By: Admin: 12/03/24 14:47 Dose: 1,000 mg Documented By: Admin: 12/03/24 06:01 Dose: 1,000 mg Documented By: Admin: 12/02/24 21:15 Dose: 1,000 mg Documented By: Admin: 12/02/24 13:58 Dose: 1,000 mg Documented By: Admin: 12/02/24 06:14 Dose: 1,000 mg Documented By: Admin: 12/01/24 22:25 Dose: Not Given Documented By: TITO Alprazolam (Alprazolam 0.5 Mg Tablet) 0.5 mg PO BID PRN PRN Reason: Anxiety Stop: 01/01/25 00:30 Last Admin: 12/05/24 00:05 Dose: 0.5 mg Documented By: Admin: 12/02/24 09:17 Dose: 0.5 mg Documented By: ELPIDIO Buspirone HCl (Buspirone 5 Mg Tab) 5 mg PO DAILY KATE Stop: 01/01/25 08:59 Last Admin: 12/07/24 09:38 Dose: 5 mg Documented By: Admin: 12/06/24 13:21 Dose: Not Given Documented By: Admin: 12/05/24 09:26 Dose: 5 mg Documented By: Admin: 12/04/24 09:25 Dose: 5 mg Documented By: Admin: 12/03/24 09:12 Dose: 5 mg Documented By: Admin: 12/02/24 09:19 Dose: 5 mg Documented By: ELPIDIO Cetirizine HCl (Cetirizine Hcl 10 Mg Tablet) 10 mg PO DAILY PRN PRN Reason: allergy symptoms Stop: 01/01/25 00:35 Last Admin: 12/03/24 09:12 Dose: 10 mg Documented By: BRI Finasteride (Finasteride 5 Mg Tab) 5 mg PO DAILY KATE Stop: 01/01/25 08:59 Last Admin: 12/07/24 09:38 Dose: 5 mg Documented By: Admin: 12/06/24 13:22 Dose: Not Given Documented By: Admin: 12/05/24 09:25 Dose: 5 mg Documented By: Admin: 12/04/24 09:25 Dose: 5 mg Documented By: Admin: 12/03/24 09:12 Dose: 5 mg Documented By: Admin: 12/02/24 09:19 Dose: 5 mg Documented By: ELPIDIO Furosemide (Furosemide 20 Mg Tab) 20 mg PO QAM KATE Stop: 01/06/25 12:44 Last Admin: 12/07/24 13:22 Dose: 20 mg Documented By: AM Hydroxyzine HCl (Hydroxyzine Hcl 25 Mg Tab) 25 mg PO QID PRN PRN Reason: Anxiety Stop: 01/01/25 00:30 Last Admin: 12/05/24 19:58 Dose: 25 mg Documented By: AMC Cefepime HCl (Maxipime 2000mg) 2,000 mg in 20 mls @ 5 mls/min IV Q8H [facility]; Protocol Stop: 12/10/24 17:59 Last Admin: 12/07/24 18:58 Dose: 5 mls/min Documented By: Admin: 12/07/24 11:20 Dose: 5 mls/min Documented By: AM Metoprolol Succinate (Metoprolol Succ 50mg Ext Rel Tab) 50 mg PO DAILY [facility] Stop: 01/01/25 08:59 Last Admin: 12/07/24 09:42 Dose: 50 mg Documented By: Admin: 12/06/24 13:22 Dose: Not Given Documented By: Admin: 12/05/24 09:27 Dose: Not Given Documented By: Admin: 12/04/24 09:32 Dose: Not Given Documented By: Admin: 12/03/24 09:12 Dose: 50 mg Documented By: Admin: 12/02/24 09:19 Dose: 50 mg Documented By: ELPIDIO Montelukast Sodium (Montelukast Sodium 10 Mg Tablet) 10 mg PO QPM [facility] Stop: 01/01/25 20:59 Last Admin: 12/07/24 20:00 Dose: 10 mg Documented By: DATA INTEGRITY SPECIALIST Admin: 12/06/24 19:11 Dose: 10 mg Documented By: [facility] Admin: 12/05/24 19:58 Dose: 10 mg Documented By: [facility] [place] Admin: 12/04/24 21:28 Dose: 10 mg Documented By: [facility] [place] Admin: 12/03/24 19:53 Dose: 10 mg Documented By: [facility] [place] Admin: 12/02/24 21:14 Dose: 10 mg Documented By: [facility] Nystatin (Nystatin Powder 15gm Btl) 1 appln EXT QS PRN PRN Reason: Affected Skin Folds Stop: 01/01/25 10:55 Last Admin: 12/07/24 19:59 Dose: 1 appln Documented By: DATA INTEGRITY SPECIALIST Admin: 12/05/24 05:27 Dose: 1 appln Documented By: [facility] [place] Sertraline HCl (Sertraline Hcl 50 Mg Tablet) 50 mg PO DAILY [facility] Stop: 01/01/25 08:59 Last Admin: 12/07/24 09:42 Dose: 50 mg Documented By: Admin: 12/06/24 13:22 Dose: Not Given Documented By: Admin: 12/05/24 09:26 Dose: 50 mg Documented By: Admin: 12/04/24 09:25 Dose: 50 mg Documented By: Admin: 12/03/24 09:12 Dose: 50 mg Documented By: Admin: 12/02/24 09:19 Dose: 50 mg Documented By: MP Trazodone HCl (Trazodone Hcl 100 Mg Tab) 100 mg PO HS PRN PRN Reason: Sleep Stop: 01/01/25 00:30 Last Admin: 12/07/24 20:00 Dose: 100 mg Documented By: DATA INTEGRITY SPECIALIST Admin: 12/06/24 22:08 Dose: 100 mg Documented By: Admin: 12/05/24 23:08 Dose: 100 mg Documented By: Admin: 12/04/24 09:25 Dose: 100 mg Documented By: Admin: 12/03/24 22:47 Dose: 100 mg Documented By: Admin: 12/02/24 21:16 Dose: 100 mg Documented By: VIVIAN Discontinued Medications Flecainide Acetate (Flecainide Acetate 100 Mg Tablet) 300 mg PO NOW STA Stop: 12/03/24 23:33 Last Admin: 12/04/24 00:30 Dose: 300 mg Documented By: JANNIE Prothrombin Complex Concent ( (Human) 2,000 units/ Syringe) 80 mls @ 10 mls/min IV TODAY@0835 [facility]; Protocol Stop: 12/02/24 08:42 Last Admin: 12/01/24 21:36 Dose: 10 mls/min Documented By: JENY Sodium Chloride (Nss) 1,000 mls @ 101 mls/hr IV .Q9H55M ONE Stop: 12/05/24 21:38 Last Infusion: 12/05/24 22:33 Dose: Infused Documented By: Infusion: 12/05/24 19:58 Dose: 101 mls/hr Documented By: Infusion: 12/05/24 19:01 Dose: 0 mls/hr Documented By: Admin: 12/05/24 12:12 Dose: 101 mls/hr Documented By: AM Cefepime HCl (Maxipime 2000mg) 2,000 mg in 20 mls @ 5 mls/min IV Q12H [facility]; Protocol Stop: 12/10/24 11:03 Last Admin: 12/06/24 22:09 Dose: 5 mls/min Documented By: Admin: 12/06/24 11:45 Dose: 5 mls/min Documented By: SANDRA Vancomycin HCl 2,000 mg/ (Sodium Chloride) 540 mls @ 200 mls/hr IV NOW ONE Stop: 12/06/24 13:11 Last Infusion: 12/06/24 14:41 Dose: Infused Documented By: Admin: 12/06/24 11:45 Dose: 200 mls/hr Documented By: SANDRA Sodium Chloride (Nss) 1,000 mls @ 101 mls/hr IV .Q9H55M ONE Stop: 12/07/24 03:29 Last Infusion: 12/07/24 04:30 Dose: Infused Documented By: Admin: 12/06/24 18:37 Dose: 101 mls/hr Documented By: SANDRA Ioversol (Optiray 320 100ml) 90 ml IV ONCE ONE Stop: 12/01/24 19:21 Last Admin: 12/01/24 19:20 Dose: 90 ml Documented By: COURTNEY Lidocaine (Lidocaine 5% 1 Patch) 1 patch TD NOW STA Stop: 12/01/24 22:15 Last Admin: 12/01/24 22:25 Dose: Not Given Documented By: TITO Metoprolol Succinate (Metoprolol Succ 50mg Ext Rel Tab) 50 mg PO NOW STA Stop: 12/01/24 22:34 Last Admin: 12/01/24 22:51 Dose: 50 mg Documented By: TITO Miscellaneous (Remove Lidoderm Patch) 1 each N/A ONE ONE Stop: 12/02/24 10:31 Last Admin: 12/02/24 09:35 Dose: Not Given Documented By: ELPIDIO Miscellaneous Information (Nursing To Pharmacy Communication) 1 each N/A TODAY KATE Stop: 12/31/24 21:44 Last Admin: 12/01/24 21:46 Dose: Not Given Documented By: TITO Morphine Sulfate (Morphine Sulfate 4 Mg/Ml 1 Ml Carp\\Vial) 4 mg IV NOW STA Stop: 12/01/24 20:15 Last Admin: 12/01/24 20:31 Dose: 4 mg Documented By: SAS Morphine Sulfate (Morphine Sulfate 2 Mg/Ml Carp) 1 mg IV Q3H PRN PRN Reason: Pain (1,2,3,4,5) & Pre PT Stop: 12/15/24 22:13 Last Admin: 12/05/24 11:40 Dose: 1 mg Documented By: Admin: 12/04/24 13:27 Dose: 1 mg Documented By: Admin: 12/02/24 10:50 Dose: 1 mg Documented By: Admin: 12/02/24 07:44 Dose: 1 mg Documented By: MP Morphine Sulfate (Morphine Sulfate 2 Mg/Ml Carp) 2 mg IV Q3H PRN PRN Reason: Pain (6,7,8,9,10) Stop: 12/15/24 22:13 Last Admin: 12/06/24 03:21 Dose: 2 mg Documented By: [facility] [place] Admin: 12/05/24 19:58 Dose: 2 mg Documented By: [facility] [place] Admin: 12/05/24 00:04 Dose: 2 mg Documented By: [facility] [place] Admin: 12/04/24 21:28 Dose: 2 mg Documented By: [facility] [place] Admin: 12/04/24 05:32 Dose: 2 mg Documented By: [facility] [place] Admin: 12/04/24 02:43 Dose: 2 mg Documented By: [facility] Naloxone HCl (Naloxone Hcl 0.4 Mg/1 Ml Vial/Carp) 0.4 mg IV NOW STA Stop: 12/06/24 10:00 Last Admin: 12/06/24 10:24 Dose: 0.4 mg Documented By: CA Medical Decision Making Differential Diagnosis Differential diagnosis includes rib fracture, chest wall contusion, pulmonary contusion, pneumothorax, intra-abdominal injury, among others. Laboratory Data Attestation: I reviewed the patient's lab results. 12/07/24 05:24 12/07/24 05:24 Lab Results 12/01/24 12/01/24 Range/Units 18:15 20:16 WBC 5.00 (4.8-10.8) K/ul RBC 4.11 L (4.70-6.10) M/uL Hgb 12.0 L (14.0-18.0) g/dl Hct 39.0 L (42.0-52.0) % MCV 94.9 (80.0-100.0) fL MCH 29.2 (25.0-34.0) pg MCHC 30.8 L (32.0-36.0) g/dL RDW Std Deviation 49.1 H (36.4-46.3) fL RDW Coeff of Real 14.0 (11.5-14.5) % Plt Count 197 (130-400) K/uL MPV 9.3 L (9.4-12.4) fL Immature Gran % (Auto) 0.2 % Neut % (Auto) 57.6 % Lymph % (Auto) 27.8 % [place] % (Auto) 12.0 % Eos % (Auto) 1.8 % Baso % (Auto) 0.6 % Neut # (Auto) 2.88 (1.40-6.50) K/uL Lymph # (Auto) 1.39 (1.20-3.40) K/uL [place] # (Auto) 0.60 H (0.11-0.59) K/uL Eos # (Auto) 0.09 (0.00-0.50) K/uL Baso # (Auto) 0.03 (0.00-0.20) K/uL Immature Gran # (Auto) 0.01 (0.01-0.20) K/uL Sodium 141 (136-145) mmol/L Potassium 4.5 (3.5-5.1) mmol/L Chloride 106 (98-107) mmol/L Carbon Dioxide 33 H (21-32) mmol/L Anion Gap 2 L (3-11) BUN 20 (6-23) mg/dl Creatinine 0.94 (0.6-1.4) mg/dl Est Cr Clr Drug Dosing Not Reportable eGFR 80.94 BUN/Creatinine Ratio 21.3 H (10-20) Glucose 94 (70-99(Fasting)) mg/dl Calcium 9.2 (8.6-10.3) mg/dl Magnesium 2.0 (1.7-2.4) mg/dl Total Bilirubin 0.6 (0.2-1.0) mg/dl AST 15 (13-39) U/L ALT 14 (7-52) U/L Alkaline Phosphatase 116 H (34-104) U/L Total Protein 7.6 (6.0-8.3) gm/dl Albumin 3.4 (3.4-5.0) gm/dl Globulin 4.2 H (2.5-4.0) gm/dl Albumin/Globulin Ratio 0.8 L (0.9-2) Urine Color Yellow Urine Appearance Clear (Clear) Urine pH 7.5 (4.5-7.5) Ur Specific [place] 1.041 H (1.000-1.030) Urine Protein Trace H (Negative) Urine Glucose (UA) Negative (Negative) Urine Ketones Trace H (Negative) Urine Blood 1+ H (Negative) Urine Nitrite Negative (Negative) Urine Bilirubin Negative (Negative) Urine Urobilinogen Negative (Negative) Ur Leukocyte Esterase Negative (Negative) Urine WBC (Auto) 0-5 (0-5) /hpf Urine RBC (Auto) >20 H (0-2) /hpf U Hyaline Cast (Auto) 0-2 (0-2) /lpf U Epithel Cells (Auto) 0-2 (0-2) /hpf Urine Bacteria (Auto) None Seen (None Seen) Imaging Data Attestation: I personally reviewed and interpreted this imaging study as follows: Radiologist's Impression: Abdomen/Pelvis CT 12/01/24 18:38 EXAM: CT Abdomen and Pelvis With Intravenous Contrast INDICATION: Trauma. Left flank ecchymosis. TECHNIQUE: Axial computed tomography images of the abdomen and pelvis with intravenous contrast. Sagittal and coronal reformatted images were created and reviewed. This CT exam was performed using one or more of the following dose reduction techniques: automated exposure control, adjustment of the mA and/or kV according to patient size, and/or use of iterative reconstruction technique. CONTRAST: 90ml of Optiray 320 was administered intravenously. COMPARISON: 05/31/2022 FINDINGS: Limitations: None. Lung bases: No abnormality noted. Pleural space: There is a small layering left pleural effusion. There is consolidation in both dependent lower lobes left greater than right. No basilar pneumothorax. Heart: Cardiomegaly and small pericardial effusion. Mediastinum: No abnormality noted. ABDOMEN: Liver: No abnormality noted. Gallbladder and bile ducts: No calcified stones or surrounding fluid. Pancreas: Homogeneous enhancement. No mass, inflammation or ductal dilation. Spleen: No significant abnormality noted. Adrenals: No significant abnormality noted. Kidneys and ureters: There is a 3 mm nonobstructing left kidney stone. Punctate nonobstructing right kidney stone. Bilateral renal cortical scarring noted. Simple right renal cysts. No follow-up of these simple cysts is necessary. Stomach and bowel: There is diverticulosis of the sigmoid colon with adjacent mesenteric scarring. Moderate amounts of formed stool throughout the colon. No obstruction. PELVIS: Appendix: No findings to suggest acute appendicitis. Bladder: No filling defects to suggest mass or large stone. No inflammation. Reproductive: No abnormalities noted. ABDOMEN and PELVIS: Intraperitoneal space: No free air. No significant fluid collection. Bones/joints: There are acute fractures of the left posterior 10th through 12th ribs. The 10th and 11th rib fractures are displaced. There is extensive degenerative change of the thoracolumbar spine. There is stable chronic compression of L1. Multilevel lumbar stenosis present. There is a left lateral chest wall contusion and small hematoma overlying the 10th and 11th rib fractures. No drainable collection noted. Soft tissues: No significant abnormality noted. Vasculature: No abdominal aortic aneurysm. Lymph nodes: No pathologically enlarged lymph nodes. IMPRESSION: 1. Acute displaced fractures of the left posterolateral 10th and 11th ribs and nondisplaced left posterior 12th rib fracture. 2. There is mild chest wall contusion over the left 10th and 11th rib fractures. No drainable collection. 3. Small left basilar pleural effusion and left basilar atelectasis. 4. Nonobstructing kidney stones. No acute abnormality of the solid organs. 5. Sigmoid diverticulosis with stranding in the adjacent fat in an area of previously seen diverticulitis likely scarring. 6. Worsening cardiomegaly and small pericardial effusion. ACT 112: N/A Electronically signed by Telma Cordova 12-01-2024 7:[address] 12/01/24 18:38 EXAM: CT Chest With Intravenous Contrast INDICATION: Trauma TECHNIQUE: Axial computed tomography images of the chest with intravenous contrast. Sagittal and coronal reformatted images were created and reviewed. This CT exam was performed using one or more of the following dose reduction techniques: automated exposure control, adjustment of the mA and/or kV according to patient size, and/or use of iterative reconstruction technique. CONTRAST: 90ml of Optiray 320 was administered intravenously. COMPARISON: 05/13/2022 FINDINGS: Limitations: None. Lungs and pleural spaces: There is a small left basilar pleural effusion. No pneumothorax. There is compressive atelectasis in the left lower lobe. Mild dependent atelectasis in the right lower lobe. Heart: Cardiomegaly and small pericardial effusion noted. Thyroid: Stable 1.9 x 2.8 cm nodule exophytic from the posterior to the right thyroid. Bones/joints: There is an acute displaced fracture of the left posterior lateral 10th rib. Fractures of the left 11th and 12th ribs are seen on separately dictated CT abdomen report from the same time. There is left posterolateral chest wall contusion at the level of the 10th and 11th rib fractures. Diffuse degenerative changes in the thoracic spine. No spinal, sternal or shoulder fracture noted. Soft tissues: No significant abnormality noted. Vasculature: Stable mildly dilated pulmonary artery. No pulmonary embolus noted. There is mild atherosclerosis of the aorta and coronary arteries. No aneurysm or dissection. Lymph nodes: No enlarged lymph nodes. IMPRESSION: 1. Acute fractures left 10th through 12th ribs. There is mild adjacent posterior lateral left chest wall contusion. 2. Small left pleural effusion and left basilar atelectasis. 3. Cardiomegaly and small pericardial effusion. ACT 112: N/A Electronically signed by Telma Cordova 12-01-2024 8:[address] 12/01/24 18:39 EXAM: CT Head Without Intravenous Contrast INDICATION: Fall. Anticoagulated. TECHNIQUE: Axial computed tomography images of the head/brain without intravenous contrast. Sagittal and/or coronal reformats are provided. Sagittal and coronal reformatted images were created and reviewed. This CT exam was performed using one or more of the following dose reduction techniques: automated exposure control, adjustment of the mA and/or kV according to patient size, and/or use of iterative reconstruction technique. COMPARISON: 11/13/2024 FINDINGS: Limitations: None. Brain and extra-axial spaces: There is age appropriate cortical atrophy and chronic ischemic periventricular white matter hypodensity. No acute infarct, hemorrhage or mass noted. There is a new 5 mm thickness low-density left posterior subdural fluid collection. No mass effect. Bones/joints: No acute changes. Soft tissues: No significant abnormality noted. Vasculature: No acute abnormality noted. Sinuses: No layering fluid in the visualized portions of the paranasal sinuses. Mastoid air cells: No mastoid effusion. Orbits: No significant abnormality noted. IMPRESSION: 1. New 5 mm thickness left posterior subacute to chronic subdural fluid collection new compared to 11/13/2024. 2. Cerebral atrophy. ACT 112: N/A Electronically signed by Telma Cordova 12-01-2024 8:02 PM MDM Narrative This patient is an 84-year-old male who presents to the emergency department accompanied by his daughter for evaluation of pain in the left ribs. Patient has severe dementia and does not remember falling. He began complaining of left rib pain which is why the daughter brought him in. Imaging was performed and he was found to have 3 rib fractures, of the left 10th through 12th ribs. Given an unwitnessed fall and his anticoagulant use I did elect to perform CT of the head as well which showed a 5 mm thickness subacute to chronic subdural fluid collection. I did speak with Dr. Burnham who recommended reversing his Xarelto with Kcentra. This was ordered. I had a lengthy discussion with the patient's daughter. She states he was recently admitted for a brain bleed and at that time they had a long discussion about goals of care. She is his power of bed rubber and states that they would not pursue any sort of neurosurgical intervention and that he would like to be a DNR/DNI. Given this, I do not think there would be much benefit to transferring the patient to a trauma center and the patient's daughter much prefers that they stay here for care. The case was discussed with the [facility] who agreed to evaluate the patient. Discharge Plan Visit Data Chief Complaint: Trauma Stated Complaint: LOWER LEFT BACK PAIN ED Provider: Camilo Jones ED Midlevel Provider: Genesis Gallardo Patient Disposition: Admitted As Inpatient Discharge Instructions Interventions: ED Discharge Assessment Last Done: 12/01/24 23:54
--- NOTE | 2024-12-01 19:53 | CT Scan Report ---
EXAM: CT Abdomen and Pelvis With Intravenous Contrast INDICATION: Trauma. Left flank ecchymosis. TECHNIQUE: Axial computed tomography images of the abdomen and pelvis with intravenous contrast. Sagittal and coronal reformatted images were created and reviewed. This CT exam was performed using one or more of the following dose reduction techniques: automated exposure control, adjustment of the mA and/or kV according to patient size, and/or use of iterative reconstruction technique. CONTRAST: 90ml of Optiray 320 was administered intravenously. COMPARISON: 05/31/2022 FINDINGS: Limitations: None. Lung bases: No abnormality noted. Pleural space: There is a small layering left pleural effusion. There is consolidation in both dependent lower lobes left greater than right. No basilar pneumothorax. Heart: Cardiomegaly and small pericardial effusion. Mediastinum: No abnormality noted. ABDOMEN: Liver: No abnormality noted. Gallbladder and bile ducts: No calcified stones or surrounding fluid. Pancreas: Homogeneous enhancement. No mass, inflammation or ductal dilation. Spleen: No significant abnormality noted. Adrenals: No significant abnormality noted. Kidneys and ureters: There is a 3 mm nonobstructing left kidney stone. Punctate nonobstructing right kidney stone. Bilateral renal cortical scarring noted. Simple right renal cysts. No follow-up of these simple cysts is necessary. Stomach and bowel: There is diverticulosis of the sigmoid colon with adjacent mesenteric scarring. Moderate amounts of formed stool throughout the colon. No obstruction. PELVIS: Appendix: No findings to suggest acute appendicitis. Bladder: No filling defects to suggest mass or large stone. No inflammation. Reproductive: No abnormalities noted. ABDOMEN and PELVIS: Intraperitoneal space: No free air. No significant fluid collection. Bones/joints: There are acute fractures of the left posterior 10th through 12th ribs. The 10th and 11th rib fractures are displaced. There is extensive degenerative change of the thoracolumbar spine. There is stable chronic compression of L1. Multilevel lumbar stenosis present. There is a left lateral chest wall contusion and small hematoma overlying the 10th and 11th rib fractures. No drainable collection noted. Soft tissues: No significant abnormality noted. Vasculature: No abdominal aortic aneurysm. Lymph nodes: No pathologically enlarged lymph nodes. IMPRESSION: 1. Acute displaced fractures of the left posterolateral 10th and 11th ribs and nondisplaced left posterior 12th rib fracture. 2. There is mild chest wall contusion over the left 10th and 11th rib fractures. No drainable collection. 3. Small left basilar pleural effusion and left basilar atelectasis. 4. Nonobstructing kidney stones. No acute abnormality of the solid organs. 5. Sigmoid diverticulosis with stranding in the adjacent fat in an area of previously seen diverticulitis likely scarring. 6. Worsening cardiomegaly and small pericardial effusion. ACT 112: N/A Electronically signed by Telma Cordova 12-01-2024 7:53 PM
--- NOTE | 2024-12-01 20:03 | CT Scan Report ---
EXAM: CT Chest With Intravenous Contrast INDICATION: Trauma TECHNIQUE: Axial computed tomography images of the chest with intravenous contrast. Sagittal and coronal reformatted images were created and reviewed. This CT exam was performed using one or more of the following dose reduction techniques: automated exposure control, adjustment of the mA and/or kV according to patient size, and/or use of iterative reconstruction technique. CONTRAST: 90ml of Optiray 320 was administered intravenously. COMPARISON: 05/13/2022 FINDINGS: Limitations: None. Lungs and pleural spaces: There is a small left basilar pleural effusion. No pneumothorax. There is compressive atelectasis in the left lower lobe. Mild dependent atelectasis in the right lower lobe. Heart: Cardiomegaly and small pericardial effusion noted. Thyroid: Stable 1.9 x 2.8 cm nodule exophytic from the posterior to the right thyroid. Bones/joints: There is an acute displaced fracture of the left posterior lateral 10th rib. Fractures of the left 11th and 12th ribs are seen on separately dictated CT abdomen report from the same time. There is left posterolateral chest wall contusion at the level of the 10th and 11th rib fractures. Diffuse degenerative changes in the thoracic spine. No spinal, sternal or shoulder fracture noted. Soft tissues: No significant abnormality noted. Vasculature: Stable mildly dilated pulmonary artery. No pulmonary embolus noted. There is mild atherosclerosis of the aorta and coronary arteries. No aneurysm or dissection. Lymph nodes: No enlarged lymph nodes. IMPRESSION: 1. Acute fractures left 10th through 12th ribs. There is mild adjacent posterior lateral left chest wall contusion. 2. Small left pleural effusion and left basilar atelectasis. 3. Cardiomegaly and small pericardial effusion. ACT 112: N/A Electronically signed by Telma Cordova 12-01-2024 8:02 PM
--- NOTE | 2024-12-01 20:03 | CT Scan Report ---
EXAM: CT Head Without Intravenous Contrast INDICATION: Fall. Anticoagulated. TECHNIQUE: Axial computed tomography images of the head/brain without intravenous contrast. Sagittal and/or coronal reformats are provided. Sagittal and coronal reformatted images were created and reviewed. This CT exam was performed using one or more of the following dose reduction techniques: automated exposure control, adjustment of the mA and/or kV according to patient size, and/or use of iterative reconstruction technique. COMPARISON: 11/13/2024 FINDINGS: Limitations: None. Brain and extra-axial spaces: There is age appropriate cortical atrophy and chronic ischemic periventricular white matter hypodensity. No acute infarct, hemorrhage or mass noted. There is a new 5 mm thickness low-density left posterior subdural fluid collection. No mass effect. Bones/joints: No acute changes. Soft tissues: No significant abnormality noted. Vasculature: No acute abnormality noted. Sinuses: No layering fluid in the visualized portions of the paranasal sinuses. Mastoid air cells: No mastoid effusion. Orbits: No significant abnormality noted. IMPRESSION: 1. New 5 mm thickness left posterior subacute to chronic subdural fluid collection new compared to 11/13/2024. 2. Cerebral atrophy. ACT 112: N/A Electronically signed by Telma Cordova 12-01-2024 8:02 PM
[2024-12-01] MEDS: MoRPHine SULFATE 4 MG/ML 1 ML CARP\\VIAL IV STA (20:31)
[2024-12-01 20:45] LABS: Appearance Urine Clear (Clear); Bacteria Urine Automated None Seen (None Seen); Bilirubin Urine Negative (Negative); Blood Urine 1+ (Negative); Cast Urine Automated 0-2 /lpf (0-2); Color Urine Yellow; Epithelial Cell Urine Auto 0-2 /hpf (0-2); Glucose Urine UA Negative (Negative); Ketones Urine Trace (Negative); Leukocyte Esterase Urine Negative (Negative); Nitrite Urine Negative (Negative); Protein Urine Trace (Negative); RBC Urine Automated >20 /hpf (0-2); Specific Gravity Urine 1.041 (1.000-1.030); Urobilinogen Urine Negative (Negative); WBC Urine Automated 0-5 /hpf (0-5); pH Urine 7.5 (4.5-7.5)
[2024-12-01] MEDS: KCENTRA (1000unit vial) 2000 units IVP IV SCH (21:36)
[2024-12-01] MEDS: Nursing to Pharmacy Communication SCH (21:46)
--- NOTE | 2024-12-01 21:56 | History & Physical Report ---
Date of Service December 01, 2024 Assessment & Plan (1) Ribs, multiple fractures: (2) Subdural fluid collection: Plan 84-year-old male PMHx A-fib on Xarelto, BPH with LUTS, AMARI, HLD, HTN, GERD, and depression with anxiety presenting for left lower back pain. Patient is a poor historian. ED evaluation reveals H&H 12/39, MCH decreased; CMP with carbon dioxide 33, AG 2, ratio 21.3, alkaline phosphatase 116, globulin 4.2, UA with elevated SG but no infection; CTAP with acute displaced fracture of L posterior lateral 10th and 11th ribs as well as nondisplaced L posterior 12th rib fracture, mild chest wall contusion over L 10th and 11th rib, small L basal pleural effusion and L basilar atelectasis; chest CT supportive of such; head CT with new 5 mm thickness L posterior subacute to chronic subdural fluid collection compared to 11/13/2024. Provided with Kcentra and morphine in ED. #Ribs, multiple fractures Presenting with L lower back pain, no reported history of fall per the patient. Patient is a poor historian. Patient's daughter, Miguelina Kraft, was called to discuss management options. Hospital criteria discussed with patient's medical proxy is as follows- admission OK for 4 or less unilateral rib fractures without presence of pulmonary contusion/3 or less bilateral rib fractures without the presence of pulmonary contusion in which patient meets criteria for such. Medical proxy understood clearly the limitations of the hospital and recommendations for transfer vs admission to [facility]. Medical proxy agreeable to admission to [facility] as the main concern is for pain management and no further interventions. Medical proxy agreeable to admission to [facility] even with limitations set in place. 10 minute conversation over phone was held regarding this decision. All questions were answered and all information was clearly understood by medical proxy and relayed back to myself at the end of the phone call. - H/H at admission 12.0/39.0; CBC am - CTAP- displaced fx L posterolateral 10th-11th rib and nondisplaced 12th rib fx with mild chest wall contusion over 10th + 11th ribs with small L basal pleural effusion and basilar atelectasis. - Pain management- Acetaminophen TID, morphine prn, Lidoderm, ice prn - IC q1h + respiratory therapy consulted; O2 prn - PT/OT consulted, appreciate assistance--> Encourage assisted mobilization within 12 hours of admission - Per hospital criteria, CXR should be obtained prior to d/c #Subdural fluid collection 5mm L posterior subacute/chronic subdural fluid collection identified on CT head; Pt is on Xarelto at baseline for Afib. Unclear if there was a fall or trauma but patient's daughter states that the patient has had many falls recently, was seen by PCP 11/23/2024 for a fall. Patient's medical proxy was made aware of head CT findings. Medical proxy states that the patient would NOT want surgical management of this and that she is understandable to the limitations of management at [facility] regarding neurosurgery. Medical proxy agreeable to admission to [facility] even with limitations set in place. 10 minute conversation over phone was held regarding this decision. All questions were answered and all information was clearly understood by medical proxy and relayed back to myself at the end of the phone call. - CT head- new 5mm thickness L posterior subacute to chronic subdural fluid collection new compared to 11/13/2024 - Xarelto HELD - Kcentra ordered under direction of Dr. Burnham as discussed with ED provider - [id number] score 3 (age, sex, HTN) - given recurrent falls and CT head findings, consider risk v benefit of continuing Xarelto #Afib Previous history of Afib, on Xarelto. Home regimen Flecainide prn, metoprolol succinate, Xarelto - EKG on admission showed wide QRS tachycardia with RBBB and rate 122; telemetry with tachycardia 120s - Echo 04/2022- EF 60-65, AV sclerosis mild, mild AR- pending echo - Xarelto held at admission - Tachycardic on admission- will provide with home dose metoprolol in the case that patient missed this medication and reevaluate as appropriate #Anxiety- Sertraline, trazodone (sleep), hydroxyzine prn, buspirone, alprazolam prn #BPH- Finasteride Dispo: Admit, PCU VTE Prophylaxis: HOLD chemical prophylaxis, encourage assisted mobilization This document was dictated utilizing [employer]. Please excuse any grammatical errors that may be secondary to use of this software. Admission and Anticipated Discharge Date Admission Date: 12/01/2024 History of Present Illness Chief Complaint: L back pain Primary Care Provider: Papo Cleary, GITA, HOPE 84-year-old male PMHx A-fib on Xarelto, BPH with LUTS, AMARI, HLD, HTN, GERD, and depression with anxiety presenting for left lower back pain. Patient is a poor historian. Continues to state that his back hurts with any movement, unsure if he fell and states he does not remember. Not complaining of pain elsewhere. No additional concerns per patient. ED evaluation reveals H&H 12/39, MCH decreased; CMP with carbon dioxide 33, AG 2, ratio 21.3, alkaline phosphatase 116, globulin 4.2, UA with elevated SG but no infection; CTAP with acute displaced fracture of L posterior lateral 10th and 11th ribs as well as nondisplaced L posterior 12th rib fracture, mild chest wall contusion over L 10th and 11th rib, small L basal pleural effusion and L basilar atelectasis; chest CT supportive of such; head CT with new 5 mm thickness L posterior subacute to chronic subdural fluid collection compared to 11/13/2024. Provided with Kcentra and morphine in ED. Spoke with patient's daughter, Miguelina Kraft, on the phone for approximately 10 minutes regarding patient's condition and wishes. States that over the past year, the patient had had a progressive decline in his mental status. He has been managing his own medications and day-to-day activities by himself without c oncern, but his daughter states that he has had progressive memory loss. States that he will be told something, then 2 minutes later will not remember the conversation. Patient's daughter believes that he is unsafe to be home alone given his progressive weakness and that he has placement at a facility, which she has available this coming , 12/03/2024. Daughter believes that the patient took all of his AM medications on the day of arrival. Please see Dr. Farias's attestation for adjustments/additions to treatment plan. Allergies Allergy/AdvReac Type Severity Reaction Status Date / Time codeine AdvReac Mild NAUSEA Verified 11/23/24 16:05 amoxicillin [From Augmentin] AdvReac "Made me Verified 11/23/24 16:05 feel terrible" clavulanic acid AdvReac "Made me Verified 11/23/24 16:05 [From Augmentin] feel terrible" Home Medications Medication Instructions Recorded Confirmed Type hydroxyzine HCl 25 mg tablet 25 mg PO UD PRN Anxiety 05/23/22 12/01/24 History finasteride 5 mg tablet 5 mg PO DAILY #90 tabs 07/30/23 12/01/24 Rx metoprolol succinate 50 mg 50 mg PO DAILY #90 tabs 10/11/23 12/01/24 Rx tablet,extended release 24 hr cetirizine 10 mg capsule (Zyrtec) 10 mg PO DAILY PRN allergy 02/13/24 12/01/24 Rx symptoms #30 caps saliva stimulant comb. no.3 1 applic mucous membrane Q2H PRN 02/13/24 12/01/24 Rx (Biotene Moisturizing Mouth dry mouth #44.3 mL mucosal spray) montelukast 10 mg tablet 10 mg PO QPM #90 tabs 07/06/24 12/01/24 Rx (Singulair) buspirone 5 mg tablet 5 mg PO DAILY #90 tabs 08/10/24 12/01/24 Rx trazodone 100 mg tablet 100 mg PO HS PRN Sleep #90 tabs 09/10/24 12/01/24 Rx flecainide 100 mg tablet 300 mg PO UD PRN A-fib 11/10/24 12/01/24 History triamcinolone acetonide 0.1 % 1 applic topical BID PRN Irritation 11/10/24 12/01/24 History topical cream rivaroxaban 20 mg tablet (Xarelto) 20 mg PO UD 11/13/24 12/01/24 History sertraline 50 mg tablet 50 mg PO UD depression/anxiety 11/13/24 12/01/24 History alprazolam 0.5 mg tablet 0.5 mg PO BID PRN Anxiety #60 tabs 11/17/24 12/01/24 Rx Past Med/Surg History Problem List Subdural fluid collection Ribs, multiple fractures Atrial fibrillation (Chronic) Anticoagulant long-term use Hearing difficulty of both ears Colonic fistula (Acute) Asthma Xerostomia Seasonal allergies Lesion of urinary bladder BPH w urinary obs/LUTS Edema (Chronic) Vitamin D deficiency (Chronic) Solitary thyroid nodule (Chronic) Severe sleep apnea (Chronic) Obesity (Chronic) Nocturnal hypoxia (Chronic) Low TSH level (Chronic) Hypocalcemia (Chronic) Hyperlipidemia (Chronic) GERD without esophagitis (Chronic) Depression with anxiety (Chronic) Cerebrovascular disease (Chronic) Allergic rhinitis (Chronic) Tinnitus (Chronic) Hypertension (Chronic) Medical History Multiple pulmonary nodules History of atrial flutter Diverticulitis of large intestine with complication COVID-19 Sore throat Cough Acute diverticulitis Acute kidney injury CHI (closed head injury) History of cardioversion 09/25/19 Dr. Butch Coombs Atrial flutter with rapid ventricular response Atrial fibrillation with RVR Cervical spondylosis Sleep apnea Atrial flutter Status post ablation of typical isthmus dependent atrial flutter July 2017 Spondylosis without myelopathy or radiculopathy, cervical region Phimosis Adenomatous polyp of colon Nausea Surgical History History of hernia repair (~1990) History of knee surgery (~2005) replacement History of ankle surgery Family History Mother , age 83 Parkinson's disease Father Kidney stones FH: deafness or hearing loss Stroke, Onset Age: 89 Denies family history of Ovarian cancer Prostate cancer Myocardial infarction Breast cancer Bleeding disorder Colorectal cancer Social History Smoking Status: Former smoker Tobacco Type: Pipe Age Started Using Tobacco: 19; Age Quit Using Tobacco: 37; packs per day: 1; Cigarettes Per Day: 10/ day; Second Hand Exposure: No; Do You Dip or Chew Tobacco: No; Hx Alcohol Use: No Hx Substance Use: No Preferred Language: Ethiopian Communication Ability: Effective Visual Impairment: No Limitations Hearing Ability: Hard of Hearing Estate Planning Director Required: No Beliefs That Will Affect Care: None marital status: / Current Living Situation: Alone current occupational status: retired How many Children do You have: 2 Other Information That Helps Us Care for You: No Feels Safe at Home: Yes Safety Concerns: Feels Safe At This Time Childhood Exposure to Second-Hand Smoke: Yes Diet: regular Dental Care, Regularly: Yes Physical Activity Frequency: Does not Exercise Seatbelt Use: always Sunscreen Use: No Do you think of yourself as: straight/heterosexual Assistive Devices: CPAP, Glasses and Walker Review of Systems Review of Systems: All systems reviewed & are unremarkable except as noted in Subjective Poor historian Physical Exam Physical Exam: General: No acute distress Skin: Warm and dry Head: Normocephalic, atraumatic Eyes: PERRL, conjunctivae clear, sclera non-icteric; wearing glasses ENT: External ear and ear canal without swelling, hard of hearing; nose atraumatic; poor dentition, tongue normal appearance, pharynx normal but slightly dry Neck: Supple, no LAD Cardio: RRR, no M/G/R, S1 and S2 normal Resp: Chest wall symmetric, normal respiratory effort; No respiratory distress, Lungs CTA in all lobes bilaterally, no wheezes, rales, or rhonchi Abdomen: Soft, symmetric, nontender; No visible lesions or scars; no distention; No masses or hepatosplenomegaly; Bowel sounds normoactive; no bruising on anterior abdomen MSK: No deformities, full ROM throughout; pulses palpable and equal; no edema. Neuro: Awake, alert; CN grossly intact Psych: Poor historian, however, responsive and answering questions appropriately Dr. Farias present in room during time of evaluation. Results & Data Results & Data Vital Signs (Past 12 Hours) Vital Signs Temp Pulse Pulse Resp BP BP Pulse Ox 12/01/24 20:11 36.7 C 120 H 17 153/108 H 93 12/01/24 20:06 120 H 14 153/108 H 93 12/01/24 20:06 36.9 C 118 H 14 153/108 H 91 12/01/24 20:00 118 H 17 153/108 H 92 12/01/24 20:00 36.6 C 120 H 20 153/108 H 90 12/01/24 19:00 121 H 21 134/101 H 92 12/01/24 18:41 122 H 12/01/24 18:37 124 H 24 148/105 H 93 12/01/24 18:00 36.4 C L 125 H 19 151/100 H 92 O2 Del Method O2 Flow Rate 12/01/24 20:11 Room Air 12/01/24 20:06 Room Air 12/01/24 20:06 Room Air 0 12/01/24 20:00 12/01/24 20:00 Room Air 12/01/24 19:00 12/01/24 18:41 12/01/24 18:37 Room Air 12/01/24 18:00 Room Air Laboratory Results 12/01/24 12/01/24 20:16 18:15 WBC 5.00 RBC 4.11 L Hgb 12.0 L Hct 39.0 L MCV 94.9 MCH 29.2 MCHC 30.8 L RDW Std Deviation 49.1 H RDW Coeff of Real 14.0 Plt Count 197 MPV 9.3 L Immature Gran % (Auto) 0.2 Neut % (Auto) 57.6 Lymph % (Auto) 27.8 [place] % (Auto) 12.0 Eos % (Auto) 1.8 Baso % (Auto) 0.6 Neut # (Auto) 2.88 Lymph # (Auto) 1.39 [place] # (Auto) 0.60 H Eos # (Auto) 0.09 Baso # (Auto) 0.03 Immature Gran # (Auto) 0.01 Sodium 141 Potassium 4.5 Chloride 106 Carbon Dioxide 33 H Anion Gap 2 L BUN 20 Creatinine 0.94 Est Cr Clr Drug Dosing Not Reportable eGFR 80.94 BUN/Creatinine Ratio 21.3 H Glucose 94 Calcium 9.2 Magnesium 2.0 Total Bilirubin 0.6 AST 15 ALT 14 Alkaline Phosphatase 116 H Total Protein 7.6 Albumin 3.4 Globulin 4.2 H Albumin/Globulin Ratio 0.8 L Urine Color Yellow Urine Appearance Clear Urine pH 7.5 Ur Specific [place] 1.041 H Urine Protein Trace H Urine Glucose (UA) Negative Urine Ketones Trace H Urine Blood 1+ H Urine Nitrite Negative Urine Bilirubin Negative Urine Urobilinogen Negative Ur Leukocyte Esterase Negative Urine WBC (Auto) 0-5 Urine RBC (Auto) >20 H U Hyaline Cast (Auto) 0-2 U Epithel Cells (Auto) 0-2 Urine Bacteria (Auto) None Seen Diagnostic Findings Abdomen/Pelvis CT 12/01/24 18:38 EXAM: CT Abdomen and Pelvis With Intravenous Contrast INDICATION: Trauma. Left flank ecchymosis. TECHNIQUE: Axial computed tomography images of the abdomen and pelvis with intravenous contrast. Sagittal and coronal reformatted images were created and reviewed. This CT exam was performed using one or more of the following dose reduction techniques: automated exposure control, adjustment of the mA and/or kV according to patient size, and/or use of iterative reconstruction technique. CONTRAST: 90ml of Optiray 320 was administered intravenously. COMPARISON: 05/31/2022 FINDINGS: Limitations: None. Lung bases: No abnormality noted. Pleural space: There is a small layering left pleural effusion. There is consolidation in both dependent lower lobes left greater than right. No basilar pneumothorax. Heart: Cardiomegaly and small pericardial effusion. Mediastinum: No abnormality noted. ABDOMEN: Liver: No abnormality noted. Gallbladder and bile ducts: No calcified stones or surrounding fluid. Pancreas: Homogeneous enhancement. No mass, inflammation or ductal dilation. Spleen: No significant abnormality noted. Adrenals: No significant abnormality noted. Kidneys and ureters: There is a 3 mm nonobstructing left kidney stone. Punctate nonobstructing right kidney stone. Bilateral renal cortical scarring noted. Simple right renal cysts. No follow-up of these simple cysts is necessary. Stomach and bowel: There is diverticulosis of the sigmoid colon with adjacent mesenteric scarring. Moderate amounts of formed stool throughout the colon. No obstruction. PELVIS: Appendix: No findings to suggest acute appendicitis. Bladder: No filling defects to suggest mass or large stone. No inflammation. Reproductive: No abnormalities noted. ABDOMEN and PELVIS: Intraperitoneal space: No free air. No significant fluid collection. Bones/joints: There are acute fractures of the left posterior 10th through 12th ribs. The 10th and 11th rib fractures are displaced. There is extensive degenerative change of the thoracolumbar spine. There is stable chronic compression of L1. Multilevel lumbar stenosis present. There is a left lateral chest wall contusion and small hematoma overlying the 10th and 11th rib fractures. No drainable collection noted. Soft tissues: No significant abnormality noted. Vasculature: No abdominal aortic aneurysm. Lymph nodes: No pathologically enlarged lymph nodes. IMPRESSION: 1. Acute displaced fractures of the left posterolateral 10th and 11th ribs and nondisplaced left posterior 12th rib fracture. 2. There is mild chest wall contusion over the left 10th and 11th rib fractures. No drainable collection. 3. Small left basilar pleural effusion and left basilar atelectasis. 4. Nonobstructing kidney stones. No acute abnormality of the solid organs. 5. Sigmoid diverticulosis with stranding in the adjacent fat in an area of previously seen diverticulitis likely scarring. 6. Worsening cardiomegaly and small pericardial effusion. ACT 112: N/A Electronically signed by Telma Cordova 12-01-2024 7:[address] 12/01/24 18:38 EXAM: CT Chest With Intravenous Contrast INDICATION: Trauma TECHNIQUE: Axial computed tomography images of the chest with intravenous contrast. Sagittal and coronal reformatted images were created and reviewed. This CT exam was performed using one or more of the following dose reduction techniques: automated exposure control, adjustment of the mA and/or kV according to patient size, and/or use of iterative reconstruction technique. CONTRAST: 90ml of Optiray 320 was administered intravenously. COMPARISON: 05/13/2022 FINDINGS: Limitations: None. Lungs and pleural spaces: There is a small left basilar pleural effusion. No pneumothorax. There is compressive atelectasis in the left lower lobe. Mild dependent atelectasis in the right lower lobe. Heart: Cardiomegaly and small pericardial effusion noted. Thyroid: Stable 1.9 x 2.8 cm nodule exophytic from the posterior to the right thyroid. Bones/joints: There is an acute displaced fracture of the left posterior lateral 10th rib. Fractures of the left 11th and 12th ribs are seen on separately dictated CT abdomen report from the same time. There is left posterolateral chest wall contusion at the level of the 10th and 11th rib fractures. Diffuse degenerative changes in the thoracic spine. No spinal, sternal or shoulder fracture noted. Soft tissues: No significant abnormality noted. Vasculature: Stable mildly dilated pulmonary artery. No pulmonary embolus noted. There is mild atherosclerosis of the aorta and coronary arteries. No aneurysm or dissection. Lymph nodes: No enlarged lymph nodes. IMPRESSION: 1. Acute fractures left 10th through 12th ribs. There is mild adjacent posterior lateral left chest wall contusion. 2. Small left pleural effusion and left basilar atelectasis. 3. Cardiomegaly and small pericardial effusion. ACT 112: N/A Electronically signed by Telma Cordova 12-01-2024 8:[address] 12/01/24 18:39 EXAM: CT Head Without Intravenous Contrast INDICATION: Fall. Anticoagulated. TECHNIQUE: Axial computed tomography images of the head/brain without intravenous contrast. Sagittal and/or coronal reformats are provided. Sagittal and coronal reformatted images were created and reviewed. This CT exam was performed using one or more of the following dose reduction techniques: automated exposure control, adjustment of the mA and/or kV according to patient size, and/or use of iterative reconstruction technique. COMPARISON: 11/13/2024 FINDINGS: Limitations: None. Brain and extra-axial spaces: There is age appropriate cortical atrophy and chronic ischemic periventricular white matter hypodensity. No acute infarct, hemorrhage or mass noted. There is a new 5 mm thickness low-density left posterior subdural fluid collection. No mass effect. Bones/joints: No acute changes. Soft tissues: No significant abnormality noted. Vasculature: No acute abnormality noted. Sinuses: No layering fluid in the visualized portions of the paranasal sinuses. Mastoid air cells: No mastoid effusion. Orbits: No significant abnormality noted. IMPRESSION: 1. New 5 mm thickness left posterior subacute to chronic subdural fluid collection new compared to 11/13/2024. 2. Cerebral atrophy. ACT 112: N/A Electronically signed by Telma Cordova 12-01-2024 8:02 PM Medications Administered Kcentra IV Morphine 4mg IV ECG Additional Comments: Wide QRS tachycardia, RBBB, T wave abnormality 122 bpm, QRS 140, QT/QTc 380/547, PRT */-12/-48 Code Status & VTE Plan Code Status DNR/DNI VTE Prophylaxis Plan VTE Prophylaxis will be ordered: Yes Supervising Physician Co-Signing Physician Notes Patient seen and examined, chart reviewed, case discussed with ANAI Tyson and I agree with the assessment and plan as above. In brief, patient is an 84 yo male presenting with complaint of back pain. Presumed fall prior to arrival, although patient does not verbalize such - poor historian, cognitive decline and forgetfulness. Found with acute displaced fractures of the left posterolateral 10th and 11th ribs and left posterior 12th ribs - chest wall contusion. No pulmonary contusion noted. CT head with new 5mm left posterior subacute to chronic subdural fluid collection. On exam patient is resting, uncomfortable in left ribs with motion Skin - bruising noted on posterior left side by ER staff, patient unable to sit up during our encounter secondary to pain HEENT- MMM, neck supple, no cervical spine tenderness Heart - +S1/S2, regular, no m/r/g Lungs - CTA, diminished in bases bilaterally Abd - soft, NT/ND Ext - warm, well perfused Labs and images reviewed Assessment/Plan Multiple rib fractures - 3 contiguous, no flail chest, no pulmonary contusion. Transfer was discussed with patient's daughter - prefers to stay here, they are aware of limitations Patient is at high risk for complications due to advanced age, presence of 3 rib fractures -Admit to PCU -Pain control with scheduled Tylenol and Morphine PRN -Lidoderm patch -Incentive spirometry use hourly Presumed fall - imaging as above -Will order CT Cervical spine as patient unable to clearly recall events prior to arrival. He is not complaining of neck pain. No deformity or step off on exam Intracranial collection - presumed subacute subdural, possibly from previous fall -Hold Xarelto -KCentra administered in ER for partial reversal of Xarelto -Neuro checks with [facility]CS q 4 hours Remainder as above PG Care Time/CCT Total # of Minutes Spent Total Time Spent with Patient: Total time spent is greater than 50% in coordination of care (as documented) at patient's floor/unit and/or counseling patient: Coding Level of Care Code 35164 INT INP/OBS CARE 75MIN Diagnoses Ribs, multiple fractures S22.49XA Subdural fluid collection G93.89
[2024-12-01] MEDS: LIDOCAINE 5% 1 PATCH TD STA (22:25)
[2024-12-01] MEDS: ACETAMINOPHEN 500 MG TAB PO SCH (22:25)
[2024-12-01] MEDS: METOPROLOL SUCC 50MG EXT REL TAB PO STA (22:51)
[2024-12-02] MEDS ORDERED: TRIAMCINOLONE ACET 0.1% CR 15 GM TUBE TOP PRN (00:31)
[2024-12-02] MEDS ORDERED: FLECAINIDE ACETATE 100 MG TABLET PO PRN (00:31)
--- NOTE | 2024-12-02 04:30 | CT Scan Report ---
EXAM: CT cervical spine wo con CLINICAL HISTORY: Fall. TECHNIQUE: CT scan of the cervical spine was performed without the administration of intravenous contrast. Contiguous axial images were obtained from the skull base to the upper thoracic spine. Coronal and sagittal reformatted images were also reviewed. One of the following dose reduction techniques was utilized for this exam. Automated exposure control, adjustment of the mA and/or kV according to patient size, and use of iterative reconstruction. COMPARISON: Comparison is made with the prior CT on 11/13/2024. FINDINGS: Vertebrae: The vertebral bodies are normal in height. The cortical and trabecular bone patterns are normal. Diffuse osteopenic changes. Fracture of the left side of the posterior spinous process of C4 and C5 vertebrae. Straightening of cervical spine, mostly secondary to degenerative changes. Anterior subluxation of C3 over C4 vertebra by 3 mm. Diffuse marked spondylotic changes are seen as endplate hypertrophy and endplate sclerosis. Intervertebral Discs and neural foramina: Diffuse disc herniation with endplate hypertrophy at C3-C4 through C7-T1, indenting ventral cord aspect and causing moderate neural foraminal stenosis. Marked narrowed intervertebral disc spaces at C4-C5 through C7-T1, mounting to vertebral ankylosis. Facet Joints: Facet and uncovertebral joint arthropathy are seen as subchondral sclerosis and narrowed joint spaces. No evidence of dislocation or subluxation. Prevertebral Soft Tissues: The prevertebral soft tissues are normal in thickness without evidence of mass or abnormal fluid collection. Additional Findings: Multiple thyroid nodules, with calcifications on right lobe. IMPRESSION: 1. Fracture of the left side of the posterior spinous process of C4 and C5 vertebrae. (new) 2. Straightening of the cervical spine, mostly secondary to degenerative changes. Stable. 3. Degenerative Anterior subluxation of C3 over C4 vertebra by 3 mm.Stable 4. Cervical spondylosis with multiple levels of posterior disc protrusions/osteophyte complex, multilevel facet, and uncovertebral degenerative arthropathy causing spinal canal and neural foraminal stenosis.Stable 5. Diffuse osteopenic changes. Stable 6. Multiple thyroid nodules, with calcifications on right lobe.Stable. Electronically signed by Bashir Cummins 12-02-2024 04:30 AM
[2024-12-02 06:51] LABS: Hematocrit (blood only) 35.1 % (42.0-52.0); Hemoglobin 11.1 g/dl (14.0-18.0); Mean Corpuscular Hemoglobin 30.1 pg (25.0-34.0); Mean Corpuscular Hgb Conc 31.6 g/dL (32.0-36.0); Mean Corpuscular Volume 95.1 fL (80.0-100.0); Mean Platelet Volume 9.4 fL (9.4-12.4); Platelet Count 180 K/uL (130-400); RDW Coefficient of Variation 14.1 % (11.5-14.5); RDW Standard Deviation 49.1 fL (36.4-46.3); Red Blood Count 3.69 M/uL (4.70-6.10); White Blood Count 5.93 K/ul (4.8-10.8)
[2024-12-02] MEDS: MoRPHine SULFATE 2 MG/ML CARP IV PRN (07:44)
[2024-12-02] MEDS: ALPRAZolam 0.5 MG TABLET PO PRN (09:17)
[2024-12-02] MEDS: FINASTERIDE 5 MG TAB PO SCH (09:19)
[2024-12-02] MEDS: METOPROLOL SUCC 50MG EXT REL TAB PO SCH (09:19)
[2024-12-02] MEDS: SERTRALINE HCL 50 MG TABLET PO SCH (09:19)
[2024-12-02] MEDS: busPIRone 5 MG TAB PO SCH (09:19)
--- NOTE | 2024-12-02 15:59 | Electrocardiogram Report ---
Test Reason : Blood Pressure : */* mmHG Vent. Rate : 120 BPM Atrial Rate : 120 BPM P-R Int : 120 ms QRS Dur : 134 ms QT Int : 380 ms P-R-T Axes : * -16 -45 degrees QTcB Int : 537 ms Suspect Atrial flutter with 2 to 1 block Right bundle branch block T wave abnormality, consider inferolateral ischemia Abnormal ECG When compared with ECG of 01-Dec-2024 18:34, (unconfirmed) No significant change Confirmed by Pankaj Navas ([id number]) on 12/02/2024 3:59:19 PM Referred By: REFERRED SELF Confirmed By: Pankaj Navas
--- NOTE | 2024-12-02 18:02 | XCELERA ---
[id number]
--- NOTE | 2024-12-02 19:09 | Hospitalist Progress Note ---
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 Patient is a poor historian. ED evaluation reveals H&H 12/39, MCH decreased; CMP with carbon dioxide 33, AG 2, ratio 21.3, alkaline phosphatase 116, globulin 4.2, UA with elevated SG but no infection; CTAP with acute displaced fracture of L posterior lateral 10th and 11th ribs as well as nondisplaced L posterior 12th rib fracture, mild chest wall contusion over L 10th and 11th rib, small L basal pleural effusion and L basilar atelectasis; chest CT supportive of such; head CT with new 5 mm thickness L posterior subacute to chronic subdural fluid collection compared to 11/13/2024. Patient received Kcentra and morphine in [facility] ER on 12/01/2024. Patient was subsequently admitted to the inpatient hospitalist service @ [facility] on 12/01/2024 with the following diagnoses: 1. Acute left 10th, 11th, and 12th rib fractures. (as noted on 12/01/2024, 6:38pm CT abd/pelvis without contrast). 2. "New 5 mm thickness low-density left posterior subdural fluid collection. No mass effect." (as noted on 12/01/2024, 6:39pm CT brain without contrast). 3. "Fracture on the left side of the posterior spinous process of C4 and C5 vertebrae." (as noted on 12/02/2024, 1:17am CT cervical spine without contrast). The following medical issues are being addressed: #Acute left 10th, 11th, and 12th rib fractures. (as noted on 12/01/2024, 6:38pm CT abd/pelvis without contrast). Presenting with L lower back pain, no reported history of fall per the patient. Patient is a poor historian. Patient's daughter, Miguelina Kraft, was called to discuss management options. Hospital criteria discussed with patient's medical proxy is as follows- admission OK for 4 or less unilateral rib fractures without presence of pulmonary contusion/3 or less bilateral rib fractures without the presence of pulmonary contusion in which patient meets criteria for such. Medical proxy understood clearly the limitations of the hospital and recommendations for transfer vs admission to [facility]. Medical proxy agreeable to admission to [facility] as the main concern is for pain management and no further interventions. Medical proxy agreeable to admission to [facility] even with limitations set in place. 10 minute conversation over phone was held regarding this decision. All questions were answered and all information was clearly understood by medical proxy and relayed back to myself at the end of the phone call. - H/H at admission 12.0/39.0; CBC am - CTAP- displaced fx L posterolateral 10th-11th rib and nondisplaced 12th rib fx with mild chest wall contusion over 10th + 11th ribs with small L basal pleural effusion and basilar atelectasis. - Pain management- Acetaminophen TID, morphine prn, Lidoderm, ice prn - IC q1h + respiratory therapy consulted; O2 prn - PT/OT consulted, appreciate assistance--> Encourage assisted mobilization within 12 hours of admission - Per hospital criteria, CXR should be obtained prior to d/c #"New 5 mm thickness low-density left posterior subdural fluid collection. No mass effect." (as noted on 12/01/2024, 6:39pm CT brain without contrast). 5mm L posterior subacute/chronic subdural fluid collection identified on CT head; Pt is on Xarelto at baseline for Afib. Unclear if there was a fall or trauma but patient's daughter states that the patient has had many falls recently, was seen by PCP 11/23/2024 for a fall. Patient's medical proxy was made aware of head CT findings. Medical proxy states that the patient would NOT want surgical management of this and that she is understandable to the limitations of management at [facility] regarding neurosurgery. Medical proxy agreeable to admission to [facility] even with limitations set in place. 10 minute conversation over phone was held regarding this decision. All questions were answered and all information was clearly understood by medical proxy and relayed back to myself at the end of the phone call. - CT head- new 5mm thickness L posterior subacute to chronic subdural fluid collection new compared to 11/13/2024 - Xarelto HELD - Kcentra ordered under direction of Dr. Burnham as discussed with ED provider - [id number] score 3 (age, sex, HTN) - given recurrent falls and CT head findings, consider risk v benefit of continuing Xarelto #"Fracture on the left side of the posterior spinous process of C4 and C5 vertebrae." (as noted on 12/02/2024, 1:17am CT cervical spine without contrast). Patient was fitted with an orthotic, cervical collar to immobilize the neck while patient remains in [facility]. #Paroxysmal AFIB, Previous history of Afib, on Xarelto. Home regimen Flecainide prn, metoprolol succinate, Xarelto - EKG on admission showed wide QRS tachycardia with RBBB and rate 122; telemetry with tachycardia 120s. cf., repeat EKG (12/02/2024, 10:03am): Atrial flutter with 2:1 block, ventricular rate 120, WV 120, QTC 537; RBBB, TWI in III, aVF, V2-V5, no acute ST depressions/elevations (by my review). - Echo 04/2022- EF 60-65, AV sclerosis mild, mild AR- pending echo - Xarelto held at admission - Tachycardic on admission- will provide with home dose metoprolol in the case that patient missed this medication and reevaluate as appropriate #Anxiety- Sertraline, trazodone (sleep), hydroxyzine prn, buspirone, alprazolam prn #BPH- Finasteride Dispo: Admit, PCU [facility] Prophylaxis: HOLD chemical prophylaxis, encourage assisted mobilization Admission and Anticipated Discharge Date Admission Date: December 01, 2024 Subjective "My left ribs and the back of my neck hurt a little when I sit up in bed; otherwise I am ok." Review of Systems Constitutional: Negative for antecedent/coincident fevers, chills, diaphoresis, cough, wheeze, sore throat, hemoptysis, chest pains, palpitations, pleurisy, nausea, vomiting, diarrhea, abdominal pain, pelvic pain, hematemesis, hematochezia, melena, hematuria, dysuria, frequency, urgency, headaches, dizziness, lightheadedness, visual changes, hearing changes, weakness, falls, syncope, trauma, travel history, sick contacts, or food/drug ingestions novel or new. All other review of systems are reported as negative by the patient on 12/02/2024. Physical Exam Constitutional: General: Uncomfortable with patient pointing to his left ribs (with acute left 10th, 11th, and 12th rib fractures in situ), pleasantly incoherent and forgetful , but very cooperative. Wide awake and alert. Pleasantly confused, but NOT lethargic or obtunded. Patient speaks in complete, fluent, and articulate, but non-sensical sentences without pause, interruption, cough, or wheeze. HEENT: Normocephalic, atraumatic. Pupils equally round and reactive to light. Extra-ocular muscles intact. No nystagmus, gaze paresis, anisocoria, miosis, mydriasis, hyphema, scleral injection, conjunctivitis, or pterygium. No rhinorrhea or otorrhea. No pharyngeal discharge or erythema. Severe presbycusis with his [employer] binaural hearing aids misplaced @ home a long time ago. Neck: Supple with mild posterior neck tenderness (without hematoma/ecchymosis), no stridor, bruit, goiter, hepatojugular reflux. Jugular venous pressure is estimated to be 8 cm above the sternal angle of Luis Enrique, which is estimated to be 5 cm above the level of the right atrium. Lymph: No anterior/posterior cervical, supraclavicular/infraclavicular, axillary, epitrochlear, or inguinal adenopathy. Chest: Symmetric rise and fall with respirations. Lungs: Clear to auscultation and percussion. No audible expiratory wheeze, egophony, pectoriloquy, increase in tactile fremitus, or flatness/dullness to percussion at the bases. Heart: Irregularly irregular rhythm; increased rate, S1 and S2 noted. No S3 or S4 summation gallop noted. No tripartite friction rub. Grade II/ early systolic murmur @ LLSB without radiation to the carotids, axilla, or back, and which remains invariant in regards to the respiratory cycle. Abdomen: Soft, non-tender, non-distended. No rebound, guarding, Man's sign, or organomegaly. Bowel sounds sounds auscultated in all 4 quadrants. Extremities: No clubbing, cyanosis, or edema. 2+ pedal pulses bilaterally. Tender ecchymoses on left lateral flank corresponding to acute left 10th, 11th, and 12th rib fractures. Skin: No decubitus ulcer, exanthem, or enanthem. Left side ecchymoses corresponding to acute left 10th, 11th, and 12th rib fractures in situ. Neurology: Alert and oriented to person, but NOT place, time, or situation. DTR+ and symmetric. 5/5 motor strength in all 4 extremities, both proximally and distally. No pronator drift. No facial droop. No tremors, tics, or myoclonus. Urology: + martin (placed in [facility] ER on admission date 12/01/2024 with 200cc of clear lynsey colored urine, no blood clots or gross hematuria noted). No urethral discharge. Psychiatry: No suicidal ideation. No homicidal ideation. Results & Data Results & Data Vital Signs (Past 12 Hours) Vital Signs Temp Pulse Resp BP Pulse Ox O2 Del Method O2 Flow Rate 12/02/24 16:45 36.7 C 120 H 20 155/109 H 93 Room Air 12/02/24 11:55 36.6 C 119 H 20 145/101 H 92 Nasal Cannula 2.0 12/02/24 08:31 36.8 C 121 H 20 128/90 91 Room Air 12/02/24 08:00 Room Air Laboratory Results 12/02/24 12/01/24 12/01/24 06:30 20:16 18:15 WBC 5.93 RBC 3.69 L Hgb 11.1 L Hct 35.1 L MCV 95.1 MCH 30.1 MCHC 31.6 L RDW Std Deviation 49.1 H RDW Coeff of Real 14.1 Plt Count 180 MPV 9.4 Magnesium 2.0 Urine Color Yellow Urine Appearance Clear Urine pH 7.5 Ur Specific Issue 1.041 H Urine Protein Trace H Urine Glucose (UA) Negative Urine Ketones Trace H Urine Blood 1+ H Urine Nitrite Negative Urine Bilirubin Negative Urine Urobilinogen Negative Ur Leukocyte Esterase Negative Urine WBC (Auto) 0-5 Urine RBC (Auto) >20 H U Hyaline Cast (Auto) 0-2 U Epithel Cells (Auto) 0-2 Urine Bacteria (Auto) None Seen Diagnostic Findings EKG (12/02/2024, 10:03am): Atrial flutter with 2:1 block, ventricular rate 120, WV 120, QTC 537; RBBB, TWI in III, aVF, V2-V5, no acute ST depressions/elevations (by my review). PG Care Time/CCT Total # of Minutes Spent Total Time Spent with Patient: Total time spent is greater than 50% in coordination of care (as documented) at patient's floor/unit and/or counseling patient: Coding Level of Care Code 88248 SUB INP/OBS CARE 2/35MIN Diagnoses Ribs, multiple fractures S22.49XA Subdural fluid collection G93.89
[2024-12-02] MEDS: MONTELUKAST SODIUM 10 MG TABLET PO SCH (21:14)
[2024-12-02] MEDS: traZODone HCL 100 MG TAB PO PRN (21:16)
--- NOTE | 2024-12-02 21:40 | Electrocardiogram Report ---
Test Reason : Blood Pressure : */* mmHG Vent. Rate : 122 BPM Atrial Rate : * BPM P-R Int : * ms QRS Dur : 140 ms QT Int : 384 ms P-R-T Axes : * -12 -48 degrees QTcB Int : 547 ms Suspect sinus tachycardia Right bundle branch block T wave abnormality, consider inferolateral ischemia Abnormal ECG When compared with ECG of 31-May-2022 09:01, Vent. rate has increased by 48 bpm Confirmed by Pankaj Navas ([id number]) on 12/02/2024 9:40:45 PM Referred By: REFERRED SELF Confirmed By: Pankaj Navas
[2024-12-03 06:39] LABS: Hematocrit (blood only) 35.4 % (42.0-52.0); Hemoglobin 10.9 g/dl (14.0-18.0); Mean Corpuscular Hemoglobin 29.3 pg (25.0-34.0); Mean Corpuscular Hgb Conc 30.8 g/dL (32.0-36.0); Mean Corpuscular Volume 95.2 fL (80.0-100.0); Mean Platelet Volume 9.5 fL (9.4-12.4); Platelet Count 167 K/uL (130-400); RDW Standard Deviation 49.1 fL (36.4-46.3); Red Blood Count 3.72 M/uL (4.70-6.10); White Blood Count 5.24 K/ul (4.8-10.8)
[2024-12-03] MEDS: CETIRIZINE HCL 10 MG TABLET PO PRN (09:12)
--- NOTE | 2024-12-03 18:05 | Hospitalist Progress Note ---
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 Patient is a poor historian. ED evaluation reveals H&H 12/39, MCH decreased; CMP with carbon dioxide 33, AG 2, ratio 21.3, alkaline phosphatase 116, globulin 4.2, UA with elevated SG but no infection; CTAP with acute displaced fracture of L posterior lateral 10th and 11th ribs as well as nondisplaced L posterior 12th rib fracture, mild chest wall contusion over L 10th and 11th rib, small L basal pleural effusion and L basilar atelectasis; chest CT supportive of such; head CT with new 5 mm thickness L posterior subacute to chronic subdural fluid collection compared to 11/13/2024. Patient received Kcentra and morphine in [facility] on 12/01/2024. Patient was subsequently admitted to the inpatient hospitalist service @ [facility] on 12/01/2024 with the following diagnoses: 1. Acute left 10th, 11th, and 12th rib fractures. (as noted on 12/01/2024, 6:[address] abd/pelvis without contrast). 2. "New 5 mm thickness low-density left posterior subdural fluid collection. No mass effect." (as noted on 12/01/2024, 6:39pm CT brain without contrast). 3. "Fracture on the left side of the posterior spinous process of C4 and C5 vertebrae." (as noted on 12/02/2024, 1:17am CT cervical spine without contrast). The following medical issues are being addressed: #Acute left 10th, 11th, and 12th rib fractures. (as noted on 12/01/2024, 6:38pm CT abd/pelvis without contrast). Presenting with L lower back pain, no reported history of fall per the patient. Patient is a poor historian. Patient's daughter, Miguelina Kraft, was called to discuss management options. Hospital criteria discussed with patient's medical proxy is as follows- admission OK for 4 or less unilateral rib fractures without presence of pulmonary contusion/3 or less bilateral rib fractures without the presence of pulmonary contusion in which patient meets criteria for such. Medical proxy understood clearly the limitations of the hospital and recommendations for transfer vs admission to [place]. Medical proxy agreeable to ad mission to [place] as the main concern is for pain management and no further interventions. Medical proxy agreeable to admission to [facility] even with limitations set in place. 10 minute conversation over phone was held regarding this decision. All questions were answered and all information was clearly understood by medical proxy and relayed back to myself at the end of the phone call. - H/H at admission 12.0/39.0; CBC am - CTAP- displaced fx L posterolateral 10th-11th rib and nondisplaced 12th rib fx with mild chest wall contusion over 10th + 11th ribs with small L basal pleural effusion and basilar atelectasis. - Pain management- Acetaminophen TID, morphine prn, Lidoderm, ice prn - IC q1h + respiratory therapy consulted; O2 prn - PT/OT consulted, appreciate assistance--> Encourage assisted mobilization within 12 hours of admission - Per hospital criteria, CXR should be obtained prior to d/c #"New 5 mm thickness low-density left posterior subdural fluid collection. No mass effect." (as noted on 12/01/2024, 6:39pm CT brain without contrast). 5mm L posterior subacute/chronic subdural fluid collection identified on CT head; Pt is on Xarelto at baseline for Afib. Unclear if there was a fall or trauma but patient's daughter states that the patient has had many falls recently, was seen by PCP 11/23/2024 for a fall. Patient's medical proxy was made aware of head CT findings. Medical proxy states that the patient would NOT want surgical management of this and that she is understandable to the limitations of management at [place] regarding neurosurgery. Medical proxy agreeable to admission to [facility] even with limitations set in place. 10 minute conversation over phone was held regarding this decision. All questions were answered and all information was clearly understood by medical proxy and relayed back to myself at the end of the phone call. - CT head- new 5mm thickness L posterior subacute to chronic subdural fluid collection new compared to 11/13/2024 - Xarelto HELD - Kcentra ordered under direction of Dr. Burnham as discussed with ED provider - [id number] score 3 (age, sex, HTN) - given recurrent falls and CT head findings, consider risk v benefit of continuing Xarelto #"Fracture on the left side of the posterior spinous process of C4 and C5 vertebrae." (as noted on 12/02/2024, 1:17am CT cervical spine without contrast). Patient was fitted with an orthotic, cervical collar to immobilize the neck while patient remains in [facility]. #Paroxysmal AFIB. Previous history of Afib, on Xarelto. Home regimen Flecainide prn, metoprolol succinate, Xarelto - EKG on admission showed wide QRS tachycardia with RBBB and rate 122; telemetry with tachycardia 120s. cf., repeat EKG (12/02/2024, 10:03am): Atrial flutter with 2:1 block, ventricular rate 120, NC 120, QTC 537; RBBB, TWI in III, aVF, V2-V5, no acute ST depressions/elevations (by my review). - Echo 04/2022- EF 60-65, AV sclerosis mild, mild AR- pending echo - Xarelto held at admission - Tachycardic on admission- will provide with home dose metoprolol in the case that patient missed this medication and reevaluate as appropriate #Anxiety- Sertraline, trazodone (sleep), hydroxyzine prn, buspirone, alprazolam prn #BPH- Finasteride Dispo: Admit, PCU VTE Prophylaxis: HOLD chemical prophylaxis, encourage assisted mobilization AWAIT PT/OT/Case Management Service evaluations to coordinate hospital disposition to long-term care / placement as patient is deemed unsafe for D/C back to his home alone, as per patient's family members, including his son, Mr. William Bach ( ). Admission and Anticipated Discharge Date Admission Date: December 01, 2024 Subjective "My left ribs and the back of my neck hurt a little when I sit up in bed; otherwise I am ok." Review of Systems Constitutional: Negative for antecedent/coincident fevers, chills, diaphoresis, cough, wheeze, sore throat, hemoptysis, chest pains, palpitations, pleurisy, nausea, vomiting, diarrhea, abdominal pain, pelvic pain, hematemesis, hematochezia, melena, hematuria, dysuria, frequency, urgency, headaches, dizziness, lightheadedness, visual changes, hearing changes, weakness, falls, syncope, trauma, travel history, sick contacts, or food/drug ingestions novel or new. All other review of systems are reported as negative by the patient on 12/03/2024. Physical Exam Constitutional: General: Uncomfortable with patient pointing to his left ribs (with acute left 10th, 11th, and 12th rib fractures in situ), pleasantly incoherent and forgetful , but very cooperative. Wide awake and alert. Pleasantly confused, but NOT lethargic or obtunded. Patient speaks in complete, fluent, and articulate, but non-sensical sentences without pause, interruption, cough, or wheeze. HEENT: Normocephalic, atraumatic. Pupils equally round and reactive to light. Extra-ocular muscles intact. No nystagmus, gaze paresis, anisocoria, miosis, mydriasis, hyphema, scleral injection, conjunctivitis, or pterygium. No rhinorrhea or otorrhea. No pharyngeal discharge or erythema. Severe presbycusis with his [employer] binaural hearing aids misplaced @ home a long time ago. Neck: Supple with mild posterior neck tenderness (without hematoma/ecchymosis), no stridor, bruit, goiter, hepatojugular reflux. Jugular venous pressure is estimated to be 8 cm above the sternal angle of Luis Enrique, which is estimated to be 5 cm above the level of the right atrium. Cervical collar in situ. Lymph: No anterior/posterior cervical, supraclavicular/infraclavicular, axillary, epitrochlear, or inguinal adenopathy. Chest: Symmetric rise and fall with respirations. Lungs: Clear to auscultation and percussion. No audible expiratory wheeze, egophony, pectoriloquy, increase in tactile fremitus, or flatness/dullness to percussion at the bases. Heart: Irregularly irregular rhythm; increased rate, S1 and S2 noted. No S3 or S4 summation gallop noted. No tripartite friction rub. Grade II/ early systolic murmur @ LLSB without radiation to the carotids, axilla, or back, and which remains invariant in regards to the respiratory cycle. Abdomen: Soft, non-tender, non-distended. No rebound, guarding, Man's sign, or organomegaly. Bowel sounds sounds auscultated in all 4 quadrants. Extremities: No clubbing, cyanosis, or edema. 2+ pedal pulses bilaterally. Tender ecchymoses on left lateral flank corresponding to acute left 10th, 11th, and 12th rib fractures. Skin: No decubitus ulcer, exanthem, or enanthem. Left side ecchymoses corresponding to acute left 10th, 11th, and 12th rib fractures in situ. Neurology: Alert and oriented to person, but NOT place, time, or situation. DTR+ and symmetric. 5/5 motor strength in all 4 extremities, both proximally and distally. No pronator drift. No facial droop. No tremors, tics, or myoclonus. Urology: + martin (placed in [facility] on admission date 12/01/2024 with 400cc of clear lynsey colored urine, no blood clots or gross hematuria noted). No urethral discharge. Psychiatry: No suicidal ideation. No homicidal ideation. Results & Data Results & Data Vital Signs (Past 12 Hours) Vital Signs Temp Pulse Pulse Resp BP Pulse Ox O2 Del Method 12/03/24 11:29 36.4 C L 121 H 19 106/69 94 Nasal Cannula 12/03/24 08:16 36.6 C 116 H 20 117/81 93 Nasal Cannula 12/03/24 08:00 117 H 12/03/24 08:00 Nasal Cannula O2 Flow Rate 12/03/24 11:29 12/03/24 08:16 2 12/03/24 08:00 12/03/24 08:00 2 PG Care Time/CCT Total # of Minutes Spent Total Time Spent with Patient: Total time spent is greater than 50% in coordination of care (as documented) at patient's floor/unit and/or counseling patient: Coding Level of Care Code 51925 SUB INP/OBS CARE 2MIN Diagnoses Ribs, multiple fractures S22.49XA Subdural fluid collection G93.89
[2024-12-04] MEDS: FLECAINIDE ACETATE 100 MG TABLET PO STA (00:30)
[2024-12-04] MEDS: MoRPHine SULFATE 2 MG/ML CARP IV PRN (02:43)
--- NOTE | 2024-12-04 18:17 | Hospitalist Progress Note ---
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 Patient is a poor historian. ED evaluation reveals H&H 12/39, MCH decreased; CMP with carbon dioxide 33, AG 2, ratio 21.3, alkaline phosphatase 116, globulin 4.2, UA with elevated SG but no infection; CTAP with acute displaced fracture of L posterior lateral 10th and 11th ribs as well as nondisplaced L posterior 12th rib fracture, mild chest wall contusion over L 10th and 11th rib, small L basal pleural effusion and L basilar atelectasis; chest CT supportive of such; head CT with new 5 mm thickness L posterior subacute to chronic subdural fluid collection compared to 11/13/2024. Patient received Kcentra and morphine in [facility] on 12/01/2024. Patient was subsequently admitted to the inpatient hospitalist service @ [facility] on 12/01/2024 with the following diagnoses: 1. Acute left 10th, 11th, and 12th rib fractures. (as noted on 12/01/2024, 6:[address] abd/pelvis without contrast). 2. "New 5 mm thickness low-density left posterior subdural fluid collection. No mass effect." (as noted on 12/01/2024, 6:39pm CT brain without contrast). 3. "Fracture on the left side of the posterior spinous process of C4 and C5 vertebrae." (as noted on 12/02/2024, 1:17am CT cervical spine without contrast). The following medical issues are being addressed: #Acute left 10th, 11th, and 12th rib fractures. (as noted on 12/01/2024, 6:38pm CT abd/pelvis without contrast). Presenting with L lower back pain, no reported history of fall per the patient. Patient is a poor historian. Patient's daughter, Miguelina Kraft, was called to discuss management options. Hospital criteria discussed with patient's medical proxy is as follows- admission OK for 4 or less unilateral rib fractures without presence of pulmonary contusion/3 or less bilateral rib fractures without the presence of pulmonary contusion in which patient meets criteria for such. Medical proxy understood clearly the limitations of the hospital and recommendations for transfer vs admission to [place]. Medical proxy agreeable to ad mission to [place] as the main concern is for pain management and no further interventions. Medical proxy agreeable to admission to [facility] even with limitations set in place. 10 minute conversation over phone was held regarding this decision. All questions were answered and all information was clearly understood by medical proxy and relayed back to myself at the end of the phone call. - H/H at admission 12.0/39.0; CBC am - CTAP- displaced fx L posterolateral 10th-11th rib and nondisplaced 12th rib fx with mild chest wall contusion over 10th + 11th ribs with small L basal pleural effusion and basilar atelectasis. - Pain management- Acetaminophen TID, morphine prn, Lidoderm, ice prn - IC q1h + respiratory therapy consulted; O2 prn - PT/OT consulted, appreciate assistance--> Encourage assisted mobilization within 12 hours of admission - Per hospital criteria, CXR should be obtained prior to d/c #"New 5 mm thickness low-density left posterior subdural fluid collection. No mass effect." (as noted on 12/01/2024, 6:39pm CT brain without contrast). 5mm L posterior subacute/chronic subdural fluid collection identified on CT head; Pt is on Xarelto at baseline for Afib. Unclear if there was a fall or trauma but patient's daughter states that the patient has had many falls recently, was seen by PCP 11/23/2024 for a fall. Patient's medical proxy was made aware of head CT findings. Medical proxy states that the patient would NOT want surgical management of this and that she is understandable to the limitations of management at [place] regarding neurosurgery. Medical proxy agreeable to admission to [facility] even with limitations set in place. 10 minute conversation over phone was held regarding this decision. All questions were answered and all information was clearly understood by medical proxy and relayed back to myself at the end of the phone call. - CT head- new 5mm thickness L posterior subacute to chronic subdural fluid collection new compared to 11/13/2024 - Xarelto HELD - Kcentra ordered under direction of Dr. Burnham as discussed with ED provider - [id number] score 3 (age, sex, HTN) - given recurrent falls and CT head findings, consider risk v benefit of continuing Xarelto #"Fracture on the left side of the posterior spinous process of C4 and C5 vertebrae." (as noted on 12/02/2024, 1:17am CT cervical spine without contrast). Patient was fitted with an orthotic, cervical collar to immobilize the neck while patient remains in [facility]. #Paroxysmal AFIB. Previous history of Afib, on Xarelto. Home regimen Flecainide prn, metoprolol succinate, Xarelto - EKG on admission showed wide QRS tachycardia with RBBB and rate 122; telemetry with tachycardia 120s. cf., repeat EKG (12/02/2024, 10:03am): Atrial flutter with 2:1 block, ventricular rate 120, SD 120, QTC 537; RBBB, TWI in III, aVF, V2-V5, no acute ST depressions/elevations (by my review). - Echo 04/2022- EF 60-65, AV sclerosis mild, mild AR- pending echo - Xarelto held at admission - Tachycardic on admission- will provide with home dose metoprolol in the case that patient missed this medication and reevaluate as appropriate #Anxiety- Sertraline, trazodone (sleep), hydroxyzine prn, buspirone, alprazolam prn #BPH- Finasteride Dispo: Admit, PCU VTE Prophylaxis: HOLD chemical prophylaxis, encourage assisted mobilization AWAIT PT/OT/Case Management Service evaluations to coordinate hospital disposition to long-term care / placement as patient is deemed unsafe for D/C back to his home alone, as per patient's family members, including his son, Mr. William Bach ( ). To this end, patient awaits [employer] authorization/approval for patient to be discharged to [facility] ([place], [place]) for short-term acute rehab. If [employer] authorization/approval is denied by [employer], patient may be discharged t o [facility] ([place], [place]) over the weekend. Once patient's short-term rehab stay at either [facility] ([place], [place]) or [facility] ([place], [place]) is complete, patient will then be discharged to [facility] ([place], [place]) for long-term care/placement as patient is no longer safe to live in his own home alone. Admission and Anticipated Discharge Date Admission Date: December 01, 2024 Subjective "My left ribs and the back of my neck hurt a little when I sit up in bed; otherwise I am ok." Review of Systems Constitutional: Negative for antecedent/coincident fevers, chills, diaphoresis, cough, wheeze, sore throat, hemoptysis, chest pains, palpitations, pleurisy, nausea, vomiting, diarrhea, abdominal pain, pelvic pain, hematemesis, hematochezia, melena, hematuria, dysuria, frequency, urgency, headaches, dizziness, lightheadedness, visual changes, hearing changes, weakness, falls, syncope, trauma, travel history, sick contacts, or food/drug ingestions novel or new. All other review of systems are reported as negative by the patient on 12/04/2024. Physical Exam Constitutional: General: Uncomfortable with patient pointing to his left ribs (with acute left 10th, 11th, and 12th rib fractures in situ), pleasantly incoherent and forgetful , but very cooperative. Wide awake and alert. Pleasantly confused, but NOT lethargic or obtunded. Patient speaks in complete, fluent, and articulate, but non-sensical sentences without pause, interruption, cough, or wheeze. HEENT: Normocephalic, atraumatic. Pupils equally round and reactive to light. Extra-ocular muscles intact. No nystagmus, gaze paresis, anisocoria, miosis, mydriasis, hyphema, scleral injection, conjunctivitis, or pterygium. No rhinorrhea or otorrhea. No pharyngeal discharge or erythema. Severe presbycusis with his [employer] binaural hearing aids misplaced @ home a long time ago. Neck: Supple with mild posterior neck tenderness (without hematoma/ecchymosis), no stridor, bruit, goiter, hepatojugular reflux. Jugular venous pressure is estimated to be 8 cm above the sternal angle of Luis Enrique, which is estimated to be 5 cm above the level of the right atrium. Cervical collar in situ. Lymph: No anterior/posterior cervical, supraclavicular/infraclavicular, axillary, epitrochlear, or inguinal adenopathy. Chest: Symmetric rise and fall with respirations. Lungs: Clear to auscultation and percussion. No audible expiratory wheeze, egophony, pectoriloquy, increase in tactile fremitus, or flatness/dullness to percussion at the bases. Heart: Irregularly irregular rhythm; increased rate, S1 and S2 noted. No S3 or S4 summation gallop noted. No tripartite friction rub. Grade II/ early systolic murmur @ LLSB without radiation to the carotids, axilla, or back, and which remains invariant in regards to the respiratory cycle. Abdomen: Soft, non-tender, non-distended. No rebound, guarding, Man's sign, or organomegaly. Bowel sounds sounds auscultated in all 4 quadrants. Extremities: No clubbing, cyanosis, or edema. 2+ pedal pulses bilaterally. Tender ecchymoses on left lateral flank corresponding to acute left 10th, 11th, and 12th rib fractures. Skin: No decubitus ulcer, exanthem, or enanthem. Left side ecchymoses corresponding to acute left 10th, 11th, and 12th rib fractures in situ. Neurology: Alert and oriented to person, place, time, and situation. DTR+ and symmetric. 5/5 motor strength in all 4 extremities, both proximally and distally. No pronator drift. No facial droop. No tremors, tics, or myoclonus. Urology: + martin (placed in [facility] on admission date 12/01/2024 with 500cc of clear lynsey colored urine, no blood clots or gross hematuria noted). No urethral discharge. Psychiatry: No suicidal ideation. No homicidal ideation. Results & Data Results & Data Vital Signs (Past 12 Hours) Vital Signs Temp Pulse Pulse Resp BP Pulse Ox O2 Del Method 12/04/24 16:03 35.8 C L 75 18 83/54 L 97 Nasal Cannula 12/04/24 15:04 79 12/04/24 11:17 36.5 C 79 18 98/67 L 96 Nasal Cannula 12/04/24 10:27 85/53 L 12/04/24 09:36 81 94/61 L 12/04/24 09:29 81 87/59 L 12/04/24 08:11 36.2 C L 78 18 98/58 L 95 Nasal Cannula 12/04/24 07:46 77 O2 Flow Rate 12/04/24 16:03 2 12/04/24 15:04 12/04/24 11:17 2 12/04/24 10:27 12/04/24 09:36 12/04/24 09:29 12/04/24 08:11 2 12/04/24 07:46 PG Care Time/CCT Total # of Minutes Spent Total Time Spent with Patient: Total time spent is greater than 50% in coordination of care (as documented) at patient's floor/unit and/or counseling patient: Coding Level of Care Code 77781 SUB INP/OBS CARE 235MIN Diagnoses Ribs, multiple fractures S22.49XA Subdural fluid collection G93.89
[2024-12-05] MEDS: NYSTATIN POWDER 15GM BTL EXT PRN (05:27)
[2024-12-05 10:02] LABS: Basophils # (auto) 0.02 K/uL (0.00-0.20); Basophils % (auto) 0.4 %; Eosinophils # (auto) 0.09 K/uL (0.00-0.50); Eosinophils % (auto) 1.8 %; Hemoglobin 10.7 g/dl (14.0-18.0); Immature Granulocytes # (auto) 0.01 K/uL (0.01-0.20); Immature Granulocytes % (auto) 0.2 %; Lymphocytes # (auto) 1.11 K/uL (1.20-3.40); Lymphocytes % (auto) 21.6 %; Mean Corpuscular Hemoglobin 29.6 pg (25.0-34.0); Mean Corpuscular Hgb Conc 29.7 g/dL (32.0-36.0); Mean Corpuscular Volume 99.7 fL (80.0-100.0); Mean Platelet Volume 9.4 fL (9.4-12.4); Monocytes # (auto) 0.61 K/uL (0.11-0.59); Monocytes % (auto) 11.9 %; Neutrophils # (auto) 3.29 K/uL (1.40-6.50); Neutrophils % (auto) 64.1 %; Platelet Count 157 K/uL (130-400); RDW Coefficient of Variation 13.9 % (11.5-14.5); RDW Standard Deviation 51.3 fL (36.4-46.3); Red Blood Count 3.61 M/uL (4.70-6.10); White Blood Count 5.13 K/ul (4.8-10.8)
[2024-12-05 10:10] LABS: Calcium 8.4 mg/dl (8.6-10.3); Creatinine Clr Calc Pharmacy 36.5 ml/min; Potassium 5.2 mmol/L (3.5-5.1)
[2024-12-05] MEDS: SODIUM CHLORIDE 0.9% 1,000 ML IV ONE (12:12)
[2024-12-05 15:13] LABS: Appearance Urine Clear (Clear); Bacteria Urine Automated None Seen (None Seen); Bilirubin Urine 1+ (Negative); Blood Urine Negative (Negative); Cast Urine Automated >20 /lpf (0-2); Color Urine Dark Yellow; Glucose Urine UA Negative (Negative); Hyaline Casts Urine Present /lpf (None Presnt); Ketones Urine Negative (Negative); Leukocyte Esterase Urine Negative (Negative); Nitrite Urine Negative (Negative); Protein Urine Trace (Negative); RBC Urine Automated 0-2 /hpf (0-2); Specific Gravity Urine 1.024 (1.000-1.030); Urobilinogen Urine Negative (Negative); WBC Urine Automated 0-5 /hpf (0-5)
--- NOTE | 2024-12-05 16:26 | Hospitalist Progress Note ---
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 Patient is a poor historian. ED evaluation reveals H&H 12/39, MCH decreased; CMP with carbon dioxide 33, AG 2, ratio 21.3, alkaline phosphatase 116, globulin 4.2, UA with elevated SG but no infection; CTAP with acute displaced fracture of L posterior lateral 10th and 11th ribs as well as nondisplaced L posterior 12th rib fracture, mild chest wall contusion over L 10th and 11th rib, small L basal pleural effusion and L basilar atelectasis; chest CT supportive of such; head CT with new 5 mm thickness L posterior subacute to chronic subdural fluid collection compared to 11/13/2024. Patient received Kcentra and morphine in [facility] ER on 12/01/2024. Patient was subsequently admitted to the inpatient hospitalist service @ [facility] on 12/01/2024 with the following diagnoses: 1. Acute left 10th, 11th, and 12th rib fractures. (as noted on 12/01/2024, 6:[address] abd/pelvis without contrast). 2. "New 5 mm thickness low-density left posterior subdural fluid collection. No mass effect." (as noted on 12/01/2024, 6:39pm CT brain without contrast). 3. "Fracture on the left side of the posterior spinous process of C4 and C5 vertebrae." (as noted on 12/02/2024, 1:17am CT cervical spine without contrast). The following medical issues are being addressed: #Acute left 10th, 11th, and 12th rib fractures. (as noted on 12/01/2024, 6:38pm CT abd/pelvis without contrast). Presenting with L lower back pain, no reported history of fall per the patient. Patient is a poor historian. Patient's daughter, Miguelina Kraft, was called to discuss management options. Hospital criteria discussed with patient's medical proxy is as follows- admission OK for 4 or less unilateral rib fractures without presence of pulmonary contusion/3 or less bilateral rib fractures without the presence of pulmonary contusion in which patient meets criteria for such. Medical proxy understood clearly the limitations of the hospital and recommendations for transfer vs admission to [facility]. Medical proxy agreeable to ad mission to [place] as the main concern is for pain management and no further interventions. Medical proxy agreeable to admission to [facility] even with limitations set in place. 10 minute conversation over phone was held regarding this decision. All questions were answered and all information was clearly understood by medical proxy and relayed back to myself at the end of the phone call. - H/H at admission 12.0/39.0; CBC am - CTAP- displaced fx L posterolateral 10th-11th rib and nondisplaced 12th rib fx with mild chest wall contusion over 10th + 11th ribs with small L basal pleural effusion and basilar atelectasis. - Pain management- Acetaminophen TID, morphine prn, Lidoderm, ice prn - IC q1h + respiratory therapy consulted; O2 prn - PT/OT consulted, appreciate assistance--> Encourage assisted mobilization within 12 hours of admission - Per hospital criteria, CXR should be obtained prior to d/c #"New 5 mm thickness low-density left posterior subdural fluid collection. No mass effect." (as noted on 12/01/2024, 6:39pm CT brain without contrast). 5mm L posterior subacute/chronic subdural fluid collection identified on CT head; Pt is on Xarelto at baseline for Afib. Unclear if there was a fall or trauma but patient's daughter states that the patient has had many falls recently, was seen by PCP 11/23/2024 for a fall. Patient's medical proxy was made aware of head CT findings. Medical proxy states that the patient would NOT want surgical management of this and that she is understandable to the limitations of management at [facility] regarding neurosurgery. Medical proxy agreeable to admission to [facility] even with limitations set in place. 10 minute conversation over phone was held regarding this decision. All questions were answered and all information was clearly understood by medical proxy and relayed back to myself at the end of the phone call. - CT head- new 5mm thickness L posterior subacute to chronic subdural fluid collection new compared to 11/13/2024 - Xarelto HELD - Kcentra ordered under direction of Dr. Burnham as discussed with ED provider - [id number] score 3 (age, sex, HTN) - given recurrent falls and CT head findings, consider risk v benefit of continuing Xarelto #"Fracture on the left side of the posterior spinous process of C4 and C5 vertebrae." (as noted on 12/02/2024, 1:17am CT cervical spine without contrast). Patient was fitted with an orthotic, cervical collar to immobilize the neck while patient remains in [facility]. #Post-hospital admission development of acute kidney injury with admission crea tinine 0.94 mg/dL (12/01/2024, 6:15pm) increasing to 1.86 mg/dL (12/05/2024, 9:36am). Etiology of acute kidney injury is probably due to acute dehydration as the BUN:creatinine ratio is greater than 20:1. cf., BUN 20, creatinine 0.94 (12/01/2024, 6:15pm). cf., BUN 39, creatinine 1.86 (12/05/2024, 9:36am). In turn, etiology of acute dehydration is probably due to decreasing oral intake of liquid and food as patient lives alone and is not capable of feeding himself adequately as patient lives alone. Patient was tested twice for acute UTI as an alternative etiology of patient's acute kidney injury and/or acute dehydration, and in both urinalyses with microscopy, patient tested negative for acute UTI: cf., U/A (12/01/2024, 8:16pm): LE-, nitrite-, WBC 0-5, bacteria 0, epithelial cells 0-2 cf., U/A (12/05/2024, 2:50pm): LE-, nitrite-, WBC 0-5, bacteria 0, epithelial cells 11-20 Patient was subsequently started on 1 liter of 0.9% NS @ 101 mL/hr (12/05/2024, 11:44am), based on a delivery rate of 1 mL of 0.9% NS per kg of body weight per hour, and a body weight of 101.3 kg. I will check repeat BUN:creatinine ratio in the 12/06/2024 am. #Paroxysmal AFIB. Previous history of Afib, on Xarelto. Home regimen Flecainide prn, metoprolol succinate, Xarelto - EKG on admission showed wide QRS tachycardia with RBBB and rate 122; telemetry with tachycardia 120s. cf., repeat EKG (12/02/2024, 10:03am): Atrial flutter with 2:1 block, ventricular rate 120, LA 120, QTC 537; RBBB, TWI in III, aVF, V2-V5, no acute ST depressions/elevations (by my review). - Echo 04/2022- EF 60-65, AV sclerosis mild, mild AR- pending echo - Xarelto held at admission - Tachycardic on admission- will provide with home dose metoprolol in the case that patient missed this medication and reevaluate as appropriate #Anxiety. Sertraline, trazodone (sleep), hydroxyzine prn, buspirone, alprazolam prn #BPH. Finasteride Dispo: DNR/DNI @ home alone. VTE Prophylaxis: HOLD chemical prophylaxis, encourage assisted mobilization AWAIT PT/OT/Case Management Service evaluations to coordinate hospital disposition to long-term care / placement as patient is deemed unsafe for D/C back to his home alone, as per patient's family members, including his son, Mr. William Bach ( ). To this end, patient awaits [employer] authorization/approval for patient to be discharged to [facility] ([place], [place]) for short-term acute rehab. If [employer] authorization/approval is denied by [employer], patient may be discharged to [facility] ([place], [place]) over the weekend. Once patient's short-term rehab stay at either [facility] ([place], [place]) or [facility] ([place], [place]) is complete, patient will then be discharged to [facility] ([place], [place]) for long-term care/placement as patient is no longer safe to live in his own home alone. Admission and Anticipated Discharge Date Admission Date: December 01, 2024 Subjective "I feel fine. I reckon I will be going to rehab tomorrow/Saturday (12/06/2024) or Saturday (12/07/2024), right? I'm ready to go now. Review of Systems Constitutional: Negative for antecedent/coincident fevers, chills, diaphoresis, cough, wheeze, sore throat, hemoptysis, chest pains, palpitations, pleurisy, nausea, vomiting, diarrhea, abdominal pain, pelvic pain, hematemesis, hematochezia, melena, hematuria, dysuria, frequency, urgency, headaches, dizziness, lightheadedness, visual changes, hearing changes, weakness, falls, syncope, trauma, travel history, sick contacts, or food/drug ingestions novel or new. All other review of systems are reported as negative by the patient on 12/05/2024. Physical Exam Constitutional: General: Uncomfortable with patient pointing to his left ribs (with acute left 10th, 11th, and 12th rib fractures in situ), pleasantly incoherent and forgetful , but very cooperative. Wide awake and alert. Pleasantly confused, but NOT lethargic or obtunded. Patient speaks in complete, fluent, and articulate, but non-sensical sentences without pause, interruption, cough, or wheeze. HEENT: Normocephalic, atraumatic. Pupils equally round and reactive to light. Extra-ocular muscles intact. No nystagmus, gaze paresis, anisocoria, miosis, mydriasis, hyphema, scleral injection, conjunctivitis, or pterygium. No rhinorrhea or otorrhea. No pharyngeal discharge or erythema. Severe presbycusis with his [employer] binaural hearing aids misplaced @ home a long time ago. Neck: Supple with mild posterior neck tenderness (without hematoma/ecchymosis), no stridor, bruit, goiter, hepatojugular reflux. Jugular venous pressure is e stimated to be 8 cm above the sternal angle of Luis Enrique, which is estimated to be 5 cm above the level of the right atrium. Cervical collar in situ. Lymph: No anterior/posterior cervical, supraclavicular/infraclavicular, axillary, epitrochlear, or inguinal adenopathy. Chest: Symmetric rise and fall with respirations. Lungs: Clear to auscultation and percussion. No audible expiratory wheeze, egophony, pectoriloquy, increase in tactile fremitus, or flatness/dullness to percussion at the bases. Heart: Irregularly irregular rhythm; increased rate, S1 and S2 noted. No S3 or S4 summation gallop noted. No tripartite friction rub. Grade II/ early systolic murmur @ LLSB without radiation to the carotids, axilla, or back, and which remains invariant in regards to the respiratory cycle. Abdomen: Soft, non-tender, non-distended. No rebound, guarding, Man's sign, or organomegaly. Bowel sounds sounds auscultated in all 4 quadrants. Extremities: No clubbing, cyanosis, or edema. 2+ pedal pulses bilaterally. Tender ecchymoses on left lateral flank corresponding to acute left 10th, 11th, and 12th rib fractures. Skin: No decubitus ulcer, exanthem, or enanthem. Left side ecchymoses corresponding to acute left 10th, 11th, and 12th rib fractures in situ. Neurology: Alert and oriented to person, place, time, and situation. DTR+ and symmetric. 5/5 motor strength in all 4 extremities, both proximally and distally. No pronator drift. No facial droop. No tremors, tics, or myoclonus. Urology: + martin (placed in [facility] ER on admission date 12/01/2024 with 100cc of clear lynsey colored urine, no blood clots or gross hematuria noted). No urethral discharge. Psychiatry: No suicidal ideation. No homicidal ideation. Results & Data Results & Data Vital Signs (Past 12 Hours) Vital Signs Temp Pulse Pulse Resp BP Pulse Ox O2 Del Method 12/05/24 15:54 36.5 C 61 18 102/63 97 Nasal Cannula 12/05/24 14:42 68 12/05/24 11:58 36.6 C 64 18 99/53 L 94 Nasal Cannula 12/05/24 09:14 Nasal Cannula 12/05/24 07:32 36.2 C L 62 18 85/51 L 92 Nasal Cannula 12/05/24 07:00 69 12/05/24 05:24 95/60 L O2 Flow Rate 12/05/24 15:54 1 12/05/24 14:42 12/05/24 11:58 2 12/05/24 09:14 2 12/05/24 07:32 2 12/05/24 07:00 12/05/24 05:24 Laboratory Results 12/05/24 12/05/24 14:50 09:36 WBC 5.13 RBC 3.61 L Hgb 10.7 L Hct 36.0 L MCV 99.7 MCH 29.6 MCHC 29.7 L RDW Std Deviation 51.3 H RDW Coeff of Real 13.9 Plt Count 157 MPV 9.4 Immature Gran % (Auto) 0.2 Neut % (Auto) 64.1 Lymph % (Auto) 21.6 [place] % (Auto) 11.9 Eos % (Auto) 1.8 Baso % (Auto) 0.4 Neut # (Auto) 3.29 Lymph # (Auto) 1.11 L [place] # (Auto) 0.61 H Eos # (Auto) 0.09 Baso # (Auto) 0.02 Immature Gran # (Auto) 0.01 Sodium 137 Potassium 5.2 H Chloride 102 Carbon Dioxide 35 H Anion Gap 0 L BUN 39 H Creatinine 1.86 H Est Cr Clr Drug Dosing 36.5 eGFR 35.68 BUN/Creatinine Ratio 21.0 H Glucose 101 H Calcium 8.4 L Urine Color Dark Yellow Urine Appearance Clear Urine pH 5.0 Ur Specific [place] 1.024 Urine Protein Trace H Urine Glucose (UA) Negative Urine Ketones Negative Urine Blood Negative Urine Nitrite Negative Urine Bilirubin 1+ H Urine Urobilinogen Negative Ur Leukocyte Esterase Negative Urine WBC (Auto) 0-5 Urine RBC (Auto) 0-2 U Hyaline Cast (Auto) >20 H U Epithel Cells (Auto) 11-20 H Urine Bacteria (Auto) None Seen Hyaline Casts Present A PG Care Time/CCT Total # of Minutes Spent Total Time Spent with Patient: Total time spent is greater than 50% in coordination of care (as documented) at patient's floor/unit and/or counseling patient: Coding Level of Care Code 24726 SUB INP/OBS CARE 2MIN Diagnoses Ribs, multiple fractures S22.49XA Subdural fluid collection G93.89
[2024-12-05] MEDS: hydrOXYzine HCl 25 MG TAB PO PRN (19:58)
[2024-12-06 06:26] LABS: Basophils # (auto) 0.02 K/uL (0.00-0.20); Basophils % (auto) 0.3 %; Eosinophils # (auto) 0.11 K/uL (0.00-0.50); Eosinophils % (auto) 1.8 %; Hematocrit (blood only) 37.4 % (42.0-52.0); Hemoglobin 11.1 g/dl (14.0-18.0); Immature Granulocytes # (auto) 0.04 K/uL (0.01-0.20); Immature Granulocytes % (auto) 0.6 %; Lymphocytes # (auto) 1.74 K/uL (1.20-3.40); Mean Corpuscular Hemoglobin 29.9 pg (25.0-34.0); Mean Corpuscular Hgb Conc 29.7 g/dL (32.0-36.0); Mean Corpuscular Volume 100.8 fL (80.0-100.0); Mean Platelet Volume 9.6 fL (9.4-12.4); Monocytes # (auto) 0.87 K/uL (0.11-0.59); Neutrophils # (auto) 3.44 K/uL (1.40-6.50); Neutrophils % (auto) 55.3 %; Platelet Count 153 K/uL (130-400); RDW Coefficient of Variation 13.9 % (11.5-14.5); RDW Standard Deviation 51.5 fL (36.4-46.3); Red Blood Count 3.71 M/uL (4.70-6.10); White Blood Count 6.22 K/ul (4.8-10.8)
[2024-12-06 06:46] LABS: BUN Creatinine Ratio 31.5 (10-20); Calcium 8.5 mg/dl (8.6-10.3); Creatinine Clr Calc Pharmacy 46.5 ml/min; Potassium 5.3 mmol/L (3.5-5.1)
[2024-12-06] MEDS ORDERED: VANCOMYCIN CONSULT ACTIVE PRN (10:23)
[2024-12-06] MEDS: NALOXONE HCL 0.4 MG/1 ML VIAL/CARP IV STA (10:24)
--- NOTE | 2024-12-06 10:28 | XRay Report ---
XR chest 1V portable CLINICAL HISTORY: AMS COMPARISON STUDY: 08/09/2020 FINDINGS: There is prominent cardiomegaly with increased pulmonary vascular congestion. There is inte rval hazy opacity in the lung bases with obscuration of the left hemidiaphragm. No pneumothorax. IMPRESSION: 1. CHF. 2. Interval opacity in the lung bases, left greater than right. This could represent pleural effusion s, atelectasis, or pneumonia. ACT 112: Negative or not required by law. Electronically signed by: Pepe Hill M.D. 12/06/2024 10:26 AM
--- NOTE | 2024-12-06 10:47 | Pharmacy Report ---
Pharmacy PK ABX Note - Date of Service December 06, 2024 - Assessment and Plan Assessment 84 year old M receiving Vancomycin and Cefepime for treatment of possible HAP. * Day #1 of antimicrobial therapy. * Afebrile. No white count. Oxygen requirements increasing today. Procal and MRSA nasal swab pending. * No cultures drawn. * Will schedule maintenance dose to start tomorrow morning but ordering a random level with AM labs due to ANTHONY. Plan Vancomycin * Loading dose: 2000 mg IV x 1 * Maintenance dose: 1250 mg IV every 24 hours * Regimen is predicted to achieve target AUC/KASSI of 400-600 mg/L.hr * Random level ordered for: 12/07/24 Cefepime * 2000 mg IV every 12 hours Pharmacy will continue to follow and will adjust dose/frequency as necessary. Thank you. Pharmacy has transitioned to AUC monitoring for vancomycin. AUC/KASSI is the preferred PK/PD target and is associated with decreased risk of nephrotoxicity compared to traditional trough targets.
[2024-12-06 11:26] LABS: iSTAT Arterial Blood Gas HCO3 34 meg/L (19-24); iSTAT Arterial Blood Gas pCO2 122 mmHg (35-46); iSTAT Arterial Blood Gas pH 7.05 (7.35-7.45); iSTAT Arterial Blood Gas pO2 90 mmHg (80-95); iSTAT Carbon Dioxide 38 mmol/L (24-31); iSTAT Hematocrit 38 % (42-52); iSTAT Hemoglobin 12.9 g/dl (14.0-18.0); iSTAT Potassium 5.3 mmol/L (3.3-5.0); iSTAT Sample Type Arterial; iSTAT Sodium 138 mmol/L (135-144)
[2024-12-06] MEDS: VANCOMYCIN HCL 2,000 MG in SODIUM CHLORIDE 0.9% 500 ML IV ONE (11:45)
[2024-12-06] MEDS: CEFEPIME 2000MG 2,000 MG/20 ML SYR IV SCH (11:45)
[2024-12-06 14:23] LABS: iSTAT Arterial Blood Gas HCO3 32 meg/L (19-24); iSTAT Arterial Blood Gas pCO2 71 mmHg (35-46); iSTAT Arterial Blood Gas pH 7.26 (7.35-7.45); iSTAT Arterial Blood Gas pO2 101 mmHg (80-95); iSTAT Carbon Dioxide 34 mmol/L (24-31); iSTAT Hematocrit 34 % (42-52); iSTAT Hemoglobin 11.6 g/dl (14.0-18.0); iSTAT Potassium 5.2 mmol/L (3.3-5.0); iSTAT Sample Type Arterial; iSTAT Sodium 138 mmol/L (135-144)
--- NOTE | 2024-12-06 17:42 | Hospitalist Progress Note ---
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 Patient is a poor historian. ED evaluation reveals H&H 12/39, MCH decreased; CMP with carbon dioxide 33, AG 2, ratio 21.3, alkaline phosphatase 116, globulin 4.2, UA with elevated SG but no infection; CTAP with acute displaced fracture of L posterior lateral 10th and 11th ribs as well as nondisplaced L posterior 12th rib fracture, mild chest wall contusion over L 10th and 11th rib, small L basal pleural effusion and L basilar atelectasis; chest CT supportive of such; head CT with new 5 mm thickness L posterior subacute to chronic subdural fluid collection compared to 11/13/2024. Patient received Kcentra and morphine in [facility] ER on 12/01/2024. Patient was subsequently admitted to the inpatient hospitalist service @ [facility] on 12/01/2024 with the following diagnoses: 1. Acute left 10th, 11th, and 12th rib fractures. (as noted on 12/01/2024, 6:[address] abd/pelvis without contrast). 2. "New 5 mm thickness low-density left posterior subdural fluid collection. No mass effect." (as noted on 12/01/2024, 6:39pm CT brain without contrast). 3. "Fracture on the left side of the posterior spinous process of C4 and C5 vertebrae." (as noted on 12/02/2024, 1:17am CT cervical spine without contrast). The following medical issues are being addressed: 1. Acute left 10th, 11th, and 12th rib fractures. (as noted on 12/01/2024, 6:38pm CT abd/pelvis without contrast). Presenting with L lower back pain, no reported history of fall per the patient. Patient is a poor historian. Patient's daughter, Miguelina Kraft, was called to discuss management options. Hospital criteria discussed with patient's medical proxy is as follows- admission OK for 4 or less unilateral rib fractures without presence of pulmonary contusion/3 or less bilateral rib fractures without the presence of pulmonary contusion in which patient meets criteria for such. Medical proxy understood clearly the limitations of the hospital and recommendations for transfer vs admission to [facility]. Medical proxy agreeable to admission to [facility] as the main concern is for pain management and no further interventions. Medical proxy agreeable to admission to [facility] even with limitations set in place. 10 minute conversation over phone was held regarding this decision. All questions were answered and all information was clearly understood by medical proxy and relayed back to myself at the end of the phone call. - H/H at admission 12.0/39.0; CBC am - CTAP- displaced fx L posterolateral 10th-11th rib and nondisplaced 12th rib fx with mild chest wall contusion over 10th + 11th ribs with small L basal pleural effusion and basilar atelectasis. - Pain management- Acetaminophen TID, morphine prn, Lidoderm, ice prn - IC q1h + respiratory therapy consulted; O2 prn - PT/OT consulted, appreciate assistance--> Encourage assisted mobilization within 12 hours of admission 2. "New 5 mm thickness low-density left posterior subdural fluid collection. No mass effect." (as noted on 12/01/2024, 6:39pm CT brain without contrast). 5mm L posterior subacute/chronic subdural fluid collection identified on CT head; Pt is on Xarelto at baseline for Afib. Unclear if there was a fall or trauma but patient's daughter states that the patient has had many falls recently, was seen by PCP 11/23/2024 for a fall. Patient's medical proxy was made aware of head CT findings. Medical proxy states that the patient would NOT want surgical management of this and that she is understandable to the limitations of management at [facility] regarding neurosurgery. Medical proxy agreeable to admission to [facility] even with limitations set in place. 10 minute conversation over phone was held regarding this decision. All questions were answered and all information was clearly understood by medical proxy and relayed back to myself at the end of the phone call. - CT head- new 5mm thickness L posterior subacute to chronic subdural fluid collection new compared to 11/13/2024 - Xarelto HELD - Kcentra ordered under direction of Dr. Burnham as discussed with ED provider - [id number] score 3 (age, sex, HTN) - given recurrent falls and CT head findings, consider risk versus benefit of continuing Xarelto 3. "Fracture on the left side of the posterior spinous process of C4 and C5 vertebrae." (as noted on 12/02/2024, 1:17am CT cervical spine without contrast). Patient was fitted with an orthotic, cervical collar to immobilize the neck while patient remains in [facility]. 4. Post-hospital admission development of acute kidney injury with admission creatinine 0.94 mg/dL (12/01/2024, 6:15pm) increasing to 1.86 mg/dL (12/05/2024, 9:36am). Etiology of acute kidney injury is probably due to acute dehydration as the BUN:creatinine ratio is greater than 20:1. cf., BUN 20, creatinine 0.94 (12/01/2024, 6:15pm). cf., BUN 39, creatinine 1.86 (12/05/2024, 9:36am). cf., BUN 46, creatinine 1.46 (12/06/2024, 5:49am). In turn, etiology of acute dehydration is probably due to decreasing oral intake of liquid and food as patient lives alone and is not capable of feeding himself adequately as patient lives alone. Patient was tested twice for acute UTI as an alternative etiology of patient's acute kidney injury and/or acute dehydration, and in both urinalyses with microscopy, patient tested negative for acute UTI: cf., U/A (12/01/2024, 8:16pm): LE-, nitrite-, WBC 0-5, bacteria 0, epithelial cells 0-2 cf., U/A (12/05/2024, 2:50pm): LE-, nitrite-, WBC 0-5, bacteria 0, epithelial cells 11-20 Patient was subsequently started on 1 liter of 0.9% NS @ 101 mL/hr (12/05/2024, 11:44am), based on a delivery rate of 1 mL of 0.9% NS per kg of body weight per hour, and a body weight of 101.3 kg, and acute kidney injury is RESOLVING with post-hydration creatinine decreasing to 1.46 (12/06/2024, 5:49am). Patient was subsequently started on 1 liter of 0.9% NS @ 101 mL/hr (12/06/2024, 5:35pm), based on a delivery rate of 1 mL of 0.9% NS per kg of body weight per hour, and a body weight of 101.3 kg I will check repeat BUN:creatinine ratio in the 12/07/2024 am. 5. Post-hospital admission development of acute hypercarbic respiratory failure, acute bibasilar HAP (as noted by bibasilar infiltrates and left pleural effusion on 12/06/2024 portable CXR), R/O aspiration pneumonia Of note, patient received: a. Hydroxyzine 25mg PO x 1 dose (12/05/2024, 7:58pm). b. Trazodone 100mg PO x 1 dose (12/05/2024, 11:08pm). c. Alprazolam 0.5mg PO x 1 dose (12/06/2024, 12:05am). d. Morphine 2mg IV x 1 dose (12/06/2024, 3:21am). In sum, patient became somnolent (a) after having received the above medications, with acute hypercarbic respiratory failure (as noted on 12/06/2024, 10:15am ABG with pH 7.05, pCO2 122, pO2 90, HCO3 34, O2 sat 91% on FIO2 = 0.21), and (b) after developing acute bibasilar healthcare-associated pneumonia (as noted by bibasilar infiltrates and left pleural effusion on 12/06/2024 portable CXR), R/O aspiration pneumonia. Patient subsequently received narcan 0.4mg IV x 1 dose (12/06/2024, 10:24am) and patient "woke up" asking "Where am I?" Patient simultaneously was started on BIPAP @ 15 liters/minute to combat hypoventilation and repeat ABG (12/06/2024, 2:01pm) demonstrated significant improvement in ventilating off retained CO2: cf., pH 7.26, pCO2 71, pO2 101, HCO3 32, O2 sat 96% on FIO2 = 0.8, based on a delivery rate of 15 liters/minute O2 via BIPAP). In addition, while patient remained/remains afebrile without complaints of cough, wheeze, SOB, DOTY, or pleurisy, In addition, while patient's WBC remains normal throughout hospitalization from admission date 12/01/2024, when patient's WBC was 5.0, N58 L28 M12 E2 B1 (12/01/2024, 6:15pm) through today 12/06/2024, with WBC 6.22, N55 L28 M14 E2 (12/06/2024, 5:49am), In addition, while patient's lactic acid remains normal/low at 0.3 mmol/L (12/06/2024, 9:54am) and patient's procalcitonin level is normal at 0.06 ng/mL (12/06/2024, 9:54am), I have opted to start patient empirically on vancomycin 2g IV x 1 dose (12/06/2024, 11:45am), followed by vancomycin 1.25g IV daily (day #1/2 on 12/07/2024, 9:00am; day #2/2 on 12/08/2024, 9:00am); cefepime 2g IV q12 (day #1/3 on 12/06/2024, 11:45am). I will check vitals, chest exam while maintaining head of bed at 30 degrees from the horizontal plane at all times to mitigate aspiration risk even as patient adheres to a regular diet without resorting to imposition of NPO status on 12/06/2024, as this old man needs to eat food and drink water in order to survive this hospitalization. I will also check repeat WBC w/diff, lactic acid, procalcitonin, MRSA nares, urinary antigen Legionella pneumophila serogroup 1, urinary antigen Streptococcus pneumoniae, and BIOFIRE respiratory pathogen PCR panel in the 12/07/2024 am; if all of these tests are normal, the empiric antibiotics which I have started on 12/06/2024 may be discontinued in the next 1-2 days. Until then, stay tuned. #Paroxysmal AFIB. Previous history of Afib, on Xarelto. Home regimen Flecainide prn, metoprolol succinate, Xarelto - EKG on admission showed wide QRS tachycardia with RBBB and rate 122; telemetry with tachycardia 120s. cf., repeat EKG (12/02/2024, 10:03am): Atrial flutter with 2:1 block, ventricular rate 120, ID 120, QTC 537; RBBB, TWI in III, aVF, V2-V5, no acute ST depressions/elevations (by my review). - Echo 04/2022- EF 60-65, AV sclerosis mild, mild AR- pending echo - Xarelto held at admission - Tachycardic on admission- will provide with home dose metoprolol in the case that patient missed this medication and reevaluate as appropriate #Anxiety. Sertraline, trazodone (sleep), hydroxyzine prn, buspirone, alprazolam prn #BPH. Finasteride Dispo: DNR/DNI @ home alone. VTE Prophylaxis: HOLD chemical prophylaxis, encourage assisted mobilization AWAIT PT/OT/Case Management Service evaluations to coordinate hospital disposition to long-term care / placement as patient is deemed unsafe for D/C back to his home alone, as per patient's family members, including his son, Mr. William Bach ( ). To this end, patient awaits [employer] authorization/approval for patient to be discharged to [facility] ([place], [place]) for short-term acute rehab. If [employer] authorization/approval is denied by [employer], patient may be discharged to [facility] ([place], [place]) over the weekend. Once patient's short-term rehab stay at either [facility] ([place], [place]) or [facility] ([place], [place]) is complete, patient will then be discharged to [facility] ([place], [place]) for long-term care/placement as patient is no longer safe to live in his own home alone. Of final note, I spoke with the patient at the bedside in [facility] Med-Surg with Tele bed #458-1, his son, Mr. William Bach ( ), over the telephone, and his daughter, Ms. Miguelina Kraft ( ), over the telephone, today, 12/06/2024, and all 3 individuals concur with the assessment and plan as described above. To be crystal clear, the only 3 interventions that all 3 individuals have requested at this time is (1) BIPAP, (2) IV antibiotics, and (3) IV fluids. January blue skies and brighter days ensue. Admission and Anticipated Discharge Date Admission Date: December 01, 2024 Subjective "I was weak this morning. Real weak." Of note, patient received: a. Hydroxyzine 25mg PO x 1 dose (12/05/2024, 7:58pm). b. Trazodone 100mg PO x 1 dose (12/05/2024, 11:08pm). c. Alprazolam 0.5mg PO x 1 dose (12/06/2024, 12:05am). d. Morphine 2mg IV x 1 dose (12/06/2024, 3:21am). In sum, patient became somnolent (a) after having received the above medications, with acute hypercarbic respiratory failure (as noted on 12/06/2024, 10:15am ABG with pH 7.05, pCO2 122, pO2 90, HCO3 34, O2 sat 91% on FIO2 = 0.21), and (b) after developing acute bibasilar healthcare-associated pneumonia (as noted by bibasilar infiltrates and left pleural effusion on 12/06/2024 portable CXR), R/O aspiration pneumonia. Patient subsequently received narcan 0.4mg IV x 1 dose (12/06/2024, 10:24am) and patient "woke up" asking "Where am I?" Patient simultaneously was started on BIPAP @ 15 liters/minute to combat hypoventilation and repeat ABG (12/06/2024, 2:01pm) demonstrated significant imp rovement in ventilating off retained CO2: cf., pH 7.26, pCO2 71, pO2 101, HCO3 32, O2 sat 96% on FIO2 = 0.8, based on a delivery rate of 15 liters/minute O2 via BIPAP). In addition, while patient remained/remains afebrile without complaints of cough, wheeze, SOB, DOTY, or pleurisy, In addition, while patient's WBC remains normal throughout hospitalization from admission date 12/01/2024, when patient's WBC was 5.0, N58 L28 M12 E2 B1 (12/01/2024, 6:15pm) through today 12/06/2024, with WBC 6.22, N55 L28 M14 E2 (12/06/2024, 5:49am), In addition, while patient's lactic acid remains normal/low at 0.3 mmol/L (12/06/2024, 9:54am) and patient's procalcitonin level is normal at 0.06 ng/mL (12/06/2024, 9:54am), I have opted to start patient empirically on vancomycin 2g IV x 1 dose (12/06/2024, 11:45am), followed by vancomycin 1.25g IV daily (day #1/2 on 12/07/2024, 9:00am; day #2/2 on 12/08/2024, 9:00am); cefepime 2g IV q12 (day #1/3 on 12/06/2024, 11:45am). I will check vitals, chest exam while maintaining head of bed at 30 degrees from the horizontal plane at all times to mitigate aspiration risk even as patient adheres to a regular diet without resorting to imposition of NPO status on 12/06/2024, as this old man needs to eat food and drink water in order to survive this hospitalization. I will also check repeat WBC w/diff, lactic acid, procalcitonin, MRSA nares, urinary antigen Legionella pneumophila serogroup 1, urinary antigen Streptococcus pneumoniae, and BIOFIRE respiratory pathogen PCR panel in the 12/07/2024 am; if all of these tests are normal, the empiric antibiotics which I have started on 12/06/2024 may be discontinued in the next 1-2 days. Until then, stay tuned. Review of Systems Constitutional: Positive for weakness. Negative for antecedent/coincident fevers, chills, diaphoresis, cough, wheeze, sore throat, hemoptysis, chest pains, palpitations, pleurisy, nausea, vomiting, diarrhea, abdominal pain, pelvic pain, hematemesis, hematochezia, melena, hematuria, dysuria, frequency, urgency, headaches, dizziness, lightheadedness, visual changes, hearing changes, falls, syncope, trauma, travel history, sick contacts, or food/drug ingestions novel or new. All other review of systems are reported as negative by the patient on 12/06/2024. Physical Exam Constitutional: General: Uncomfortable with patient pointing to his left ribs (with acute left 10th, 11th, and 12th rib fractures in situ), pleasantly incoherent and forgetful , but very cooperative. Wide awake and alert. Pleasantly confused, but NOT lethargic or obtunded. Patient speaks in complete, fluent, and articulate, but non-sensical sentences without pause, interruption, cough, or wheeze. HEENT: Normocephalic, atraumatic. Pupils equally round and reactive to light. Extra-ocular muscles intact. No nystagmus, gaze paresis, anisocoria, miosis, mydriasis, hyphema, scleral injection, conjunctivitis, or pterygium. No rhinorrhea or otorrhea. No pharyngeal discharge or erythema. Severe presbycusis with his [employer] binaural hearing aids misplaced @ home a long time ago. Neck: Supple with mild posterior neck tenderness (without hematoma/ecchymosis), no stridor, bruit, goiter, hepatojugular reflux. Jugular venous pressure is estimated to be 8 cm above the sternal angle of Luis Enrique, which is estimated to be 5 cm above the level of the right atrium. Cervical collar in situ. Lymph: No anterior/posterior cervical, supraclavicular/infraclavicular, axillary, epitrochlear, or inguinal adenopathy. Chest: Symmetric rise and fall with respirations. Lungs: Clear to auscultation and percussion. No audible expiratory wheeze, egophony, pectoriloquy, increase in tactile fremitus, or flatness/dullness to percussion at the bases. Heart: Irregularly irregular rhythm; increased rate, S1 and S2 noted. No S3 or S4 summation gallop noted. No tripartite friction rub. Grade II/ early systolic murmur @ LLSB without radiation to the carotids, axilla, or back, and which remains invariant in regards to the respiratory cycle. Abdomen: Soft, non-tender, non-distended. No rebound, guarding, Man's sign, or organomegaly. Bowel sounds sounds auscultated in all 4 quadrants. Extremities: No clubbing, cyanosis, or edema. 2+ pedal pulses bilaterally. Tender ecchymoses on left lateral flank corresponding to acute left 10th, 11th, and 12th rib fractures. Skin: No decubitus ulcer, exanthem, or enanthem. Left side ecchymoses corresponding to acute left 10th, 11th, and 12th rib fractures in situ. Neurology: Alert and oriented to person, place, time, and situation. DTR+ and symmetric. 5/5 motor strength in all 4 extremities, both proximally and distal ly. No pronator drift. No facial droop. No tremors, tics, or myoclonus. Urology: + martin (placed in [facility] ER on admission date 12/01/2024 with 300cc of clear lynsey colored urine, no blood clots or gross hematuria noted). No urethral discharge. Psychiatry: No suicidal ideation. No homicidal ideation. Results & Data Results & Data Vital Signs (Past 12 Hours) Vital Signs Temp Pulse Pulse Resp BP Pulse Ox O2 Del Method 12/06/24 16:02 36.7 C 81 18 120/69 98 BiPAP 12/06/24 15:23 63 12/06/24 14:03 67 32 H 96 12/06/24 11:58 36.4 C L 82 22 138/77 94 BiPAP 12/06/24 10:46 83 28 H 95 12/06/24 07:39 36.5 C 77 18 126/72 94 Nasal Cannula 12/06/24 07:00 75 O2 Flow Rate FiO2 12/06/24 16:02 12/06/24 15:23 12/06/24 14:03 40 12/06/24 11:58 15 40 12/06/24 10:46 50 12/06/24 07:39 5 12/06/24 07:00 Laboratory Results 12/06/24 10:42 Aerobic Blood Culture - Pending Blood Anaerobic Blood Culture - Pending 12/06/24 10:32 Aerobic Blood Culture - Pending Blood Anaerobic Blood Culture - Pending 12/06/24 12/06/24 12/06/24 14:01 10:15 09:54 WBC RBC Hgb POC Hgb 11.6 L 12.9 L Hct POC Hct 34 L 38 L MCV MCH MCHC RDW Std Deviation RDW Coeff of Real Plt Count MPV Immature Gran % (Auto) Neut % (Auto) Lymph % (Auto) [place] % (Auto) Eos % (Auto) Baso % (Auto) Neut # (Auto) Lymph # (Auto) [place] # (Auto) Eos # (Auto) Baso # (Auto) Immature Gran # (Auto) Specimen Type Arterial Arterial POC pH 7.26 L 7.05 L* POC pCO2 71 H 122 H POC pO2 101 H 90 POC HCO3 32 H 34 H POC Total CO2 34 H 38 H POC Base Excess 5.0 H 3.0 H POC ABG O2 Sat 96.0 H 91.0 POC Sodium 138 138 Sodium POC Potassium 5.2 H 5.3 H Potassium Chloride Carbon Dioxide Anion Gap BUN Creatinine Est Cr Clr Drug Dosing eGFR BUN/Creatinine Ratio Glucose Lactate 0.3 L Calcium Procalcitonin 0.06 12/06/24 05:49 WBC 6.22 RBC 3.71 L Hgb 11.1 L POC Hgb Hct 37.4 L POC Hct MCV 100.8 H MCH 29.9 MCHC 29.7 L RDW Std Deviation 51.5 H RDW Coeff of Real 13.9 Plt Count 153 MPV 9.6 Immature Gran % (Auto) 0.6 Neut % (Auto) 55.3 Lymph % (Auto) 28.0 [place] % (Auto) 14.0 Eos % (Auto) 1.8 Baso % (Auto) 0.3 Neut # (Auto) 3.44 Lymph # (Auto) 1.74 [place] # (Auto) 0.87 H Eos # (Auto) 0.11 Baso # (Auto) 0.02 Immature Gran # (Auto) 0.04 Specimen Type POC pH POC pCO2 POC pO2 POC HCO3 POC Total CO2 POC Base Excess POC ABG O2 Sat POC Sodium Sodium 136 POC Potassium Potassium 5.3 H Chloride 104 Carbon Dioxide 33 H Anion Gap -1 L BUN 46 H Creatinine 1.46 H D Est Cr Clr Drug Dosing 46.5 eGFR 47.72 BUN/Creatinine Ratio 31.5 H Glucose 95 Lactate Calcium 8.5 L Procalcitonin PG Care Time/CCT Total # of Minutes Spent Total Time Spent with Patient: Total time spent is greater than 50% in coordination of care (as documented) at patient's floor/unit and/or counseling patient: Coding Level of Care Code 85613 SUB INP/OBS CARE 3/50MIN Diagnoses Ribs, multiple fractures S22.49XA Subdural fluid collection G93.89
[2024-12-06] MEDS: SODIUM CHLORIDE 0.9% 1,000 ML IV ONE (18:37)
[2024-12-06 20:52] LABS: Adenovirus PCR Not Detected (NotDetected); Bordetella parapertussis PCR Not Detected (NotDetected); Bordetella pertussis PCR Not Detected (NotDetected); Chlamydia pneumoniae PCR Not Detected (NotDetected); Coronavirus 229E PCR Not Detected (NotDetected); Coronavirus CoV-2 (COVID19)PCR Not Detected (NotDetected); Coronavirus HKU1 PCR Not Detected (NotDetected); Coronavirus NL63 PCR Not Detected (NotDetected); Coronavirus OC43PCR Not Detected (NotDetected); Human Metapneumovirus PCR Not Detected (NotDetected); Influenza A PCR Not Detected (NotDetected); Influenza B PCR Not Detected (NotDetected); Mycoplasma pneumoniae PCR Not Detected (NotDetected); Parainfluenza Virus 1 PCR Not Detected (NotDetected); Parainfluenza Virus 2 PCR Not Detected (NotDetected); Parainfluenza Virus 3 PCR Not Detected (NotDetected); Parainfluenza Virus 4 PCR Not Detected (NotDetected); Respiratory Syncytial VirusPCR Not Detected (NotDetected); Rhinovirus/Enterovirus PCR Not Detected (NotDetected)
[2024-12-07 06:28] LABS: Basophils # (auto) 0.02 K/uL (0.00-0.20); Basophils % (auto) 0.4 %; Eosinophils % (auto) 2.1 %; Hematocrit (blood only) 35.4 % (42.0-52.0); Hemoglobin 10.5 g/dl (14.0-18.0); Immature Granulocytes # (auto) 0.03 K/uL (0.01-0.20); Immature Granulocytes % (auto) 0.6 %; Lymphocytes # (auto) 1.02 K/uL (1.20-3.40); Lymphocytes % (auto) 21.1 %; Mean Corpuscular Hemoglobin 29.6 pg (25.0-34.0); Mean Corpuscular Hgb Conc 29.7 g/dL (32.0-36.0); Mean Corpuscular Volume 99.7 fL (80.0-100.0); Mean Platelet Volume 9.8 fL (9.4-12.4); Monocytes # (auto) 0.64 K/uL (0.11-0.59); Monocytes % (auto) 13.3 %; Neutrophils # (auto) 3.02 K/uL (1.40-6.50); Neutrophils % (auto) 62.5 %; Platelet Count 148 K/uL (130-400); RDW Coefficient of Variation 13.8 % (11.5-14.5); RDW Standard Deviation 50.6 fL (36.4-46.3); Red Blood Count 3.55 M/uL (4.70-6.10); White Blood Count 4.83 K/ul (4.8-10.8)
[2024-12-07 07:04] LABS: Calcium 8.4 mg/dl (8.6-10.3); Creatinine Clr Calc Pharmacy 72.3 ml/min; Potassium 4.9 mmol/L (3.5-5.1)
[2024-12-07] MEDS ORDERED: VANCOMYCIN HCL 1,250 MG in SODIUM CHLORIDE 0.9% 250 ML IV SCH (09:00)
[2024-12-07] MEDS: CEFEPIME 2000MG 2,000 MG/20 ML SYR IV SCH (11:20)
[2024-12-07] MEDS ORDERED: FUROSEMIDE 40 MG TAB PO SCH (12:45)
--- NOTE | 2024-12-07 12:54 | Hospitalist Progress Note ---
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 Found to have multiple rib fractures, including left 10th, 11th, 12th rib fractu res Also fracture of the left side of the posterior spinous process of C4 on C5 PT/OT continue pain control Awaiting placement (2) Subdural fluid collection: Plan: "New 5 mm thickness low-density left posterior subdural fluid collection. No mass effect." (as noted on 12/01/2024, 6:39pm CT brain without contrast). 5mm L posterior subacute/chronic subdural fluid collection identified on CT head; Pt is on Xarelto at baseline for Afib. Unclear if there was a fall or trauma but patient's daughter states that the patient has had many falls recently, was seen by PCP 11/23/2024 for a fall. Patient's medical proxy was made aware of head CT findings. Medical proxy states that the patient would NOT want surgical management of this and that she is understandable to the limitations of management at [place] regarding neurosurgery. Medical proxy agreeable to admission to [facility] even with limitations set in place - CT head- new 5mm thickness L posterior subacute to chronic subdural fluid collection new compared to 11/13/2024 - Xarelto HELD - entra ordered under direction of Dr. Burnham as discussed with ED provider - [id number] score 3 (age, sex, HTN) - given recurrent falls and CT head findings, consider risk versus benefit of continuing Xarelto (3) Acute kidney injury: Plan: Most likely prerenal due to dehydration. On admission creatinine was increased however now back to normal Avoid nephrotoxic's (4) Atrial fibrillation: Plan: Rate is under good control with metoprolol Will continue to hold Xarelto in view of possible hematoma subdural (5) LLL pneumonia: Plan: And CT chest, patient had bibasilar infiltrates suspicious for pneumonia. Although could be due to fluid overload Urine antigen for Legionella, strep pending Will continue antibiotics for now, hopefully discontinue soon (6) Hearing difficulty of both ears: Plan chronic illness: #Anxiety. Sertraline, trazodone (sleep), hydroxyzine prn, buspirone, alprazolam prn #BPH. Finasteride Dispo: DNR/DNI @ home alone. VTE Prophylaxis: HOLD chemical prophylaxis, encourage assisted mobilization AWAIT PT/OT/Case Management Service evaluations to coordinate hospital disposition to long-term care / placement as patient is deemed unsafe for D/C back to his home alone, as per patient's family members, including his son, Mr. William Bach ( ). Admission and Anticipated Discharge Date Admission Date: December 01, 2024 Subjective Patient seen and examined today, no new complaints, he is hard of hearing Review of Systems Review of Systems: All systems reviewed are negative, apart from the ones contained in the history. Physical Exam Physical Exam: The patient is awake, alert and oriented 3, well developed and well nourished, normocephalic and atraumatic, lying in bed and in no acute distress. HEENT--PERRL, EOMI, mucous membranes and oropharynx mildly dry Neck--supple. No JVD. No bruits. Thyroid normal, trachea midline, no adenopathy. Heart--normal S1 and S2. No murmurs, rubs or gallops. Lungs--clear bilaterally, no respiratory distress, no accessory muscle use. Abdomen--normal bowel sounds and soft. Extremities--no cyanosis or clubbing. leg edema. Dermatologic--normal skin turgor, normal color, no abnormal lymph nodes, no rash. Neurologic--cranial nerves II through XII grossly intact. Rheumatologic--normal range of motion. Psychiatric--normal affect. Results & Data Results & Data Vital Signs (Past 12 Hours) Vital Signs Temp Pulse Pulse Resp BP BP Pulse Ox 12/07/24 08:35 98.1 F 99 H 18 125/73 95 12/07/24 07:49 71 12/07/24 05:09 96 H 21 96 12/07/24 04:32 97.9 F 98 H 148/82 H 98 O2 Del Method O2 Flow Rate FiO2 12/07/24 08:35 Oxymask 3.0 12/07/24 07:49 12/07/24 05:09 40 12/07/24 04:32 BiPAP PG Care Time/CCT Total # of Minutes Spent Total Time Spent with Patient: Total time spent is greater than 50% in coordination of care (as documented) at patient's floor/unit and/or counseling patient: Coding Level of Care Code 50046 SUB INP/OBS CARE 2/35MIN Diagnoses Ribs, multiple fractures S22.49XA Subdural fluid collection G93.89 Acute kidney injury N17.9 Atrial fibrillation, unspecified type I48.91 Atrial fibrillation type: unspecified LLL pneumonia J18.9 Hearing difficulty of both ears H91.93 Time Spent (min) 35 (4) Atrial fibrillation Atrial fibrillation type: unspecified Qualified Code(s): I48.91 - Unspecified atrial fibrillation
[2024-12-07] MEDS: FUROSEMIDE 20 MG TAB PO SCH (13:22)
[2024-12-08] MEDS: MoRPHine SULFATE 2 MG/ML CARP IV PRN ×2 (02:59→09:41)
[2024-12-08] MEDS: LIDOCAINE 2% JELLY 5 ML TUBE EXT ONE (04:45)
--- NOTE | 2024-12-08 11:21 | Hospitalist Progress Note ---
Date of Service December 08, 2024 Assessment & Plan (1) Urinary retention: Plan: Due to BPH Patient had an indwelling Martin, which he has pulled out twice now Continue to monitor him off Martin catheter. 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 Found to have multiple rib fractures, including left 10th, 11th, 12th rib fractures Also fracture of the left side of the posterior spinous process of C4 on C5 PT/OT continue pain control Awaiting placement (3) Subdural fluid collection: Plan: "New 5 mm thickness low-density left posterior subdural fluid collection. No mass effect." (as noted on 12/01/2024, 6:39pm CT brain without contrast). 5mm L posterior subacute/chronic subdural fluid collection identified on CT head; Pt is on Xarelto at baseline for Afib. Unclear if there was a fall or trauma but patient's daughter states that the patient has had many falls recently, was seen by PCP 11/23/2024 for a fall. Patient's medical proxy was made aware of head CT findings. Medical proxy states that the patient would NOT want surgical management of this and that she is understandable to the limitations of management at [place] regarding neurosurgery. Medical proxy agreeable to admission to [facility] even with limitations set in place - CT head- new 5mm thickness L posterior subacute to chronic subdural fluid collection new compared to 11/13/2024 - Xarelto HELD - [id number] score 3 (age, sex, HTN) - given recurrent falls and CT head findings, consider risk versus benefit of continuing Xarelto (4) Acute kidney injury: Plan: Most likely prerenal due to dehydration. On admission creatinine was increased however now back to normal Avoid nephrotoxic's (5) Atrial fibrillation: Plan: Rate is under good control with metoprolol Will continue to hold Xarelto in view of possible hematoma subdural (6) LLL pneumonia: Plan: And CT chest, patient had bibasilar infiltrates suspicious for pneumonia. Although could be due to fluid overload Urine antigen for Legionella, strep pending Will continue antibiotics for now, hopefully discontinue before d/c to SNF (7) Hearing difficulty of both ears: Plan chronic illness: #Anxiety. Sertraline, trazodone (sleep), hydroxyzine prn, buspirone, alprazolam prn #BPH. Finasteride Dispo: DNR/DNI @ home alone. VTE Prophylaxis: HOLD chemical prophylaxis, encourage assisted mobilization AWAIT PT/OT/Case Management Service evaluations to coordinate hospital disposition to long-term care / placement as patient is deemed unsafe for D/C back to his home alone, as per patient's family members, including his son, Mr. William Bach ( ). Admission and Anticipated Discharge Date Admission Date: December 01, 2024 Subjective Patient seen and examined today, no new complaints, he is hard of hearing, per RN, he pulled out his martin cathter twice Review of Systems Review of Systems: All systems reviewed are negative, apart from the ones contained in the history. Physical Exam Physical Exam: The patient is awake, alert and oriented 3, well developed and well nourished, normocephalic and atraumatic, lying in bed and in no acute distress. HEENT--PERRL, EOMI, mucous membranes and oropharynx mildly dry Neck--supple. No JVD. No bruits. Thyroid normal, trachea midline, no adenopathy. Heart--normal S1 and S2. No murmurs, rubs or gallops. Lungs--clear bilaterally, no respiratory distress, no accessory muscle use. Abdomen--normal bowel sounds and soft. Extremities--no cyanosis or clubbing. leg edema. Dermatologic--normal skin turgor, normal color, no abnormal lymph nodes, no rash. Neurologic--cranial nerves II through XII grossly intact. Rheumatologic--normal range of motion. Psychiatric--normal affect. Results & Data Results & Data Vital Signs (Past 12 Hours) Vital Signs Temp Pulse Pulse Resp BP Pulse Ox O2 Del Method 12/08/24 10:18 98 H 12/08/24 08:00 97.9 F 68 18 152/72 H 97 Nasal Cannula 12/08/24 07:51 Nasal Cannula 12/07/24 23:48 97.9 F 68 20 135/72 94 Nasal Cannula O2 Flow Rate 12/08/24 10:18 12/08/24 08:00 3.0 12/08/24 07:51 2 12/07/24 23:48 3 PG Care Time/CCT Total # of Minutes Spent Total Time Spent with Patient: Total time spent is greater than 50% in coordination of care (as documented) at patient's floor/unit and/or counseling patient: Coding Level of Care Code 76891 SUB INP/OBS CARE 2/35MIN Diagnoses Urinary retention R33.9 Ribs, multiple fractures S22.49XA Subdural fluid collection G93.89 Acute kidney injury N17.9 Atrial fibrillation, unspecified type I48.91 Atrial fibrillation type: unspecified LLL pneumonia J18.9 Hearing difficulty of both ears H91.93 Time Spent (min) 35 (5) Atrial fibrillation Atrial fibrillation type: unspecified Qualified Code(s): I48.91 - Unspecified atrial fibrillation
[2024-12-08 12:15] LABS: Basophils # (auto) 0.02 K/uL (0.00-0.20); Basophils % (auto) 0.3 %; Eosinophils # (auto) 0.09 K/uL (0.00-0.50); Eosinophils % (auto) 1.4 %; Hematocrit (blood only) 37.4 % (42.0-52.0); Hemoglobin 11.5 g/dl (14.0-18.0); Immature Granulocytes # (auto) 0.02 K/uL (0.01-0.20); Immature Granulocytes % (auto) 0.3 %; Lymphocytes # (auto) 0.82 K/uL (1.20-3.40); Lymphocytes % (auto) 12.6 %; Mean Corpuscular Hemoglobin 29.5 pg (25.0-34.0); Mean Corpuscular Hgb Conc 30.7 g/dL (32.0-36.0); Mean Corpuscular Volume 95.9 fL (80.0-100.0); Mean Platelet Volume 9.1 fL (9.4-12.4); Monocytes # (auto) 0.89 K/uL (0.11-0.59); Monocytes % (auto) 13.7 %; Neutrophils # (auto) 4.65 K/uL (1.40-6.50); Neutrophils % (auto) 71.7 %; Platelet Count 167 K/uL (130-400); RDW Coefficient of Variation 13.5 % (11.5-14.5); RDW Standard Deviation 48.2 fL (36.4-46.3); White Blood Count 6.49 K/ul (4.8-10.8)
[2024-12-08 12:31] LABS: BUN Creatinine Ratio 28.6 (10-20); Calcium 9.1 mg/dl (8.6-10.3); Creatinine Clr Calc Pharmacy 74.6 ml/min; Potassium 4.5 mmol/L (3.5-5.1)
[2024-12-08] MEDS: PHENAZOPYRIDINE HCL 100 MG TAB PO SCH (12:32)
[2024-12-09] MEDS: METOPROLOL TARTRATE 1 MG/ML VIAL IV STA ×2 (05:15→06:39)
[2024-12-09 06:11] LABS: Hematocrit (blood only) 36.8 % (42.0-52.0); Hemoglobin 11.7 g/dl (14.0-18.0); Mean Corpuscular Hemoglobin 29.8 pg (25.0-34.0); Mean Corpuscular Hgb Conc 31.8 g/dL (32.0-36.0); Mean Corpuscular Volume 93.6 fL (80.0-100.0); Mean Platelet Volume 9.2 fL (9.4-12.4); Platelet Count 176 K/uL (130-400); RDW Coefficient of Variation 13.1 % (11.5-14.5); RDW Standard Deviation 44.8 fL (36.4-46.3); Red Blood Count 3.93 M/uL (4.70-6.10); White Blood Count 5.86 K/ul (4.8-10.8)
[2024-12-09 06:30] LABS: BUN Creatinine Ratio 25.9 (10-20); Calcium 8.9 mg/dl (8.6-10.3); Creatinine Clr Calc Pharmacy 83.9 ml/min; Potassium 4.3 mmol/L (3.5-5.1)
--- NOTE | 2024-12-09 10:51 | Hospitalist Progress Note ---
Date of Service December 09, 2024 Assessment & Plan (1) Urinary retention: Plan: Due to BPH Patient had an indwelling Martin, which he has pulled out twice now Continue to monitor him off Martin catheter. 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 Found to have multiple rib fractures, including left 10th, 11th, 12th rib fractures Also fracture of the left side of the posterior spinous process of C4 on C5 PT/OT continue pain control Awaiting placement (3) Subdural fluid collection: Plan: "New 5 mm thickness low-density left posterior subdural fluid collection. No mass effect." (as noted on 12/01/2024, 6:39pm CT brain without contrast). 5mm L posterior subacute/chronic subdural fluid collection identified on CT head; Pt is on Xarelto at baseline for Afib. Unclear if there was a fall or trauma but patient's daughter states that the patient has had many falls recently, was seen by PCP 11/23/2024 for a fall. Patient's medical proxy was made aware of head CT findings. Medical proxy states that the patient would NOT want surgical management of this and that she is understandable to the limitations of management at [place] regarding neurosurgery. Medical proxy agreeable to admission to [facility] even with limitations set in place - CT head- new 5mm thickness L posterior subacute to chronic subdural fluid collection new compared to 11/13/2024 - Xarelto HELD - [id number] score 3 (age, sex, HTN) - given recurrent falls and CT head findings, consider risk versus benefit of continuing Xarelto (4) Acute kidney injury: Plan: Most likely prerenal due to dehydration. On admission creatinine was increased however now back to normal Avoid nephrotoxic's (5) Atrial fibrillation: Plan: Rate is under good control with metoprolol Will continue to hold Xarelto in view of possible hematoma subdural (6) LLL pneumonia: Plan: And CT chest, patient had bibasilar infiltrates suspicious for pneumonia. Although could be due to fluid overload Urine antigen for Legionella, strep pending completed a course of antibiotics (7) Hearing difficulty of both ears: Plan: Daughter will bring his hearing aids today per his son Plan chronic illness: #Anxiety. Sertraline, trazodone (sleep), hydroxyzine prn, buspirone, alprazolam prn #BPH. Finasteride Dispo: DNR/DNI @ home alone. VTE Prophylaxis: HOLD chemical prophylaxis, encourage assisted mobilization auth denied for [employer], plan is for [facility], hopefully tomorrow. he is medically stable for discharge Admission and Anticipated Discharge Date Admission Date: December 01, 2024 Subjective Patient seen and examined today, no new complaints, he is hard of hearing, per RN, he pulled out his martin cathter twice Review of Systems Review of Systems: All systems reviewed are negative, apart from the ones contained in the history. Physical Exam Physical Exam: The patient is awake, alert and oriented 3, well developed and well nourished, normocephalic and atraumatic, lying in bed and in no acute distress. HEENT--PERRL, EOMI, mucous membranes and oropharynx mildly dry Neck--supple. No JVD. No bruits. Thyroid normal, trachea midline, no adenopathy. Heart--normal S1 and S2. No murmurs, rubs or gallops. Lungs--clear bilaterally, no respiratory distress, no accessory muscle use. Abdomen--normal bowel sounds and soft. Extremities--no cyanosis or clubbing. leg edema. Dermatologic--normal skin turgor, normal color, no abnormal lymph nodes, no rash. Neurologic--cranial nerves II through XII grossly intact. Rheumatologic--normal range of motion. Psychiatric--normal affect. Results & Data Results & Data Vital Signs (Past 12 Hours) Vital Signs Temp Pulse Pulse Resp BP BP BP 12/09/24 09:30 12/09/24 08:20 97.7 F 88 18 151/81 H 12/09/24 07:13 115 H 12/09/24 06:39 115 H 119/76 12/09/24 06:31 115 H 17 119/76 12/09/24 06:08 124 H 12/09/24 05:15 130 H 134/80 12/09/24 04:39 130 H 18 134/80 12/09/24 03:15 98.1 F 80 18 156/91 H Pulse Ox O2 Del Method O2 Flow Rate 12/09/24 09:30 Room Air 12/09/24 08:20 90 Room Air 12/09/24 07:13 12/09/24 06:39 12/09/24 06:31 93 Nasal Cannula 2 12/09/24 06:08 12/09/24 05:15 12/09/24 04:39 90 Room Air 12/09/24 03:15 89 L Room Air PG Care Time/CCT Total # of Minutes Spent Total Time Spent with Patient: Total time spent is greater than 50% in coordination of care (as documented) at patient's floor/unit and/or counseling patient: Coding Level of Care Code 71092 SUB INP/OBS CARE 2/35MIN Diagnoses Urinary retention R33.9 Ribs, multiple fractures S22.49XA Subdural fluid collection G93.89 Acute kidney injury N17.9 Atrial fibrillation, unspecified type I48.91 Atrial fibrillation type: unspecified LLL pneumonia J18.9 Hearing difficulty of both ears H91.93 Time Spent (min) 35 (5) Atrial fibrillation Atrial fibrillation type: unspecified Qualified Code(s): I48.91 - Unspecified atrial fibrillation
[2024-12-10 03:37] VITALS: RESP 20; TEMP 97.7
--- NOTE | 2024-12-10 06:38 | Electrocardiogram Report ---
Test Reason : Blood Pressure : */* mmHG Vent. Rate : 123 BPM Atrial Rate : * BPM P-R Int : * ms QRS Dur : 142 ms QT Int : 370 ms P-R-T Axes : * 29 -59 degrees QTcB Int : 529 ms Poor data quality, interpretation may be adversely affected Atrial fibrillation with rapid ventricular response Right bundle branch block T wave abnormality, consider inferolateral ischemia Abnormal ECG When compared with ECG of 02-Dec-2024 10:03, T wave inversion more evident in Lateral leads Confirmed by Jh Quezada ([id number]) on 12/10/2024 6:37:55 AM Referred By: REFERRED SELF Confirmed By: Jh Quezada
[2024-12-10 09:52] VITALS: PULSE 120; O2SAT 89
--- NOTE | 2024-12-10 10:39 | Discharge Summary ---
Date of Service December 10, 2024 Admission HPI Per Admitting Provider 84-year-old male PMHx A-fib on Xarelto, BPH with LUTS, AMARI, HLD, HTN, GERD, and depression with anxiety presenting for left lower back pain. Patient is a poor historian. Continues to state that his back hurts with any movement, unsure if he fell and states he does not remember. Not complaining of pain elsewhere. No additional concerns per patient. ED evaluation reveals H&H 12/39, MCH decreased; CMP with carbon dioxide 33, AG 2, ratio 21.3, alkaline phosphatase 116, globulin 4.2, UA with elevated SG but no infection; CTAP with acute displaced fracture of L posterior lateral 10th and 11th ribs as well as nondisplaced L posterior 12th rib fracture, mild chest wall contusion over L 10th and 11th rib, small L basal pleural effusion and L basilar atelectasis; chest CT supportive of such; head CT with new 5 mm thickness L posterior subacute to chronic subdural fluid collection compared to 11/13/2024. Provided with Kcentra and morphine in ED. Spoke with patient's daughter, Miguelina Kraft, on the phone for approximately 10 minutes regarding patient's condition and wishes. States that over the past year, the patient had had a progressive decline in his mental status. He has been managing his own medications and day-to-day activities by himself without concern, but his daughter states that he has had progressive memory loss. States that he will be told something, then 2 minutes later will not remember the conversation. Patient's daughter believes that he is unsafe to be home alone given his progressive weakness and that he has placement at a facility, which she has available this coming , 12/03/2024. Daughter believes that the patient took all of his AM medications on the day of arrival. Admission Exam (Per Admitting) Constitutional The patient is awake, alert and oriented 3, well developed and well nourished, normocephalic and atraumatic, lying in bed and in no acute distress. HEENT--PERRL, EOMI, mucous membranes and oropharynx mildly dry Neck--supple. No JVD. No bruits. Thyroid normal, trachea midline, no adenopathy. Heart--normal S1 and S2. No murmurs, rubs or gallops. Lungs--clear bilaterally, no respiratory distress, no accessory muscle use. Abdomen--normal bowel sounds and soft. Extremities--no cyanosis or clubbing. No edema. Dermatologic--normal skin turgor, normal color, no abnormal lymph nodes, no rash. Neurologic--cranial nerves II through XII grossly intact. Rheumatologic--normal range of motion. Psychiatric--normal affect. Discharge Data Consultations 12/01/24 21:44 ED Decision to Admit Stat Hospital Course (1) Urinary retention: Due to BPH Patient had an indwelling Chiu, which he has pulled out twice now Continue to monitor him off Chiu catheter. Continue finasteride (2) Ribs, multiple fractures: 84 years old male with PMH of DNR/DNI @ home alone, obesity with BMI 32.0 (height 177.8 cm; weight 101.3 kg), GERD, AMARI on nocturnal CPAP, severe presbycusis with his [employer] binaural hearing aids misplaced @ home a long time ago, hyperlipidemia, HTN, paroxysmal AFIB, BPH with LUTS, major depression, anxiety disorder, forgetfulness of recent events, not remote ones, consistent with incipient dementia without behavioral disturbances, now with increased frequency of multiple, mechanical falls with walker at home over the past 3 weeks, who presented to [facility] on 12/01/2024 with complaints of left lateral pains s/p mechanical fall at his home on 12/01/2024. Found to have multiple rib fractures, including left 10th, 11th, 12th rib fractures Also fracture of the left side of the posterior spinous process of C4 on C5 PT/OT continue pain control Discharge to [facility] (3) Subdural fluid collection: "New 5 mm thickness low-density left posterior subdural fluid collection. No mass effect." (as noted on 12/01/2024, 6:39pm CT brain without contrast). 5mm L posterior subacute/chronic subdural fluid collection identified on CT head; Pt is on Xarelto at baseline for Afib. Unclear if there was a fall or trauma but patient's daughter states that the patient has had many falls recently, was seen by PCP 11/23/2024 for a fall. Patient's medical proxy was made aware of head CT findings. Medical proxy states that the patient would NOT want surgical management of this and that she is understandable to the limitations of management at [place] regarding neurosurgery. Medical proxy agreeable to admission to [facility] even with limitations set in place - CT head- new 5mm thickness L posterior subacute to chronic subdural fluid collection new compared to 11/13/2024 - Xarelto HELD - [id number] score 3 (age, sex, HTN) - Given recurrent falls and CT head findings, the risk of continuing Xarelto is way higher than the benefits, we will stop xarelto upon discharge (4) Acute kidney injury: Most likely prerenal due to dehydration. On admission creatinine was increased however now back to normal Avoid nephrotoxic's (5) Atrial fibrillation: Rate is under good control with metoprolol Will continue to hold Xarelto in view of possible hematoma subdural (6) LLL pneumonia: And CT chest, patient had bibasilar infiltrates suspicious for pneumonia. Although could be due to fluid overload Urine antigen for Legionella, strep pending completed a course of antibiotics (7) Hearing difficulty of both ears: Daughter will bring his hearing aids today per his son Plan chronic illness: #Anxiety. Sertraline, trazodone (sleep), hydroxyzine prn, buspirone, alprazolam prn #BPH. Finasteride Dispo: DNR/DNI @ home alone. VTE Prophylaxis: HOLD chemical prophylaxis, encourage assisted mobilization auth denied for [employer], plan is for [facility] Coding Level of Care Code 73175 INP/OBS DISCH >30 MIN Diagnoses Urinary retention R33.9 Ribs, multiple fractures S22.49XA Subdural fluid collection G93.89 Acute kidney injury N17.9 Atrial fibrillation, unspecified type I48.91 Atrial fibrillation type: unspecified LLL pneumonia J18.9 Hearing difficulty of both ears H91.93 Time Spent (min) 35
[2024-12-10 13:03] VITALS: BP 119/76
--- NOTE | 2024-12-11 05:42 | Electrocardiogram Report ---
Test Reason : Blood Pressure : */* mmHG Vent. Rate : 115 BPM Atrial Rate : * BPM P-R Int : * ms QRS Dur : 144 ms QT Int : 322 ms P-R-T Axes : * 8 -55 degrees QTcB Int : 445 ms Atrial fibrillation with rapid ventricular response Right bundle branch block T wave abnormality, consider inferolateral ischemia Abnormal ECG When compared with ECG of 09-Dec-2024 04:47, No significant change was found Confirmed by Jh Quezada ([id number]) on 12/11/2024 5:42:22 AM Referred By: REFERRED SELF Confirmed By: Jh Quezada
== END 2024-12-10 13:49 | disposition home or self-care (01) | DRG 183 ==
LOC: SUATTDRO → ED 17:59 → SUATTDRO 21:52 → 4W 21:52

== ENCOUNTER 2025-07-05 21:21 | Observation (INO) ==
--- NOTE | 2025-07-05 21:28 | Emergency Department Note ---
Impression & Plan Hypoxia, Fall, Laceration of occipital scalp, CHI (closed head injury) ED Provider Note NAME: JENNIE FULLER AGE: 84 SEX: M : 1940 ARRIVES VIA: Ambulance INFORMANT: Patient, ED PROVIDER(S): Miki Machuca MD CHIEF COMPLAINT: Fall MEDICAL DECISION MAKING: Patient presents due to concern for fall and head strike. Patient reportedly did have an oxygen requirement but is asymptomatic. Review the records that show history of AMARI. DuoNeb ordered. No reported cough or fever. IV was established and blood work was obtained to further evaluate the patient's hypoxia. Patient did have a CT of the head completed. CT head without obvious ICH. Patient's blood work shows a normal white count hemoglobin of 12.9 with a normal platelet count kidney function was unremarkable. Chest x-ray shows the possibility of pneumonia. Procalcitonin negative BioFire negative. Chest x-ray shows the possibility of infection but will defer antibiotic treatment at this time as the patient is otherwise asymptomatic with a normal white blood cell count. Procalcitonin was added. Pending at the time of admission. Unable to place the patient on oxygen at his care facility given the hour. I did speak with the on-call hospitalist service Dr. Soriano and the patient was admitted to medicine service. Patient was placed on 2 L nasal cannula. Critical Care: I have personally spent 36 minutes of critical care time in direct management of this patient. This includes bedside care, interpretation of diagnostic studies, and testing, discussion with consultants, patient, and family members, and other require inpatient management activities. This 36 minutes is in excess of all separately billable procedures. Procedures: Laceration repair performed Dr. Machuca Location: Scalp Total length: 2 cm Complexity: Simple Verbal consent was obtained after the risks and benefits were explained, including but not limited to bleeding, scarring, infection, pain, and bone/nerve damage. At this time, the risks of the procedure are less than the risks of NOT performing the procedure. A time out was taken and the correct patient and site identified. The scalp was prepped with betadine. The target area was anesthetized with ml of 1% lidocaine without epinephrine. Copious irrigation was performed using saline. The skin was re-prepped with betadine, the hair cleared from the wound, and a sterile field set. The wound was explored for foreign bodies and none found. Debridement was not performed. The wound edges were approximated using 1 surgical lex in the standard fashion. Hemostasis and excellent approximation was achieved. Antibacterial ointment and a sterile dressing applied. Detailed wound care instructions and signs and symptoms of infection reviewed with the patient and family member. No complications and the patient tolerated the procedure well. Discussion w/ other healthcare providers: Dr. Soriano inpatient medicine service Prior /Outside records reviewed: None Differential diagnosis: Fracture, dislocation, contusion, strain, sprain, ICH, hemothorax, intra- abdominal injury, anemia among other causes were considered. Diagnostics, as interpreted by me: ECG: None Cardiac monitoring: An order was placed for continuous cardiac monitoring. The monitor shows a rate of with rhythm. Patient was placed on pulse oximetry Medical decision rules: None Imaging studies: I informally interpreted the patient's with formal report to follow. HPI: Patient presents due to concern for fall and head strike. Patient reportedly was getting up to get popcorn fell back struck the back of his head. No reported LOC. He does not take any blood thinning medications. Patient is very hard of hearing. Patient denies any acute complaints or symptoms. Nursing reported the patient was hypoxic and was placed on 2 L nasal cannula and was noted to be in the high 80s on room air. Patient currently denies any chest pain or shortness of breath no reported cough. He does not complain of rib pain or chest pain. PAST MEDICAL HISTORY: See Below PAST SURGICAL HISTORY: See Below SOCIAL HISTORY: See Below HOME MEDICATIONS: See Below ALLERGIES: See Below VITALS: See Below PHYSICAL EXAMINATION: Primary Survey Airway: Intact Breathing: Normal, breath sounds equal bilaterally Circulation: Skin warm, well perfused, capillary refill less than 2 seconds Disability Pupils: Equal and reactive to light, 4mm, brisk GCS: 15, E = 4 V=5 M= 6 Motor Function: Moves all extremities. Sensory: No deficits Secondary Survey GENERAL: NAD, non-toxic. Wearing glasses. Hard of hearing. HEAD: 2 cm laceration noted to the occiput. Hemostatic. EYE EXAM: Normal conjunctiva. PERRL, no anisocoria and EOM's grossly intact w/o pain. OROPHARYNX: Moist mucus membranes. Grossly normal dentition. NECK: Supple, trachea midline, no midline C spine TTP. Chest: No reproducible chest wall pain. LUNGS: Clear to auscultation. Normal chest wall mechanics. HEART: NSR, no MRG. ABDOMEN: Abdomen soft, non-tender, no obvious bruising, normo-active bowel sounds, no masses, no rebound or guarding. BACK: No CVA TTP. No midline thoracic or lumbar TTP. SKIN: No rashes and no bruising. UPPER EXTREMITIES: Upper extremities are grossly normal. Well-perfused and compartments are soft throughout. LOWER EXTREMITIES: Grossly normal, no edema. Well-perfused and compartments are soft throughout. NEURO EXAM: A&O x3, cranial nerves II-XII grossly intact, normal speech, moves all 4 extremities. Past Med/Surg History Problem List (Updated 07/06/25 @ 23:33 by Miki Machuca MD) CHI (closed head injury) (Acute) Laceration of occipital scalp (Acute) Fall (Acute) Hypoxia (Acute) Alzheimer dementia without behavioral disturbance Ground-level fall Acute hypoxic respiratory failure Urinary retention LLL pneumonia Subdural fluid collection Ribs, multiple fractures Atrial fibrillation (Chronic) Anticoagulant long-term use Hearing difficulty of both ears Colonic fistula (Acute) Asthma Xerostomia Seasonal allergies Lesion of urinary bladder BPH w urinary obs/LUTS Edema (Chronic) Vitamin D deficiency (Chronic) Solitary thyroid nodule (Chronic) Severe sleep apnea (Chronic) Obesity (Chronic) Nocturnal hypoxia (Chronic) Low TSH level (Chronic) Hypocalcemia (Chronic) Hyperlipidemia (Chronic) GERD without esophagitis (Chronic) Depression with anxiety (Chronic) Cerebrovascular disease (Chronic) Allergic rhinitis (Chronic) Tinnitus (Chronic) Hypertension (Chronic) Medical History Multiple pulmonary nodules History of atrial flutter Diverticulitis of large intestine with complication COVID-19 Sore throat Cough Acute diverticulitis CHI (closed head injury) History of cardioversion 09/25/19 Dr. Butch Coombs Atrial flutter with rapid ventricular response Atrial fibrillation with RVR Cervical spondylosis Sleep apnea Atrial flutter Status post ablation of typical isthmus dependent atrial flutter July 2017 Spondylosis without myelopathy or radiculopathy, cervical region Phimosis Adenomatous polyp of colon Nausea Surgical History History of hernia repair (~1990) History of knee surgery (~2005) replacement History of ankle surgery Family History Mother , age 83 Parkinson's disease Father Kidney stones FH: deafness or hearing loss Stroke, Onset Age: 89 Denies family history of Ovarian cancer Prostate cancer Myocardial infarction Breast cancer Bleeding disorder Colorectal cancer Social History Smoking Status: Former smoker Tobacco Type: Cigarettes Age Started Using Tobacco: 19; Age Quit Using Tobacco: 37; packs per day: 1; Cigarettes Per Day: 10/ day; Second Hand Exposure: No; Do You Dip or Chew Tobacco: No; Hx Alcohol Use: No Hx Substance Use: No Preferred Language: Bruneian Communication Ability: Effective Visual Impairment: No Limitations Hearing Ability: Hard of Hearing Director Of Special Services 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 Beliefs That Will Affect Care: None marital status: / Current Living Situation: Personal Care Facility current occupational status: retired How many Children do You have: 2 Feels Safe at Home: Yes Safety Concerns: Feels Safe At This Time Childhood Exposure to Second-Hand Smoke: Yes Diet: regular Dental Care, Regularly: Yes Physical Activity Frequency: Does not Exercise Seatbelt Use: always Sunscreen Use: No Do you think of yourself as: straight/heterosexual Assistive Devices: Walker Assistive Devices Comment: hearing aides and glasses with pt Allergies Allergies Allergy/AdvReac Type Severity Reaction Status Date / Time codeine AdvReac Mild NAUSEA Verified 07/06/25 00:00 amoxicillin [From Augmentin] AdvReac "Made me Verified 07/06/25 00:00 feel terrible" clavulanic acid AdvReac "Made me Verified 11/23/24 16:05 [From Augmentin] feel terrible" Home Meds Home Medications Medication Instructions Recorded Confirmed alprazolam 0.5 mg tablet 0.5 mg PO BID 05/03/25 07/05/25 buspirone 5 mg tablet 5 mg PO DAILY 05/03/25 07/05/25 finasteride 5 mg tablet 5 mg PO DAILY 05/03/25 07/05/25 metoprolol succinate 50 mg 50 mg PO DAILY 05/03/25 07/05/25 tablet,extended release 24 hr montelukast 10 mg tablet 10 mg PO DAILY 05/03/25 07/05/25 sertraline 50 mg tablet 50 mg PO DAILY 05/03/25 07/05/25 cetirizine 10 mg tablet 10 mg PO DAILY PRN Allergy Symptoms 07/05/25 07/05/25 furosemide 20 mg tablet 20 mg PO DAILY 07/05/25 07/05/25 trazodone 100 mg tablet 100 mg PO HS 07/05/25 07/06/25 Previous Rx's Medication Instructions Recorded acetaminophen 500 mg tablet 500 mg PO Q6H PRN fever or pain 12/10/24 (Tylenol Extra Strength) #30 tabs Results & Data (ED) Vital Signs Vital Signs - 24 hr 07/06/25 00:00 07/06/25 00:00 Pulse Rate 71 Pulse Rate from SpO2 Sensor 69 Respiratory Rate 16 Blood Pressure 145/74 H Blood Pressure Mean 108 Pulse Oximetry 90 Oxygen Delivery Method Room Air Home Medications Current Medication List: was personally reviewed by me Laboratory Data Attestation: I reviewed the patient's lab results. 07/06/25 04:37 07/06/25 04:37 Lab Results 07/05/25 07/05/25 Range/Units 21:35 21:36 WBC 8.22 (4.8-10.8) K/ul RBC 4.23 L (4.70-6.10) M/uL Hgb 12.9 L (14.0-18.0) g/dl Hct 40.7 L (42.0-52.0) % MCV 96.2 (80.0-100.0) fL MCH 30.5 (25.0-34.0) pg MCHC 31.7 L (32.0-36.0) g/dL RDW Std Deviation 49.1 H (36.4-46.3) fL RDW Coeff of Real 14.0 (11.5-14.5) % Plt Count 172 (130-400) K/uL MPV 9.5 (9.4-12.4) fL Immature Gran % (Auto) 0.5 % Neut % (Auto) 56.8 % Lymph % (Auto) 27.6 % [place] % (Auto) 11.8 % Eos % (Auto) 2.8 % Baso % (Auto) 0.5 % Neut # (Auto) 4.67 (1.40-6.50) K/uL Lymph # (Auto) 2.27 (1.20-3.40) K/uL [place] # (Auto) 0.97 H (0.11-0.59) K/uL Eos # (Auto) 0.23 (0.00-0.50) K/uL Baso # (Auto) 0.04 (0.00-0.20) K/uL Immature Gran # (Auto) 0.04 (0.01-0.20) K/uL Sodium 140 (136-145) mmol/L Potassium 4.6 (3.5-5.1) mmol/L Chloride 105 (98-107) mmol/L Carbon Dioxide 31 (21-32) mmol/L Anion Gap 4 (3-11) BUN 24 H (6-23) mg/dl Creatinine 0.99 (0.6-1.4) mg/dl Est Cr Clr Drug Dosing 71.9 ml/min eGFR 76.06 BUN/Creatinine Ratio 24.2 H (10-20) Glucose 87 (70-99(Fasting)) mg/dl Calcium 9.0 (8.6-10.3) mg/dl Magnesium 1.9 (1.7-2.4) mg/dl Procalcitonin 0.06 (0-0.5) ng/ml Adenovirus (PCR) Not Detected (NotDetected) B. pertussis DNA (PCR) Not Detected (NotDetected) B.parapertussis DNA PCR Not Detected (NotDetected) C. pneumoniae DNA (PCR) Not Detected (NotDetected) Coronavirus OC43 (PCR) Not Detected (NotDetected) Coronavirus HKU1 (PCR) Not Detected (NotDetected) Coronavirus 229E (PCR) Not Detected (NotDetected) SARS-CoV-2 (PCR) Not Detected (NotDetected) Coronavirus NL63 (PCR) Not Detected (NotDetected) Human Metapneumovir PCR Not Detected (NotDetected) Influenza Type A (PCR) Not Detected (NotDetected) Influenza Type B (PCR) Not Detected (NotDetected) M. pneumoniae (PCR) Not Detected (NotDetected) Parainfluenza 1 (PCR) Not Detected (NotDetected) Parainfluenza 2 (PCR) Not Detected (NotDetected) Parainfluenza 3 (PCR) Not Detected (NotDetected) Parainfluenza 4 (PCR) Not Detected (NotDetected) RSV (PCR) Not Detected (NotDetected) Entero/Rhino (PCR) Not Detected (NotDetected) Administered Medications Alprazolam (Alprazolam 0.5 Mg Tablet) 0.5 mg PO BID KATE Stop: 08/05/25 08:59 Last Admin: 07/06/25 20:20 Dose: 0.5 mg Documented By: [facility] Admin: 07/06/25 10:14 Dose: 0.5 mg Documented By: ARA Buspirone HCl (Buspirone 5 Mg Tab) 5 mg PO DAILY KATE Stop: 08/05/25 08:59 Last Admin: 07/06/25 10:14 Dose: 5 mg Documented By: E[employer]LET P[employer]CH OPERATOR Finasteride (Finasteride 5 Mg Tab) 5 mg PO DAILY KATE Stop: 08/05/25 08:59 Last Admin: 07/06/25 11:17 Dose: 5 mg Documented By: ARA Furosemide (Furosemide 20 Mg Tab) 20 mg PO DAILY KATE Stop: 08/05/25 08:59 Last Admin: 07/06/25 10:14 Dose: 20 mg Documented By: ARA Cefepime HCl (Maxipime 2000mg) 2,000 mg in 20 mls @ 5 mls/min IV Q8H KATE Stop: 07/13/25 09:59 Last Admin: 07/06/25 17:14 Dose: 5 mls/min Documented By: EYELET PUNCH OPERATOR Admin: 07/06/25 11:18 Dose: 5 mls/min Documented By: ARA Metoprolol Succinate (Metoprolol Succ 50mg Ext Rel Tab) 50 mg PO DAILY KATE Stop: 08/05/25 08:59 Last Admin: 07/06/25 10:14 Dose: 50 mg Documented By: EYELET PUNCH OPERATOR Montelukast Sodium (Montelukast Sodium 10 Mg Tablet) 10 mg PO DAILY KATE Stop: 08/05/25 08:59 Last Admin: 07/06/25 10:14 Dose: 10 mg Documented By: EYELET PUNCH OPERATOR Sertraline HCl (Sertraline Hcl 50 Mg Tablet) 50 mg PO DAILY KATE Stop: 08/05/25 08:59 Last Admin: 07/06/25 10:14 Dose: 50 mg Documented By: EYELET PUNCH OPERATOR Trazodone HCl (Trazodone Hcl 100 Mg Tab) 100 mg PO HS KATE Stop: 08/05/25 20:59 Last Admin: 07/06/25 20:21 Dose: 100 mg Documented By: MRL Discontinued Medications Albuterol (Albut/Ipratrop 3mg/0.5mg Neb 3 Ml Vial) 3 ml NEB NOW STA; Protocol Stop: 07/05/25 21:33 Last Admin: 07/05/25 21:36 Dose: 3 ml Documented By: OMAR Cefepime HCl (Maxipime 2000mg) 1,000 mg in 10 mls @ 5 mls/min IV NOW STA; Protocol Stop: 07/06/25 00:49 Last Admin: 07/06/25 01:35 Dose: 5 mls/min Documented By: BRANDAN Azithromycin (Zithromax) 500 mg in 255 mls @ 127.5 mls/hr IV NOW ONE Stop: 07/06/25 02:59 Last Infusion: 07/06/25 03:41 Dose: Infused Documented By: Admin: 07/06/25 01:41 Dose: 127.5 mls/hr Documented By: EKTA Magnesium Sulfate/Dextrose (Magnesium Sulfate / D5w) 1 gm in 100 mls @ 50 mls/hr IV ONE ONE Stop: 07/06/25 02:53 Last Infusion: 07/06/25 05:47 Dose: Infused Documented By: Admin: 07/06/25 03:47 Dose: 50 mls/hr Documented By: JAYDON Ioversol (Optiray 320 125ml) 120 ml IV ONCE ONE Stop: 07/06/25 01:28 Last Admin: 07/06/25 01:30 Dose: 120 ml Documented By: Imaging Data Radiologist's Impression: Exam(s): XR CXR 1 VIEW EXAM: XR Chest, 1 View CLINICAL HISTORY: Reason for exam: hypoxia. TECHNIQUE: Frontal view of the chest. COMPARISON: Chest radiograph on 12/06/2024 FINDINGS: Hardware: None. Lungs/pleura: [id number]-[id number]-right lower lung opacities, probably representing atelectasis versus pneumonia with small left pleural effusion. Heart/mediastinum: Mild enlargement of the cardiac silhouette. Atherosclerotic changes in the aorta. Soft tissues: Unremarkable. Bones: No acute fracture. Upper abdomen: Normal. IMPRESSION: Suta-jyslqsq-ahhn-right lower lung opacities, probably representing atelectasis versus pneumonia with small left pleural effusion. Electronically signed by: Batsheva Granados M.D. 07/05/25 23:21 PM Dictated: 07/05/252320 Transcribed: 07/05/252320 Exam(s): CT HEAD Without Contrast EXAM: CT Head Without Intravenous Contrast CLINICAL HISTORY: Reason for exam: fall, occipital scalp lac. TECHNIQUE: Axial computed tomography images of the head/brain without intravenous contrast. CTDI is 62.75 mGy and DLP is 1100.35 mGy-cm. Automated exposure control was utilized for the study. A dose lowering technique was utilized adhering to the principles of ALARA. COMPARISON: None FINDINGS: Brain: No acute infarct or hemorrhage identified. No extra-axial fluid collection. No mass effect or midline shift. Scattered areas of hypoattenuation in the supratentorial white matter likely represent chronic small vessel ischemic changes. 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 Ventricles and sulci: Prominence of the ventricles and sulci is likely secondary to cerebral volume loss. Bones: Normal. No bony lesion or acute fracture. Subcutaneous tissues: Mild left occipital soft tissue swelling and laceration. Sinuses: Mild mucosal thickening in the ethmoid air cells. Mastoid air cells: Normal. Orbits: Grossly unremarkable. Other: Atherosclerotic calcifications in the intracranial vasculature. IMPRESSION: 1. No acute intracranial abnormality. 2. Chronic small vessel ischemic changes and cerebral volume loss. 3. Mild left occipital soft tissue swelling and laceration. Electronically signed by: Batsheva Granados M.D. 07/05/25 22:50 PM Dictated: 07/05/[id number] Transcribed: 07/05/252249 Discharge Plan Visit Data Chief Complaint: Fall Stated Complaint: FALL ED Provider: Miki Machuca Discharge Problem: Hypoxia, Fall, Laceration of occipital scalp, CHI (closed head injury) Patient Disposition: Admitted As Inpatient Condition: Good Discharge Instructions Interventions: ED Discharge Assessment Last Done: 07/06/25 02:29 Discharge Problem: Fall Qualifiers: Encounter type: initial encounter Qualified Code(s): W19.XXXA - Unspecified fall, initial encounter Laceration of occipital scalp Qualifiers: Encounter type: initial encounter Qualified Code(s): S01.01XA - Laceration without foreign body of scalp, initial encounter CHI (closed head injury) Qualifiers: Encounter type: initial encounter Qualified Code(s): S09.90XA - Unspecified injury of head, initial encounter
[2025-07-05] MEDS: ALBUT/IPRATROP 3MG/0.5MG NEB 3 ML VIAL NEB STA (21:36)
[2025-07-05 21:48] LABS: Hematocrit (blood only) 40.7 % (42.0-52.0); Hemoglobin 12.9 g/dl (14.0-18.0); Immature Granulocytes # (auto) 0.04 K/uL (0.01-0.20); Immature Granulocytes % (auto) 0.5 %; Mean Corpuscular Hemoglobin 30.5 pg (25.0-34.0); Mean Corpuscular Volume 96.2 fL (80.0-100.0); Platelet Count 172 K/uL (130-400); RDW Standard Deviation 49.1 fL (36.4-46.3); Red Blood Count 4.23 M/uL (4.70-6.10); White Blood Count 8.22 K/ul (4.8-10.8)
[2025-07-05 22:04] LABS: Anion Gap 4.0 (3-11); Blood Urea Nitrogen 24.0 mg/dl (6-23); Calcium 9.0 mg/dl (8.6-10.3); Carbon Dioxide 31.0 mmol/L (21-32); Chloride 105.0 mmol/L (98-107); Creatinine Clr Calc Pharmacy 71.9 ml/min; Glucose 87.0 mg/dl (70-99(Fasting)); Potassium 4.6 mmol/L (3.5-5.1); Sodium 140.0 mmol/L (136-145)
[2025-07-05 22:48] LABS: Chlamydia pneumoniae PCR Not Detected (NotDetected); Coronavirus 229E PCR Not Detected (NotDetected); Coronavirus CoV-2 (COVID19)PCR Not Detected (NotDetected); Coronavirus HKU1 PCR Not Detected (NotDetected); Coronavirus NL63 PCR Not Detected (NotDetected); Coronavirus OC43PCR Not Detected (NotDetected); Human Metapneumovirus PCR Not Detected (NotDetected); Parainfluenza Virus 1 PCR Not Detected (NotDetected); Parainfluenza Virus 2 PCR Not Detected (NotDetected); Parainfluenza Virus 3 PCR Not Detected (NotDetected); Parainfluenza Virus 4 PCR Not Detected (NotDetected); Respiratory Syncytial VirusPCR Not Detected (NotDetected); Rhinovirus/Enterovirus PCR Not Detected (NotDetected)
--- NOTE | 2025-07-05 22:51 | CT Scan Report ---
Exam(s): CT HEAD Without Contrast EXAM: CT Head Without Intravenous Contrast CLINICAL HISTORY: Reason for exam: fall, occipital scalp lac. TECHNIQUE: Axial computed tomography images of the head/brain without intravenous contrast. CTDI is 62.75 mGy and DLP is 1100.35 mGy-cm. Automated exposure control was utilized for the study. A dose lowering technique was utilized adhering to the principles of ALARA. COMPARISON: None FINDINGS: Brain: No acute infarct or hemorrhage identified. No extra-axial fluid collection. No mass effect or midline shift. Scattered areas of hypoattenuation in the supratentorial white matter likely represent chronic small vessel ischemic changes. 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 Ventricles and sulci: Prominence of the ventricles and sulci is likely secondary to cerebral volume loss. Bones: Normal. No bony lesion or acute fracture. Subcutaneous tissues: Mild left occipital soft tissue swelling and laceration. Sinuses: Mild mucosal thickening in the ethmoid air cells. Mastoid air cells: Normal. Orbits: Grossly unremarkable. Other: Atherosclerotic calcifications in the intracranial vasculature. IMPRESSION: 1. No acute intracranial abnormality. 2. Chronic small vessel ischemic changes and cerebral volume loss. 3. Mild left occipital soft tissue swelling and laceration. Electronically signed by: Batsheva Granados M.D. 07/05/25 22:50 PM
--- NOTE | 2025-07-05 23:22 | XRay Report ---
Exam(s): XR CXR 1 VIEW EXAM: XR Chest, 1 View CLINICAL HISTORY: Reason for exam: hypoxia. TECHNIQUE: Frontal view of the chest. COMPARISON: Chest radiograph on 12/06/2024 FINDINGS: Hardware: None. Lungs/pleura: Jgft-[id number]-yiha-right lower lung opacities, probably representing atelectasis versus pneumonia with small left pleural effusion. Heart/mediastinum: Mild enlargement of the cardiac silhouette. Atherosclerotic changes in the aorta. Soft tissues: Unremarkable. Bones: No acute fracture. Upper abdomen: Normal. IMPRESSION: Vmxs-ehhljsc-[id number]-right lower lung opacities, probably representing atelectasis versus pneumonia with small left pleural effusion. Electronically signed by: Batsheva Granados M.D. 07/05/25 23:21 PM
--- NOTE | 2025-07-06 00:37 | History & Physical Report ---
Date of Service July 06, 2025 Assessment & Plan (1) Acute hypoxic respiratory failure: (2) Ground-level fall: (3) Alzheimer dementia without behavioral disturbance: (4) Atrial fibrillation: Plan Patient is a 84-year-old male with past medical history of Alzheimer's dementia, A-fib, BPH, GERD, HTN, depression and anxiety. Patient presented from [facility] after he fell and hit the back of his head, no loss of consciousness, patient is no longer on any blood thinners after recurrent falls resulting in subdural hematomas. Patient was found to be hypoxic at 88% on room air, currently weaned to room air after DuoNeb x 1 in the ED. CXR showed left greater than right opacities concerning for atelectasis versus pneumonia with small left pleural effusion. #hypoxia - 88% of the RA on arrival to the ED, transition to 2L NC, currently on room air at time of admission. CXR showed left greater than right opacities concerning for atelectasis versus pneumonia, small left pleural effusion. Biofire negative, magnesium 1.9, no leukocytosis, afebrile. - Will order chest CTA to further workup hypoxia DuoNeb x 1 in the ED, continue as needed q2h - will cover for PNA with cefepime and azithromycin given patient resides at nursing facility - MRSA swab ordered - add coverage if positive - Oxygen prn for O2 < 92% - incentive spirometry Procalcitonin pending - 1G IV magnesium ordered; trend mag #fall - s/p ground-level fall, + head strike, no loss of consciousness, no blood thinner use. Head CT negative for acute changes, patient has history of recurrent subdural hematomas after recurrent falls earlier this year; was transition off Xarelto in November 2024. CXR negative for acute traumatic changes. Fall precautions PT/OT consulted Trend CBC to monitor for any bleeding #Alzheimer's dementiapatient at baseline at time of admission. Frequent orientation Promote good sleep-wake cycles, melatonin prn Continue alprazolam twice daily, buspirone, sertraline, trazodone at bedtime #History of A-fib/a fluttercontinue metoprolol, no current anticoagulation #HTNcontinue metoprolol and Lasix 20 mg daily VTE ppx: SCDs, defer chemical after fall with HS and hx of subdural hematomas Dispo: med/tele Admission and Anticipated Discharge Date Admission Date: 07/06/25 History of Present Illness Chief Complaint: fall Primary Care Provider: Papo Cleary, III, [facility] Patient is a 84-year-old male with past medical history of Alzheimer's dementia, A-fib, BPH, GERD, HTN, depression and anxiety. Patient presented from [facility] after he fell and hit the back of his head, no loss of consciousness, patient is no longer on any blood thinners after recurrent falls resulting in subdural hematomas. Patient was found to be hypoxic at 88% on room air, currently weaned to room air after DuoNeb x 1 in the ED. CXR showed left greater than right opacities concerning for atelectasis versus pneumonia with small left pleural effusion. Patient seen at bedside. He is reportedly at his baseline mental status, stated he is doing well and denies any cough, congestion, dyspnea, chest pain, abdominal pain, nausea, vomiting. He is extremely hard of hearing and unable to obtain further history. Allergies Allergy/AdvReac Type Severity Reaction Status Date / Time codeine AdvReac Mild NAUSEA Verified 07/06/25 00:00 amoxicillin [From Augmentin] AdvReac "Made me Verified 07/06/25 00:00 feel terrible" clavulanic acid AdvReac "Made me Verified 11/23/24 16:05 [From Augmentin] feel terrible" Home Medications Medication Instructions Recorded Confirmed Type acetaminophen 500 mg tablet 500 mg PO Q6H PRN fever or pain 12/10/24 07/05/25 Rx (Tylenol Extra Strength) #30 tabs alprazolam 0.5 mg tablet 0.5 mg PO BID 05/03/25 07/05/25 History buspirone 5 mg tablet 5 mg PO DAILY 05/03/25 07/05/25 History finasteride 5 mg tablet 5 mg PO DAILY 05/03/25 07/05/25 History metoprolol succinate 50 mg 50 mg PO DAILY 05/03/25 07/05/25 History tablet,extended release 24 hr montelukast 10 mg tablet 10 mg PO DAILY 05/03/25 07/05/25 History sertraline 50 mg tablet 50 mg PO DAILY 05/03/25 07/05/25 History cetirizine 10 mg tablet 10 mg PO DAILY PRN Allergy Symptoms 07/05/25 07/05/25 History furosemide 20 mg tablet 20 mg PO DAILY 07/05/25 07/05/25 History trazodone 100 mg tablet 100 mg PO HS 07/05/25 07/06/25 History Past Med/Surg History Problem List (Updated 07/06/25 @ 00:56 by Casie Kaerns PA-C) Alzheimer dementia without behavioral disturbance Ground-level fall Acute hypoxic respiratory failure Urinary retention LLL pneumonia Subdural fluid collection Ribs, multiple fractures Atrial fibrillation (Chronic) Anticoagulant long-term use Hearing difficulty of both ears Colonic fistula (Acute) Asthma Xerostomia Seasonal allergies Lesion of urinary bladder BPH w urinary obs/LUTS Edema (Chronic) Vitamin D deficiency (Chronic) Solitary thyroid nodule (Chronic) Severe sleep apnea (Chronic) Obesity (Chronic) Nocturnal hypoxia (Chronic) Low TSH level (Chronic) Hypocalcemia (Chronic) Hyperlipidemia (Chronic) GERD without esophagitis (Chronic) Depression with anxiety (Chronic) Cerebrovascular disease (Chronic) Allergic rhinitis (Chronic) Tinnitus (Chronic) Hypertension (Chronic) Medical History Multiple pulmonary nodules History of atrial flutter Diverticulitis of large intestine with complication COVID-19 Sore throat Cough Acute diverticulitis Acute kidney injury CHI (closed head injury) History of cardioversion 09/25/19 Dr. Butch Coombs Atrial flutter with rapid ventricular response Atrial fibrillation with RVR Cervical spondylosis Sleep apnea Atrial flutter Status post ablation of typical isthmus dependent atrial flutter July 2017 Spondylosis without myelopathy or radiculopathy, cervical region Phimosis Adenomatous polyp of colon Nausea Surgical History History of hernia repair (~1990) History of knee surgery (~2005) replacement History of ankle surgery Family History Mother , age 83 Parkinson's disease Father Kidney stones FH: deafness or hearing loss Stroke, Onset Age: 89 Denies family history of Ovarian cancer Prostate cancer Myocardial infarction Breast cancer Bleeding disorder Colorectal cancer Social History Smoking Status: Former smoker Tobacco Type: Cigarettes Age Started Using Tobacco: 19; Age Quit Using Tobacco: 37; packs per day: 1; Cigarettes Per Day: 10/ day; Second Hand Exposure: No; Do You Dip or Chew Tobacco: No; Hx Alcohol Use: No Hx Substance Use: No Preferred Language: Georgian Communication Ability: Effective Visual Impairment: No Limitations Hearing Ability: Hard of Hearing Assistant [employer] 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 Beliefs That Will Affect Care: None marital status: / Current Living Situation: Personal Care Facility current occupational status: retired How many Children do You have: 2 Feels Safe at Home: Yes Safety Concerns: Feels Safe At This Time Childhood Exposure to Second-Hand Smoke: Yes Diet: regular Dental Care, Regularly: Yes Physical Activity Frequency: Does not Exercise Seatbelt Use: always Sunscreen Use: No Do you think of yourself as: straight/heterosexual Assistive Devices: Walker Assistive Devices Comment: hearing aides and glasses with pt Review of Systems Review of Systems: see HPI Physical Exam Physical Exam: The patient is awake, confused however pleasant, well developed and well nourished, normocephalic and atraumatic, in no acute distress. Non-toxic appearing. HEENT- EOMI, mucous membranes dry. Hard of hearing. Heart-normal S1 and S2. No murmurs, rubs or gallops. Lungs-decreased bilaterally, no respiratory distress, no accessory muscle use. Abdomen-normal bowel sounds and soft. No ascites noted. Non-tender. Extremities- no clubbing, cyanosis, or edema. Rheumatologic-normal range of motion. Results & Data Results & Data Vital Signs (Past 12 Hours) Vital Signs Temp Pulse Resp BP Pulse Ox O2 Del Method O2 Flow Rate 07/05/25 22:30 69 24 137/72 91 07/05/25 22:00 66 20 140/72 92 07/05/25 21:37 96 Nasal Cannula 2 07/05/25 21:32 67 07/05/25 21:31 96 Nasal Cannula 2 07/05/25 21:24 36.9 C 73 20 88 L Room Air Laboratory Results Reviewed CBC, CMP, procalcitonin, BioFire Ordered MRSA swab and magnesium level Diagnostic Findings reviewed head CT and CXR Medications Administered EDDuoNeb x 1 ECG Additional Comments: ordered Code Status & VTE Plan Code Status previously DNR/DNI so will continue this however unable to assess given patient's acute confusion and admission in the middle of the night VTE Prophylaxis Plan VTE Prophylaxis will be ordered: Yes Supervising Physician Co-Signing Physician Notes Attending addendum: I have physically seen this patient, have supervised the [facility]'s activities, and agree with the H&P unless as otherwise noted. Assessment and Plan: The patient is an 84-year-old male with past medical history including Alzheimer's dementia, atrial fibrillation, BPH, GERD, hypertension, depression and anxiety. He presented from [facility] after falling, and hitting the back of his head. There was no loss of consciousness. Patient was no longer on blood thinners due to history of recurrent falls subdural hematoma. Patient was found to be hypoxic with 88% pulse ox on room air, and improved to the mid 90s on room air after a DuoNeb treatment x 1 in the ED. Chest x-ray showed left greater than right opacities concerning for atelectasis versus pneumonia with a small left pleural effusion. Acute respiratory failure with hypoxia/bilateral pneumonia/left pleural effusion- Order CTA chest for further assessment Improved oxygenation with DuoNeb x 1 in ED Continue DuoNebs every 2 hours as needed Placed on cefepime 2 g IV every 12 hours and azithromycin 500 mg IV daily Oxygen supplementation with target pulse ox 92% Incentive spirometry Status post fall/history of recurrent falls- Status post ground-level fall, with normal CT head in the ED Fall precautions Consult PT/OT Alzheimer's dementia Continue outpatient regimen of alprazolam, buspirone, sertraline, and trazodone A-fib/flutter/hypertension- Continue metoprolol and furosemide No longer needed anticoagulation candidate due to falls Remaining orders medications as noted PG Care Time/CCT Total # of Minutes Spent Total Time Spent with Patient: Total time spent is greater than 50% in coordination of care (as documented) at patient's floor/unit and/or counseling patient: Coding Level of Care Code 77505 INT INP/OBS CARE 3/75MIN Diagnoses Acute hypoxic respiratory failure J96.01 Ground-level fall W18.30XA Alzheimer dementia without behavioral disturbance G30.9; F02.80 Atrial fibrillation, unspecified type I48.91 Atrial fibrillation type: unspecified (4) Atrial fibrillation Atrial fibrillation type: unspecified Qualified Code(s): I48.91 - Unspecified atrial fibrillation
[2025-07-06 00:38] LABS: Magnesium 1.9 mg/dl (1.7-2.4)
[2025-07-06] MEDS: OPTIRAY 320 125ml IV ONE (01:30)
[2025-07-06] MEDS: CEFEPIME 1000MG 1,000 MG/10 ML SYR IV STA (01:35)
[2025-07-06] MEDS: AZITHROMYCIN 500 MG/255 ML BAG IV ONE (01:41)
[2025-07-06] MEDS ORDERED: POLYETHYLENE (MIRALAX) 17 GM PACK PO PRN (02:29)
[2025-07-06] MEDS ORDERED: ONDANSETRON INJ 2 MG/ML 2 ML VIAL IV PRN (02:29)
[2025-07-06] MEDS ORDERED: ALBUT/IPRATROP 3MG/0.5MG NEB 3 ML VIAL NEB PRN (02:29)
[2025-07-06] MEDS ORDERED: CETIRIZINE HCL 10 MG TABLET PO PRN (02:29)
[2025-07-06] MEDS ORDERED: ACETAMINOPHEN 325 MG TAB PO PRN (02:29)
[2025-07-06] MEDS ORDERED: DOCUSATE SODIUM 100 MG CAP PO PRN (02:29)
--- NOTE | 2025-07-06 03:29 | CT Scan Report ---
EXAM: CT angio chest PE protocol CLINICAL HISTORY: PE, Hypoxia. TECHNIQUE: Contiguous 3.[address] angiographic images of the chest were acquired with the administration of intravenous contrast. Coronal and sagittal reconstructions were obtained. 120 mL [id number] SDM was administered for post-contrast images. One of these 3D techniques was utilized: Maximum Intensity Pixel (MIP), 3D Reconstructed Images, Volume Rendered Images, and Surface Shaded Rendering. One of the following dose reduction techniques was utilized for this exam: automated exposure control, adjustment of the mA and/or kV according to patient size, and use of iterative reconstruction. COMPARISON: 12/01/2024 CT. FINDINGS: Aorta: The thoracic aorta is normal in caliber. It shows mild atherosclerotic changes. There is no evidence of aneurysm or dissection. The aortic arch and descending thoracic aorta are unremarkable. Pulmonary Arteries: The main pulmonary artery trunk is dilated (4 cm), denoting pulmonary hypertension. Focal haziness of the descending branch of the right pulmonary artery is likely technical, due to motion artifacts. The remainder of the pulmonary arteries is normal in opacification. There is no evidence of pulmonary embolism. There is no stenosis or filling defect. Superior Vena Cava (SVC) and Inferior Vena Cava (IVC): There is normal opacification and caliber. There is no evidence of thrombus or obstruction. Mediastinum: There is an enlarged right paratracheal lymph node measuring 3.3 cm in diameter. Heart: The heart is enlarged in size with minimal pericardial effusion. Lungs: There is a reduced volume of the left hemithorax with ipsilateral mediastinal shift. There are bilateral lower lobar basal subsegmental consolidative patches with an air bronchogram within. Overlying basal pleural thickening is present. There are bilateral scattered atelectatic bands. Bones: There are advanced degenerative changes of the thoracic spine. Soft Tissues: The visualized soft tissues appear normal. There are no abnormal masses or fluid collections. IMPRESSION: 1. Dilated main pulmonary artery trunk (4 cm), denoting pulmonary hypertension. 2. Focal haziness of the descending branch of the right pulmonary artery, likely technical, due to motion artifacts. 3. Reduced volume of the left hemithorax with ipsilateral mediastinal shift. 4. Bilateral lower lobar basal subsegmental consolidative patches with air bronchogram within could be inflammatory or infectious in origin. Clinical correlation is recommended. 5. Cardiomegaly with minimal pericardial effusion. 6. Enlarged right paratracheal lymph node. (progressive) 7. Regressive mild left pleural effusion. 8. Regressive pericardial effusion. 9. New finding of right basal subsegmental consolidation. 10. Regressive left basal subsegmental consolidation 11. Rest of study is stable. Electronically signed by Florentin Byrd 07-06-2025 03:29 AM
[2025-07-06] MEDS: MAGNESIUM SULFATE / D5W 1 GM/100 ML BAG IV ONE (03:47)
[2025-07-06 05:25] LABS: Hematocrit (blood only) 37.4 % (42.0-52.0); Hemoglobin 11.8 g/dl (14.0-18.0); Immature Granulocytes # (auto) 0.02 K/uL (0.01-0.20); Immature Granulocytes % (auto) 0.2 %; Mean Corpuscular Hemoglobin 30.1 pg (25.0-34.0); Mean Corpuscular Volume 95.4 fL (80.0-100.0); Platelet Count 159 K/uL (130-400); RDW Standard Deviation 48.8 fL (36.4-46.3); Red Blood Count 3.92 M/uL (4.70-6.10); White Blood Count 8.49 K/ul (4.8-10.8)
[2025-07-06 05:37] LABS: Anion Gap 4.0 (3-11); Blood Urea Nitrogen 20.0 mg/dl (6-23); Calcium 8.7 mg/dl (8.6-10.3); Carbon Dioxide 30.0 mmol/L (21-32); Chloride 104.0 mmol/L (98-107); Creatinine Clr Calc Pharmacy 82.8 ml/min; Glucose 100.0 mg/dl (70-99(Fasting)); Magnesium 2.1 mg/dl (1.7-2.4); Potassium 4.4 mmol/L (3.5-5.1); Sodium 138.0 mmol/L (136-145)
[2025-07-06] MEDS: FUROSEMIDE 20 MG TAB PO SCH (10:14)
[2025-07-06] MEDS: busPIRone 5 MG TAB PO SCH (10:14)
[2025-07-06] MEDS: METOPROLOL SUCC 50MG EXT REL TAB PO SCH (10:14)
[2025-07-06] MEDS: MONTELUKAST SODIUM 10 MG TABLET PO SCH (10:14)
[2025-07-06] MEDS: SERTRALINE HCL 50 MG TABLET PO SCH (10:14)
--- NOTE | 2025-07-06 10:39 | Electrocardiogram Report ---
Test Reason : Blood Pressure : */* mmHG Vent. Rate : 67 BPM Atrial Rate : 67 BPM P-R Int : 178 ms QRS Dur : 130 ms QT Int : 438 ms P-R-T Axes : * -23 -23 degrees QTcB Int : 462 ms Normal sinus rhythm Right bundle branch block Minimal voltage criteria for LVH, may be normal variant ( R in aVL ) Abnormal ECG When compared with ECG of 09-Dec-2024 06:13, Sinus rhythm has replaced Atrial fibrillation Vent. rate has decreased by 48 bpm T wave inversion no longer evident in Lateral leads Confirmed by Camilo Mejia ([id number]) on 07/06/2025 10:39:36 AM Referred By: [facility] Confirmed By: Camilo Mejia
[2025-07-06] MEDS: FINASTERIDE 5 MG TAB PO SCH (11:17)
[2025-07-06] MEDS: CEFEPIME 2000MG 2,000 MG/20 ML SYR IV SCH (11:18)
[2025-07-06] MEDS ORDERED: CEFEPIME 1000MG 1,000 MG/10 ML SYR IV SCH (12:45)
[2025-07-06 20:37] LABS: Appearance Urine Clear (Clear); Glucose Urine UA Negative (Negative)
[2025-07-07] MEDS: AZITHROMYCIN 500 MG/255 ML BAG IV SCH (01:10)
--- NOTE | 2025-07-07 07:13 | Hospitalist Progress Note ---
Date of Service July 07, 2025 Assessment & Plan (1) Aspiration pneumonitis: (2) Acute hypoxic respiratory failure: (3) Laceration of occipital scalp: (4) Alzheimer dementia without behavioral disturbance: (5) Ground-level fall: (6) Atrial fibrillation: Plan In summary this is an 84-year-old male who presented after an unwitnessed fall found to have persistent hypoxia requiring hospitalization for aspiration pneumonitis #Acute respiratory failure with hypoxia due to aspiration pneumonitis Patient presented with persistent oxygen requirement to maintain O2 saturation greater than 90%; does not present with any constitutional symptoms nor typical findings associated with pneumonia other than hypoxia; imaging does not correlate with any infectious findings either; suspect this is primarily aspiration pneumonitis given the nature of his presenting complaint, and rapid improvement without prolonged antibiotic intervention; continue to monitor clinically during his hospitalization Maintain O2 saturation greater than 92% Discontinue antibiotics on 07/07 Continue pulmonary toilet as the patient tolerates with flutter valve and incentive spirometry #Occipital scalp laceration s/p ground level fall Patient was noted to have a occipital scalp laceration at presentation; it remains well-approximated with a surgical staple Admission and Anticipated Discharge Date Admission Date: July 06, 2025 Subjective Mr. Bach is an 84-year-old male whose active medical conditions include Alzheime r's dementia, paroxysmal atrial fibrillation, sensorineural hearing loss, BPH with lower urinary tract symptoms, obstructive sleep apnea requiring oxygen supplementation among other chronic medical conditions who presented to the [facility] on 07/06 after an unwitnessed fall resulting in a posterior occipital scalp laceration. He was subsequently found to be hypoxic and route with EMS, and found to have aspiration pneumonitis requiring continued oxygen supplementation. Overnight the patient had a episode of agitation which required medical intervention, but no subsequent events were noted. This morning, the patient feels well, is understanding of his current circumstances and the plan of care as detailed below. He has no specific complaints or concerns at this time. His plan of care was discussed with his daughter at bedside as well. Review of Systems Review of Systems: Review of cardiovascular, pulmonary, gastrointestinal, genitourinary, constitutional systems was unremarkable Physical Exam Physical Exam: General: Elderly male in no acute distress Vital Signs: Reviewed; requiring 2 L by nasal cannula to maintain O2 saturation greater than 92%, remaining vital signs are unremarkable HEENT: Moist mucous membranes Pulmonary: Symmetric chest wall excursion without restriction; clear to auscultation bilaterally Cardiovascular: Regular rate and rhythm without murmurs, rubs, or gallops; S1 and S2 normal; bilateral radial pulse 2+; trace bilateral lower extremity edema Results & Data Results & Data Vital Signs (Past 12 Hours) Vital Signs Temp Pulse Pulse Resp BP Pulse Ox O2 Del Method 07/07/25 00:13 36.3 C L 60 18 133/70 92 Nasal Cannula 07/06/25 21:44 66 07/06/25 19:51 36.8 C 66 18 137/76 93 Nasal Cannula 07/06/25 19:42 Nasal Cannula O2 Flow Rate 07/07/25 00:13 2 07/06/25 21:44 07/06/25 19:51 2 07/06/25 19:42 2 PG Care Time/CCT Total # of Minutes Spent Total Time Spent with Patient: Total time spent is greater than 50% in coordination of care (as documented) at patient's floor/unit and/or counseling patient: Coding Level of Care Code 13894 SUB INP/OBS CARE 2/35MIN Diagnoses Aspiration pneumonitis J69.0 Acute hypoxic respiratory failure J96.01 Laceration of occipital scalp S01.01XA Encounter type: initial encounter Alzheimer dementia without behavioral disturbance G30.9; F02.80 Ground-level fall W18.30XA Atrial fibrillation, unspecified type I48.91 Atrial fibrillation type: unspecified (3) Laceration of occipital scalp Encounter type: initial encounter Qualified Code(s): S01.01XA - Laceration without foreign body of scalp, initial encounter (6) Atrial fibrillation Atrial fibrillation type: unspecified Qualified Code(s): I48.91 - Unspecified atrial fibrillation
[2025-07-07 11:11] LABS: Hematocrit (blood only) 42.5 % (42.0-52.0); Hemoglobin 13.2 g/dl (14.0-18.0); Immature Granulocytes # (auto) 0.01 K/uL (0.01-0.20); Immature Granulocytes % (auto) 0.2 %; Mean Corpuscular Hemoglobin 29.9 pg (25.0-34.0); Mean Corpuscular Volume 96.2 fL (80.0-100.0); Platelet Count 161 K/uL (130-400); RDW Standard Deviation 49.4 fL (36.4-46.3); Red Blood Count 4.42 M/uL (4.70-6.10); White Blood Count 5.87 K/ul (4.8-10.8)
[2025-07-07 11:22] LABS: Anion Gap 3.0 (3-11); Blood Urea Nitrogen 22.0 mg/dl (6-23); Calcium 8.9 mg/dl (8.6-10.3); Carbon Dioxide 33.0 mmol/L (21-32); Chloride 104.0 mmol/L (98-107); Creatinine Clr Calc Pharmacy 66.1 ml/min; Glucose 83.0 mg/dl (70-99(Fasting)); Potassium 4.6 mmol/L (3.5-5.1); Sodium 140.0 mmol/L (136-145)
[2025-07-07 20:06] VITALS: RESP 18
[2025-07-07] MEDS: MELATONIN 3 MG TAB PO PRN (22:05)
--- NOTE | 2025-07-08 13:20 | Hospitalist Progress Note ---
Date of Service July 08, 2025 Assessment & Plan (1) Aspiration pneumonitis: (2) Acute hypoxic respiratory failure: (3) Laceration of occipital scalp: (4) Alzheimer dementia without behavioral disturbance: (5) Ground-level fall: (6) Atrial fibrillation: Plan In summary this is an 84-year-old male who presented after an unwitnessed fall found to have persistent hypoxia requiring hospitalization for aspiration pneumonitis #Acute respiratory failure with hypoxia due to aspiration pneumonitis Patient presented with persistent oxygen requirement to maintain O2 saturation greater than 90%; does not present with any constitutional symptoms nor typical findings associated with pneumonia other than hypoxia; imaging does not correlate with any infectious findings either; suspect this is primarily aspiration pneumonitis given the nature of his presenting complaint, and rapid improvement without prolonged antibiotic intervention; ambulatory assessment revealed a need for continuous 2L O2 supplementation via nasal cannula Maintain O2 saturation greater than 92% Continue pulmonary toilet as the patient tolerates with flutter valve and incentive spirometry #Occipital scalp laceration s/p ground level fall Patient was noted to have a occipital scalp laceration at presentation; it remains well-approximated with a surgical staple Patient is medically stable for discharge, pending coordination of DME script for now continuous oxygen supplementation Admission and Anticipated Discharge Date Admission Date: July 06, 2025 Subjective Mr. Bach is an 84-year-old male whose active medical conditions include Alzheimer's dementia, paroxysmal atrial fibrillation, sensorineural hearing loss, BPH with lower urinary tract symptoms, obstructive sleep apnea requiring oxygen supplementation among other chronic medical conditions who presented to the [facility] on 07/06 after an unwitnessed fall resulting in a posterior occipital scalp laceration. He was subsequently found to be hypoxic and route with EMS, and found to have aspiration pneumonitis requiring continued oxygen supplementation. No acute overnight events. This morning, the patient feels well, is understanding of his current circumstances and the plan of care as detailed below. He has no specific complaints or concerns at this time. Review of Systems Review of Systems: Review of cardiovascular, pulmonary, gastrointestinal, genitourinary, constitutional systems was unremarkable Physical Exam Physical Exam: General: Elderly male in no acute distress Vital Signs: Reviewed; requiring 2 L by nasal cannula to maintain O2 saturation greater than 92%, remaining vital signs are unremarkable HEENT: Moist mucous membranes Pulmonary: Symmetric chest wall excursion without restriction; clear to auscultation bilaterally Cardiovascular: Regular rate and rhythm without murmurs, rubs, or gallops; S1 and S2 normal; bilateral radial pulse 2+; trace bilateral lower extremity edema Results & Data Results & Data Vital Signs (Past 12 Hours) Vital Signs Temp Pulse Pulse Pulse Pulse Pulse Resp 07/08/25 12:16 36.7 C 64 07/08/25 12:05 71 61 65 07/08/25 09:53 07/08/25 08:51 07/08/25 08:51 07/08/25 07:17 36.5 C 59 L 18 07/08/25 05:45 52 L 07/08/25 02:52 36.3 C L 55 L 18 07/08/25 02:45 Resp Resp Resp BP BP Pulse Ox Pulse Ox 07/08/25 12:16 98/61 L 92 07/08/25 12:05 18 18 18 90 07/08/25 09:53 07/08/25 08:51 07/08/25 08:51 91 07/08/25 07:17 157/82 H 92 07/08/25 05:45 07/08/25 02:52 114/74 92 07/08/25 02:45 85 L Pulse Ox Pulse Ox O2 Del Method O2 Flow Rate O2 Flow Rate O2 Flow Rate 07/08/25 12:16 Nasal Cannula 07/08/25 12:05 93 88 L 2 2 07/08/25 09:53 Room Air 07/08/25 08:51 Room Air 07/08/25 08:51 Room Air 07/08/25 07:17 Nasal Cannula 2 07/08/25 05:45 07/08/25 02:52 Nasal Cannula 2 07/08/25 02:45 Room Air PG Care Time/CCT Total # of Minutes Spent Total Time Spent with Patient: Total time spent is greater than 50% in coordination of care (as documented) at patient's floor/unit and/or counseling patient: Coding Level of Care Code 22348 SUB INP/OBS CARE 2MIN Diagnoses Aspiration pneumonitis J69.0 Acute hypoxic respiratory failure J96.01 Laceration of occipital scalp S01.01XA Encounter type: initial encounter Alzheimer dementia without behavioral disturbance G30.9; F02.80 Ground-level fall W18.30XA Atrial fibrillation, unspecified type I48.91 Atrial fibrillation type: unspecified (3) Laceration of occipital scalp Encounter type: initial encounter Qualified Code(s): S01.01XA - Laceration without foreign body of scalp, initial encounter (6) Atrial fibrillation Atrial fibrillation type: unspecified Qualified Code(s): I48.91 - Unspecified atrial fibrillation
[2025-07-08 16:14] VITALS: BP 122/81; PULSE 61; TEMP 98.2; O2SAT 94
--- NOTE | 2025-07-09 15:21 | Discharge Summary ---
Discharge Summary Date of Service July 08, 2025 Principal Dx & Hospital Course #1 = Principal Diagnosis (1) Aspiration pneumonitis: (2) Acute hypoxic respiratory failure: (3) Laceration of occipital scalp: (4) Alzheimer dementia without behavioral disturbance: (5) Ground-level fall: (6) Atrial fibrillation: Plan In summary this is an 84-year-old male who presented after an unwitnessed fall found to have persistent hypoxia requiring hospitalization for aspiration pneumonitis #Acute respiratory failure with hypoxia due to aspiration pneumonitis Patient presented with persistent oxygen requirement to maintain O2 saturation greater than 90%; does not present with nor did he develop any constitutional symptoms nor typical findings associated with pneumonia other than hypoxia; imaging does not correlate with any infectious findings either; suspect this is primarily aspiration pneumonitis given the nature of his presenting complaint, and rapid improvement without prolonged antibiotic intervention; ambulatory assessment revealed a need for continuous 2L O2 supplementation via nasal cannula Maintain O2 saturation greater than 92% Continue pulmonary toilet as the patient tolerates with flutter valve and incentive spirometry #Occipital scalp laceration s/p ground level fall Patient was noted to have a occipital scalp laceration at presentation; it remains well-approximated with a surgical staple Admission HPI Per Admitting Provider Patient is a 84-year-old male with past medical history of Alzheimer's dementia, A-fib, BPH, GERD, HTN, depression and anxiety. 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 Patient was found to be hypoxic at 88% on room air, currently weaned to room air after DuoNeb x 1 in the ED. CXR showed left greater than right opacities concerning for atelectasis versus pneumonia with small left pleural effusion. Patient seen at bedside. He is reportedly at his baseline mental status, stated he is doing well and denies any cough, congestion, dyspnea, chest pain, abdominal pain, nausea, vomiting. He is extremely hard of hearing and unable to obtain further history. Discharge Exam General: Elderly male in no acute distress Vital Signs: Reviewed; requiring 2 L by nasal cannula to maintain O2 saturation greater than 92%, remaining vital signs are unremarkable HEENT: Moist mucous membranes Pulmonary: Symmetric chest wall excursion without restriction; clear to auscultation bilaterally Cardiovascular: Regular rate and rhythm without murmurs, rubs, or gallops; S1 and S2 normal; bilateral radial pulse 2+; trace bilateral lower extremity edema Discharge Plan Discharge Items Patient Disposition: Personal Detention Reason For Visit: HYPOXIA Discharge Diagnosis: Acute respiratory failure with hypoxia due to aspiration pneumonitis Condition on Discharge: Good Activity: Resume your previous activity Non-emergency contact: Primary Care Provider Call non-emergency contact if: you have any medication questions, your symptoms worsen and you have a fever Follow-up/Referrals: Papo Cleary III, CRNP [Primary Care Provider] - Diet: Low Fat Fluids: 2000ml (8 cups) Addtl Attending Provider Instructions: You were admitted to [facility] for acute respiratory failure with hypoxia secondary to aspiration pneumonitis. With supportive care and supplemental oxygen, your condition rapidly improved, laboratory evidence for persistent infection is not present, and your clinical exam is not consistent with a bacterial pneumonia. Antibiotics were discontinued on 07/07 after 1 dose, and with your continued improvement, it is unlikely that you develop a bacterial pneumonia. We recommend resuming your usual activity at your personal-[facility] in order to prevent any atelectatic changes or other conditions that could predispose an increased risk of developing pneumonia. Furthermore, you were found to require a continuous oxygen requirement of 2 L by nasal cannula, as you continue to recover from this condition Furthermore, as consequence of your fall, you sustained a small laceration to the back of the head, which was closed after being cleaned thoroughly with a staple in the emergency department; we recommend this be removed on 07/16, or as deemed appropriate by your primary care provider Thank you for choosing [facility] as your healthcare provider. Pending Studies at Discharge: No Stand-Alone Forms: My [facility] Skilled Items Patient informed of condition?: Yes DNR: Yes Discharge Level of Care: Other Communicable Disease: No Discharge Prognosis: Improving Lines: None Urinary Catheter: No Medications and DC Order Prescriptions: New (DME) Oxygen Home Liters Per Minute See Rx Instructions .ROUTE Qty: 1 0RF Rx Instructions: 2 L continuously Continued acetaminophen [Tylenol Extra Strength] 500 mg tablet 500 mg PO Q6H PRN (Reason: fever or pain) Qty: 30 0RF buspirone 5 mg tablet 5 mg PO DAILY metoprolol succinate 50 mg tablet extended release 24 hr 50 mg PO DAILY alprazolam 0.5 mg tablet 0.5 mg PO BID montelukast 10 mg tablet 10 mg PO DAILY sertraline 50 mg tablet 50 mg PO DAILY finasteride 5 mg tablet 5 mg PO DAILY furosemide 20 mg tablet 20 mg PO DAILY cetirizine 10 mg Tablet 10 mg PO DAILY PRN (Reason: Allergy Symptoms) trazodone 100 mg tablet 100 mg PO HS Discharge Orders: Discharge Order (Routine); Ordered 07/08/25 Ordered By: Silverio Denney/Other Patient Handouts: Infec Common Resp Prevention, ED Pneumonia (Adult) Admission Data Admit Date/Time: 07/06/25 00:45 Attending Provider: Silverio Loco Admit Provider: Jluis Rahman Primary Care Provider: Papo Cleary III Other Providers: Jluis Rahman Other Interventions: Discharge Summary Assessment (RN) Last Done: 07/08/25 15:27 Hospital Stay Data Consultations 07/06/25 00:01 ED Decision to Admit Stat Diagnostic Imagining Performed 07/05/25 21:32 CT head/brain wo con Stat 07/06/25 00:23 CT for pulmonary embolism PE [CT angio chest PE protocol] Stat Pending Results Patient Have Any Pending Studies at Discharge: No Discharge Instructions Given to Patient (Per Discharging Provider) You were admitted to [facility] for acute respiratory failure with hypoxia secondary to aspiration pneumonitis. With supportive care and supplemental oxygen, your condition rapidly improved, laboratory evidence for persistent infection is not present, and your clinical exam is not consistent with a bacterial pneumonia. Antibiotics were disconti nued on 07/07 after 1 dose, and with your continued improvement, it is unlikely that you develop a bacterial pneumonia. We recommend resuming your usual activity at your personal-[facility] in order to prevent any atelectatic changes or other conditions that could predispose an increased risk of developing pneumonia. Furthermore, you were found to require a continuous oxygen requirement of 2 L by nasal cannula, as you continue to recover from this condition Furthermore, as consequence of your fall, you sustained a small laceration to the back of the head, which was closed after being cleaned thoroughly with a staple in the emergency department; we recommend this be removed on 07/16, or as deemed appropriate by your primary care provider Thank you for choosing [facility] as your healthcare provider. Total Time Total Time Spent Total Time Spent (In Minutes): I personally spent 50 minutes in the coordination of the patient's discharge including bedside counselling, physical exam, medication reconciliation, coordination of care with case management for new DME requirements Coding Level of Care Code 11986 INP/OBS DISCH >30 MIN Diagnoses Aspiration pneumonitis J69.0 Acute hypoxic respiratory failure J96.01 Laceration of occipital scalp S01.01XA Encounter type: initial encounter Alzheimer dementia without behavioral disturbance G30.9; F02.80 Ground-level fall W18.30XA Atrial fibrillation, unspecified type I48.91 Atrial fibrillation type: unspecified
== END 2025-07-08 17:22 | disposition home or self-care (01) | DRG 177 ==
LOC: ED 21:21 → INTOOBSV 07-06 00:45 → EDINP 07-06 00:45 → SUATTDRO 07-06 00:45 → 2N 07-06 02:29